=== PATIENT | female | born 1935 | race Caucasian/White ===

== ENCOUNTER → 2016-10-28 | Outpatient (CLI) | payer OTHER, BC ==
[~2016-10-28] MED LIST: AMLO2.5T PO; ASCA500 PO; ASCO500T16 PO; ASPEC325 PO; ASPI81TA28 PO; BIOT1TAB5 PO; CALC-459 PO; CALC500C3 PO; CARB1DRO22 OPB; CRAN500C2 PO; CYAN500T13 PO; DTRSR/2 PO; FRRG PO; GLCSC750600 PO; GLUC500C67 PO; MAGN250T22 PO; METO25TA56 PO; MULT-1092 PO; MULT-506 PO; OMEG12006 PO; VITA1TAB4 PO
--- NOTE | 2016-10-31 15:51 | MAMMOGRAPHY REPORT ---
BILATERAL DIGITAL SCREENING MAMMOGRAM WITH CAD: 10/28/2016 CLINICAL HISTORY: Routine screening. TECHNIQUE: Current study was also evaluated with a Computer Aided Detection (CAD) system. Bilateral CC and MLO views were obtained. COMPARISON: Comparison is made to exams dated: 06/12/2015 mammogram, 06/03/2013 mammogram, 05/21/2012 ma mmogram, 04/15/2011 mammogram, 04/13/2010 mammogram - [facility], and 06/12/2008. BREAST COMPOSITION: There are scattered areas of fibroglandular density in both breasts. FINDINGS: No suspicious masses, calcifications, or areas of architectural distortion are noted in ei ther breast. There has been no significant interval change compared to prior exams. IMPRESSION: ACR BI-RADS CATEGORY 1: NEGATIVE There is no mammographic evidence of malignancy. A 1 year screening mammogram is recommended. The pa tient will receive written notification of the results. Approximately 10% of breast cancers are not detected with mammography. A negative mammographic report should not delay biopsy if a clinically suggestive mass is present. Radha Thompson M.D. ah/:10/28/2016 16:14:59 Treatment Plant Operator: Jim SEVILLA(R)(M), [facility] letter sent: Normal 1/2 BI-RADS Code: ACR BI-RADS Category 1: Negative
== END | disposition home or self-care (01) ==
LOC: C.MAMM 14:43
PROVIDERS: ATTEND Family Medicine
DX: Z12.31 Encounter for screening mammogram for malignant neoplasm of breast (principal)

== ENCOUNTER 2016-11-26 19:56 | Observation (INO) | payer OTHER, BC ==
[~2016-11-26] VITALS: Ht 154.9 cm; Wt 79.9 kg
[~2016-11-26 19:56] MED LIST changes: -AMLO2.5T PO; -ASCO500T16 PO; -ASPI81TA28 PO; -CALC-459 PO; -DTRSR/2 PO; -GLUC500C67 PO; -METO25TA56 PO; -MULT-1092 PO
[2016-11-26 20:43] LABS: HEMATOCRIT 43.4 % (37-47); MEAN CELL VOLUME 91.8 fL (80-100); MEAN CORPUSCULAR HGB CONC 32.7 g/dl (32-36); MEAN PLATELET VOLUME 11.2 fL (7.4-10.4); PLATELET COUNT 208 K/uL (130-400); RED BLOOD COUNT 4.73 M/uL (4.2-5.4); WHITE BLOOD COUNT 9.25 K/uL (4.8-10.8)
[2016-11-26 20:50] LABS: PARTIAL THROMBOPLASTIN RATIO 0.9; PROTHROMBIN TIME (PATIENT) 10.2 SECONDS (9.0-12.0)
--- NOTE | 2016-11-26 21:06 | DIAGNOSTIC IMAGING REPORT ---
CHEST ONE VIEW PORTABLE HISTORY: 81 years-old Female syncope acute syncope COMPARISON: Chest radiograph 04/28/2014 TECHNIQUE: Portable upright AP view of the chest FINDINGS: Patient is rotated to the left. Cardiac silhouette is mildly enlarged. There is atherosclerosis of the aorta. Mild pulmonary vascular congestion without overt pulmonary edema. No pneumothorax, pleural effusion or focal airspace consolidation. Mild nodularity of the left midlung is seen suggesting pulmonary vasculature artifact. Convex right curvature of the thoracic spine is noted. IMPRESSION: No acute cardiopulmonary process. The above report was generated using voice recognition software. It may contain grammatical, syntax or spelling errors. Electronically signed by: Vini Adair M.D. 11/26/2016 9:04 PM Dictated Date/Time: 11/26/2016 9:01 PM
[2016-11-26 21:10] LABS: CALCIUM 9.5 mg/dl (8.5-10.1); CREATININE 1.2 mg/dl (0.60-1.20); THYROID STIMULATING HORMONE 7.62 uIu/ml (0.300-4.500)
[2016-11-26 21:11] LABS: BUN/CREATININE RATIO 22.3 (10-20); MAGNESIUM 2.2 mg/dl (1.8-2.4); POTASSIUM 4.4 mmol/L (3.5-5.1)
[2016-11-26] MEDS ORDERED: ASCO500T16 PO (21:30)
[2016-11-26] MEDS ORDERED: ASPI81TA28 PO (21:30)
[2016-11-26] MEDS ORDERED: CALC-459 PO (21:30)
[2016-11-26] MEDS ORDERED: AMLO2.5T PO (21:30)
[2016-11-26] MEDS ORDERED: MULT-1092 PO (21:30)
[2016-11-26] MEDS ORDERED: GLUC500C67 PO (21:30)
[2016-11-26] MEDS ORDERED: DTRSR/2 PO (21:30)
[2016-11-26] MEDS ORDERED: NSS + 20MEQ KCL 1000ML 1,000 ML IV SCH (21:46)
[2016-11-26 21:50] LABS: BASO % 0.2 %; BASO ABS # 0.02 K/uL (0-0.2); COMPLETE YES; EOS % 2.1 %; IG% 0.1 %; LYMPH % 55.2 %; LYMPH ABS # 5.11 K/uL (1.2-3.4); MONO % 9.5 %; NEUT % 32.9 %
[2016-11-26] MEDS ORDERED: ONDANSETRON INJ 2 MG/ML 2 ML VIAL IV PRN (22:00)
[2016-11-26] MEDS ORDERED: ACETAMINOPHEN 325 MG TAB PO PRN (22:00)
[2016-11-26 22:18] LABS: ALKALINE PHOSPHATASE 48 U/L (45-117); ALT/SGPT 29 U/L (12-78); AST/SGOT 24 U/L (15-37)
[2016-11-26] MEDS ORDERED: IV FLUIDS COMPLETED PRN (22:30)
[2016-11-26] MEDS ORDERED: GADAVIST IV PRN (22:45)
--- NOTE | 2016-11-26 23:28 | EMERGENCY ROOM VISIT NOTE ---
History Report prepared by Gauri: Sheyla Mercado Under the Supervision of: Dr. Paul Ni M.D. First contact with patient: 20:01 Stated Complaint: SYNCOPE, VOMITING History of Present Illness The patient is an 81 year old female who presents to the Emergency Room with complaints of an episode of syncope occurring just prior to arrival. Per EMS, the patient was eating dinner when she passed out and fell into her food. They state that she was mid-sentence when it happened. They report that when she came to she stated she vomited. They state she was only out momentarily. They state when they got there she had a blood pressure that was 200/100 something. They states that when she was on the way here she vomited again and her heart rate dropped to the 20s when she did so. The patient states that she felt fine all day. She denies trying new foods or traveling. She notes that she was not nauseous before passing out, but currently is. The patient currently feels lightheaded, but denies having this feeling before passing out. She denies feeling heart palpitations before it happened. She notes that she intermittently gets this back pain between her scapula, but has had it for years. She notes she took two Aleve for it. She denies fever, hematochezia, chest pain, and shortness of breath. The patient states that she felt clammy and diaphoretic when she first came to. She denies abdominal pain, numbness or weakness on one side of the body, and any incontinence. Her family denies seeing any seizure like activity. The patient denies leg pain and leg swelling. Per the son that was there, she was talking and started leaning forward. He reports she put her hands on the table and then slumped forward. He states that he walked around the table to help stabilize her. He reports that she said she was dizzy to him at this time. The son states all of sudden her legs went out from under her and she fell. He states that he was holding her the whole time and did not hit her head. He states that he then picked her up and sat her back in the chair with her son. He notes that she did not come to until she was in the chair and that right away she knew who he was and where she was. He denies noticing any seizure activity or mumbling. He notes she just seemed limp and then vomited a few minutes later. Source of History: patient, family, EMS Onset: prior to arrival Position: other (global) Quality: other (global) Timing: other (episode) Associated Symptoms: + diaphoresis, + nausea, + vomiting, No fevers, No chest pain, No SOB, No abdominal pain, No hematochezia, No weakness, No numbness Note: The patient complains of feeling lightheaded and clammy. The patient denies feeling any heart palpitations, incontinence, leg pain, and leg swelling. The son denies seeing seizure activity and the patient mumbling. Review of Systems See HPI for pertinent positives & negatives. A total of 10 systems reviewed and were otherwise negative. Past Medical & Surgical Medical Problems: (1) HTN (hypertension) (2) Syncope and collapse Family History Patient reports no known family medical history. Social History Smoking Status: Never Smoker Drug Use: cocaine Marital Status: Housing Status: lives alone Occupation Status: retired Current/Historical Medications Scheduled Amlodipine Besylate (Norvasc), 2.5 MG PO DAILY Ascorbic Acid (Ascorbic Acid), 500 MG PO DAILY Aspirin (Aspirin Ec), 81 MG PO DAILY Biotin (Biotin), 1,000 MCG PO DAILY Calcium Carbonate-Cholecalcife (Calcium 600+D 600-800 mg-Unit), 1 TAB PO BID Cranberry (Vaccinium Macrocarp (Cranberry), 500 MG PO DAILY Glucosamine-Chondroitin (Cosamin Ds), 2 CAP PO DAILY Multiple Vitamins W/ Minerals (Centrum Silver 50+Women), 1 TAB PO DAILY [place]-3 Fatty Acids ([place] 3), 125 MG PO DAILY Tolterodine Tartrate (Detrol LA), 2 MG PO HS Vitamin E (Vitamin E), 400 INTER.UNIT PO DAILY Allergies Coded Allergies: Sulfa Drugs (Verified Allergy, Mild, confusion, 05/27/14) per pt, 'sulfa drugs caused a coma, but i was never taken to the hospital' Penicillins (Verified Allergy, Unknown, RASH/NAUSEA, 05/27/14) Physical Exam Vital Signs Date Time Temp Pulse Resp B/P (MAP) Pulse Ox O2 Delivery O2 Flow Rate FiO2 11/26/16 22:59 77 18 148/80 95 Room Air 11/26/16 21:19 70 18 145/87 98 Room Air 11/26/16 21:04 74 11/26/16 20:31 93 Room Air 11/26/16 20:06 36.5 81 18 154/92 94 Room Air Physical Exam Constitutional: Vital signs reviewed. Eyes: Pupils are equal round reactive to light. Conjunctiva are noninjected. ENT: Pharynx is clear without erythema or exudate. Mucous membranes are moist. Neck supple without meningeal signs. Respiratory: Clear to auscultation bilaterally. Breath sounds are equal bilaterally. Cardiovascular: Regular rate and rhythm. No rubs or gallops. No carotid bruits. GI: Soft, nondistended and nontender. Bowel sounds are present. Musculoskeletal: No peripheral edema. No lower extremity tenderness. Integumentary: No cyanosis. Neurological: The patient is awake and alert. Cranial nerves II-XII are intact. Motor is 5 out of 5 all extremities. Sensation is intact to light touch all extremities. Normal speech. No pronator drift. Psychiatric: Normal affect. Medical Decision & Procedures ER Provider Diagnostic Interpretation: Radiology results as stated below per my review and the radiologist's interpretation: CHEST ONE VIEW PORTABLE HISTORY: 81 years-old Female syncope acute syncope COMPARISON: Chest radiograph 04/28/2014 TECHNIQUE: Portable upright AP view of the chest FINDINGS: Patient is rotated to the left. Cardiac silhouette is mildly enlarged. There is atherosclerosis of the aorta. Mild pulmonary vascular congestion without overt pulmonary edema. No pneumothorax, pleural effusion or focal airspace consolidation. Mild nodularity of the left midlung is seen suggesting pulmonary vasculature artifact. Convex right curvature of the thoracic spine is noted. IMPRESSION: No acute cardiopulmonary process. The above report was generated using voice recognition software. It may contain grammatical, syntax or spelling errors. Electronically signed by: Vini Adair M.D. 11/26/2016 9:04 PM Dictated Date/Time: 11/26/2016 9:01 PM Laboratory Results 11/26/16 19:43 Red Blood Count 4.73, Mean Corpuscular Volume 91.8, Mean Corpuscular Hemoglobin 30.0, Mean Corpuscular Hemoglobin Concent 32.7, Mean Platelet Volume 11.2, Neutrophils (%) (Auto) 32.9, Lymphocytes (%) (Auto) 55.2, Monocytes (%) (Auto) 9.5, Eosinophils (%) (Auto) 2.1, Basophils (%) (Auto) 0.2, Neutrophils # (Auto) 3.04, Lymphocytes # (Auto) 5.11, Monocytes # (Auto) 0.88, Eosinophils # (Auto) 0.19, Basophils # (Auto) 0.02 11/26/16 19:43 Test 11/26/16 19:43 11/26/16 20:35 White Blood Count 9.25 K/uL (4.8-10.8) Red Blood Count 4.73 M/uL (4.2-5.4) Hemoglobin 14.2 g/dL (12.0-16.0) Hematocrit 43.4 % (37-47) Mean Corpuscular Volume 91.8 fL (80-100) Mean Corpuscular Hemoglobin 30.0 pg (25-34) Mean Corpuscular Hemoglobin Concent 32.7 g/dl (32-36) Platelet Count 208 K/uL (130-400) Mean Platelet Volume 11.2 fL (7.4-10.4) Neutrophils (%) (Auto) 32.9 % Lymphocytes (%) (Auto) 55.2 % Monocytes (%) (Auto) 9.5 % Eosinophils (%) (Auto) 2.1 % Basophils (%) (Auto) 0.2 % Neutrophils # (Auto) 3.04 K/uL (1.4-6.5) Lymphocytes # (Auto) 5.11 K/uL (1.2-3.4) Monocytes # (Auto) 0.88 K/uL (0.11-0.59) Eosinophils # (Auto) 0.19 K/uL (0-0.5) Basophils # (Auto) 0.02 K/uL (0-0.2) RDW Standard Deviation 44.5 fL (36.4-46.3) RDW Coefficient of Variation 13.3 % (11.5-14.5) Immature Granulocyte % (Auto) 0.1 % Immature Granulocyte # (Auto) 0.01 K/uL (0.00-0.02) Prothrombin Time 10.2 SECONDS (9.0-12.0) Prothromb Time International Ratio 1.0 (0.9-1.1) Activated Partial Thromboplast Time 23.0 SECONDS (21.0-31.0) Partial Thromboplastin Ratio 0.9 Anion Gap 8.0 mmol/L (3-11) Est Creatinine Clear Calc Drug Dose 34.5 ml/min Estimated GFR () 48.4 Estimated GFR (Non- 41.8 BUN/Creatinine Ratio 22.3 (10-20) Calcium Level 9.5 mg/dl (8.5-10.1) Magnesium Level 2.2 mg/dl (1.8-2.4) Total Bilirubin 0.3 mg/dl (0.2-1) Direct Bilirubin < 0.1 mg/dl (0-0.2) Aspartate Amino Transf (AST/SGOT) 24 U/L (15-37) Alanine Aminotransferase (ALT/SGPT) 29 U/L (12-78) Alkaline Phosphatase 48 U/L (45-117) Total Protein 7.7 gm/dl (6.4-8.2) Albumin 4.2 gm/dl (3.4-5.0) Thyroid Stimulating Hormone (TSH) 7.620 uIu/ml (0.300-4.500) Free Thyroxine 1.00 ng/dl (0.80-1.60) Bedside Troponin I < 0.030 ng/ml (0-0.045) Laboratory results as reviewed by me. ECG Indication: syncope Rate (beats per minute): 75 Rhythm: sinus rhythm Findings: PAC, PVC, no acute ischemic change, other (no heart block) ED Course 2020: The patient was evaluated in room A10. A complete history and physical exam was performed. 2100: I spoke with Dr. Rodríguez. We discussed the patient and him results. The patient will be further evaluated by him. Medical Decision This is an 81-year-old female who presents with a single episode. Differential diagnosis includes dysrhythmia, bradycardia, seizure, metabolic derangement, vasovagal syncope, stomach hypertension, anemia. I did perform a limited focused review of portions of the patient's old chart on the electronic medical record. The patient had a carotid ultrasound in that showed minimal plaque formation. I did evaluate the patient as noted above. IV access was established. The patient was placed on a continuous telemetry monitor. I did order and personally review the patient's 12-lead EKG and chest x-ray as described above. The patient has PVCs and PACs on her twelve-lead EKG. No acute ischemia is noted. Her chest x-ray does not show evidence of widened mediastinum. I did order and review the patient's blood work as noted in the electronic medical record. Blood work is unremarkable other than an elevated TSH. Her free T3 is normal. I did recommend hospitalization for further evaluation of her symptoms. I did discuss case with the hospitalist and renal case manager. Medication Reconcilliation Current Medication List: was personally reviewed by me Blood Pressure Screening Patient's blood pressure: Elevated blood pressure Will be further monitored by the hospitalist. Consults Time Called: 2047 Consulting Physician: Dr. Rodríguez Returned Call: [address] Rodríguez. We discussed the patient and him results. The patient will be further evaluated by him. Impression Primary Impression: Syncope Additional Impression: Bradycardia Scribe Attestation The scribe's documentation has been prepared under my direct and personally reviewed by me in its entirety. I confirm that the note above accurately reflects all work, treatment, procedures, and medical decision making performed by me. Departure Information Dispostion Being Evaluated By Hospitalist Referrals Myla Schulz M.D. (PCP) Problem Qualifiers Primary Impression: Syncope Syncope type: unspecified Qualified Codes: R55 - Syncope and collapse
[2016-11-27] VITALS (7 sets, daily range): BP systolic 152–179; BP diastolic 52–92; PULSE 62–78; TEMP 36.3–36.9; O2SAT 93–98; Ht 154.9 cm; Wt 79.9 kg
[2016-11-27] MEDS: NSS + 20MEQ KCL 1000ML 1,000 ML IV SCH ×2 (01:07→14:04)
--- NOTE | 2016-11-27 02:18 | History and Physical ---
History & Physical Date & Time of Service: Nov 27, 2016 at 01:58 Chief Complaint: Syncope And Collapse Primary Care Physician: Myla Schulz M.D. History of Present Illness Source: patient, family The patient is an 81-year-old female presents emergency department with a syncopal episode that occurred while at dinner tonight, just prior to arrival. Family reports that she was in mid sentence when it happened, and when she came to she vomited. EMS reports that her blood pressure was 200/100 upon their arrival and that while she was on her way to the hospital she vomited again and her heart rate dropped to 27 that time. The patient reports that she had felt her usual self prior to this event. Her main symptom at this time is primarily feeling woozy. She has chronic interscapular pain which is unchanged. She did not have any loss of bowel or bladder function during this event. Family reports no seizure-like activity, did not have loss of bowel or bladder control , and did not have any characteristic symptoms of a post ictal state. Family History Patient reports no known family medical history. Social History Smoking Status: Never Smoker Smokeless Tobacco Use: No Alcohol Use: none Drug Use: cocaine Marital Status: Occupational Status: retired Immunizations History of Influenza Vaccine: Unknown History of Tetanus Vaccine?: Unknown History of Pneumococcal: Unknown History of Hepatitis B Vaccine: Unknown Multi-Drug Resistant Organisms History of MDRO: No Allergies Coded Allergies: Sulfa Drugs (Verified Allergy, Mild, confusion, 05/27/14) per pt, 'sulfa drugs caused a coma, but i was never taken to the hospital' Penicillins (Verified Allergy, Unknown, RASH/NAUSEA, 05/27/14) Home Medications Scheduled Amlodipine Besylate (Norvasc), 2.5 MG PO DAILY Ascorbic Acid (Ascorbic Acid), 500 MG PO DAILY Aspirin (Aspirin Ec), 81 MG PO DAILY Biotin (Biotin), 1,000 MCG PO DAILY Calcium Carbonate-Cholecalcife (Calcium 600+D 600-800 mg-Unit), 1 TAB PO BID Cranberry (Vaccinium Macrocarp (Cranberry), 500 MG PO DAILY Glucosamine-Chondroitin (Cosamin Ds), 2 CAP PO DAILY Multiple Vitamins W/ Minerals (Centrum Silver 50+Women), 1 TAB PO DAILY [place]-3 Fatty Acids ([place] 3), 125 MG PO DAILY Tolterodine Tartrate (Detrol LA), 2 MG PO HS Vitamin E (Vitamin E), 400 INTER.UNIT PO DAILY Review of Systems The patient denies chest pain, palpitations, shortness of breath, cough, lower extremity swelling, vision change, hearing change, sore throat, fevers, chills, sweats, weight change, diarrhea or constipation, abdominal pain, pelvic pain, blood in urine or stool, dysuria, urinary frequency or urgency, headache, rash , abnormal bruising or bleeding, imbalance, focal weakness, numbness or tingling in arms or legs, generalized arthralgias or myalgias, or night sweats. The review of systems is otherwise negative other than for that already noted above, and at least 10 systems have been reviewed. Physical Exam Vital Signs Date Time Temp Pulse Resp B/P (MAP) Pulse Ox O2 Delivery O2 Flow Rate FiO2 11/27/16 01:23 Room Air 11/27/16 00:30 36.3 78 18 152/83 95 Room Air 11/26/16 22:59 77 18 148/80 95 Room Air 11/26/16 21:19 70 18 145/87 98 Room Air 11/26/16 21:04 74 11/26/16 20:31 93 Room Air 11/26/16 20:06 36.5 81 18 154/92 94 Room Air The patient is awake, well-developed and adequately nourished, alert and oriented 3, normocephalic and atraumatic, lying in bed and in no acute distress. HEENT--PERRL, EOMI, mucous membranes and oropharynx dry. Neck--supple, no JVD or bruits, thyroid normal, trachea midline, no adenopathy. Heart--normal S1 and S2, no extra beats, no murmurs, rubs or gallops. Lungs--clear bilaterally with good air movement, no respiratory distress, no accessory muscle use. Abdomen--normal bowel sounds and soft, nontender and nondistended, no hernias or masses, no organomegaly. Extremities--no cyanosis, clubbing or edema. There are good distal pulses b/l. Dermatologic--normal skin turgor, normal color, warm and dry, no abnormal lymph nodes, no rash. Neurologic--cranial nerves II through XII grossly intact, motor and sensory examination normal. Rheumatologic--normal range of motion, nontender, muscles and joints. Psychiatric--normal affect. Diagnostics Laboratory Results Results Past 24 Hours Test 11/26/16 19:43 11/26/16 20:35 Range/Units White Blood Count 9.25 4.8-10.8 K/uL Red Blood Count 4.73 4.2-5.4 M/uL Hemoglobin 14.2 12.0-16.0 g/dL Hematocrit 43.4 37-47 % Mean Corpuscular Volume 91.8 80-100 fL Mean Corpuscular Hemoglobin 30.0 25-34 pg Mean Corpuscular Hemoglobin Concent 32.7 32-36 g/dl Platelet Count 208 130-400 K/uL Mean Platelet Volume 11.2 7.4-10.4 fL Neutrophils (%) (Auto) 32.9 % Lymphocytes (%) (Auto) 55.2 % Monocytes (%) (Auto) 9.5 % Eosinophils (%) (Auto) 2.1 % Basophils (%) (Auto) 0.2 % Neutrophils # (Auto) 3.04 1.4-6.5 K/uL Lymphocytes # (Auto) 5.11 1.2-3.4 K/uL Monocytes # (Auto) 0.88 0.11-0.59 K/uL Eosinophils # (Auto) 0.19 0-0.5 K/uL Basophils # (Auto) 0.02 0-0.2 K/uL RDW Standard Deviation 44.5 36.4-46.3 fL RDW Coefficient of Variation 13.3 11.5-14.5 % Immature Granulocyte % (Auto) 0.1 % Immature Granulocyte # (Auto) 0.01 0.00-0.02 K/uL Prothrombin Time 10.2 9.0-12.0 SECONDS Prothromb Time International Ratio 1.0 0.9-1.1 Activated Partial Thromboplast Time 23.0 21.0-31.0 SECONDS Partial Thromboplastin Ratio 0.9 Sodium Level 141 136-145 mmol/L Potassium Level 4.4 3.5-5.1 mmol/L Chloride Level 107 98-107 mmol/L Carbon Dioxide Level 26 21-32 mmol/L Anion Gap 8.0 3-11 mmol/L Blood Urea Nitrogen 27 7-18 mg/dl Creatinine 1.20 0.60-1.20 mg/dl Est Creatinine Clear Calc Drug Dose 34.5 ml/min Estimated GFR () 48.4 Estimated GFR (Non- 41.8 BUN/Creatinine Ratio 22.3 10-20 Random Glucose 121 70-99 mg/dl Calcium Level 9.5 8.5-10.1 mg/dl Magnesium Level 2.2 1.8-2.4 mg/dl Total Bilirubin 0.3 0.2-1 mg/dl Direct Bilirubin < 0.1 0-0.2 mg/dl Aspartate Amino Transf (AST/SGOT) 24 15-37 U/L Alanine Aminotransferase (ALT/SGPT) 29 12-78 U/L Alkaline Phosphatase 48 45-117 U/L Total Protein 7.7 6.4-8.2 gm/dl Albumin 4.2 3.4-5.0 gm/dl Thyroid Stimulating Hormone (TSH) 7.620 0.300-4.500 uIu/ml Free Thyroxine 1.00 0.80-1.60 ng/dl Bedside Troponin I < 0.030 0-0.045 ng/ml Diagnostic Radiology Patient Name: VIKTOR LYLE Unit Number: [id number] Dictated: 11/26/162100 Transcribed: 11/26/162100 [facility] Printed Date/Time: [~ rep prt dt]/[~ rep prt tm] [~ rep ct labl] - [~ rep ct ivnm] [facility] [place] [address] Dictated: 11/26/162100 Transcribed: 11/26/162100 [facility] Printed Date/Time: [~ rep prt dt]/[~ rep prt tm] [~ rep ct labl] - [~ rep ct ivnm] CHEST ONE VIEW PORTABLE HISTORY: 81 years-old Female syncope acute syncope COMPARISON: Chest radiograph 04/28/2014 TECHNIQUE: Portable upright AP view of the chest FINDINGS: Patient is rotated to the left. Cardiac silhouette is mildly enlarged. There is atherosclerosis of the aorta. Mild pulmonary vascular congestion without overt pulmonary edema. No pneumothorax, pleural effusion or focal airspace consolidation. Mild nodularity of the left midlung is seen suggesting pulmonary vasculature artifact. Convex right curvature of the thoracic spine is noted. IMPRESSION: No acute cardiopulmonary process. The above report was generated using voice recognition software. It may contain grammatical, syntax or spelling errors. Electronically signed by: Vini Adair M.D. 11/26/2016 9:04 PM Dictated Date/Time: 11/26/2016 9:01 PM The status of this report is Signed. Draft = Not yet reviewed or approved by Radiologist. Signed = Reviewed and approved by Radiologist. <AttendingPhy></AttendingPhy> <FamilyPhy>Myla Schulz M.D.</FamilyPhy> < PrimaryPhy>Myla Schulz M.D.</PrimaryPhy> <UnitNumber>[id number]</UnitNumber > <VisitNumber>[id number]</VisitNumber> <PatientName>VALDOVIKTOR Ray</ PatientName> <DateOfBirth>1935</DateOfBirth> <Location>[facility]</Location> < ServiceDate>11/26/16</ServiceDate> <MNE>ESINDI</MNE> <OrderingPhy>Paul Ni MD</OrderingPhy> <OrderingPhyMNE>f rep ord dr de guzman</OrderingPhyMNE> < DictatingPhyMNE>f rep dict dr de guzman</DictatingPhyMNE> <CCListMNE>f rep ct gege</ CCListMNE> <AdmittingPhyMNE>f pt admit dr de guzman</AdmittingPhyMNE> <AttendingPhyMNE >f pt attend dr de guzman</AttendingPhyMNE> <ConsultingPhyMNE>f pt consult dr de guzman</ConsultingPhyMNE> <FamilyPhyMNE>f pt fam dr de guzman</FamilyPhyMNE> <OtherPhyMNE>f pt other dr de guzman</OtherPhyMNE> < PrimaryPhyMNE>f pt prim care dr de guzman</PrimaryPhyMNE> <ReferringPhyMNE>f pt referring dr de guzman</ReferringPhyMNE> EKG EKG shows normal sinus rhythm at 75 bpm, marked sinus arrhythmia, PVCs, no acute ST-T changes. Impression Assessment and Plan Syncope and collapse-- The patient will be admitted to telemetry for serial cardiac enzymes, cardiac rhythm monitoring and a 2-D echocardiogram with Dopplers. No CT of head performed in the ED. Order MRI brain combo, MRA of neck combo, and an MRA of head without contrast. Continue amlodipine 2.5 mg by mouth daily, and enteric-coated aspirin 81 mg by mouth daily. Urinary Bladder spasm-- Continue Detrol LA 2 mg by mouth at bedtime. Nutraceuticals-- Continue ascorbic acid, biotin, calcium, cranberry, glucosamine/chondroitin, multivitamin with minerals, omega-3 fatty acids and vitamin E. Level of Care Telemetry Advanced Directives Existing Advance Directive: Yes Existing Living Will: Yes Existing Power of Director Funds Development: Yes Resuscitation Status FULL RESUSCITATION VTE Prophylaxis VTE Risk Assessment Done? Y/N: Yes Risk Level: Moderate Given or contraindicated: SCD's Social Service Consult None Apply
--- NOTE | 2016-11-27 05:51 | DIAGNOSTIC IMAGING REPORT ---
MRA HEAD WITHOUT CONTRAST CLINICAL HISTORY: 81 years-old Female presenting with decreased consciousness with fall to the floor, and needs to upper and, slightly nauseated. TECHNIQUE: MR angiography of the head was performed without the use of intravenous contrast using 3-D [id number]-[id number] technique. 3-D volumetric and/or maximum intensity projection (MIP) images were subsequently reconstructed for review. IV contrast: None.. COMPARISON: None. FINDINGS: Anterior circulation demonstrates mild focal narrowing of the left supraclinoid internal carotid artery (less than 50% narrowing) with a patent left carotid artery terminus. The intracranial portion of the right internal carotid artery is patent. Relative hypoplasia of the A1 segment of the left anterior cerebral artery. Bilateral middle and anterior cerebral arteries patent. Anterior communicating artery patent. Posterior circulation demonstrates codominant vertebral arteries. Basilar, superior cerebellar, and posterior cerebral arteries patent. Poor visualization or hypoplasia/aplasia of the bilateral posterior communicating arteries. IMPRESSION: 1. Mild narrowing of the left supraclinoid ICA. No other significant stenosis. No significant aneurysm or focal vessel occlusion. Electronically signed by: Griffin Rutherford M.D. 11/27/2016 5:50 AM Dictated Date/Time: 11/27/2016 5:44 AM
--- NOTE | 2016-11-27 05:57 | DIAGNOSTIC IMAGING REPORT ---
BRAIN COMBO CLINICAL HISTORY: 81 years-old Female presenting with decreased consciousness with fall to floor, amnesia of event, slightly nauseated. TECHNIQUE: Multisequence, multiplanar MR imaging of the brain was performed before and after the administration of intravenous contrast. IV contrast: 8 mL of Gadavist. COMPARISON: 04/24/2013. FINDINGS: Proportional ventricular and sulcal prominence, likely age-related parenchymal volume loss. Periventricular and subcortical white matter T2/FLAIR hyperintensity, nonspecific but likely indicative of chronic small vessel ischemic change. No mass effect or midline shift. No restricted diffusion to suggest acute ischemia. No hemorrhage. No extra-axial fluid collection. T2 skull base flow voids preserved. Bone marrow signal intensity within the calvarium within normal limits. Mild mucosal thickening in the maxillary sinuses. Bilateral galena lenses of the globes are absent. IMPRESSION: 1. Chronic small vessel ischemic change. No acute intracranial abnormality. No abnormal enhancement. Electronically signed by: Griffin Rutherford M.D. 11/27/2016 5:55 AM Dictated Date/Time: 11/27/2016 5:50 AM
--- NOTE | 2016-11-27 06:04 | DIAGNOSTIC IMAGING REPORT ---
MRA NECK COMBO CLINICAL HISTORY: 81 years-old Female presenting with decreased consciousness with fall to the floor, amnesia of event, slightly nauseated. TECHNIQUE: MR angiography of the neck was performed before and after the administration of intravenous contrast. 3-D volumetric and/or maximum intensity projection (MIP) images were subsequently reconstructed for review. IV contrast: 8 mL of Gadavist. Stenosis measurements were based on NASCET-like criteria. COMPARISON: Ultrasound from 03/22/2013. FINDINGS: Three-vessel aortic arch with patent origins of the major branch vessels. Right common carotid artery patent. Right internal carotid artery patent. Left common carotid artery with atherosclerosis of the carotid bulb with resultant mild narrowing (less than 50%). Left internal carotid artery slightly tortuous but patent. Limited intracranial evaluation of the anterior circulation demonstrates mild stenosis of the supraclinoid left ICA and otherwise patent arteries. Right vertebral artery patent at its origin and along its course. Left vertebral artery also patent at its origin and throughout its course though demonstrating atherosclerotic luminal irregularity in the intracranial portion. Codominant vertebral arteries. Limited intracranial evaluation of the posterior circulation demonstrates mild atherosclerosis of the basilar artery. IMPRESSION: 1. 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 Mild atherosclerotic irregularity of the intracranial portion of the left vertebral artery. No significant stenosis of the cervical vessels. Electronically signed by: Griffin Rutherford M.D. 11/27/2016 6:03 AM Dictated Date/Time: 11/27/2016 5:56 AM
[2016-11-27 06:56] LABS: PROTHROMBIN TIME (PATIENT) 10.6 SECONDS (9.0-12.0)
[2016-11-27 07:04] LABS: BASO % 0.2 %; BASO ABS # 0.01 K/uL (0-0.2); COMPLETE YES; EOS % 1.4 %; HEMATOCRIT 38.4 % (37-47); IG% 0.2 %; LYMPH % 30.4 %; LYMPH ABS # 1.68 K/uL (1.2-3.4); MEAN CELL VOLUME 92.8 fL (80-100); MEAN CORPUSCULAR HGB CONC 32.3 g/dl (32-36); MEAN PLATELET VOLUME 9.6 fL (7.4-10.4); MONO % 9.8 %; PLATELET COUNT 210 K/uL (130-400); RED BLOOD COUNT 4.14 M/uL (4.2-5.4); WHITE BLOOD COUNT 5.52 K/uL (4.8-10.8)
[2016-11-27] MEDS ORDERED: PERFLUTREN LIPID MICROSPHERE (DEFINITY) IV ONE (07:09)
[2016-11-27 07:23] LABS: CKMB/CK RATIO 1.7 (0-3.0)
[2016-11-27 07:25] LABS: BUN/CREATININE RATIO 24.8 (10-20); CALCIUM 8.3 mg/dl (8.5-10.1); CREATININE 0.86 mg/dl (0.60-1.20); MAGNESIUM 2.2 mg/dl (1.8-2.4)
--- NOTE | 2016-11-27 08:10 | Family Medicine Progress Note ---
Progress Note Date of Service Nov 27, 2016. Objective Vital Signs Date Time Temp Pulse Resp B/P (MAP) Pulse Ox O2 Delivery O2 Flow Rate FiO2 11/27/16 07:57 36.7 74 16 161/92 (115) 93 Room Air 11/27/16 04:45 36.4 69 20 156/81 (106) 94 Room Air 11/27/16 04:00 Room Air 11/27/16 01:23 Room Air 11/27/16 00:30 36.3 78 18 152/83 95 Room Air 11/26/16 22:59 77 18 148/80 95 Room Air 11/26/16 21:19 70 18 145/87 98 Room Air 11/26/16 21:04 74 11/26/16 20:31 93 Room Air 11/26/16 20:06 36.5 81 18 154/92 94 Room Air Resident Tracking Resident Involvement: Resident Care Provided Care Provided: Adult Hospital Medicine
[2016-11-27 08:57] LABS: MANUAL MICROSCOPIC REQUIRED? NO; REVIEW REQ? NO; URINE APPEARANCE CLOUDY (CLEAR); URINE BILIRUBIN NEG (NEG); URINE COLOR YELLOW; URINE EPITHELIAL CELL AUTO >30 /lpf (0-5); URINE NITRITE POS (NEG); URINE PH 7.5 (4.5-7.5); URINE SPECIFIC GRAVITY 1.021 (1.000-1.030); UROBILINOGEN NEG (NEG); ZZUR CULT IF INDIC CLEAN CATCH YES
[2016-11-27] MEDS ORDERED: GLUCOSAMINE CHONDROITIN PO SCH (09:00)
[2016-11-27] MEDS ORDERED: ASCORBIC ACID 500 MG TAB PO SCH (09:00)
[2016-11-27] MEDS ORDERED: ENOXAPARIN 40 MG/0.4 ML SYR SC SCH (09:00)
[2016-11-27] MEDS ORDERED: ASPIRIN 81 MG ECTAB PO SCH (09:00)
[2016-11-27] MEDS ORDERED: AMLODIPINE BESYLATE 5 MG TAB PO SCH (09:00)
[2016-11-27] MEDS ORDERED: CALCIUM 600MG + VIT D 400 IU TAB PO SCH (09:00)
[2016-11-27] MEDS ORDERED: CEROVITE ADV FORMULA TAB PO SCH (09:00)
[2016-11-27] MEDS ORDERED: TOCOPHERYL, DL-ALPHA 400 INTER.UNIT CAP PO SCH (09:00)
[2016-11-27] MEDS ORDERED: OMEGA-3 (PURIFIED FISH OIL) 1 GM CAP PO SCH (09:00)
[2016-11-27] MEDS ORDERED: NON-FORMULARY MEDICATION (Cranberry (Vaccinium Macrocarp (Cranberry) 500 MG) PO SCH (09:00)
[2016-11-27] MEDS ORDERED: NON-FORMULARY MEDICATION (Biotin 1,000 MCG) PO SCH (09:00)
--- NOTE | 2016-11-27 09:46 | ECHOCARDIOGRAM REPORT ---
*NOTICE TO RECEIVING LIBERTARIAN AGENCY This information is strictly Confidential and protected under [place] law. [place] law prohibits you from making any further disclosure of this information unless further disclosure is expressly permitted by the written consent of the person to whom it pertains or is authorized by law. A general authorization for the release of medical or other information is not sufficient for this purpose. Hospital accepts no responsibility if the information is made available to any other person, INCLUDING THE PATIENT. Interpretation Summary * Name: VIKTOR LYLE Study Date: 11/27/2016 06:27 AM BP: 156/81 mmHg * Patient Location: C.2T\S\S241\S\2 HR: 68 * : 1935 (M/d/yy) Gender: Female Height: 61 in * Age: 81 yrs Ethnicity: CA Weight: 180 lb * Ordering Physician: Bhavin Rodríguez * Referring Physician: Self, Referred * Performed By: Doni Benedict RDCS * * Reason For Study: Hypertension, syncope * BSA: 1.8 m2 * -- Conclusions -- * The left ventricle is mildly dilated. * There is borderline concentric left ventricular hypertrophy. * Left ventricular systolic function is normal. * Grade I diastolic dysfunction, (abnormal relaxation pattern). * There are regional wall motion abnormalities as specified. * The left atrium is borderline dilated. Procedure Details * A complete two-dimensional transthoracic echocardiogram was performed (2D, M-mode, Doppler and color flow Doppler). * The study was technically difficult. * The study was technically difficult, but visualization was adequate with the administration of Definity ultrasound contrast. * A contrast injection of Definity was performed to improve assessment of LV function. * Contrast was injected into an intravenous site in the left arm. * One vial of Definity ultrasound contrast was diluted in normal saline to a total volume of 10 ml. A total of '4' ml of solution was administered during imaging. * Lot # [id number] of Definity utilized for procedure. * Expiration date . * The attending nurse who injected the contrast agent was KATY Arboleda. Left Ventricle * The left ventricle is mildly dilated. * There is borderline concentric left ventricular hypertrophy. * Left ventricular systolic function is normal. * Ejection Fraction = 55-60%. * Grade I diastolic dysfunction, (abnormal relaxation pattern). * There are regional wall motion abnormalities as specified. * There is basal inferior hypokinesis and mild hypokinesis of the very distal anterolateral left ventricle. Right Ventricle * The right ventricle is normal in size and function. * The right ventricular systolic function is normal as assessed by tricuspid annular plane systolic excursion (TAPSE) (normal >1.5 cm). Atria * The left atrium is borderline dilated. * Right atrial size is normal. Mitral Valve * The mitral valve is grossly normal. * Significant mitral regurgitation is absent. Tricuspid Valve * The tricuspid valve is not well visualized, but is grossly normal. * Significant tricuspid regurgitation is absent. Aortic Valve * Aortic valve structure appears normal and is likely trileaflet * No hemodynamically significant valvular aortic stenosis. * No aortic regurgitation is present. Great Vessels * The aortic root is normal size. Pericardium/Pleural * There is no pericardial effusion. Great Vessels * Normal inferior vena cava diameter and respiratory variation suggests normal central venous pressure. MMode 2D Measurements and Calculations IVSd 1.2 cm IVSs 1.4 cm LVIDd 5.5 cm LVIDs 4.0 cm LVPWd 1.2 cm LVPWs 1.4 cm IVS/LVPW 1.0 FS 26.2 % EDV(Teich) 145.8 ml ESV(Teich) 71.6 ml EF(Teich) 50.9 % EDV(cubed) 164.0 ml ESV(cubed) 65.8 ml EF(cubed) 59.9 % % IVS thick 18.5 % % LVPW thick 20.2 % LV mass(C)d 261.4 grams LV mass(C)dI 144.7 grams/m\S\2 LV mass(C)s 211.2 grams LV mass(C)sI 116.9 grams/m\S\2 SV(Teich) 74.2 ml SI(Teich) 41.1 ml/m\S\2 SV(cubed) 98.2 ml SI(cubed) 54.4 ml/m\S\2 Ao root diam 2.8 cm Ao root area 6.1 cm\S\2 ACS 1.8 cm LA dimension 4.0 cm asc Aorta Diam 3.2 cm LA/Ao 1.4 LVOT diam 2.0 cm LVOT area 3.1 cm\S\2 LVAd ap4 27.5 cm\S\2 LVLd ap4 7.5 cm EDV(MOD-sp4) 82.5 ml LVAs ap4 16.3 cm\S\2 LVLs ap4 6.1 cm ESV(MOD-sp4) 36.1 ml EF(MOD-sp4) 56.2 % LVAd ap2 23.5 cm\S\2 LVLd ap2 7.4 cm EDV(MOD-sp2) 61.8 ml LVAs ap2 14.2 cm\S\2 LVLs ap2 6.0 cm ESV(MOD-sp2) 27.4 ml EF(MOD-sp2) 55.7 % SV(MOD-sp4) 46.4 ml SI(MOD-sp4) 25.7 ml/m\S\2 SV(MOD-sp2) 34.4 ml SI(MOD-sp2) 19.0 ml/m\S\2 Doppler Measurements and Calculations MV E max zoe 74.7 cm/sec MV A max zoe 89.7 cm/sec MV E/A 0.83 MV dec time 0.18 sec Ao V2 max 119.3 cm/sec Ao max PG 5.7 mmHg Ao max PG (full) 3.8 mmHg MELVI(V,A) 1.8 cm\S\2 MELVI(V,D) 1.8 cm\S\2 LV V1 max PG 1.9 mmHg LV V1 max 68.4 cm/sec PA V2 max 112.9 cm/sec PA max PG 5.1 mmHg
[2016-11-27 14:54] LABS: CKMB/CK RATIO 2.1 (0-3.0)
[2016-11-27] MEDS ORDERED: METO25TA56 PO (16:27)
--- NOTE | 2016-11-27 16:40 | Discharge Instructions ---
Discharge Instructions Date of Service Nov 27, 2016. Admission Reason for Admission: Syncope And Collapse Discharge Discharge Diagnosis / Problem: Syncopal event Discharge Goals Goal(s): Decrease discomfort, Learn about illness, Diagnostic testing Activity Recommendations Activity Limitations: resume your previous activity . Instructions / Follow-Up Instructions / Follow-Up You were admitted to hospital with a syncopal (fainting) event. EKG showed a grossly normal rhythm. MRI imaging was done of the brain was negative for any acute disease. MRI imaging of the head and neck showed mild plaque disease, which again would not account for the fainting. Echo of the heart did show a small portion at the bottom of the heart, which was not moving as well as it should have. As you remained asymptomatic through out your admission, and as your cardiac enzymes did not show us there was any recent damage to your heart, it is deemed that it is adequately safe to proceed with your work up on an out patient basis. We recommend follow up with your PCP, Dr. Schulz some time this week. A consult has been put in for the pipe blanks cut off saw operator, Dr. Spence to also see you this week. At the same time, a request for a event monitor has also been placed. If you do not hear with regards to appointments for these three things by tomorrow afternoon, please call the hospital back to follow up. At time of discharge, Metoprolol 12.5mg has been added to your medication for cardioprotective reasons. If you experience any side effects of the medication ( dizziness/lightheadedness), please stop the medication immediately. If you are tolerating it well, you may discuss switching to twice daily with either Dr. Schulz or Dr. Spence. You may resume all your regular home medications. Thank you for allowing us to participate in your care. Current Hospital Diet Patient's current hospital diet: AHA Diet (Heart Healthy) Discharge Diet Recommended Diet: AHA Diet (Heart Healthy) Pending Studies Studies pending at discharge: no Medical Emergencies . Who to Call and When: Medical Emergencies: If at any time you feel your situation is an emergency, please call 911 immediately. . Non-Emergent Contact Non-Emergency issues call your: Primary Care Provider, Screen Printer . . "Provider Documentation" section prepared by Asuncion Abreu. . VTE Core Measure Inpt VTE Proph given/why not?: SCD's
--- NOTE | 2016-11-27 16:41 | Discharge Instructions ---
Discharge Instructions Date of Service Nov 27, 2016. Admission Reason for Admission: Syncope And Collapse Activity Recommendations . Current Hospital Diet Patient's current hospital diet: AHA Diet (Heart Healthy) Medical Emergencies . Who to Call and When: Medical Emergencies: If at any time you feel your situation is an emergency, please call 911 immediately. . Non-Emergent Contact . . "Provider Documentation" section prepared by Asuncion Abreu. . VTE Core Measure Inpt VTE Proph given/why not?: SCD's
--- NOTE | 2016-11-27 18:29 | Discharge Summary ---
Discharge Summary Date of Service Nov 27, 2016. (Alka. Abreu MD) Discharge Summary Admission Date: Nov 26, 2016 at 21:54 Discharge Date: Nov 27, 2016 Discharge Disposition: Home Principal Diagnosis: Syncope Immunizations: Have You Had Influenza Vaccine: Unknown History of Tetanus Vaccine?: Unknown History of Pneumococcal: Unknown History of Hepatitis B Vaccine: Unknown (Alka. Abreu MD) Medication Reconciliation New Medications: Metoprolol Tartrate (Lopressor) (Lopressor) 25 Mg Tab 0.5 TAB PO DAILY for 30 Days, #15 TAB 2 Refills Start with half tablet daily. If tolerating well (no lightheaded/dizzy), discuss switch to twice daily with physician. Continued Medications: Amlodipine Besylate (Norvasc) 2.5 Mg Tab 2.5 MG PO DAILY, TAB Ascorbic Acid (Ascorbic Acid) 500 Mg Tab 500 MG PO DAILY, TAB TAKE THIS MEDICATION AFTER LUNCH Aspirin (Aspirin Ec) 81 Mg Tab 81 MG PO DAILY TAKE THIS MEDICATION AFTER LUNCH Biotin (Biotin) 1,000 Mcg Tab 1000 MCG PO DAILY TAKE THIS MEDICATION AFTER LUNCH Calcium Carbonate-Cholecalcife (Calcium 600+D 600-800 mg-Unit) 1 Tab Tab 1 TAB PO BID Cranberry (Vaccinium Macrocarp (Cranberry) 500 Mg Cap 500 MG PO DAILY TAKE THIS MEDICATION AFTER LUNCH Glucosamine-Chondroitin (Cosamin Ds) 1 Cap Cap 2 CAP PO DAILY TAKE THIS MEDICATION AFTER LUNCH Multiple Vitamins W/ Minerals (Centrum Silver 50+Women) 1 Tab Tab 1 TAB PO DAILY TAKE THIS MEDICATION AFTER LUNCH [place]-3 Fatty Acids ([place] 3) 1 Cap Cap 125 MG PO DAILY TAKE THIS MEDICATION AFTER LUNCH Tolterodine Tartrate (Detrol LA) 2 Mg Capcr 2 MG PO HS, CAP Vitamin E (Vitamin E) 400 Unit Tab 400 INTER.UNIT PO DAILY TAKE THIS MEDICATION AFTER LUNCH Discharge Exam Patient well since admission, no recurrence of syncope or nausea or vomiting. She continues to deny chest pain, dyspnea, palpitations, heart racing, lightheadedness, or headaches. at this point she is offered both further inpatient workup or outpatient workup , she is most inclined to proceed with follow-up on an outpatient basis. Review of systems is unremarkable except as stated above. Patient is keen for home. Physical Exam: General Appearance: WD/WN, no apparent distress Eyes: normal inspection ENT: hearing grossly normal Neck: supple, no adenopathy Respiratory/Chest: chest non-tender, lungs clear, normal breath sounds, no respiratory distress, no accessory muscle use Cardiovascular: regular rate, rhythm, no edema, no murmur, normal peripheral pulses Abdomen / GI: normal bowel sounds, non tender, soft Extremities: no calf tenderness, normal capillary refill, no pedal edema Neurologic/Psychiatric: alert, normal mood/affect, oriented x 3 Skin: normal color, warm/dry, no rash (Alka. Abreu MD) Hospital Course Admitted to hospital with a syncopal event without any vasovagal symptoms. EKG showed a normal sinus rhythm, with evidence of a first-degree block, but no other arrhythmias. MRI imaging was done of the brain was negative for any acute disease. MRI imaging of the head and neck showed mild atherosclerotic disease, and minimal narrowing of the left internal carotid bulb, which again would not account for the fainting. Echo of the heart did show basal inferior hypokinesis and mild hypokinesis of the very distal anterolateral left ventricle. However as troponin levels x 3 sets remained negative, this was reassuring for not being an acute change. As patient remained asymptomatic through out admission, it was deemed that it is adequately safe to proceed with further work up on an out patient basis. Etiology of syncope unknown at this time, but it was explained to patient that it could be either related to something as benign his dehydration or something more worrisome that may lead to eventual defibrillator placement. Patient and family understand and their questions were answered to their satisfaction. Recommend follow up with PCP, Dr. Schulz some time this week. A consult has been put in for the compounding assistant, Dr. Spence for this week also. Additionally, a request for a event monitor has also been placed. At time of discharge, Metoprolol 12.5mg was added to medication regimen for cardioprotective reasons including suppressing any irregular rhythms. However, patient advised to stop the medication immediately if she experiences any side effects, namely dizziness/lightheadedness. If she is tolerating it well, discussion Re: switching to twice daily is warranted with either Dr. Schulz or Dr. Spence. All other regular home medications may be resumed. Total Time Spent: Less than 30 minutes This includes examination of the patient, discharge planning, medication reconciliation, and communication with other providers. (Alka. Abreu MD) Resident Physician Supervision Note: I interviewed and examined the patient. Discussed with Dr. Abreu and agree with findings and plan as documented in the note. Any exceptions or clarifications are listed here: None Documented By: Maurice Madera feeling fine now. feels safe to go home. no new complaints. does reiterate no prodrome for syncope discussed w pt and family extensively - see below vitals noted nad breathing unlabored no pallor or icterus EKGs (borderline first degree AV block, PVC) noted, echo noted normal troponins noted syncope -no prodrome and echo w some RWMA begs question of arrhythmia but EKG and troponin normal + dehydration as plausible alternate dx cast doubt -d/w pt and family extensively - next steps are further rhythm monitoring and ongoing medical evaluation (PCP and cardiology) in regards to if there is enough plausibility to consider ICD. discussed risks/benefits of inpatient vs outpt approach. pt and family extremely aware of situation and feel safe w outpt w/u further. start beta adelina for now to act to suppress if rhythms were aberrant. PCP, cardiology, event monitor all to be this week echo w RWMA -manage as CAD until proven otherwise (asa, beta adelina) - d/w pt and family LHC likely to be considered if she's willing. discussed that with troponins being negative if RWMA indicative of AK, it would be no time in recent past. as above discussions - outpt f/u w cardiology and PCP with above, pt stable for home pt and family appreciative of time/conversation/perspectives (Maurice Madera, D.Bethanie.) Discharge Instructions Please refer to the electronic Patient Visit Report (Discharge Instructions) for additional information. (Alka. Abreu MD) Additional Copies To Wilver Spence, ; Myla Schulz M.D.
[2016-11-27] MEDS ORDERED: TOLTERODINE TARTRATE LA 2 MG CAPCR PO SCH (21:00)
== END 2016-11-27 19:09 | disposition home or self-care (01) ==
LOC: EDBD 19:56 → C.EDA 19:57 → C.2T 21:54 → ENRESERV 22:22
PROVIDERS: ADMIT Hospitalist; ATTEND Family Medicine
DX: R55 Syncope and collapse (principal); I10 Essential (primary) hypertension; Z79.82 Long term (current) use of aspirin; Z88.2 Allergy status to sulfonamides; Z88.0 Allergy status to penicillin

== ENCOUNTER → 2017-03-27 | Outpatient (CLI) | payer OTHER, BC ==
[~2017-03-27] MED LIST changes: +AMLO2.5T PO; -ASCA500 PO; +ASCO500T16 PO; -ASPEC325 PO; +ASPI81TA28 PO; +CALC-459 PO; -CALC500C3 PO; -CARB1DRO22 OPB; -CYAN500T13 PO; +DTRSR/2 PO; -FRRG PO; -GLCSC750600 PO; +GLUC500C67 PO; -MAGN250T22 PO; +METO25TA56 PO; +MULT-1092 PO; -MULT-506 PO
== END | disposition home or self-care (01) ==
LOC: C.MAMM 10:52
PROVIDERS: ATTEND Family Medicine
DX: M85.88 Other specified disorders of bone density and structure, other site (principal); M85.852 Other specified disorders of bone density and structure, left thigh; M85.851 Other specified disorders of bone density and structure, right thigh; Z78.0 Asymptomatic menopausal state

== ENCOUNTER 2017-05-11 14:03 | Emergency (ER) | payer OTHER, BC ==
[~2017-05-11] VITALS: Ht 154.9 cm; Wt 80.6 kg
[2017-05-11 14:11] VITALS: TEMP 37.2; Ht 154.9 cm; Wt 80.6 kg
[2017-05-11] MEDS ORDERED: ACETAMINOPHEN 500 MG TAB PO STA (14:35)
--- NOTE | 2017-05-11 14:37 | EMERGENCY ROOM VISIT NOTE ---
History Report prepared by Gauri: Jacob Talbert Under the Supervision of: Dr. Carlos Ocasio D.O. First contact with patient: 14:26 Chief Complaint: FALL Stated Complaint: FALLEN 2X IN 24 HRS - UNSTEADY History of Present Illness The patient is an 81 year old female who presents to the Emergency Room with concerns over two recent falling episodes that have occurred in the past 24 hours. The patient experienced her first fall last night as she was walking down the sidewalk. She notes that she has been noticing her "gait going faster" while walking, and she needs to try to slow herself down. The patient states that his happened last night and she could feel herself walking faster. She was trying to slow down but tripped mechanically and fell directly forward. She hit her nose on the ground and hurt her lower left ribs. Her daughter at bedside notes that she fell today as well. She was staying at the daughter's house, and the daughter left to run to the store for a short time. When she returned the patient was laying down on the ground. During this episode she was trying to turn around from standing at the sink and had another mechanical trip. She does not believe that either of the falls were secondary to losing consciousness. The patient denies any other injuries from these falls. She denies any headaches , chest pain, nausea, or vomiting. She is not on any blood thinners. Source of History: patient, family Onset: 24 hours Position: other (Left lower ribs) Quality: other (Mechanical falls) Timing: other (2 falling episodes in past 24 hours) Associated Symptoms: No LOC, No chest pain, No nausea, No vomiting Review of Systems See HPI for pertinent positives & negatives. A total of 10 systems reviewed and were otherwise negative. Past Medical & Surgical Medical Problems: (1) HTN (hypertension) (2) Syncope and collapse Family History Patient reports no known family medical history. Social History Smoking Status: Never Smoker Drug Use: none Marital Status: Housing Status: lives alone Occupation Status: retired Current/Historical Medications Scheduled Ascorbic Acid (Ascorbic Acid), 500 MG PO DAILY Aspirin (Aspirin Ec), 81 MG PO DAILY Biotin (Biotin), 1,000 MCG PO DAILY Calcium Carbonate-Cholecalcife (Calcium 600+D 600-800 mg-Unit), 1 TAB PO BID Cranberry (Vaccinium Macrocarp (Cranberry), 500 MG PO DAILY Glucosamine-Chondroitin (Cosamin Ds), 2 CAP PO DAILY Metoprolol Tartrate (Lopressor) (Lopressor), 12.5 MG PO DAILY Multiple Vitamins W/ Minerals (Centrum Silver 50+Women), 1 TAB PO DAILY [place]-3 Fatty Acids ([place] 3), 125 MG PO DAILY Vitamin E (Vitamin E), 400 INTER.UNIT PO DAILY Allergies Coded Allergies: Sulfa Drugs (Verified Allergy, Mild, confusion, 05/11/17) per pt, 'sulfa drugs caused a coma, but i was never taken to the hospital' Penicillins (Verified Allergy, Unknown, RASH/NAUSEA, 05/11/17) Physical Exam Vital Signs Date Time Temp Pulse Resp B/P (MAP) Pulse Ox O2 Delivery O2 Flow Rate FiO2 05/11/17 18:27 78 20 161/97 96 Room Air 05/11/17 17:33 79 20 151/87 93 Room Air 05/11/17 16:32 83 22 147/90 95 Room Air 05/11/17 15:43 85 05/11/17 15:35 96 Room Air 05/11/17 15:35 96 Room Air 05/11/17 15:29 87 156/83 96 Room Air 90 150/88 98 168/92 05/11/17 14:11 37.2 78 78 176/89 94 Room Air Physical Exam GENERAL: Patient is awake, alert, and in no acute distress. Patient mildly anxious, but comfortable appearing. EYES: The conjunctivae are clear. The pupils are round and reactive. EARS, NOSE, MOUTH AND THROAT: The nose is without any evidence of any deformity. Mucous membranes are moist tongue is midline NECK: The neck is nontender and supple. RESPIRATORY: Normal respiratory effort is noted there is no evidence of wheezing rhonchi or rales CARDIOVASCULAR: Regular rate and rhythm noted there no murmurs rubs or gallops normal S1 normal S2 GASTROINTESTINAL: The abdomen is soft. Bowel sounds are present in all quadrants. Abdomen is nontender. BACK: No midline tenderness or or step-off noted range of motion in flexion extension as well as rotation no signs of muscle spasm noted MUSCULOSKELETAL/EXTREMITIES: There is no evidence of gross deformity or decreased range of motion of the upper/lower extremities. There is tenderness over the left lateral lower rib cage. SKIN: There is trace pedal edema bilaterally. There is ecchymosis over the bridge of the nose. There is no obvious evidence of any rash. There are no petechiae, pallor or cyanosis noted. NEUROLOGIC: Patient is awake alert and oriented x3 strength is symmetric patellar reflexes are 1+ bilaterally Medical Decision & Procedures ER Provider Diagnostic Interpretation: Radiology results as stated below per my review and radiologist interpretation: CERVICAL SPINE CT CT DOSE: 1071.81 mGy.cm HISTORY: Neck pain. fall TECHNIQUE: Multiaxial CT images of the cervical spine were performed and reformatted in the sagittal and coronal plane without the use of contrast. A dose lowering technique was utilized adhering to the principles of ALARA. COMPARISON: None. FINDINGS: No fractures. No subluxation. Prevertebral soft tissues and the C1-C2 interval are intact. No pneumothorax. Moderate disc space narrowing at C4-C5 and C5-C6. IMPRESSION: No fractures within the cervical spine. Electronically signed by: Eduin Suazo M.D. 05/11/2017 3:13 PM Dictated Date/Time: 05/11/2017 3:08 PM HEAD WITHOUT CONTRAST (CT) CLINICAL HISTORY: 81 years-old Female with EVALUATE ALTERED MENTAL STATUS/WEAKNESS. Acutely altered mental status TECHNIQUE: Multiple axial CT images of the head were obtained without contrast. A dose lowering technique was utilized adhering to the principles of ALARA. COMPARISON: CT head 02/05/2008. FINDINGS: No acute intracranial hemorrhage, midline shift, intracranial mass, hydrocephalus, territorial ischemia or abnormal extra-axial collection. Moderate atrophy with ex vacuo ventriculomegaly, slightly progressed from comparison. Ill-defined areas of low attenuation within the white matter of the cerebral hemispheres bilaterally has also progressed suggesting chronic microvascular ischemic changes. 4 mm focal area of low-attenuation within the left lentiform nucleus is also new from prior study however suggests chronic lacunar infarction. Cerebral vascular calcifications are seen at the level of the skull base. The calvarium is intact. Mastoid air cells and middle ear cavities are clear. Mild mucosal thickening of the ethmoid air cells and maxillary sinuses. Bilateral jose bullosa. Note is made of a metopic suture. Soft tissues and orbits are unremarkable. IMPRESSION: 1. No acute intracranial abnormality identified. 2. Atrophy with ex vacuo ventriculomegaly and chronic microvascular ischemic changes have progressed from comparison study 02/05/2008. 3. 4 mm focal area of low-attenuation within the left lentiform nucleus is also new from prior study, however suggests remote lacunar infarction. The above report was generated using voice recognition software. It may contain grammatical, syntax or spelling errors. Electronically signed by: Vini Adair M.D. 05/11/2017 3:10 PM Dictated Date/Time: 05/11/2017 3:06 PM L RIBS UNILATERAL WITH PA CHEST HISTORY: 81 years-old Female fall acute left-sided rib pain status post fall. Acute atypical chest pain. COMPARISON: Chest radiograph 11/26/2016 TECHNIQUE: PA view of the chest with 4 views of the left ribs FINDINGS: Cardiac silhouette is mildly enlarged, unchanged. Atherosclerosis of the aorta. No pneumothorax or large pleural effusion. Mild left hemidiaphragmatic elevation redemonstrated with subsegmental left basilar opacities suggesting atelectasis or scarring. The patient is slightly rotated to the left. There is an acute minimally displaced fracture involving the anterolateral aspect of the left seventh rib. No additional acute displaced rib fracture identified. IMPRESSION: 1. No acute process of the chest. 2. Acute minimally displaced fracture of the anterolateral left seventh rib. The above report was generated using voice recognition software. It may contain grammatical, syntax or spelling errors. Electronically signed by: Vini Adair M.D. 05/11/2017 5:18 PM Dictated Date/Time: 05/11/2017 5:15 PM Laboratory Results 05/11/17 15:20 Red Blood Count 4.55, Mean Corpuscular Volume 91.9, Mean Corpuscular Hemoglobin 31.0, Mean Corpuscular Hemoglobin Concent 33.7, Mean Platelet Volume 9.9, Neutrophils (%) (Auto) 57.7, Lymphocytes (%) (Auto) 27.9, Monocytes (%) (Auto) 13.8, Eosinophils (%) (Auto) 0.0, Basophils (%) (Auto) 0.3, Neutrophils # (Auto ) 1.88, Lymphocytes # (Auto) 0.91, Monocytes # (Auto) 0.45, Eosinophils # (Auto ) 0.00, Basophils # (Auto) 0.01 05/11/17 15:20 Test 05/11/17 15:20 05/11/17 15:40 White Blood Count 3.26 K/uL (4.8-10.8) Red Blood Count 4.55 M/uL (4.2-5.4) Hemoglobin 14.1 g/dL (12.0-16.0) Hematocrit 41.8 % (37-47) Mean Corpuscular Volume 91.9 fL (80-100) Mean Corpuscular Hemoglobin 31.0 pg (25-34) Mean Corpuscular Hemoglobin Concent 33.7 g/dl (32-36) Platelet Count 143 K/uL (130-400) Mean Platelet Volume 9.9 fL (7.4-10.4) Neutrophils (%) (Auto) 57.7 % Lymphocytes (%) (Auto) 27.9 % Monocytes (%) (Auto) 13.8 % Eosinophils (%) (Auto) 0.0 % Basophils (%) (Auto) 0.3 % Neutrophils # (Auto) 1.88 K/uL (1.4-6.5) Lymphocytes # (Auto) 0.91 K/uL (1.2-3.4) Monocytes # (Auto) 0.45 K/uL (0.11-0.59) Eosinophils # (Auto) 0.00 K/uL (0-0.5) Basophils # (Auto) 0.01 K/uL (0-0.2) RDW Standard Deviation 45.7 fL (36.4-46.3) RDW Coefficient of Variation 13.6 % (11.5-14.5) Immature Granulocyte % (Auto) 0.3 % Immature Granulocyte # (Auto) 0.01 K/uL (0.00-0.02) Nucleated RBC Absolute Count (auto) 0.03 K/uL (0-0) Nucleated Red Blood Cells % 1.1 % Prothrombin Time 10.2 SECONDS (9.0-12.0) Prothromb Time International Ratio 1.0 (0.9-1.1) Activated Partial Thromboplast Time 26.8 SECONDS (21.0-31.0) Partial Thromboplastin Ratio 1.0 Anion Gap 8.0 mmol/L (3-11) Est Creatinine Clear Calc Drug Dose 37.9 ml/min Estimated GFR () 55.0 Estimated GFR (Non- 47.4 BUN/Creatinine Ratio 17.3 (10-20) Calcium Level 8.4 mg/dl (8.5-10.1) Magnesium Level 2.0 mg/dl (1.8-2.4) Total Bilirubin 0.3 mg/dl (0.2-1) Direct Bilirubin 0.1 mg/dl (0-0.2) Aspartate Amino Transf (AST/SGOT) 40 U/L (15-37) Alanine Aminotransferase (ALT/SGPT) 35 U/L (12-78) Alkaline Phosphatase 43 U/L (45-117) Total Creatine Kinase 257 U/L (26-192) Creatine Kinase MB 3.4 ng/ml (0.5-3.6) Creatine Kinase MB Ratio 1.3 (0-3.0) Troponin I 0.026 ng/ml (0-0.045) Total Protein 7.2 gm/dl (6.4-8.2) Albumin 3.3 gm/dl (3.4-5.0) Thyroid Stimulating Hormone (TSH) 2.010 uIu/ml (0.300-4.500) Chemistry Specimen Hemolysis Urine Color YELLOW Urine Appearance CLOUDY (CLEAR) Urine pH 6.0 (4.5-7.5) Urine Specific [place] 1.019 (1.000-1.030) Urine Protein TRACE (NEG) Urine Glucose (UA) NEG (NEG) Urine Ketones NEG (NEG) Urine Occult Blood NEG (NEG) Urine Nitrite POS (NEG) Urine Bilirubin NEG (NEG) Urine Urobilinogen NEG (NEG) Urine Leukocyte Esterase SMALL (NEG) Urine WBC (Auto) 10-30 /hpf (0-5) Urine RBC (Auto) 0-4 /hpf (0-4) Urine Hyaline Casts (Auto) 1-5 /lpf (0-5) Urine Epithelial Cells (Auto) >30 /lpf (0-5) Urine Bacteria (Auto) 4+ (NEG) Laboratory results per my review. Medications Administered Medications (Trade) Dose Ordered Sig/Noel Route Start Time Stop Time Status Last Admin Dose Admin Acetaminophen (Tylenol Tab) 1,000 mg NOW STAT PO 05/11/17 14:35 05/11/17 14:37 DC 05/11/17 15:39 1,000 MG Ceftriaxone Sodium (Rocephin Inj) 1 gm NOW STAT IV 05/11/17 17:27 05/11/17 17:28 DC 05/11/17 17:39 1 GM Sodium Chloride 500 ml @ 999 mls/hr Q31M STAT IV 05/11/17 17:27 05/11/17 17:57 DC 05/11/17 17:36 999 MLS/HR ECG Per My Interpretation Indication: other (Falls) Rate (beats per minute): 89 Rhythm: normal sinus Findings: PVC, other (No ST-segment abnormalities. ) Comparison ECG Date: 11/27/2016 Change: Increased rate ED Course 1429: The patient was evaluated in room C7. A complete history and physical examination were performed. 1435: Ordered Tylenol 1000 mg PO. 1727: Ordered Sodium Chloride 500 mL @ 999 mL/hr IV, Rocephin 1 gm IV. 1735: I updated the patient on the findings of the case until this point. She verbalizes understanding. 1801: I checked on the patient at this time. She is stable. The patient will have an ambulatory trial. 1823: The patient was very unsteady on her feet during the ambulatory trial. The patient will be placed in a physical rehabilitation facility. 1856: I discussed the case with The Case Manger at this time. She is trying to place the patient at [facility]. Medical Decision Differential diagnosis: Etiologies such as fracture, dislocation, intra-abdominal, pneumothorax, intrathoracic , intracranial, neurologic, as well as other traumatic pathologies were entertained. Nursing notes reviewed. Additional history is obtained from the patient's family member. The patient is an 81-year-old female who presented to the emergency department for an evaluation of falling. The patient's had multiple falls over the last 24 hours. Her family members very concerned because her gait appears to be unsteady. The patient was found to have a stroke on her CAT scan which was new compared to previous neuroimaging. The patient does not appear to have any acute findings on the CAT scan. The patient was found to have signs of urinary tract infection. She was treated with IV fluids and IV antibiotics. I discussed patient's laboratory and radiographic studies with her and her family member. We attempted to have the patient ambulate and she does appear to be very unsteady on her feet. For this reason I discussed her case with the emergency department case resolution specialist. A referral was made for inpatient rehab although at this time I would recommend a neurology follow-up for possible consultation as well as further neuro imaging as deemed necessary. At this time the patient is a fall risk and I do not feel that any further antiplatelet treatment would be appropriate. This may need to be the case in the future. Medication Reconcilliation Current Medication List: was personally reviewed by me Blood Pressure Screening Patient's blood pressure: Elevated blood pressure Blood pressure disposition: Elevated BP felt to be situational Impression Primary Impression: UTI (urinary tract infection) Additional Impressions: Fall Facial contusion Left rib fracture Scribe Attestation The scribe's documentation has been prepared under my direction and personally reviewed by me in its entirety. I confirm that the note above accurately reflects all work, treatment, procedures, and medical decision making performed by me. Departure Information Referrals Myla Schulz M.D. (PCP) Patient Instructions My [facility] Problem Qualifiers Primary Impression: UTI (urinary tract infection) Urinary tract infection type: acute cystitis Hematuria presence: without hematuria Qualified Codes: N30.00 - Acute cystitis without hematuria Additional Impressions: Fall Encounter type: initial encounter Qualified Codes: W19.XXXA - Unspecified fall, initial encounter Facial contusion Encounter type: initial encounter Qualified Codes: S00.83XA - Contusion of other part of head, initial encounter Left rib fracture Encounter type: initial encounter Rib fracture type: single rib Fracture type: closed Qualified Codes: S22.32XA - Fracture of one rib, left side, initial encounter for closed fracture
[2017-05-11] MEDS ORDERED: METO25TA56 PO (14:54)
--- NOTE | 2017-05-11 15:11 | DIAGNOSTIC IMAGING REPORT ---
HEAD WITHOUT CONTRAST (CT) CLINICAL HISTORY: 81 years-old Female with EVALUATE ALTERED MENTAL STATUS/WEAKNESS. Acutely altered mental status TECHNIQUE: Multiple axial CT images of the head were obtained without contrast. A dose lowering technique was utilized adhering to the principles of ALARA. COMPARISON: CT head 02/05/2008. FINDINGS: No acute intracranial hemorrhage, midline shift, intracranial mass, hydrocephalus, territorial ischemia or abnormal extra-axial collection. Moderate atrophy with ex vacuo ventriculomegaly, slightly progressed from comparison. Ill-defined areas of low attenuation within the white matter of the cerebral hemispheres bilaterally has also progressed suggesting chronic microvascular ischemic changes. 4 mm focal area of low-attenuation within the left lentiform nucleus is also new from prior study however suggests chronic lacunar infarction. Cerebral vascular calcifications are seen at the level of the skull base. The calvarium is intact. Mastoid air cells and middle ear cavities are clear. Mild mucosal thickening of the ethmoid air cells and maxillary sinuses. Bilateral jose bullosa. Note is made of a metopic suture. Soft tissues and orbits are unremarkable. IMPRESSION: 1. No acute intracranial abnormality identified. 2. Atrophy with ex vacuo ventriculomegaly and chronic microvascular ischemic changes have progressed from comparison study 02/05/2008. 3. 4 mm focal area of low-attenuation within the left lentiform nucleus is also new from prior study, however suggests remote lacunar infarction. The above report was generated using voice recognition software. It may contain grammatical, syntax or spelling errors. Electronically signed by: Vini Adair M.D. 05/11/2017 3:10 PM Dictated Date/Time: 05/11/2017 3:06 PM
--- NOTE | 2017-05-11 15:15 | DIAGNOSTIC IMAGING REPORT ---
CERVICAL SPINE CT CT DOSE: 1071.81 mGy.cm HISTORY: Neck pain. fall TECHNIQUE: Multiaxial CT images of the cervical spine were performed and reformatted in the sagittal and coronal plane without the use of contrast. A dose lowering technique was utilized adhering to the principles of ALARA. COMPARISON: None. FINDINGS: No fractures. No subluxation. Prevertebral soft tissues and the C1-C2 interval are intact. No pneumothorax. Moderate disc space narrowing at C4-C5 and C5-C6. IMPRESSION: No fractures within the cervical spine. Electronically signed by: Eduin Suazo M.D. 05/11/2017 3:13 PM Dictated Date/Time: 05/11/2017 3:08 PM
[2017-05-11 15:30] LABS: BASO % 0.3 %; BASO ABS # 0.01 K/uL (0-0.2); HEMATOCRIT 41.8 % (37-47); HEMOGLOBIN 14.1 g/dL (12.0-16.0); IG# 0.01 K/uL (0.00-0.02); LYMPH % 27.9 %; LYMPH ABS # 0.91 K/uL (1.2-3.4); MEAN CELL VOLUME 91.9 fL (80-100); MEAN CORPUSCULAR HGB CONC 33.7 g/dl (32-36); MEAN PLATELET VOLUME 9.9 fL (7.4-10.4); MONO % 13.8 %; MONO ABS # 0.45 K/uL (0.11-0.59); NEUT % 57.7 %; NEUT ABS # 1.88 K/uL (1.4-6.5); NUCLEATED RED BLOOD CELL ABS 0.03 K/uL (0-0); PLATELET COUNT 143 K/uL (130-400); RED CELL DISTRIBUTION WIDTH CV 13.6 % (11.5-14.5); RED CELL DISTRIBUTION WIDTH SD 45.7 fL (36.4-46.3); WHITE BLOOD COUNT 3.26 K/uL (4.8-10.8)
[2017-05-11 15:35] VITALS: O2SAT 96
[2017-05-11 15:46] LABS: PTT PATIENT 26.8 SECONDS (21.0-31.0)
[2017-05-11 16:04] LABS: ALBUMIN 3.3 gm/dl (3.4-5.0); CALCIUM 8.4 mg/dl (8.5-10.1); CKMB 3.4 ng/ml (0.5-3.6); CREATININE 1.08 mg/dl (0.60-1.20); POTASSIUM 3.8 mmol/L (3.5-5.1); TOTAL PROTEIN 7.2 gm/dl (6.4-8.2)
--- NOTE | 2017-05-11 17:20 | DIAGNOSTIC IMAGING REPORT ---
L RIBS UNILATERAL WITH PA CHEST HISTORY: 81 years-old Female fall acute left-sided rib pain status post fall. Acute atypical chest pain. COMPARISON: Chest radiograph 11/26/2016 TECHNIQUE: PA view of the chest with 4 views of the left ribs FINDINGS: Cardiac silhouette is mildly enlarged, unchanged. Atherosclerosis of the aorta. No pneumothorax or large pleural effusion. Mild left hemidiaphragmatic elevation redemonstrated with subsegmental left basilar opacities suggesting atelectasis or scarring. The patient is slightly rotated to the left. There is an acute minimally displaced fracture involving the anterolateral aspect of the left seventh rib. No additional acute displaced rib fracture identified. IMPRESSION: 1. No acute process of the chest. 2. Acute minimally displaced fracture of the anterolateral left seventh rib. The above report was generated using voice recognition software. It may contain grammatical, syntax or spelling errors. Electronically signed by: Vini Adair M.D. 05/11/2017 5:18 PM Dictated Date/Time: 05/11/2017 5:15 PM
[2017-05-11] MEDS ORDERED: SODIUM CHLORIDE 0.9% 500ML 500 ML IV STA (17:27)
[2017-05-11] MEDS ORDERED: CEFTRIAXONE SOD INJ 1 GM ADDVIAL IV STA (17:27)
--- NOTE | 2017-05-11 21:09 | EMERGENCY ROOM VISIT NOTE ---
ED Visit Note Pt signed out to me at change of SHift. Pt accepted to [facility]. Current/Historical Medications Scheduled Ascorbic Acid (Ascorbic Acid), 500 MG PO DAILY Aspirin (Aspirin Ec), 81 MG PO DAILY Biotin (Biotin), 1,000 MCG PO DAILY Calcium Carbonate-Cholecalcife (Calcium 600+D 600-800 mg-Unit), 1 TAB PO BID Cranberry (Vaccinium Macrocarp (Cranberry), 500 MG PO DAILY Glucosamine-Chondroitin (Cosamin Ds), 2 CAP PO DAILY Metoprolol Tartrate (Lopressor) (Lopressor), 12.5 MG PO DAILY Multiple Vitamins W/ Minerals (Centrum Silver 50+Women), 1 TAB PO DAILY [place]-3 Fatty Acids ([place] 3), 125 MG PO DAILY Vitamin E (Vitamin E), 400 INTER.UNIT PO DAILY Allergies Coded Allergies: Sulfa Drugs (Verified Allergy, Mild, confusion, 05/11/17) per pt, 'sulfa drugs caused a coma, but i was never taken to the hospital' Penicillins (Verified Allergy, Unknown, RASH/NAUSEA, 05/11/17) Vital Signs Date Time Temp Pulse Resp B/P (MAP) Pulse Ox O2 Delivery O2 Flow Rate FiO2 05/11/17 21:25 81 18 140/87 98 05/11/17 20:27 85 18 145/92 95 Room Air 05/11/17 18:27 78 20 161/97 96 Room Air 05/11/17 17:33 79 20 151/87 93 Room Air 05/11/17 16:32 83 22 147/90 95 Room Air 05/11/17 15:43 85 05/11/17 15:35 96 Room Air 05/11/17 15:35 96 Room Air 05/11/17 15:29 87 156/83 96 Room Air 90 150/88 98 168/92 05/11/17 14:11 37.2 78 78 176/89 94 Room Air Laboratory Results 05/11/17 15:20 Red Blood Count 4.55, Mean Corpuscular Volume 91.9, Mean Corpuscular Hemoglobin 31.0, Mean Corpuscular Hemoglobin Concent 33.7, Mean Platelet Volume 9.9, Neutrophils (%) (Auto) 57.7, Lymphocytes (%) (Auto) 27.9, Monocytes (%) (Auto) 13.8, Eosinophils (%) (Auto) 0.0, Basophils (%) (Auto) 0.3, Neutrophils # (Auto ) 1.88, Lymphocytes # (Auto) 0.91, Monocytes # (Auto) 0.45, Eosinophils # (Auto ) 0.00, Basophils # (Auto) 0.01 05/11/17 15:20 Test 05/11/17 15:20 05/11/17 15:40 White Blood Count 3.26 K/uL (4.8-10.8) Red Blood Count 4.55 M/uL (4.2-5.4) Hemoglobin 14.1 g/dL (12.0-16.0) Hematocrit 41.8 % (37-47) Mean Corpuscular Volume 91.9 fL (80-100) Mean Corpuscular Hemoglobin 31.0 pg (25-34) Mean Corpuscular Hemoglobin Concent 33.7 g/dl (32-36) Platelet Count 143 K/uL (130-400) Mean Platelet Volume 9.9 fL (7.4-10.4) Neutrophils (%) (Auto) 57.7 % Lymphocytes (%) (Auto) 27.9 % Monocytes (%) (Auto) 13.8 % Eosinophils (%) (Auto) 0.0 % Basophils (%) (Auto) 0.3 % Neutrophils # (Auto) 1.88 K/uL (1.4-6.5) Lymphocytes # (Auto) 0.91 K/uL (1.2-3.4) Monocytes # (Auto) 0.45 K/uL (0.11-0.59) Eosinophils # (Auto) 0.00 K/uL (0-0.5) Basophils # (Auto) 0.01 K/uL (0-0.2) RDW Standard Deviation 45.7 fL (36.4-46.3) RDW Coefficient of Variation 13.6 % (11.5-14.5) Immature Granulocyte % (Auto) 0.3 % Immature Granulocyte # (Auto) 0.01 K/uL (0.00-0.02) Nucleated RBC Absolute Count (auto) 0.03 K/uL (0-0) Nucleated Red Blood Cells % 1.1 % Prothrombin Time 10.2 SECONDS (9.0-12.0) Prothromb Time International Ratio 1.0 (0.9-1.1) Activated Partial Thromboplast Time 26.8 SECONDS (21.0-31.0) Partial Thromboplastin Ratio 1.0 Anion Gap 8.0 mmol/L (3-11) Est Creatinine Clear Calc Drug Dose 37.9 ml/min Estimated GFR () 55.0 Estimated GFR (Non- 47.4 BUN/Creatinine Ratio 17.3 (10-20) Calcium Level 8.4 mg/dl (8.5-10.1) Magnesium Level 2.0 mg/dl (1.8-2.4) Total Bilirubin 0.3 mg/dl (0.2-1) Direct Bilirubin 0.1 mg/dl (0-0.2) Aspartate Amino Transf (AST/SGOT) 40 U/L (15-37) Alanine Aminotransferase (ALT/SGPT) 35 U/L (12-78) Alkaline Phosphatase 43 U/L (45-117) Total Creatine Kinase 257 U/L (26-192) Creatine Kinase MB 3.4 ng/ml (0.5-3.6) Creatine Kinase MB Ratio 1.3 (0-3.0) Troponin I 0.026 ng/ml (0-0.045) Total Protein 7.2 gm/dl (6.4-8.2) Albumin 3.3 gm/dl (3.4-5.0) Thyroid Stimulating Hormone (TSH) 2.010 uIu/ml (0.300-4.500) Chemistry Specimen Hemolysis Urine Color YELLOW Urine Appearance CLOUDY (CLEAR) Urine pH 6.0 (4.5-7.5) Urine Specific [place] 1.019 (1.000-1.030) Urine Protein TRACE (NEG) Urine Glucose (UA) NEG (NEG) Urine Ketones NEG (NEG) Urine Occult Blood NEG (NEG) Urine Nitrite POS (NEG) Urine Bilirubin NEG (NEG) Urine Urobilinogen NEG (NEG) Urine Leukocyte Esterase SMALL (NEG) Urine WBC (Auto) 10-30 /hpf (0-5) Urine RBC (Auto) 0-4 /hpf (0-4) Urine Hyaline Casts (Auto) 1-5 /lpf (0-5) Urine Epithelial Cells (Auto) >30 /lpf (0-5) Urine Bacteria (Auto) 4+ (NEG) Date/Time Source Procedure Growth Status 05/11/17 15:40 Urine , Clean Catch Urine Culture - Final Enterobacter Cloacae Complete Medications Administered Medications (Trade) Dose Ordered Sig/Noel Route Start Time Stop Time Status Last Admin Dose Admin Acetaminophen (Tylenol Tab) 1,000 mg NOW STAT PO 05/11/17 14:35 05/11/17 14:37 DC 05/11/17 15:39 1,000 MG Ceftriaxone Sodium (Rocephin Inj) 1 gm NOW STAT IV 05/11/17 17:27 05/11/17 17:28 DC 05/11/17 17:39 1 GM Sodium Chloride 500 ml @ 999 mls/hr Q31M STAT IV 05/11/17 17:27 05/11/17 17:57 DC 05/11/17 17:36 999 MLS/HR Departure Information Impression Primary Impression: UTI (urinary tract infection) Additional Impressions: Left rib fracture Facial contusion Fall Dispostion Home / Self-Care Condition GOOD Referrals Myla Schulz M.D. (PCP) Forms HOME CARE DOCUMENTATION FORM, IMPORTANT VISIT INFORMATION Patient Instructions Urinary Tract Infecs Women, Falls Prevent Home, My [facility] [address], ED Fx Rib Additional Instructions Go directly to [facility] for possible inpatient rehabilitation. I would recommend a continued antibiotic regimen for the urinary tract infection. I would also recommend a formal evaluation by a neurologist for further workup and possible further neuro imaging. Continue all other medications as prescribed. Return to the emergency department immediately if symptoms change worsen or the need arises. Problem Qualifiers
[2017-05-11 21:25] VITALS: BP 140/87; PULSE 81; O2SAT 98
== END 2017-05-11 21:31 ==
LOC: C.EDB 14:05 → C.EDC 21:31
DX: S22.32XA Fracture of one rib, left side, initial encounter for closed fracture (principal); S00.83XA Contusion of other part of head, initial encounter; W01.0XXA Fall on same level from slipping, tripping and stumbling without subsequent striking against object, initial encounter; Y92.89 Other specified places as the place of occurrence of the external cause; N30.00 Acute cystitis without hematuria; I10 Essential (primary) hypertension; Z79.82 Long term (current) use of aspirin; Z79.899 Other long term (current) drug therapy; Z88.2 Allergy status to sulfonamides; Z88.0 Allergy status to penicillin

== ENCOUNTER → 2017-05-18 | Outpatient (CLI) | payer OTHER, BC ==
[~2017-05-18] MED LIST changes: -AMLO2.5T PO; -DTRSR/2 PO
== END | disposition home or self-care (01) ==
LOC: C.PATHSPEC 10:32
PROVIDERS: ATTEND Urology
DX: R30.0 Dysuria (principal); R31.0 Gross hematuria; R32 Unspecified urinary incontinence

== ENCOUNTER → 2017-05-25 | Outpatient (CLI) | payer OTHER, BC ==
[~2017-05-25] MED LIST changes: +GADAVIST IV PRN
--- NOTE | 2017-05-25 08:38 | DIAGNOSTIC IMAGING REPORT ---
MRI OF THE BRAIN WITHOUT AND WITH IV CONTRAST CLINICAL HISTORY: CONFUSION COMPARISON STUDY: 11/26/2016, head CT dated 05/11/2017 TECHNIQUE: MRI of the brain was performed from the vertex to the skull base utilizing various T1 and T2 weighted sequences. Following the IV administration of 7.5 mL of Gadavist contrast, additional enhanced images were obtained. FINDINGS: Sagittal T1, axial diffusion, proton density and T2 weighted axial, coronal FLAIR, and pre and post axial T1-weighted images were acquired. These were supplemented with post gadolinium coronal T1 weighted images. No intra or extra-axial mass lesions are visualized. Axial diffusion-weighted images reveal no evidence of acute or subacute infarction. There is ventricular dilatation which is felt to be secondary to volume loss. Proton density T2-weighted and FLAIR images reveal moderate foci of increased T2 signal within the white matter, likely on a small vessel basis. The findings remain similar to the prior November 2016 study There are no abnormal flow voids. There is no evidence of pathologic enhancement. IMPRESSION: 1. No acute intracranial findings 2. No evidence of intracranial mass. No evidence of acute or subacute infarction 3. Atrophy. Stable foci of increased T2 and FLAIR signal within the white matter, consistent with small vessel disease. Electronically signed by: Samy Sauceda M.D. 05/25/2017 7:27 AM Dictated Date/Time: 05/25/2017 7:24 AM
== END | disposition home or self-care (01) ==
LOC: C.MRI 06:13
PROVIDERS: ATTEND Internal Medicine Critical Care Medicine
DX: R41.0 Disorientation, unspecified (principal); G31.9 Degenerative disease of nervous system, unspecified

== ENCOUNTER → 2017-06-14 | Outpatient (CLI) | payer OTHER, BC ==
[~2017-06-14] MED LIST changes: -GADAVIST IV PRN; +OPTIRAY 320 IV PRN
--- NOTE | 2017-06-14 10:22 | DIAGNOSTIC IMAGING REPORT ---
ABD/PELVIS COMBO CT DOSE: 2061.84 mGycm HISTORY: Hematuria R30.0 [id number] Gross [id number] TECHNIQUE: Multiaxial CT images of the abdomen and pelvis were performed pre and post intravenous contrast enhancement. A dose lowering technique was utilized adhering to the principles of ALARA. COMPARISON STUDY: None. FINDINGS: Lung bases are clear. No evidence for significant nephrocalcinosis. Liver is uniform. There is a small 1 cm meningioma posterior aspect right hepatic lobe transaxial image 27. The kidneys enhance uniformly. Three-dimensional evaluation of the urinary tracts shows no significant filling defect. Several compound calyces are identified bilaterally. This is an anatomic variation. Ureters normal in course and caliber. There is a small hiatal hernia. Moderate atherosclerotic change of the abdominal aorta as well as iliac vasculature is present. The bowel pattern is nonobstructive throughout. Bladder is unremarkable. Uterus is atrophic and age-related basis. There is no free fluid within the pelvic cul-de-sac. Inguinal regions are unremarkable. IMPRESSION: 1. No acute process of the urinary tracts. 2. Abdomen and pelvis is otherwise unremarkable. The above report was generated using voice recognition software. It may contain grammatical, syntax or spelling errors. Electronically signed by: Kb Vazquez M.D. 06/14/2017 10:21 AM Dictated Date/Time: 06/14/2017 10:14 AM
== END | disposition home or self-care (01) ==
LOC: C.CTS 09:06
PROVIDERS: ATTEND Urology
DX: R31.0 Gross hematuria (principal); R30.0 Dysuria; R32 Unspecified urinary incontinence

== ENCOUNTER → 2017-09-22 | Outpatient (CLI) | payer OTHER, BC ==
[~2017-09-22] MED LIST changes: -GLUC500C67 PO; +METO25TA3 PO; -METO25TA56 PO; -OMEG12006 PO; -OPTIRAY 320 IV PRN; +OXYC-57 PO
== END | disposition home or self-care (01) ==
LOC: C.LABSPEC 15:10
PROVIDERS: ATTEND Urology
DX: N39.0 Urinary tract infection, site not specified (principal)

== ENCOUNTER 2018-03-16 09:06 | Inpatient (IN) ==
[2018-03-16] MEDS ORDERED: diazePAM INJ 5 MG/ML 2 ML CARP IV STA (11:09)
[2018-03-16] MEDS ORDERED: DIAZEPAM 5 MG/ML INJ 10ML VIAL ONE (11:47)
[2018-03-16] MEDS: SODIUM CHLORIDE 0.9% 500 ML IV SCH ×2 (12:02→22:31)
[2018-03-16 12:03] LABS: Basophils # (auto) 0.01 K/uL (0-0.2); Basophils % (auto) 0.1 %; Eosinophils # (auto) 0.07 K/uL (0-0.5); Eosinophils % (auto) 0.6 %; Hematocrit (blood only) 42.2 % (37-47); Hemoglobin 13.9 g/dL (12.0-16.0); Immature Granulocytes # (auto) 0.05 K/uL (0.00-0.02); Immature Granulocytes % (auto) 0.4 %; Lymphocytes # (auto) 1.36 K/uL (1.2-3.4); Lymphocytes % (auto) 11.7 %; Mean Corpuscular Hgb Conc 32.9 g/dL (32-36); Mean Platelet Volume 9.5 fL (7.4-10.4); Monocytes # (auto) 1.02 K/uL (0.11-0.59); Monocytes % (auto) 8.8 %; Neutrophils # (auto) 9.12 K/uL (1.4-6.5); Neutrophils % (auto) 78.4 %; Platelet Count 266 K/uL (130-400); RDW Coefficient of Variation 13.4 % (11.5-14.5); RDW Standard Deviation 46.7 fL (36.4-46.3); Red Blood Count 4.44 M/uL (4.2-5.4); White Blood Count 11.63 K/uL (4.8-10.8)
[2018-03-16 12:20] LABS: Alanine Aminotransferase 31 U/L (12-78); Albumin Level 2.9 gm/dl (3.4-5.0); Aspartate Aminotransferase 26 U/L (15-37); BUN Creatinine Ratio 22.4 (10-20); Blood Urea Nitrogen 23 mg/dl (7-18); Carbon Dioxide 25 mmol/L (21-32); Chloride 99 mmol/L (98-107); Est GFR (African American) 57.1; Est GFR (Non-African American) 49.3; Glucose 133 mg/dl (70-99); Magnesium 2.3 mg/dl (1.8-2.4); Sodium 134 mmol/L (136-145)
[2018-03-16 12:25] LABS: Albumin Globulin Ratio 0.7 (0.9-2); Alkaline Phosphatase 38 U/L (45-117); Bilirubin,Total 0.5 mg/dl (0.2-1); Globulin 4.2 gm/dl (2.5-4.0); Total Protein 7.1 gm/dl (6.4-8.2); Troponin I < 0.015 ng/ml (0-0.045)
--- NOTE | 2018-03-16 13:26 | XRay Report ---
XR ribs RT min 3V w CXR1V CLINICAL HISTORY: Right-sided chest pain status post trauma increasing shortness of breath COMPARISON STUDY: 03/13/2018 FINDINGS: Multiple right-sided rib fractures are again visualized. There is a 16 mm right apical pneu mothorax. The basilar component measures 24 mm. The heart remains enlarged. There are progressive air space opacities within the right lower lobe. Dedicated views of the ribs reveal fractures of the righ t fourth through eighth ribs. There is a small amount subcutaneous emphysema present. IMPRESSION: 1. Fractures of the right fourth through eighth ribs 2. Interval development of a small to moderate right-sided pneumothorax with a basilar pleural separa tion of approximately 24 mm 3. Cardiomegaly and developing right basilar airspace opacities 4. Right-sided subcutaneous emphysema Electronically signed by: Samy Sauceda M.D. 03/16/2018 1:25 PM
[2018-03-16] MEDS ORDERED: PIPERACILLIN/TAZOBACTAM 4.5 GM/120 ML BAG IV ONE (14:31)
[2018-03-16] MEDS ORDERED: PIPERACILL/TAZOBAC CONSULT ACTIVE PRN (14:31)
[2018-03-16] MEDS ORDERED: VANCOMYCIN CONSULT ACTIVE ONE (14:31)
[2018-03-16] MEDS ORDERED: VANCOMYCIN CONSULT ACTIVE PRN ×2 (14:31→17:38)
[2018-03-16] MEDS ORDERED: VANCOMYCIN HCL 1,500 MG in SODIUM CHLORIDE 0.9% 500 ML IV ONE (14:31)
[2018-03-16] MEDS ORDERED: CEFEPIME 2,000 MG in SYRINGE 0 ML IV STA (15:17)
--- NOTE | 2018-03-16 15:20 | History & Physical Report ---
Date of Service March 16, 2018 Assessment & Plan (1) Pneumonia: This patient is an 82-year-old female with a history of HTN, falls, with a recent hospitalization and discharged 2 days prior for a fall resulting in multiple right-sided rib fractures. She was also treated for UTI at that time. She presents to the ER with worsening shortness of breath and cough productive of yellow thick sputum with worsening pain on the right side over the previous 1-2 days. She denies fevers, sweats, chills at home, has had 6 days without a bowel movement since being on oxycodone for the pain. She denies abdominal pain or dysuria or urinary frequency or urgency. She has been feeling a little bit lightheaded possibly due to taking oxycodone. She was taking her cefdinir for the UTI since discharge as prescribed. In the ER, she was found to have a new pneumothorax and persistent right sided rib fractures-the pneumothorax was 2.4 cm in size. She also had a developing right lower lobe infiltrate and a mild leukocytosis but was afebrile. Thoracic surgery was consulted by the ER physician who recommended no chest tube at this time, did not think a CT scan of the chest was necessary, and to admit for observation and treatment for the developing pneumonia. -Secondary to atelectasis from rib fractures. With leukocytosis but no fever so far -Admit to medical floor -Treat for gram-negative pneumonia and MRSA pneumonia with cefepime (penicillin allergy) and vancomycin -MRSA nasal swab and discontinue vancomycin if negative -Pain control and encourage incentive spirometry -Follow blood cultures -Sputum culture ordered (2) Pneumothorax on right: Secondary to multiple right-sided rib fractures. 24 mm of separation at the base. -Thoracic surgery consulted-for now, no indication for chest tube given small size -Follow with chest x-ray in the morning -Pain control with p.o. oxycodone and IV morphine as needed as well as lidocaine patch for rib fractures -Incentive spirometry and ambulation with assistance encouraged (3) Rib fractures: Age-related osteoporosis with current pathological rib fractures of the right second through ninth ribs from fall 1 week ago -Continue pain control with oxycodone, morphine as above -Incentive spirometry and ambulation encouraged as above (4) HTN (hypertension): Fairly well controlled at this time with some mild elevation secondary to pain -Continue home lisinopril and Toprol-XL (5) UTI (urinary tract infection): With previous E. coli UTI, was on cefdinir at home -Hold home antibiotics while giving cefepime and vancomycin for pneumonia- should not require any more antibiotics for UTI after 1 more day (6) Fall: From previous admission resulting in rib fractures -PT/OT consults will be needed (7) Constipation due to opioid therapy: No bowel movement in 6 days-secondary to opioids given for rib fractures -MiraLAX 17 g p.o. 3 times daily -Start bisacodyl 10 mg rectal suppository x1 now -Start senna/docusate 1 tab in the morning (8) DVT prophylaxis: SQ heparin 5000 units every 8 hours Disposition-admit to medical/surgical floor History of Present Illness Chief Complaint: This patient is an 82-year-old female with a history of HTN, falls, with a recent hospitalization and discharged 2 days ago for a fall resulting in multiple right-sided rib fractures. She was also treated for UTI at that time. She presents to the ER today with worsening shortness of breath and cough productive of yellow thick sputum with worsening pain on the right side over the last 1-2 days. She denies fevers, sweats, chills at home, has had 6 days without a bowel movement since being on oxycodone for the pain. She denies abdominal pain or dysuria or urinary frequency or urgency. She has been feeling a little bit lightheaded possibly due to taking oxycodone. She was taking her cefdinir for the UTI since discharge as prescribed. In the ER, she was found to have a new pneumothorax and persistent right sided rib fractures-the pneumothorax was 2.4 cm in size. She also had a developing right lower lobe infiltrate and a mild leukocytosis but was afebrile. Thoracic surgery was consulted by the ER physician who recommended no chest tube at this time, did not think a CT scan of the chest was necessary, and to admit for observation and treatment for the developing pneumonia. Primary Care Provider: Myla Schulz Allergies Allergy/AdvReac Type Severity Reaction Status Date / Time Penicillins Allergy Unknown RASH/NAUSEA Verified 03/16/18 11:58 Sulfa (Sulfonamide Allergy Unknown COMA , Verified 03/16/18 11:58 Antibiotics) REACTION WHEN A CHILD Home Medications Home Medications Medication Instructions Recorded Confirmed Type ascorbic acid (vitamin C) 500 mg PO DAILY 01/23/18 03/16/18 History aspirin 81 mg PO DAILY 01/23/18 03/16/18 History biotin 1,000 mcg PO DAILY 01/23/18 03/16/18 History calcium carbonate-vitamin D3 1 tab PO BID 01/23/18 03/16/18 History [Calcium 500 + D (D3)] cranberry 500 mg PO DAILY 01/23/18 03/16/18 History lisinopril 10 mg PO DAILY 01/23/18 03/16/18 History metoprolol succinate 25 mg PO DAILY 01/23/18 03/16/18 History vitamin E 400 unit PO DAILY 01/23/18 03/16/18 History acetaminophen [Mapap 650 mg PO Q6H 7 Days #56 tab 03/14/18 03/16/18 Rx (acetaminophen)] cefdinir 300 mg PO BID #7 cap 03/14/18 03/16/18 Rx lidocaine 1 patch TRANSDERMAL HS 14 Days #14 03/14/18 03/16/18 Rx ea oxycodone 5 mg PO Q4H PRN 10 Days #40 tab 03/14/18 03/16/18 Rx Past Med/Surg History Medical History Pneumonia Pneumothorax on right Fall UTI (urinary tract infection) Rib fractures Left knee DJD (Acute) HTN (hypertension) (Chronic) Surgical History History of total bilateral knee replacement (TKR) Family History Other Family history non-contributory Social History marital status: / Current Living Situation: Alone Feels Safe at Home: Yes Smoking Status: Never smoker Second Hand Exposure: No Hx Alcohol Use: No Hx Substance Use: No Beliefs That Will Affect Care: None Preferred Language: Maori Review of Systems All systems reviewed & are unremarkable except as noted in HPI & below Physical Exam 2 Vital Signs (Past 24 Hours): Last Vital Signs Temp 36.6 C 03/16/18 09:43 Pulse 86 03/16/18 14:01 Resp 22 03/16/18 14:01 BP 143/79 H 03/16/18 14:01 Pulse Ox 94 03/16/18 14:01 Constitutional: WD/WN, vitals as above Eyes: PERRL, conjunctivae normal, anicteric sclerae ENMT: external ear and nose normal, oropharynx normal Neck: trachea midline, no thyromegaly Respiratory: normal respiratory effort Auscultation: + crackles (at right lower and middle lung tinajero; +crepitus noted subcutaneously right hemithorax) Cardiovascular: Rate/Rhythm: regular rate and regular rhythm Heart Sounds: no murmur Extremities: + edema (Trace edema of the distal lower extremities and ankles-chronic as per daughter) Chest (Breasts): Chest: normal inspection of chest (Positive tenderness palpation over right lateral rib cage) Gastrointestinal (Abdomen): normal bowel sounds, soft, nontender, no hepatosplenomegaly Musculoskeletal: Extremities: extremities normal to inspection; no cyanosis and no clubbing Skin: no rashes, warm and dry Neurologic: moves all extremities and awake; no focal motor deficits Psychiatric: A+Ox3, euthymic affect Results & Data Laboratory Results 03/16/18 03/16/18 03/16/18 Range/Units 15:50 11:53 11:53 WBC 11.63 H (4.8-10.8) K/uL RBC 4.44 (4.2-5.4) M/uL Hgb 13.9 (12.0-16.0) g/dL Hct 42.2 (37-47) % MCV 95.0 (80-100) fL MCH 31.3 (25-34) pg MCHC 32.9 (32-36) g/dL RDW Std Deviation 46.7 H (36.4-46.3) fL RDW Coeff of Kemi 13.4 (11.5-14.5) % Plt Count 266 (130-400) K/uL MPV 9.5 (7.4-10.4) fL Immature Gran % (Auto) 0.4 % Neut % (Auto) 78.4 % Lymph % (Auto) 11.7 % Delta % (Auto) 8.8 % Eos % (Auto) 0.6 % Baso % (Auto) 0.1 % Immature Gran # (Auto) 0.05 H (0.00-0.02) K/uL Neut # (Auto) 9.12 H (1.4-6.5) K/uL Lymph # (Auto) 1.36 (1.2-3.4) K/uL Delta # (Auto) 1.02 H (0.11-0.59) K/uL Eos # (Auto) 0.07 (0-0.5) K/uL Baso # (Auto) 0.01 (0-0.2) K/uL Sodium 134 L (136-145) mmol/L Potassium 4.0 (3.5-5.1) mmol/L Chloride 99 (98-107) mmol/L Carbon Dioxide 25 (21-32) mmol/L Anion Gap 10.0 (3-11) BUN 23 H (7-18) mg/dl Creatinine 1.04 (0.6-1.2) mg/dl Est Cr Clr Drug Dosing Not Reportable Est GFR ( Amer) 57.1 Est GFR (Non-Af Amer) 49.3 BUN/Creatinine Ratio 22.4 H (10-20) Glucose 133 H (70-99) mg/dl Calcium 9.0 (8.5-10.1) mg/dl Magnesium 2.3 (1.8-2.4) mg/dl Total Bilirubin 0.5 (0.2-1) mg/dl AST 26 (15-37) U/L ALT 31 (12-78) U/L Alkaline Phosphatase 38 L (45-117) U/L Troponin I < 0.015 (0-0.045) ng/ml Total Protein 7.1 (6.4-8.2) gm/dl Albumin 2.9 L (3.4-5.0) gm/dl Globulin 4.2 H (2.5-4.0) gm/dl Albumin/Globulin Ratio 0.7 L (0.9-2) Urine Color Yellow Urine Appearance Clear (Clear) Urine pH 7.0 (4.5-7.5) Ur Specific [place] 1.019 (1.000-1.030) Urine Protein Negative (Negative) Urine Glucose (UA) Negative (Negative) Urine Ketones Negative (Negative) Urine Blood Negative (Negative) Urine Nitrite Negative (Negative) Urine Bilirubin Negative (Negative) Urine Urobilinogen Negative (Negative) Ur Leukocyte Esterase Negative (Negative) Diagnostic Findings Chest/rib series x-ray image personally reviewed by me and agree with the following report: XR ribs RT min 3V w CXR1V CLINICAL HISTORY: Right-sided chest pain status post trauma increasing shortness of breath COMPARISON STUDY: 03/13/2018 FINDINGS: Multiple right-sided rib fractures are again visualized. There is a 16 mm right apical pneumothorax. The basilar component measures 24 mm. The heart remains enlarged. There are progressive airspace opacities within the right lower lobe. Dedicated views of the ribs reveal fractures of the right fourth through eighth ribs. There is a small amount subcutaneous emphysema present. IMPRESSION: 1. Fractures of the right fourth through eighth ribs 2. Interval development of a small to moderate right-sided pneumothorax with a basilar pleural separation of approximately 24 mm 3. Cardiomegaly and developing right basilar airspace opacities 4. Right-sided subcutaneous emphysema ECG Additional Comments: Normal sinus rhythm, nonspecific T wave abnormality inferior leads Code Status & VTE Plan Code Status DNR/DNI VTE Prophylaxis Plan VTE Prophylaxis will be ordered: Yes _ (1) HTN (hypertension) Hypertension type: essential hypertension Qualified Code(s): I10 - Essential (primary) hypertension (2) Rib fractures Encounter type: subsequent encounter Rib fracture type: multiple ribs Fracture type: closed Laterality: right Fracture healing: with routine healing Qualified Code(s): S22.41XD - Multiple fractures of ribs, right side, subsequent encounter for fracture with routine healing (3) UTI (urinary tract infection) Urinary tract infection type: acute cystitis Hematuria presence: without hematuria Qualified Code(s): N30.00 - Acute cystitis without hematuria (4) Fall Encounter type: subsequent encounter Qualified Code(s): W19.XXXD - Unspecified fall, subsequent encounter (5) Pneumonia Pneumonia type: due to unspecified organism Laterality: right Lung location : lower lobe of lung Qualified Code(s): J18.1 - Lobar pneumonia, unspecified organism
[2018-03-16 16:05] LABS: Appearance Urine Clear (Clear); Bilirubin Urine Negative (Negative); Color Urine Yellow; Glucose Urine UA Negative (Negative); Ketones Urine Negative (Negative); Leukocyte Esterase Urine Negative (Negative); Nitrite Urine Negative (Negative); Protein Urine Negative (Negative); Specific Gravity Urine 1.019 (1.000-1.030); Urobilinogen Urine Negative (Negative)
[2018-03-16] MEDS ORDERED: BISACODYL 10 MG SUPP PR STA (17:38)
[2018-03-16] MEDS ORDERED: VANCOMYCIN HCL 1,000 MG in SODIUM CHLORIDE 0.9% 250 ML IV SCH (17:38)
[2018-03-16] MEDS: KETOROLAC TROMETHAMINE 15 MG/ML VIAL IV PRN (18:35)
[2018-03-16] MEDS: LIDOCAINE 5% 1 PATCH TD SCH (19:54)
[2018-03-16] MEDS: ACETAMINOPHEN 325 MG TAB PO SCH (19:54)
[2018-03-16] MEDS: POLYETHYLENE (MIRALAX) 17 GM PACK PO SCH (20:48)
[2018-03-16] MEDS: HEPARIN SOD 5,000 UNIT/0.5 ML VIAL SQ SCH (21:57)
[2018-03-17] MEDS: ACETAMINOPHEN 325 MG TAB PO SCH ×5 (00:10→23:03)
[2018-03-17] MEDS: KETOROLAC TROMETHAMINE 15 MG/ML VIAL IV PRN ×3 (04:12→18:29)
[2018-03-17] MEDS: CEFEPIME 2,000 MG in SYRINGE 0 ML IV SCH ×2 (04:12→17:00)
[2018-03-17] MEDS: HEPARIN SOD 5,000 UNIT/0.5 ML VIAL SQ SCH ×3 (05:29→21:13)
[2018-03-17 07:43] LABS: Basophils # (auto) 0.02 K/uL (0-0.2); Basophils % (auto) 0.2 %; Eosinophils # (auto) 0.38 K/uL (0-0.5); Eosinophils % (auto) 3.7 %; Hematocrit (blood only) 38.1 % (37-47); Hemoglobin 12.5 g/dL (12.0-16.0); Immature Granulocytes # (auto) 0.05 K/uL (0.00-0.02); Immature Granulocytes % (auto) 0.5 %; Lymphocytes # (auto) 1.88 K/uL (1.2-3.4); Lymphocytes % (auto) 18.5 %; Mean Corpuscular Hgb Conc 32.8 g/dL (32-36); Mean Platelet Volume 9.5 fL (7.4-10.4); Monocytes # (auto) 1.09 K/uL (0.11-0.59); Monocytes % (auto) 10.7 %; Neutrophils # (auto) 6.76 K/uL (1.4-6.5); Neutrophils % (auto) 66.4 %; Platelet Count 253 K/uL (130-400); RDW Coefficient of Variation 13.5 % (11.5-14.5); RDW Standard Deviation 46.9 fL (36.4-46.3); Red Blood Count 4.01 M/uL (4.2-5.4); White Blood Count 10.18 K/uL (4.8-10.8)
[2018-03-17] MEDS: OXYCODONE HCL IR 5 MG TAB (IMMEDIATE RELEASE) PO PRN ×3 (07:47→21:11)
[2018-03-17] MEDS: POLYETHYLENE (MIRALAX) 17 GM PACK PO SCH ×3 (07:48→21:12)
[2018-03-17] MEDS: LISINOPRIL 10 MG TAB PO SCH (07:51)
[2018-03-17] MEDS: METOPROLOL SUCC 25MG EXT REL TAB PO SCH (07:51)
[2018-03-17] MEDS: ASPIRIN 81 MG ECTAB PO SCH (07:52)
[2018-03-17] MEDS: DOCUSATE SODIUM/SENNA 50/8.6MG TAB PO SCH (07:52)
[2018-03-17 08:16] LABS: BUN Creatinine Ratio 20.8 (10-20); Calcium 8.5 mg/dl (8.5-10.1); Creatinine Clr Calc Pharmacy 38.3 ml/min; Est GFR (African American) 54.6; Est GFR (Non-African American) 47.1
--- NOTE | 2018-03-17 08:37 | XRay Report ---
XR chest 1V portable HISTORY: 82 years-old Female Follow-up pneumothorax follow-up study in a patient with right-sided pn eumothorax and multiple right-sided rib fractures COMPARISON: Rib and chest radiographs 03/16/2017 TECHNIQUE: Portable AP view of the chest FINDINGS: Cardiomegaly. Mixed interstitial and alveolar opacities, right greater than left redemonstrated with alveolar opacities most pronounced about the right lung base. Blunting of the cost phrenic angles sug gests trace effusions. Mild subcutaneous emphysema about the inferolateral right chest wall. Multiple acute displaced right-sided rib fractures redemonstrated. Decreased size of the right sided pneumoth orax, now with pleural separation measuring up to approximately 1.0 cm at the lateral right lung apex , previously measuring up to 1.6 cm. IMPRESSION: 1. Decreased size of the small right apical pneumothorax. Mild subcutaneous emphysema about the right chest wall redemonstrated. 2. Multiple acute displaced right-sided rib fractures redemonstrated. 3. Cardiomegaly. 4. Persistent right greater than left bibasilar opacities with trace bilateral pleural effusions. The above report was generated using voice recognition software. It may contain grammatical, syntax o r spelling errors. Electronically signed by: Vini Adair M.D. 03/17/2018 8:36 AM
[2018-03-17] MEDS ORDERED: VANCOMYCIN HCL 1,250 MG in SODIUM CHLORIDE 0.9% 250 ML IV SCH (09:00)
--- NOTE | 2018-03-17 14:52 | Hospitalist Progress Note ---
Date of Service March 17, 2018 Assessment & Plan (1) Pneumonia: Secondary to atelectasis from rib fractures. With leukocytosis but no fever. - Initially on vanc/cefepime. - Vanc stopped on 03/17 for negative MRSA swab - Pain control and encourage incentive spirometry - Blood cultures from 03/16 with no growth to date on 03/17 - Sputum culture ordered, but no collected yet (2) Pneumothorax on right: Secondary to multiple right-sided rib fractures. CXR on 03/16 showed pneumothorax with 24 mm of separation at the right lung apex. - Thoracic surgery consulted-for now, no indication for chest tube given small size - Follow with daily CXR - Pain control - Incentive spirometry and ambulation with assistance encouraged (3) Rib fractures: Age-related osteoporosis with current pathological rib fractures of the right second through ninth ribs from fall 1 week ago. - Continue pain control with oxycodone, morphine as above - Incentive spirometry and ambulation encouraged as above (4) HTN (hypertension): Fairly well controlled at this time with some mild elevation secondary to pain. - Continue home lisinopril and Toprol-XL (5) UTI (urinary tract infection): With previous E. coli UTI, was on cefdinir at home. - Hold home antibiotics while giving cefepime - No further need on discharge (6) Fall: From previous admission resulting in rib fractures - PT/OT consults will be needed (7) Constipation due to opioid therapy: No bowel movement in 6 days-secondary to opioids given for rib fractures. - MiraLAX 17 g p.o. 3 times daily - Start bisacodyl 10 mg rectal suppository x1 now - Start senna/docusate 1 tab in the morning (8) DVT prophylaxis: SQ heparin 5000 units every 8 hours Subjective 82yo F w/ hx of HTN who presented with pneumonia and broken ribs. Doing well this morning. Pain under control and breathing more comfortably. Reports no fevers/chills, chest pain, shortness of breath, abdominal pain, nausea, or vomiting. Physical Exam 2 Vital Signs (Past 24 Hours): Last Vital Signs Temp 36.4 C L 03/17/18 07:28 Pulse 75 03/17/18 07:28 Resp 17 03/17/18 07:28 BP 143/88 H 03/17/18 07:28 Pulse Ox 91 03/17/18 07:28 Constitutional: WD/WN, vitals as above Eyes: PERRL, conjunctivae normal, anicteric sclerae ENMT: external ear and nose normal, oropharynx normal Neck: trachea midline, no thyromegaly Respiratory: normal respiratory effort Auscultation: + crackles (at right lower and middle lung tinajero; +crepitus noted subcutaneously right hemithorax) Cardiovascular: Rate/Rhythm: regular rate and regular rhythm Heart Sounds: no murmur Extremities: + edema (Trace edema of the distal lower extremities and ankles-chronic as per daughter) Chest (Breasts): Chest: normal inspection of chest (Positive tenderness palpation over right lateral rib cage) Gastrointestinal (Abdomen): normal bowel sounds, soft, nontender, no hepatosplenomegaly Musculoskeletal: Extremities: extremities normal to inspection; no cyanosis and no clubbing Skin: no rashes, warm and dry Neurologic: moves all extremities and awake; no focal motor deficits Psychiatric: A+Ox3, euthymic affect _ (1) Pneumonia Pneumonia type: due to unspecified organism Aspiration pneumonia type: Laterality: right Lung location: lower lobe of lung Qualified Code(s): J18.1 - Lobar pneumonia, unspecified organism (2) Rib fractures Encounter type: subsequent encounter Rib fracture type: multiple ribs Fracture type: closed Laterality: right Fracture healing: with routine healing Qualified Code(s): S22.41XD - Multiple fractures of ribs, right side, subsequent encounter for fracture with routine healing (3) HTN (hypertension) Hypertension type: essential hypertension Qualified Code(s): I10 - Essential (primary) hypertension (4) UTI (urinary tract infection) Urinary tract infection type: acute cystitis Hematuria presence: without hematuria Indwelling urinary catheter type: Encounter type: Qualified Code( s): N30.00 - Acute cystitis without hematuria (5) Fall Encounter type: subsequent encounter Qualified Code(s): W19.XXXD - Unspecified fall, subsequent encounter
--- NOTE | 2018-03-17 15:50 | Consultation Report ---
DATE OF CONSULTATION: 03/17/2018 Natalia Jc is a very nice 82-year-old who fell on 03/09/2018. She suffered several right-sided rib fractures. She came in, we evaluated her, and she was watched at [facility] for a couple of days and then discharged just 3 days ago. At home, her pain was such though she had to come back. I was asked to evaluate her from a thoracic surgery standpoint again. I reviewed her x-ray, and while she has a bit more consolidation in the right base, she is moving air well. She is not on any anticoagulation chronically. It does not appear to me that she has an effusion. She also is not requiring oxygen. I think this is mostly a pain issue. All in all, I feel confident that Mrs. Jc will improve without any intervention. Interventions in rib fractures include chest tubes for pneumothoraces. Her pneumothorax is tiny, and we would not consider a chest tube in this case. We would also drain her if she had evidence of hemothorax or pleural effusion, which she really does not. The big problem in her multiple rib fractures is the fact that she has pain. She does not have a flail chest. I think she just needs time, and she will get over this. It is also important to note that in some cases, fixation of the ribs with the plates is advisable; however, I do not think that is going to be necessary in this case. For specifics of this patient's consultations, please refer to the consultation from 03/12/2018.
[2018-03-17] MEDS: LIDOCAINE 5% 1 PATCH TD SCH (21:12)
--- NOTE | 2018-03-17 21:59 | Emergency Department Note ---
Entered by Sheyla Mercado acting as a scribe for Valarie Cervantes DO History of Present Illness General Chief complaint: Rib Injury/Pain Time Seen by Provider: 03/16/18 10:49 Source: patient and family History of Present Illness Onset (ago): day(s) 5 Location: right (rib pain) Pain Consistency: + other (worsening) Maximum Pain Intensity: 8 Quality: + sharp and + other (spasms) Relieved By: not by cold therapy (ice), not by medication (Oxycontin, Tylenol) and not by other (heat) Associated symptoms: + cough, + loss of appetite and + other (shallow breathing , dizziness, right shoulder pain, constipation); no nausea/vomiting (nausea) The patient is an 82 year old female who presents to the Emergency Room with complaints of worsening right sided rib pain starting 5 days ago. The patients [id number] states that last week the patient fell at home. She states that she lives at home alone. She states that she finally came in 5 days ago and was found to have 6 broken ribs on the right. She states that she was admitted for 2 days and discharged on the third for pain control and a UTI. She states that since being home she has seemed to worsen. The patients [id number] states that she has been giving OxyContin and Extra Strength Tylenol at the exact times , but it is offering no relief. She notes that she is also been using a heating pad and ice with no relief. The patient states that intermittently she has a spasm that seems to make the pain worse. She states that it makes it sharp. The patients [id number] is complaining of the patients breathing being more shallow and developing a cough. She notes that they have been using the incentive spirometer. The patient complains of dizziness, right shoulder pain, loss of appetite, and constipation. She notes that she has been taking Miralax. The patient denies normally wearing O2, a history of lung problems, and nausea. Home Medications Home Medications Medication Instructions Recorded Confirmed Type ascorbic acid (vitamin C) 500 mg PO DAILY 01/23/18 03/16/18 History aspirin 81 mg PO DAILY 01/23/18 03/16/18 History biotin 1,000 mcg PO DAILY 01/23/18 03/16/18 History calcium carbonate-vitamin D3 1 tab PO BID 01/23/18 03/16/18 History [Calcium 500 + D (D3)] cranberry 500 mg PO DAILY 01/23/18 03/16/18 History lisinopril 10 mg PO DAILY 01/23/18 03/16/18 History metoprolol succinate 25 mg PO DAILY 01/23/18 03/16/18 History vitamin E 400 unit PO DAILY 01/23/18 03/16/18 History acetaminophen [Mapap 650 mg PO Q6H 7 Days #56 tab 03/14/18 03/16/18 Rx (acetaminophen)] cefdinir 300 mg PO BID #7 cap 03/14/18 03/16/18 Rx lidocaine 1 patch TRANSDERMAL HS 14 Days #14 03/14/18 03/16/18 Rx ea oxycodone 5 mg PO Q4H PRN 10 Days #40 tab 03/14/18 03/16/18 Rx Allergies Allergy/AdvReac Type Severity Reaction Status Date / Time Penicillins Allergy Unknown RASH/NAUSEA Verified 03/16/18 11:58 Sulfa (Sulfonamide Allergy Unknown COMA , Verified 03/16/18 11:58 Antibiotics) REACTION WHEN A CHILD Past Med/Surg History Medical History Pneumonia Pneumothorax on right Fall UTI (urinary tract infection) Rib fractures Left knee DJD (Acute) HTN (hypertension) (Chronic) Surgical History History of total bilateral knee replacement (TKR) Family History Other Family history non-contributory Social History marital status: / Current Living Situation: Family Other Information That Helps Us Care for You: No Feels Safe at Home: Yes Safety Concerns: Feels Safe At This Time Smoking Status: Never smoker Do You Dip or Chew Tobacco: No Second Hand Exposure: No Tobacco Cessation Education Requested by Patient: No Hx Alcohol Use: No Hx Substance Use: No Beliefs That Will Affect Care: None Communication Ability: Effective Review of Systems See HPI for pertinent positives & negatives. and A total of 10 systems reviewed and were otherwise negative Physical Exam Vital Signs Vital Signs - 24 hr 03/16/18 23:44 03/17/18 01:34 03/17/18 07:28 Temperature 36.8 C 36.4 C L Temperature Source Oral Oral Pulse Rate [Finger] 82 75 Pulse Rhythm [Finger] Regular Pulse Strength [Finger] Normal Respiratory Rate 23 17 Respiratory Effort / Characteristics Non-Labored Non-Labored Respiratory Depth Normal Normal Respiratory Pattern Regular Blood Pressure [Left Arm] 143/88 H Blood Pressure [Right Arm] 145/76 H Blood Pressure Mean [Left Arm] 106 Blood Pressure Mean [Right Arm] 99 Blood Pressure Position [Left Arm] Lying Blood Pressure Position [Right Arm] Lying Pulse Oximetry 94 91 Oxygen Delivery Method Nasal Cannula Nasal Cannula Room Air Oxygen Flow Rate 2 2 03/17/18 08:00 03/17/18 16:02 Temperature 36.4 C L Temperature Source Oral Pulse Rate [Finger] 75 Pulse Rhythm [Finger] Pulse Strength [Finger] Respiratory Rate 18 Respiratory Effort / Characteristics Non-Labored Spontaneous SOB on Exertion Respiratory Depth Normal Respiratory Pattern Blood Pressure [Left Arm] Blood Pressure [Right Arm] 114/74 Blood Pressure Mean [Left Arm] Blood Pressure Mean [Right Arm] 87 Blood Pressure Position [Left Arm] Blood Pressure Position [Right Arm] Lying Pulse Oximetry 92 Oxygen Delivery Method Room Air Room Air Oxygen Flow Rate GENERAL: alert, well appearing, well nourished, no distress, non-toxic EYE EXAM: normal conjunctiva, PERRL and EOM's grossly intact OROPHARYNX: no exudate, no erythema, lips, buccal mucosa, and tongue normal and mucous membranes are moist NECK: supple, no nuchal rigidity, no adenopathy, non-tender LUNGS: Decreased breath sounds at bilateral bases, right greater than left. Normal chest wall mechanics HEART: no murmurs, S1 normal and S2 normal ABDOMEN: abdomen soft, non-tender, normo-active bowel sounds, no masses, no rebound or guarding. BACK: Back is symmetrical on inspection and there is no deformity, no midline tenderness. Pain along the right lateral and posterior ribs. SKIN: no rashes and no bruising UPPER EXTREMITIES: upper extremities are grossly normal. FROM, nml pulses b/l. LOWER EXTREMITIES: No pitting edema. FROM, Nml pulses b/l. NEURO EXAM: Normal sensorium, cranial nerves II-XII grossly intact, normal speech, no gross weakness of arms, no gross weakness of legs. Course 1050: Past medical records reviewed. The patient was evaluated in room C11B, and a complete history and physical examination were performed. 1350: I discussed the patient's case with Dr. Coyne- Thoracic Surgeon. He states that there is no need for a chest tube right now and to admit for pain control and observation. He thinks that the patient has a developing infiltrate vs atelectasis on that side as well. 1403: I reevaluated the patient and updated her and her family on her test results. I discussed the treatment plan with them. They verbally agree and understand. 1430: I reviewed the patient's case with Dr. Rosalio MICHELLE Hospitalist. She will evaluate the patient for further management. Consultations Consultation #1: I discussed the patient's case with Dr. Coyne- Thoracic Surgeon. He states that there is no need for a chest tube right now and to admit for pain control and observation. He thinks that the patient has a developing infiltrate and atelectasis on that side as well. Time: 13:50 Consultation #2: I reviewed the patient's case with Dr. Rosalio MICHELLE Hospitalist. She will evaluate the patient for further management. Time: 14:30 Administered Medications Acetaminophen (Tylenol) 650 mg PO Q6H [facility] Stop: 04/15/18 17:59 Last Admin: 03/17/18 16:59 Dose: 650 mg Admin: 03/17/18 11:17 Dose: 650 mg Admin: 03/17/18 05:29 Dose: 650 mg Admin: 03/17/18 00:10 Dose: 650 mg Admin: 03/16/18 19:54 Dose: 650 mg Aspirin (Ecotrin Ectab) 81 mg PO DAILY ANA Stop: 04/16/18 08:59 Last Admin: 03/17/18 07:52 Dose: 81 mg Heparin Sodium (Porcine) (Heparin Sodium (Porcine)) 5,000 units SQ Q8 ANA Stop: 04/15/18 21:59 Last Admin: 03/17/18 21:13 Dose: 5,000 units Admin: 03/17/18 14:08 Dose: 5,000 units Admin: 03/17/18 05:29 Dose: 5,000 units Admin: 03/16/18 21:57 Dose: 5,000 units Cefepime HCl 2,000 mg/ Syringe 22.6 mls @ 5.5 mls/min IV Q12H ANA; Protocol Stop: 03/24/18 03:59 Last Admin: 03/17/18 17:00 Dose: 5.5 mls/min Admin: 03/17/18 04:12 Dose: 5.5 mls/min Ketorolac Tromethamine (Toradol) 15 mg IV Q6H PRN PRN Reason: Pain Stop: 03/21/18 17:37 Last Admin: 03/17/18 18:29 Dose: 15 mg Admin: 03/17/18 11:16 Dose: 15 mg Admin: 03/17/18 04:12 Dose: 15 mg Admin: 03/16/18 18:35 Dose: 15 mg Lidocaine (Lidoderm 5%) 1 patch TD HS [facility] Stop: 04/15/18 20:59 Last Admin: 03/17/18 21:12 Dose: 1 patch Admin: 03/16/18 19:54 Dose: 1 patch Lisinopril (Zestril) 10 mg PO DAILY [facility] Stop: 04/16/18 08:59 Last Admin: 03/17/18 07:51 Dose: 10 mg Metoprolol Succinate (Toprol Xl) 25 mg PO DAILY [facility] Stop: 04/16/18 08:59 Last Admin: 03/17/18 07:51 Dose: 25 mg Miscellaneous (Remove Lidoderm Patch) 1 ea N/A DAILY@0900 [facility] Stop: 04/16/18 08:59 Last Admin: 03/17/18 07:53 Dose: 1 ea Oxycodone HCl (Roxicodone Immediate Rel) 5 mg PO Q4H PRN PRN Reason: pain Stop: 03/30/18 17:37 Last Admin: 03/17/18 21:11 Dose: 5 mg Admin: 03/17/18 16:59 Dose: 5 mg Admin: 03/17/18 07:47 Dose: 5 mg Polyethylene Glycol (Miralax Powder Packet) 17 gm PO TID [facility] Stop: 04/15/18 20:59 Last Admin: 03/17/18 21:12 Dose: Not Given Admin: 03/17/18 14:08 Dose: 17 gm Admin: 03/17/18 07:48 Dose: 17 gm Admin: 03/16/18 20:48 Dose: 17 gm Senna/Docusate Sodium (Senokot S) 1 tab PO QAM ANA Stop: 04/16/18 08:59 Last Admin: 03/17/18 07:52 Dose: 1 tab Discontinued Medications Bisacodyl (Dulcolax) 10 mg NE NOW STA Stop: 03/16/18 17:39 Last Admin: 03/16/18 18:43 Dose: Not Given Diazepam (Valium) 2 mg IV NOW STA Stop: 03/16/18 11:10 Last Admin: 03/16/18 12:04 Dose: Not Given Diazepam (Valium) Confirm Administered Dose 5 mg .ROUTE .STK-MED ONE Stop: 03/16/18 11:48 Last Admin: 03/16/18 12:03 Dose: 2 mg Sodium Chloride (Nss) 500 mls @ 125 mls/hr IV .Q4H ANA Stop: 04/15/18 11:14 Last Admin: 03/16/18 22:31 Dose: Not Given Infusion: 03/16/18 16:02 Dose: 0 mls/hr Admin: 03/16/18 12:02 Dose: 125 mls/hr Vancomycin HCl 1,500 mg/ (Sodium Chloride) 530 mls @ 200 mls/hr IV NOW ONE Stop: 03/16/18 17:00 Last Infusion: 03/16/18 18:32 Dose: 0 mls/hr Admin: 03/16/18 15:17 Dose: 200 mls/hr Piperacillin Sod/Tazobactam Sod (Zosyn) 4.5 gm in 120 mls @ 240 mls/hr IV NOW ONE Stop: 03/16/18 15:00 Last Infusion: 03/16/18 15:47 Dose: 0 mls/hr Admin: 03/16/18 15:17 Dose: 240 mls/hr Cefepime HCl 2,000 mg/ Syringe 22.6 mls @ 5.5 mls/min IV NOW STA Stop: 03/16/18 15:21 Last Admin: 03/16/18 15:41 Dose: 5.5 mls/min Medical Decision Making Differential Diagnosis Differential diagnosis: Etiologies such as shingles, musculoskeletal pain, pericarditis, myocarditis, cardiac ischemia, pericardial tamponade, pneumonia, pneumothorax, pleural effusion, hemothorax, pleurisy, aortic pathology, pulmonary embolism, intra- abdominal process, as well as others were considered. Medical Records Attestation: I reviewed the patient's medical records. Home Medications Current Medication List: was personally reviewed by me Laboratory Data Attestation: I reviewed the patient's lab results. Result diagrams: 03/17/18 07:27 03/17/18 07:27 Lab Results 03/16/18 03/16/18 03/16/18 Range/Units 11:40 11:53 11:53 WBC 11.63 H (4.8-10.8) K/uL RBC 4.44 (4.2-5.4) M/uL Hgb 13.9 (12.0-16.0) g/dL Hct 42.2 (37-47) % MCV 95.0 (80-100) fL MCH 31.3 (25-34) pg MCHC 32.9 (32-36) g/dL RDW Std Deviation 46.7 H (36.4-46.3) fL RDW Coeff of Kemi 13.4 (11.5-14.5) % Plt Count 266 (130-400) K/uL MPV 9.5 (7.4-10.4) fL Immature Gran % (Auto) 0.4 % Neut % (Auto) 78.4 % Lymph % (Auto) 11.7 % [place] % (Auto) 8.8 % Eos % (Auto) 0.6 % Baso % (Auto) 0.1 % Immature Gran # (Auto) 0.05 H (0.00-0.02) K/uL Neut # (Auto) 9.12 H (1.4-6.5) K/uL Lymph # (Auto) 1.36 (1.2-3.4) K/uL [place] # (Auto) 1.02 H (0.11-0.59) K/uL Eos # (Auto) 0.07 (0-0.5) K/uL Baso # (Auto) 0.01 (0-0.2) K/uL PT 10.0 (9.0-12.0) Seconds INR 1.0 (0.9-1.1) Sodium 134 L (136-145) mmol/L Potassium 4.0 (3.5-5.1) mmol/L Chloride 99 (98-107) mmol/L Carbon Dioxide 25 (21-32) mmol/L Anion Gap 10.0 (3-11) BUN 23 H (7-18) mg/dl Creatinine 1.04 (0.6-1.2) mg/dl Est Cr Clr Drug Dosing Not Reportable Est GFR ( Amer) 57.1 Est GFR (Non-Af Amer) 49.3 BUN/Creatinine Ratio 22.4 H (10-20) Glucose 133 H (70-99) mg/dl Calcium 9.0 (8.5-10.1) mg/dl Magnesium 2.3 (1.8-2.4) mg/dl Total Bilirubin 0.5 (0.2-1) mg/dl AST 26 (15-37) U/L ALT 31 (12-78) U/L Alkaline Phosphatase 38 L (45-117) U/L Troponin I < 0.015 (0-0.045) ng/ml Total Protein 7.1 (6.4-8.2) gm/dl Albumin 2.9 L (3.4-5.0) gm/dl Globulin 4.2 H (2.5-4.0) gm/dl Albumin/Globulin Ratio 0.7 L (0.9-2) Urine Color Urine Appearance (Clear) Urine pH (4.5-7.5) Ur Specific [place] (1.000-1.030) Urine Protein (Negative) Urine Glucose (UA) (Negative) Urine Ketones (Negative) Urine Blood (Negative) Urine Nitrite (Negative) Urine Bilirubin (Negative) Urine Urobilinogen (Negative) Ur Leukocyte Esterase (Negative) Nasal Screen MRSA (PCR) (Negative) 03/16/18 03/16/18 03/17/18 Range/Units 15:50 Unknown 07:27 WBC 10.18 (4.8-10.8) K/uL RBC 4.01 L (4.2-5.4) M/uL Hgb 12.5 (12.0-16.0) g/dL Hct 38.1 (37-47) % MCV 95.0 (80-100) fL MCH 31.2 (25-34) pg MCHC 32.8 (32-36) g/dL RDW Std Deviation 46.9 H (36.4-46.3) fL RDW Coeff of Kemi 13.5 (11.5-14.5) % Plt Count 253 (130-400) K/uL MPV 9.5 (7.4-10.4) fL Immature Gran % (Auto) 0.5 % Neut % (Auto) 66.4 % Lymph % (Auto) 18.5 % [place] % (Auto) 10.7 % Eos % (Auto) 3.7 % Baso % (Auto) 0.2 % Immature Gran # (Auto) 0.05 H (0.00-0.02) K/uL Neut # (Auto) 6.76 H (1.4-6.5) K/uL Lymph # (Auto) 1.88 (1.2-3.4) K/uL [place] # (Auto) 1.09 H (0.11-0.59) K/uL Eos # (Auto) 0.38 (0-0.5) K/uL Baso # (Auto) 0.02 (0-0.2) K/uL PT (9.0-12.0) Seconds INR (0.9-1.1) Sodium (136-145) mmol/L Potassium (3.5-5.1) mmol/L Chloride (98-107) mmol/L Carbon Dioxide (21-32) mmol/L Anion Gap (3-11) BUN (7-18) mg/dl Creatinine (0.6-1.2) mg/dl Est Cr Clr Drug Dosing Est GFR ( Amer) Est GFR (Non-Af Amer) BUN/Creatinine Ratio (10-20) Glucose (70-99) mg/dl Calcium (8.5-10.1) mg/dl Magnesium (1.8-2.4) mg/dl Total Bilirubin (0.2-1) mg/dl AST (15-37) U/L ALT (12-78) U/L Alkaline Phosphatase (45-117) U/L Troponin I (0-0.045) ng/ml Total Protein (6.4-8.2) gm/dl Albumin (3.4-5.0) gm/dl Globulin (2.5-4.0) gm/dl Albumin/Globulin Ratio (0.9-2) Urine Color Yellow Urine Appearance Clear (Clear) Urine pH 7.0 (4.5-7.5) Ur Specific [place] 1.019 (1.000-1.030) Urine Protein Negative (Negative) Urine Glucose (UA) Negative (Negative) Urine Ketones Negative (Negative) Urine Blood Negative (Negative) Urine Nitrite Negative (Negative) Urine Bilirubin Negative (Negative) Urine Urobilinogen Negative (Negative) Ur Leukocyte Esterase Negative (Negative) Nasal Screen MRSA (PCR) Negative (Negative) 03/17/18 Range/Units 07:27 WBC (4.8-10.8) K/uL RBC (4.2-5.4) M/uL Hgb (12.0-16.0) g/dL Hct (37-47) % MCV (80-100) fL MCH (25-34) pg MCHC (32-36) g/dL RDW Std Deviation (36.4-46.3) fL RDW Coeff of Kemi (11.5-14.5) % Plt Count (130-400) K/uL MPV (7.4-10.4) fL Immature Gran % (Auto) % Neut % (Auto) % Lymph % (Auto) % [place] % (Auto) % Eos % (Auto) % Baso % (Auto) % Immature Gran # (Auto) (0.00-0.02) K/uL Neut # (Auto) (1.4-6.5) K/uL Lymph # (Auto) (1.2-3.4) K/uL [place] # (Auto) (0.11-0.59) K/uL Eos # (Auto) (0-0.5) K/uL Baso # (Auto) (0-0.2) K/uL PT (9.0-12.0) Seconds INR (0.9-1.1) Sodium 138 (136-145) mmol/L Potassium 4.0 (3.5-5.1) mmol/L Chloride 105 (98-107) mmol/L Carbon Dioxide 26 (21-32) mmol/L Anion Gap 7.0 (3-11) BUN 23 H (7-18) mg/dl Creatinine 1.08 (0.6-1.2) mg/dl Est Cr Clr Drug Dosing 38.3 Est GFR ( Amer) 54.6 Est GFR (Non-Af Amer) 47.1 BUN/Creatinine Ratio 20.8 H (10-20) Glucose 97 (70-99) mg/dl Calcium 8.5 (8.5-10.1) mg/dl Magnesium (1.8-2.4) mg/dl Total Bilirubin (0.2-1) mg/dl AST (15-37) U/L ALT (12-78) U/L Alkaline Phosphatase (45-117) U/L Troponin I (0-0.045) ng/ml Total Protein (6.4-8.2) gm/dl Albumin (3.4-5.0) gm/dl Globulin (2.5-4.0) gm/dl Albumin/Globulin Ratio (0.9-2) Urine Color Urine Appearance (Clear) Urine pH (4.5-7.5) Ur Specific [place] (1.000-1.030) Urine Protein (Negative) Urine Glucose (UA) (Negative) Urine Ketones (Negative) Urine Blood (Negative) Urine Nitrite (Negative) Urine Bilirubin (Negative) Urine Urobilinogen (Negative) Ur Leukocyte Esterase (Negative) Nasal Screen MRSA (PCR) (Negative) Imaging Data Radiologist's Impression: Radiology results as stated below per my review and the radiologist's interpretation: XR ribs RT min 3V w [id number] CLINICAL HISTORY: Right-sided chest pain status post trauma increasing shortness of breath COMPARISON STUDY: 03/13/2018 FINDINGS: Multiple right-sided rib fractures are again visualized. There is a 16 mm right apical pneumothorax. The basilar component measures 24 mm. The heart remains enlarged. There are progressive airspace opacities within the right lower lobe. Dedicated views of the ribs reveal fractures of the right fourth through eighth ribs. There is a small amount subcutaneous emphysema present. IMPRESSION: 1. Fractures of the right fourth through eighth ribs 2. Interval development of a small to moderate right-sided pneumothorax with a basilar pleural separation of approximately 24 mm 3. Cardiomegaly and developing right basilar airspace opacities 4. Right-sided subcutaneous emphysema Electronically signed by: Samy Sauceda M.D. 03/16/2018 1:25 PM ECG Data Attestation: I personally reviewed and interpreted this ECG as follows: Indication: back/shoulder pain Rate (beats per minute): 83 Rhythm: sinus rhythm Findings: + other (normal axis, normal intervals); no PAC, no PVC, no ST depression, no ST elevation, no acute ischemic change and no ectopy Blood Pressure Blood Pressure Findings: Elevated blood pressure Blood Pressure Disposition: further management by hospitalist [facility] Narrative Pt well appearing here without significant hypoxia. Pt with known rib fx from prior fall and worsening pain at home despite meds. CXR today suggests new pneumothorax and possible worsening infiltrate vs atelectasis. Pt on cefdinir at home for UTI which should given some coverage for possible pulmonary pathology also. However pt at risk for HCAP given recent hospitalization. Given worsening symptoms, discussed with hospitalist for additional evaluation and mgmt. Discussed with Dr. Coyne, no intervention for pneumothorax at this time. Pt covered with additional IV antibiotics after discussion with hospitalist. Pt hemodynamically stable while in the ER. Pt and family aware of all results and in agreement with plan. Impression & Plan Pneumothorax, Rib pain, Atelectasis, Closed rib fracture Discharge Plan Visit Data *Final* Discharge Date/Time: 03/16/18 17:17 Chief Complaint: Rib Injury/Pain ED Provider: Valarie Cervantes Discharge Problem: Pneumothorax, Rib pain, Atelectasis, Closed rib fracture Patient Disposition: Admitted As Inpatient Condition: Fair Discharge Instructions Interventions: ED Discharge Assessment Last Done: 03/16/18 17:17 The scribe's documentation has been prepared under my direction and personally reviewed by me in its entirety. I confirm that the note above accurately reflects all work, treatment, procedures, and medical decision making performed by me.
[2018-03-18] MEDS: KETOROLAC TROMETHAMINE 15 MG/ML VIAL IV PRN ×3 (03:10→17:21)
[2018-03-18] MEDS: CEFEPIME 2,000 MG in SYRINGE 0 ML IV SCH ×2 (03:10→15:30)
[2018-03-18] MEDS: HEPARIN SOD 5,000 UNIT/0.5 ML VIAL SQ SCH ×3 (06:24→22:45)
[2018-03-18] MEDS: ACETAMINOPHEN 325 MG TAB PO SCH ×3 (06:30→17:22)
[2018-03-18] MEDS ORDERED: ONDANSETRON 4 MG TAB PO PRN (07:18)
[2018-03-18] MEDS: ASPIRIN 81 MG ECTAB PO SCH (08:18)
[2018-03-18] MEDS: POLYETHYLENE (MIRALAX) 17 GM PACK PO SCH ×3 (08:18→22:45)
[2018-03-18] MEDS: LISINOPRIL 10 MG TAB PO SCH (08:18)
[2018-03-18] MEDS: METOPROLOL SUCC 25MG EXT REL TAB PO SCH (08:19)
[2018-03-18] MEDS: DOCUSATE SODIUM/SENNA 50/8.6MG TAB PO SCH (08:19)
--- NOTE | 2018-03-18 10:28 | XRay Report ---
XR chest 2V routine CLINICAL HISTORY: 82 years-old Female presenting with Pneumothorax. TECHNIQUE: Portable upright AP view of the chest was obtained. COMPARISON: 03/17/2018. FINDINGS: Atherosclerosis of the aortic arch. Cardiac silhouette enlarged. Right basilar opacity with small rig ht pleural effusion similar to prior. Overall coarsened lung markings. Trace right pneumothorax with a pleural separation of 9 mm. This is slightly increased from prior exam. Redemonstration of multiple acute mildly displaced right posterior rib fractures. Upper abdomen normal. IMPRESSION: 1. Slight interval increase in the trace right apical pneumothorax. 2. Redemonstration of right basilar atelectasis and small right pleural effusion. 3. Redemonstration of mildly displaced acute right rib fractures. Electronically signed by: Griffin Rutherford M.D. 03/18/2018 10:26 AM
[2018-03-18] MEDS: MoRPHine SULFATE 4 MG/ML 1 ML CARP\\VIAL IV PRN ×2 (10:51→15:19)
[2018-03-18] MEDS: OXYCODONE HCL IR 5 MG TAB (IMMEDIATE RELEASE) PO PRN ×2 (12:38→22:52)
[2018-03-18] MEDS ORDERED: fentaNYL 12 MCG/HR TDSY TD SCH (14:00)
[2018-03-18] MEDS: CHECK FENTANYL PATCH PLACEMENT SCH (15:20)
--- NOTE | 2018-03-18 16:37 | Hospitalist Progress Note ---
Date of Service March 18, 2018 Assessment & Plan (1) Pneumonia: Secondary to atelectasis from rib fractures. With leukocytosis but no fever. - Initially on vanc/cefepime. - Vanc stopped on 03/17 for negative MRSA swab - Could probably switch to Augmentin for discharge - Pain control and encourage incentive spirometry - Blood cultures from 03/16 with no growth to date on 03/18 - Sputum culture ordered, but not collected yet (2) Pneumothorax on right: Secondary to multiple right-sided rib fractures. CXR on 03/16 showed pneumothorax with 24 mm of separation at the right lung apex. 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 - Continue pain control with oxycodone, morphine as above - Added fentynl patch 12mcg on 03/18 for baseline pain control (4) HTN (hypertension): Well controlled at this time with some mild elevation secondary to pain. - Continue home lisinopril and Toprol-XL (5) UTI (urinary tract infection): With previous E. coli UTI, was on cefdinir at home. - Hold home antibiotics while giving cefepime - No further need on discharge (6) Fall: From previous admission resulting in rib fractures - PT/OT recommend rehab (7) DVT prophylaxis: SQ heparin 5000 units every 8 hours Dispo: PT/OT recommend rehab. Working on [facility] discharge -> Possibly Monday vs. Monday with pain controlled. Subjective 82yo F w/ hx of HTN who presented with pneumonia and broken ribs. Doing worse this morning. Pain somewhat worse, but no additional shortness of breath. Reports no fevers/chills, chest pain, abdominal pain, nausea, or vomiting. Physical Exam 2 Vital Signs (Past 24 Hours): Last Vital Signs Temp 36.4 C L 03/18/18 16:18 Pulse 83 03/18/18 16:18 Resp 17 03/18/18 16:18 BP 114/66 03/18/18 16:18 Pulse Ox 90 03/18/18 16:18 Constitutional: WD/WN, vitals as above Eyes: PERRL, conjunctivae normal, anicteric sclerae ENMT: external ear and nose normal, oropharynx normal Neck: trachea midline, no thyromegaly Respiratory: normal respiratory effort Cardiovascular: Rate/Rhythm: regular rate and regular rhythm Heart Sounds: no murmur Chest (Breasts): Chest: normal inspection of chest (Positive tenderness palpation over right lateral rib cage) Gastrointestinal (Abdomen): normal bowel sounds, soft, nontender, no hepatosplenomegaly Musculoskeletal: Extremities: extremities normal to inspection; no cyanosis and no clubbing Skin: no rashes, warm and dry Neurologic: moves all extremities and awake; no focal motor deficits Psychiatric: A+Ox3, euthymic affect _ (1) Pneumonia Pneumonia type: due to unspecified organism Aspiration pneumonia type: Laterality: right Lung location: lower lobe of lung Qualified Code(s): J18.1 - Lobar pneumonia, unspecified organism (2) Rib fractures Encounter type: subsequent encounter Rib fracture type: multiple ribs Fracture type: closed Laterality: right Fracture healing: with routine healing Qualified Code(s): S22.41XD - Multiple fractures of ribs, right side, subsequent encounter for fracture with routine healing (3) HTN (hypertension) Hypertension type: essential hypertension Qualified Code(s): I10 - Essential (primary) hypertension (4) UTI (urinary tract infection) Urinary tract infection type: acute cystitis Hematuria presence: without hematuria Indwelling urinary catheter type: Encounter type: Qualified Code( s): N30.00 - Acute cystitis without hematuria (5) Fall Encounter type: subsequent encounter Qualified Code(s): W19.XXXD - Unspecified fall, subsequent encounter
[2018-03-18] MEDS: LIDOCAINE 5% 1 PATCH TD SCH (22:44)
[2018-03-19] MEDS: CHECK FENTANYL PATCH PLACEMENT SCH ×4 (00:43→23:51)
[2018-03-19] MEDS: ACETAMINOPHEN 325 MG TAB PO SCH ×5 (00:44→23:51)
[2018-03-19] MEDS: MoRPHine SULFATE 4 MG/ML 1 ML CARP\\VIAL IV PRN ×3 (03:04→15:44)
[2018-03-19] MEDS: CEFEPIME 2,000 MG in SYRINGE 0 ML IV SCH ×2 (04:06→16:09)
[2018-03-19] MEDS: HEPARIN SOD 5,000 UNIT/0.5 ML VIAL SQ SCH ×3 (06:19→20:49)
[2018-03-19] MEDS: OXYCODONE HCL IR 5 MG TAB (IMMEDIATE RELEASE) PO PRN (07:44)
--- NOTE | 2018-03-19 08:04 | XRay Report ---
XR chest 2V routine CLINICAL HISTORY: Pneumothorax COMPARISON STUDY: 03/18/2018 FINDINGS: Unchanged multiple right rib fractures. Increased density right base and right mid hemithor ax possibly on the basis of posttraumatic contusion. Small right apical pneumothorax unchanged. Left lung remains clear. IMPRESSION: 1. Multiple right rib fractures similar. 2. Slight increase in prominence of parenchymal contusions of the right hemithorax. 3. Unchanging right apical pneumothorax. The above report was generated using voice recognition software. It may contain grammatical, syntax or spelling errors. Electronically signed by: Kb Vazquez M.D. 03/19/2018 8:03 AM
[2018-03-19] MEDS: POLYETHYLENE (MIRALAX) 17 GM PACK PO SCH ×4 (08:26→20:55)
[2018-03-19] MEDS: METOPROLOL SUCC 25MG EXT REL TAB PO SCH (08:27)
[2018-03-19] MEDS: LISINOPRIL 10 MG TAB PO SCH (08:27)
[2018-03-19] MEDS: DOCUSATE SODIUM/SENNA 50/8.6MG TAB PO SCH (08:27)
[2018-03-19] MEDS: ASPIRIN 81 MG ECTAB PO SCH (08:27)
--- NOTE | 2018-03-19 13:18 | Hospitalist Progress Note ---
Date of Service March 19, 2018 Assessment & Plan (1) Pneumonia: Secondary to atelectasis from rib fractures. With leukocytosis on admission but no fever. WBC count then normalized - Initially on vanc/cefepime. - Vanc stopped on 03/17 for negative MRSA swab -continue Cefepime for now and can transition back to Omnicef on discharge as has PCN allergy - Pain control now with Fentanyl patch 12mcg-helping somewhat -oxycodone prn pain - continue to encourage incentive spirometry - Blood cultures from 03/16 with no growth to date - Sputum culture ordered, but not collected yet -discussed with Thoracic Surgery--> plan for CT chest noncon in the AM to assess for pleural effusion to see if surgical intervention or bronch is warranted (2) Pneumothorax on right: Secondary to multiple right-sided rib fractures. CXR on 03/16 showed pneumothorax with 24 mm of separation at the right lung apex. - Thoracic surgery consulted-for now, no indication for chest tube given small size - Pain control as above, consider increasing Fentanyl patch tomorrow to 25 if still having a lot of pain - Incentive spirometry and ambulation with assistance encouraged - Follow with daily CXR -today with increasing infiltrate--> CT chest tomorrow as above (3) Rib fractures: Age-related osteoporosis with current pathological rib fractures of the right second through ninth ribs from fall 1 week ago. - Continue pain control with oxycodone, Fentanyl as above - Added fentanyl patch 12mcg on 03/18 for baseline pain control (4) HTN (hypertension): Well controlled at this time with some mild elevation secondary to pain. - Continue home lisinopril and Toprol-XL (5) UTI (urinary tract infection): With previous E. coli UTI, was on cefdinir at home. - Hold home antibiotics while giving cefepime - No further need on discharge (6) Fall: From previous admission resulting in rib fractures - PT/OT recommend rehab (7) DVT prophylaxis: SQ heparin 5000 units every 8 hours Dispo: PT/OT recommend rehab. Working on [facility] discharge -> in 1-2 days if pain improved and no need for surgical intervention Subjective Pt still having a lot of pain. aid it was better earlier today and now coming back again. SHe has been working on her IS. Denies much cough. No fevers. No abd pain and is moving her bowels. Feels very tired. Discussed her case with Dr. Coyne. Review of Systems All systems reviewed & are unremarkable except as noted in HPI & below Physical Exam 2 Vital Signs (Past 24 Hours): Last Vital Signs Temp 36.4 C L 03/19/18 07:39 Pulse 72 03/19/18 07:39 Resp 20 03/19/18 07:39 BP 145/89 H 03/19/18 07:39 Pulse Ox 93 03/19/18 07:39 Constitutional: WD/WN, vitals as above Eyes: PERRL, conjunctivae normal, anicteric sclerae ENMT: external ear and nose normal, oropharynx normal Neck: trachea midline, no thyromegaly Respiratory: normal respiratory effort (shows me on her IS it gets to 1500 mL ) Auscultation: + crackles (at right lower and middle lung tinajero; decreased BS at right base) Cardiovascular: Rate/Rhythm: regular rate and regular rhythm Heart Sounds: no murmur Extremities: + edema (Trace edema of the distal lower extremities and ankles-chronic as per daughter) Chest (Breasts): Chest: normal inspection of chest (Positive tenderness palpation over right lateral rib cage) Gastrointestinal (Abdomen): normal bowel sounds, soft, nontender, no hepatosplenomegaly Musculoskeletal: Extremities: extremities normal to inspection; no cyanosis and no clubbing Skin: no rashes, warm and dry Neurologic: moves all extremities and awake; no focal motor deficits Psychiatric: A+Ox3, euthymic affect Results & Data Diagnostic Findings Reviewed CXR image this AM: increasing right lower lobe infiltrate vs atelectasis, +1.1 cm PTX apical _ (1) Pneumonia Pneumonia type: due to unspecified organism Aspiration pneumonia type: Laterality: right Lung location: lower lobe of lung Qualified Code(s): J18.1 - Lobar pneumonia, unspecified organism (2) Rib fractures Encounter type: subsequent encounter Rib fracture type: multiple ribs Fracture type: closed Laterality: right Fracture healing: with routine healing Qualified Code(s): S22.41XD - Multiple fractures of ribs, right side, subsequent encounter for fracture with routine healing (3) HTN (hypertension) Hypertension type: essential hypertension Qualified Code(s): I10 - Essential (primary) hypertension (4) UTI (urinary tract infection) Urinary tract infection type: acute cystitis Hematuria presence: without hematuria Indwelling urinary catheter type: Encounter type: Qualified Code( s): N30.00 - Acute cystitis without hematuria (5) Fall Encounter type: subsequent encounter Qualified Code(s): W19.XXXD - Unspecified fall, subsequent encounter
--- NOTE | 2018-03-19 16:06 | Progress Note ---
DATE: 03/18/2018 Ms. Jc was seen today. She is still having quite a bit of pain, but is sitting up reading the paper and appears more comfortable. She has been mostly on p.o. narcotics. One of the problems that Mrs. Jc has is she lives by herself. She can walk without difficulty, I have encouraged her to do this. Her x-ray looks about the same. She has some mild consolidation in the right base. We will see how her film looks in the morning.
--- NOTE | 2018-03-19 16:09 | Progress Note ---
DATE: 03/19/2018 Ms. Jc was seen today. I think she looks better, but her breath sounds are a bit more decreased in the right base. In addition, I think her x-ray shows a bit more consolidation and she may even have some fluid in her right base. She looks good overall, but I am concerned about this finding. I discussed this with Dr. Christiansen. We are going to proceed with a CT scan without contrast in the morning. I doubt there is anything we would do, however, but appears she has a loculated hemothorax or effusion, we may consider trying to drain this.
[2018-03-19] MEDS: KETOROLAC TROMETHAMINE 15 MG/ML VIAL IV PRN (18:00)
[2018-03-19] MEDS: LIDOCAINE 5% 1 PATCH TD SCH (20:48)
[2018-03-20] MEDS: HEPARIN SOD 5,000 UNIT/0.5 ML VIAL SQ SCH ×3 (05:05→20:45)
[2018-03-20] MEDS: CEFEPIME 2,000 MG in SYRINGE 0 ML IV SCH ×2 (05:05→15:48)
[2018-03-20] MEDS: ACETAMINOPHEN 325 MG TAB PO SCH ×4 (06:16→23:40)
--- NOTE | 2018-03-20 07:47 | XRay Report ---
XR chest 1V portable CLINICAL HISTORY: pneumorthorax dyspnea COMPARISON STUDY: 03/19/2018 FINDINGS: No significant residual pneumothorax. Minimal residual subcutaneous emphysematous change. M ild cardiomegaly. Increased bronchovascular prominence suggests a component of mild congestive failur e. Right pleural effusion slightly increased in volume from the prior study. IMPRESSION: 1. No evidence pneumothorax. 2. Probable developing components of congestive failure. 3. Slight increase in volume of a right pleural effusion. The above report was generated using voice recognition software. It may contain grammatical, syntax or spelling errors. Electronically signed by: Kb Vazquez M.D. 03/20/2018 7:45 AM
--- NOTE | 2018-03-20 08:21 | CT Scan Report ---
CT chest wo con CLINICAL HISTORY: Pneumonia, rib fractures, pneumothorax. Pleural effusion. COMPARISON STUDY: Chest x-ray dated 03/20/2018 CT DOSE: 347.69 mGy.cm TECHNIQUE: CT of the thorax was performed from the thoracic inlet to the lung bases. Images are revi ewed in the axial, sagittal, and coronal planes. IV contrast was not administered for this examinatio n. A dose lowering technique was utilized adhering to the principles of ALARA. FINDINGS: Thyroid: Imaged portions of the thyroid gland are normal in appearance. Thoracic aorta: The thoracic aorta is normal in course and caliber, noting standard 3 vessel arch panda dorys. Heart: The heart is normal in size and configuration, without pericardial effusion. Lungs and pleural spaces: There is a small to moderate right pleural effusion. There is a small right anterior and basilar pneumothorax. The bladder or pleural separation 17 mm. There is right lower lobe atelectasis/consolidation with air bronchograms. There are fractures of the right first through 11th ribs. There are minor atelectatic changes within the lingula. There is right-sided subcutaneous emphysema. Mediastinum: There is no mediastinal lymphadenopathy. Lola: There is no evidence of pathologic hilar adenopathy given the limitations of a noncontrast stud y Axilla: There is no evidence of pathologic axillary lymphadenopathy Upper abdomen: Partially visualized upper abdominal viscera is within normal limits. Skeletal structures: There are fractures of the right first through 11th ribs. IMPRESSION: 1. Fractures of the right first through 11th ribs 2. Small to moderate right pleural effusion 3. Small right anterior and basilar pneumothorax with a maximal pleural separation of 17 mm 4. Right-sided subcutaneous emphysema 5. Right lower lobe atelectasis/consolidation with air bronchograms 6. Minor lingular atelectasis Electronically signed by: Samy Sauceda M.D. 03/20/2018 8:20 AM
[2018-03-20] MEDS: CHECK FENTANYL PATCH PLACEMENT SCH ×3 (08:35→23:44)
[2018-03-20] MEDS: POLYETHYLENE (MIRALAX) 17 GM PACK PO SCH ×3 (08:36→20:45)
[2018-03-20] MEDS: OXYCODONE HCL IR 5 MG TAB (IMMEDIATE RELEASE) PO PRN ×2 (08:48→15:51)
[2018-03-20] MEDS: DOCUSATE SODIUM/SENNA 50/8.6MG TAB PO SCH (08:50)
[2018-03-20] MEDS: LISINOPRIL 10 MG TAB PO SCH (08:51)
[2018-03-20] MEDS: METOPROLOL SUCC 25MG EXT REL TAB PO SCH (09:10)
[2018-03-20] MEDS: ASPIRIN 81 MG ECTAB PO SCH (09:11)
--- NOTE | 2018-03-20 09:41 | Progress Note ---
DATE: 03/20/2018 Ms. Jc was seen today. I discussed this case with Dr. Elvia Christiansen last night and I was not very happy with the x-ray quite frankly, so we ordered a CT scan this morning. CT scan shows more fluid and she does have collapse of her right lower lobe. I had a long discussion with Ms. Jc today. She is on room air. We discussed options to treat this problem. One option would be simply to follow her in the hopes that it would resorb. Another option would be to do a thoracentesis at bedside. We could also place a chest tube, but I advised against that because of the pain. Finally, I have explained that a thoracoscopy could help us remove the fluid, but also remove any blood or clot that is present. In addition, I think most importantly, we can do an intercostal block with Exparel which would give her 72-96 hours of pain relief. I think this would be much preferable than an epidural. I had a long discussion, we discussed the pros and cons with each. She understands and we will proceed tomorrow on 03/21/2018.
--- NOTE | 2018-03-20 14:00 | Anesthesiology Consultation ---
Date of Service March 20, 2018 Assessment & Plan (1) Encounter for pre-operative examination: Chart Review Chart Review: Acceptable Risk for Surgery Consults Requested none ASA ASA3 Proposed Anesthesia Anesthesia Type: General Risk / Benefits Reviewed With: PT / POA / Parent / Guardian, Accepts Plan and Informed Consent Obtained Additional Notes 82 yo female scheduled for right VATs and intercoastal nerve block with Dr. Coyne. The patient experienced a mechanical fall on 01/23 that resulted in fractures of the 11-12th right ribs for which she was medically managed. The patient had a second mechanical fall resulting in displaced fractures of the 2nd -8th ribs. She was admitted for 2 days for pain control and then discharged home. She re-presented 03/16/18 (2 days after discharge) due to severe pain and worsening SOB. Since then, she has been followed by serial CXR and most recently a chest CT showing right sided consolidation for which she is now scheduled for right sided VATs. NPO Date Last Intake of Fluids: 03/20/18 Time Last Intake of Fluids: 19:00 Date Last Intake of Solids: 03/20/18 Time Last Intake of Solids: 18:00 History Surgery Operation Date: 03/21/18 08:40 Proposed Procedures p Right Video Assisted Thoracoscopy Evacuation Hemothorax - Doni Coyne MD, FACS Height/Weight Height: 5 ft 1 in Weight: 84.8 kg Allergies Allergy/AdvReac Type Severity Reaction Status Date / Time Penicillins Allergy Unknown RASH/NAUSEA Verified 03/16/18 11:58 Sulfa (Sulfonamide Allergy Unknown COMA , Verified 03/16/18 11:58 Antibiotics) REACTION WHEN A CHILD Medications Home Medications Medication Instructions Recorded Confirmed Last Taken ascorbic acid (vitamin C) 500 mg PO DAILY 01/23/18 03/16/18 03/15/18 aspirin 81 mg PO DAILY 01/23/18 03/16/18 03/15/18 biotin 1,000 mcg PO DAILY 01/23/18 03/16/18 03/15/18 calcium carbonate-vitamin D3 1 tab PO BID 01/23/18 03/16/18 03/15/18 [Calcium 500 + D (D3)] cranberry 500 mg PO DAILY 01/23/18 03/16/18 03/15/18 lisinopril 10 mg PO DAILY 01/23/18 03/16/18 03/15/18 metoprolol succinate 25 mg PO DAILY 01/23/18 03/16/18 03/15/18 vitamin E 400 unit PO DAILY 01/23/18 03/16/18 03/15/18 cefdinir 300 mg PO BID #7 cap 03/14/18 03/16/18 03/15/18 lidocaine 1 patch TRANSDERMAL HS 14 Days #14 03/14/18 03/16/18 03/15/18 ea oxycodone 5 mg PO Q4H PRN 10 Days #40 tab 03/14/18 03/16/18 03/15/18 Active Medications Generic Name Dose Route Start Last Admin Trade Name Freq PRN Reason Stop Dose Admin Acetaminophen 650 mg 03/16/18 18:00 03/21/18 04:58 Tylenol PO 04/15/18 17:59 650 mg Q6H ANA Administration Aspirin 81 mg 03/17/18 09:00 03/21/18 07:58 Ecotrin Ectab PO 04/16/18 08:59 Not Given DAILY ANA Fentanyl 12 mcg 03/18/18 14:00 03/18/18 14:03 Duragesic TD 04/01/18 13:59 12 mcg Q3D@1400 ANA Administration Heparin Sodium (Porcine) 5,000 units 03/16/18 22:00 03/21/18 04:58 Heparin Sodium (Porcine) SQ 04/15/18 21:59 5,000 units Q8 ANA Administration Cefepime HCl 2,000 mg/ Syringe 22.6 mls @ 5.5 mls/min 03/17/18 04:00 04:58 IV 03/24/18 03:59 5.5 mls/min Q12H ANA Administration Protocol Ketorolac Tromethamine 15 mg 03/16/18 17:38 03/20/18 19:35 Toradol IV 03/21/18 17:37 15 mg Q6H PRN Administration Pain Lidocaine 1 patch 03/16/18 21:00 03/20/18 20:45 Lidoderm 5% TD 04/15/18 20:59 1 patch HS ANA Administration Lisinopril 10 mg 03/17/18 09:00 03/21/18 07:54 Zestril PO 04/16/18 08:59 10 mg DAILY ANA Administration Metoprolol Succinate 25 mg 03/17/18 09:00 03/21/18 07:53 Toprol Xl PO 04/16/18 08:59 25 mg DAILY ANA Administration Miscellaneous 1 ea 03/17/18 09:00 03/21/18 07:58 Remove Lidoderm Patch N/A 04/16/18 08:59 1 ea DAILY@0900 ANA Administration Miscellaneous 1 ea 03/21/18 13:59 03/21/18 08:17 Fentanyl Patch Remove & Waste N/A 04/20/18 13:58 1 ea Q3D@1359 ANA Administration Miscellaneous 1 ea 03/18/18 16:00 03/21/18 07:57 Fentanyl Patch Check Placement N/A 04/17/18 15:59 1 ea QS ANA Administration Morphine Sulfate 2 mg 03/16/18 17:38 03/19/18 15:44 Morphine Sulfate IV 03/30/18 17:37 2 mg Q4H PRN Administration Pain Ondansetron HCl 4 mg 03/18/18 07:18 03/18/18 07:35 Zofran PO 04/17/18 07:17 4 mg Q6H PRN Administration Nausea Oxycodone HCl 7.5 mg 03/19/18 18:27 03/20/18 15:51 Roxicodone Immediate Rel PO 03/30/18 17:37 7.5 mg Q4H PRN Administration pain Polyethylene Glycol 17 gm 03/16/18 21:00 03/21/18 07:57 Miralax Powder Packet PO 04/15/18 20:59 Not Given TID ANA Senna/Docusate Sodium 1 tab 03/17/18 09:00 03/21/18 07:58 Senokot S PO 04/16/18 08:59 Not Given QAM ANA Past Medical History Medical History Pneumonia Pneumothorax on right Fall UTI (urinary tract infection) Rib fractures Left knee DJD (Acute) HTN (hypertension) (Chronic) Past Family History Family History Other Family history non-contributory Past Surgical History Surgical History History of total bilateral knee replacement (TKR) Past Anesthesia History Other Occasional HOTN after anesthesia Social History Smoking Status: Never smoker Do You Dip or Chew Tobacco: No Hx Alcohol Use: No Hx Substance Use: No Exercise / Class Metabolic Activity III < 4 Walking/Shop/Light housework Physical Exam Vital Signs Last Vital Signs Temp 97.9 F 03/21/18 07:00 Pulse 73 03/21/18 07:00 Resp 18 03/21/18 07:00 BP 157/91 H 03/21/18 07:00 Pulse Ox 93 03/21/18 08:06 ENMT Mouth: + dental restorations Thyromental Distance: > or= 3.5 Finger Breadths Mallampati Class: II Neck normal visual inspection Respiratory normal respiratory effort Auscultation: + diminished lung sounds Cardiovascular Rate/Rhythm: regular rate and regular rhythm Testing Electrocardiogram Date: 03/16/18 Findings: + NSR @ (83) Normal sinus rhythm Minimal voltage criteria for LVH, may be normal variant Nonspecific T wave abnormality Borderline ECG When compared with ECG of 11-MAY-2017 15:14, Premature ventricular complexes are no longer Present Nonspecific T wave abnormality now evident in Inferior leads Chest X-Ray Date: 03/20/18 IMPRESSION: 1. No evidence pneumothorax. 2. Probable developing components of congestive failure. 3. Slight increase in volume of a right pleural effusion. Other Testing Chest CT 03/20/18 IMPRESSION: 1. Fractures of the right first through 11th ribs 2. Small to moderate right pleural effusion 3. Small right anterior and basilar pneumothorax with a maximal pleural separation of 17 mm 4. Right-sided subcutaneous emphysema 5. Right lower lobe atelectasis/consolidation with air bronchograms 6. Minor lingular atelectasis Laboratory Results 03/17/18 07:27 03/21/18 05:49 Blood Type A Positive 03/20/18 14:48 Antibody Screen NEGATIVE 03/20/18 14:48 PT 10.0 Seconds (9.0-12.0) 03/16/18 11:40 INR 1.0 (0.9-1.1) 03/16/18 11:40 Urine Color Yellow 03/16/18 15:50 Urine Appearance Clear (Clear) 03/16/18 15:50 Urine pH 7.0 (4.5-7.5) 03/16/18 15:50 Ur Specific [place] 1.019 (1.000-1.030) 03/16/18 15:50 Urine Protein Negative (Negative) 03/16/18 15:50 Urine Glucose (UA) Negative (Negative) 03/16/18 15:50 Urine Ketones Negative (Negative) 03/16/18 15:50 Urine Nitrite Negative (Negative) 03/16/18 15:50 Ur Leukocyte Esterase Negative (Negative) 03/16/18 15:50 03/16/18 15:09 Blood Culture - Preliminary Blood No growth to date. 03/16/18 15:09 Blood Culture - Preliminary Blood No growth to date.
[2018-03-20] MEDS: KETOROLAC TROMETHAMINE 15 MG/ML VIAL IV PRN (19:35)
--- NOTE | 2018-03-20 19:35 | Hospitalist Progress Note ---
Date of Service March 20, 2018 Assessment & Plan (1) Rib fractures: Numerous, right-sided - rib #'s 1-[address] chest. Continues w/ considerable pain. Remains on fentanyl patch 12mcg q3d. Lidoderm patches, toradol, and morphine prn also available to her. Dr. Coyne's consultation appreciated. NPO after MN tonight for OR tomorrow w/ Dr. Coyne. Thoracoscopy planned to drain effusion (could be hemothorax) and for nerve block to assist w/ pain control. Most likely has severe osteoporosis and will need Rx for such post-discharge. Present on Admission?: Yes (2) Pneumothorax on right: 2nd to multiple rib fractures. To OR in am. Small, not requiring any o2. Present on Admission?: Yes (3) Pneumonia: RLL. Remains on cefepime to cover gram negatives. Supportive care. Day # 5. Plan 7-day course of antibiotics. (4) Rib pain: 2nd to rib fractures - see discussion above. (5) HTN (hypertension): labile, likely due to severe rib pain. currently on low-dose AMY and BB. if any additional control is needed will increase BB. in meantime treat her pain. (6) Constipation: continue aggressive bowel regimen in light of narcotic usage. (7) Chronic kidney disease, stage 3a: creatinine stable on most recent labs. BMP in am for stability. (8) DVT prophylaxis: heparin SC again daughter updated by phone today Subjective patient continues with significant pain over the right chest along with occasional splinting during the visit she was ruminating about the fall that led to these fractures, stating multiple times "I just don't know what happened" other than rib pain denies other complaints Updated Roz Jc at [phone] (daughter) Constitutional: + anorexia; no fever and no chills Respiratory: + pain on inspiration; no cough and no dyspnea Cardiovascular: as per Subjective / HPI and + chest pain Gastrointestinal: no abdominal pain Physical Exam 2 Vital Signs (Past 24 Hours): Last Vital Signs Temp 36.8 C 03/20/18 16:09 Pulse 83 03/20/18 16:09 Resp 16 03/20/18 16:09 BP 151/77 H 03/20/18 16:09 Pulse Ox 93 03/20/18 16:09 Constitutional: well developed, well nourished and + obese; no acute distress ENMT: external ear and nose normal, oropharynx normal Neck: trachea midline, no thyromegaly Respiratory: Auscultation: + diminished lung sounds (right base) and + crackles (right base); no rhonchi and no wheezes Cardiovascular: Rate/Rhythm: regular rate; + abnormal rhythm (extra beats?) Heart Sounds: normal S1 and normal S2; no murmur Vessels: posterior tibial pulses present and dorsalis pedis pulses present; no JVD Extremities: no edema Gastrointestinal (Abdomen): normal bowel sounds, soft, nontender, no hepatosplenomegaly Psychiatric: Orientation: alert slightly confused Results & Data Laboratory Results Laboratory Results - last 24 hr 03/20/18 14:48 Blood Type A Positive Antibody Screen NEGATIVE Diagnostic Findings chest CT: IMPRESSION: 1. Fractures of the right first through 11th ribs 2. Small to moderate right pleural effusion 3. Small right anterior and basilar pneumothorax with a maximal pleural separation of 17 mm 4. Right-sided subcutaneous emphysema 5. Right lower lobe atelectasis/consolidation with air bronchograms 6. Minor lingular atelectasis _ (1) Rib fractures Encounter type: subsequent encounter Rib fracture type: multiple ribs Fracture type: closed Laterality: right Fracture healing: with routine healing Qualified Code(s): S22.41XD - Multiple fractures of ribs, right side, subsequent encounter for fracture with routine healing (2) Pneumonia Pneumonia type: due to unspecified organism Aspiration pneumonia type: Laterality: right Lung location: lower lobe of lung Qualified Code(s): J18.1 - Lobar pneumonia, unspecified organism (3) HTN (hypertension) Hypertension type: essential hypertension Qualified Code(s): I10 - Essential (primary) hypertension (4) Constipation Constipation type: other constipation type Qualified Code(s): K59.09 - Other constipation
[2018-03-20] MEDS: LIDOCAINE 5% 1 PATCH TD SCH (20:45)
[2018-03-21] MEDS: HEPARIN SOD 5,000 UNIT/0.5 ML VIAL SQ SCH ×3 (04:58→21:48)
[2018-03-21] MEDS: ACETAMINOPHEN 325 MG TAB PO SCH ×2 (04:58→15:59)
[2018-03-21] MEDS: CEFEPIME 2,000 MG in SYRINGE 0 ML IV SCH ×2 (04:58→15:57)
[2018-03-21 06:55] LABS: BUN Creatinine Ratio 23.4 (10-20); Calcium 8.5 mg/dl (8.5-10.1); Creatinine Clr Calc Pharmacy 40.6 ml/min; Est GFR (African American) 58.5; Est GFR (Non-African American) 50.5; Potassium 4.3 mmol/L (3.5-5.1)
[2018-03-21] MEDS: METOPROLOL SUCC 25MG EXT REL TAB PO SCH ×2 (07:53→21:56)
[2018-03-21] MEDS: LISINOPRIL 10 MG TAB PO SCH (07:54)
[2018-03-21] MEDS: CHECK FENTANYL PATCH PLACEMENT SCH (07:57)
[2018-03-21] MEDS: POLYETHYLENE (MIRALAX) 17 GM PACK PO SCH ×3 (07:57→21:47)
[2018-03-21] MEDS: ASPIRIN 81 MG ECTAB PO SCH (07:58)
[2018-03-21] MEDS: DOCUSATE SODIUM/SENNA 50/8.6MG TAB PO SCH (07:58)
[2018-03-21] MEDS ORDERED: CLINDAMYCIN 900 MG in DEXTROSE 5% 100 ML IV ONE (08:21)
--- NOTE | 2018-03-21 08:21 | History & Physical Bridge Note ---
Date of Service March 21, 2018 History & Physical Bridge Note I have examined the patient, reviewed the History & Physical and in the interval since the performance of the History & Physical I have noted the following changes of clinical significance: no changes noted
[2018-03-21] MEDS ORDERED: MIDAZOLAM HCL 1 MG/ML 2ML VIAL ONE (08:29)
[2018-03-21] MEDS ORDERED: fentaNYL citrate 100 MCG/2 ML VIAL ONE ×2 (08:30→09:41)
[2018-03-21] MEDS ORDERED: PROPOFOL IV EMULSION 10 MG/ML 20 ML VIAL IV ONE (08:33)
[2018-03-21] MEDS ORDERED: LIDOCAINE HCL 2% 2 ML VIAL/AMP(20MG/ML) INFIL ONE (08:33)
[2018-03-21] MEDS ORDERED: ROCURONIUM BROMIDE 10 MG/ML 5 ML VIAL ONE ×5 (08:37)
[2018-03-21] MEDS ORDERED: LARYING-O-JET KIT (LTA) ONE (08:37)
[2018-03-21] MEDS ORDERED: ATROPINE SULFATE 0.1 MG/ML 10ML SYR IV PRN (08:41)
[2018-03-21] MEDS ORDERED: ePHEDrine sulfate 50 MG/ML AMP IV PRN (08:41)
[2018-03-21] MEDS ORDERED: ONDANSETRON INJ 2 MG/ML 2 ML VIAL IV PRN (08:41)
[2018-03-21] MEDS ORDERED: HYDROmorphone INJ 1 MG/ML SYRINGE IV PRN (08:41)
[2018-03-21] MEDS ORDERED: fentaNYL citrate 100 MCG/2 ML VIAL IV PRN (08:41)
[2018-03-21] MEDS ORDERED: SODIUM CHLORIDE 0.9% PF 50 ML VIAL ONE (08:42)
[2018-03-21] MEDS ORDERED: BUPIVACAINE 0.5 % 5 MG/1 ML MPF 30ML VIAL ONE (08:42)
[2018-03-21] MEDS ORDERED: BUPIVACAINE LIPOSOME 1.3% 266 MG/20 ML VIAL ONE (08:43)
--- NOTE | 2018-03-21 10:03 | Post Operative Brief Note ---
Immediate Post Op Note v1 Date of Surgery March 21, 2018 Pre & Post Diagnosis Operation Date: 03/21/18 08:40 Pre-Op Diagnosis: Right pleural effusion Post-Op Diagnosis: Right pleural effusion Procedure Operation Date: 03/21/18 08:40 Actual Procedures p Right Video Assisted Thoracoscopy Evacuation Hemothorax(Right) - Doni Coyne MD, FACS Surgeon Doni Coyne MD, FACS [employer] Stephen VASQUEZ Estimated Blood Loss 5 Findings Consistent with Post-Op Diagnosis Drains Chest Tube
[2018-03-21] MEDS ORDERED: METOCLOPRAMIDE HCL INJ 5 MG/ML 2 ML VIAL IV ONE (10:20)
[2018-03-21] MEDS ORDERED: NEOSTIGMINE METHYLSULFATE 5 MG/5 ML SYR ONE (10:35)
[2018-03-21] MEDS ORDERED: PHENYLEPHRINE HCL 10 MG/ML VIAL ONE (10:35)
[2018-03-21] MEDS ORDERED: GLYCOPYRROLATE 0.2 MG/ML VIAL ONE (10:35)
--- NOTE | 2018-03-21 10:45 | XRay Report ---
XR chest 1V portable HISTORY: Postop pleural effusion COMPARISON: Chest 03/20/2018. FINDINGS: Near complete resolution of the trace right pleural effusion with placement of a right-side d chest tube which terminates at the right lung apex. No definite pneumothorax. Multiple displaced ri ght-sided rib fractures are noted. The heart remains enlarged. Perihilar interstitial and vascular th ickening. This suggest mild congestive change and has slightly improved. IMPRESSION: 1. Right-sided chest tube terminates in the right lung apex. Near complete resolution of the trace ri ght pleural effusion. 2. Multiple right-sided rib fractures are again noted. No pneumothorax. 3. Cardiomegaly with mild congestive change which has improved. Electronically signed by: Eduin Suazo M.D. 03/21/2018 10:44 AM
--- NOTE | 2018-03-21 11:43 | Anesthesiology Progress Note ---
Date of Service March 21, 2018 Anesthesia Post Procedure Vital Signs Vital Signs: Temp Pulse Pulse Resp BP BP Pulse Ox 03/21/18 11:30 72 15 164/93 H 98 03/21/18 11:20 73 17 155/85 H 99 03/21/18 11:10 73 16 150/78 H 97 03/21/18 11:00 73 25 H 143/78 H 93 03/21/18 10:50 72 16 136/66 95 03/21/18 10:40 73 21 134/75 95 03/21/18 10:30 73 17 114/66 95 03/21/18 10:22 97.7 F 74 16 112/67 92 03/21/18 08:30 97.5 F L 87 20 176/97 H 03/21/18 08:06 93 03/21/18 07:00 97.9 F 73 18 157/91 H 90 03/21/18 00:00 98.1 F 85 18 135/93 93 03/20/18 16:09 98.2 F 83 16 151/77 H 93 Pain Intensity Right Ribs: Pain Intensity: 8 Notes Mental Status: alert / awake / arousable and participated in evaluation Patient Amnestic to Procedure: Yes Nausea / Vomiting: adequately controlled Pain: adequately controlled Airway Patency, RR, SpO2: stable & adequate BP & HR: stable & adequate Hydration State: stable & adequate Anesthetic Complications: no major complications apparent and Pt Satisfied with anesthetic care
[2018-03-21] MEDS: D5W AND 1/2NSS 1,000 ML IV SCH ×2 (12:51→18:26)
[2018-03-21] MEDS: METOCLOPRAMIDE HCL INJ 5 MG/ML 2 ML VIAL IV SCH ×2 (13:52→21:47)
[2018-03-21] MEDS: ACETAMINOPHEN 1,000 MG/100 ML VIAL IV SCH ×2 (13:56→23:56)
--- NOTE | 2018-03-21 17:14 | Operative Report ---
DATE OF OPERATION: 03/21/2018 PREOPERATIVE DIAGNOSES: Right hemothorax, status post rib fractures. POSTOPERATIVE DIAGNOSES: Right hemothorax, status post rib fractures. PROCEDURE: Right thoracoscopy with evacuation of hemothorax. SURGEON: Doni Coyne MD IN STORE REPRESENTATIVE: PEDRO Ariza. ANESTHESIA: General anesthesia, endotracheal intubation using single lumen tube. SPECIFICS OF PROCEDURE AND FINDINGS: Natalia Jc is an 82-year-old female who fell about 11 days ago and fractured several ribs on the right side. She was initially evaluated here and sent home as it is felt that her small pneumothorax and the lack of pleural fluid or a contusion in her lung would not occur, so she was discharged. She came back with increasing pain, was uncontrollable without parenteral narcotics. We have been following films on her, and I spoke with Dr. Elvia Christiansen yesterday, and it appears that the patient has increasing fluid and perhaps a consolidation of the right lower lobe. I had a long talk with the patient. We discussed several different options. Quite frankly, I believe that doing a thoracoscopy with a 5 mm scope, removing the fluid, and performing an intercostal block with Exparel would give her relief and drain the fluid. On 03/21/2018, the patient was brought to the operating room and underwent an uncomplicated thoracoscopy. She had mild adhesions, which I took down with a sucker. I made two 5 mm incisions. I sucked out about 400 mL of bloody fluid. We could see some of the fractures. I performed an Exparel intercostal block. She tolerated it quite well. DESCRIPTION OF PROCEDURE: Patient was brought to the operating room and laid in supine position. General anesthesia induced. Endotracheal intubation was performed. This was done with a single lumen tube. The patient was placed in left lateral decubitus position. Right chest prepped and draped in the usual sterile fashion. After appropriate timeout had been called and antibiotics given, I made a 5 mm incision posterior to the scapula but a bit inferior to it. Upon placing the 5 mm trocar and then the 30 degree 5 mm scope, it could be seen that we were in good position. There was fluid noted that was bloody. Another 5 mm port was placed anteriorly and a bit lateral to the mediastinal fat. This was done in about the sixth interspace. We then suctioned out about 400 mL of bloody fluid. I saw no other abnormalities except it appeared there were rib fractures with some mild ecchymosis on the chest wall intrathoracically. 266 mg of Exparel mixed with 30 mL of 0.25% bupivacaine and 250 mL of normal saline. Solution was used to inject both of the port sites prior to making an incision and then we used it to inject between each of the intercostal spaces starting from the 2nd and going to the 11th rib. This worked quite nicely. We lost very little in the way of blood. She did have some adhesions from her upper lobe to the lateral chest wall, which were taken down with the sucker tip. She had no air leak. A 24-British chest tube was placed in the anterior thoracoscopy port. This was held in place with heavy silk suture. A 4-0 Monocryl was used to close the posterior port. The patient tolerated it quite well and was awakened without difficulty from anesthesia. I attest to the content of the Intraoperative Record and any orders documented therein. Any exception s are noted below.
[2018-03-21] MEDS: OXYCODONE HCL IR 5 MG TAB (IMMEDIATE RELEASE) PO PRN (18:31)
--- NOTE | 2018-03-21 20:29 | Hospitalist Progress Note ---
Date of Service March 21, 2018 Assessment & Plan (1) Rib fractures: Numerous, right-sided - rib #'s 1-[address] chest[address] s/p Thoracoscopy with hemothorax evacuation, nerve block and chest tube placement by Dr. Coyne. patient is much more comfortable following this procedure. perhaps in a day or two we can attempt to stop the fentanyl patch and just use prn pain meds by mouth. defer chest tube management to thoracic surgery. (2) Pneumothorax on right: s/p chest tube placement today during her procedure daily chest x-ray (3) Pneumonia: RLL. Remains on cefepime to cover gram negatives. Supportive care. Day # 6. Plan 7-day course of antibiotics then stop. (4) Rib pain: 2nd to rib fractures - see discussion above. (5) HTN (hypertension): labile - will increase beta adelina to BID dosing (6) Constipation: continue bowel regimen (7) Chronic kidney disease, stage 3a: creatinine stable BMP am (8) DVT prophylaxis: heparin SC making progress PT, OT Subjective saw the patient post-op on the surgical floor she reported no pain she was comfortable offered no new complaints Respiratory: no cough and no dyspnea Cardiovascular: no chest pain Gastrointestinal: no abdominal pain Physical Exam 2 Vital Signs (Past 24 Hours): Last Vital Signs Temp 36.5 C 03/21/18 20:27 Pulse 95 H 03/21/18 20:27 Resp 20 03/21/18 20:27 BP 190/101 H 03/21/18 20:27 Pulse Ox 96 03/21/18 20:27 Constitutional: well developed, well nourished and + obese; no acute distress looks much better today ENMT: external ear and nose normal, oropharynx normal Respiratory: Auscultation: + diminished lung sounds (right base) and + crackles (right base); no rhonchi and no wheezes Cardiovascular: Rate/Rhythm: regular rate and regular rhythm Heart Sounds: normal S1 and normal S2; no murmur Vessels: posterior tibial pulses present and dorsalis pedis pulses present; no JVD Extremities: no edema Gastrointestinal (Abdomen): normal bowel sounds, soft, nontender, no hepatosplenomegaly Psychiatric: Orientation: alert and oriented x 3 Results & Data Laboratory Results Laboratory Results - last 24 hr 03/21/18 05:49 Sodium 139 Potassium 4.3 Chloride 107 Carbon Dioxide 27 Anion Gap 5.0 BUN 24 H Creatinine 1.02 Est Cr Clr Drug Dosing 40.6 Est GFR ( Amer) 58.5 Est GFR (Non-Af Amer) 50.5 BUN/Creatinine Ratio 23.4 H Glucose 96 Calcium 8.5 _ (1) Rib fractures Encounter type: subsequent encounter Fracture healing: with routine healing Fracture type: closed Laterality: right Rib fracture type: multiple ribs Qualified Code(s): S22.41XD - Multiple fractures of ribs, right side, subsequent encounter for fracture with routine healing (2) HTN (hypertension) Hypertension type: essential hypertension Qualified Code(s): I10 - Essential (primary) hypertension (3) Pneumonia Aspiration pneumonia type: Laterality: right Lung location: lower lobe of lung Pneumonia type: due to unspecified organism Qualified Code(s): J18.1 - Lobar pneumonia, unspecified organism (4) Constipation Constipation type: other constipation type Qualified Code(s): K59.09 - Other constipation
[2018-03-22] MEDS: D5W AND 1/2NSS 1,000 ML IV SCH ×2 (04:32→13:41)
[2018-03-22] MEDS: CEFEPIME 2,000 MG in SYRINGE 0 ML IV SCH ×2 (04:50→17:11)
[2018-03-22] MEDS: ACETAMINOPHEN 1,000 MG/100 ML VIAL IV SCH ×2 (04:51→13:20)
[2018-03-22] MEDS: METOCLOPRAMIDE HCL INJ 5 MG/ML 2 ML VIAL IV SCH (04:58)
[2018-03-22] MEDS: HEPARIN SOD 5,000 UNIT/0.5 ML VIAL SQ SCH ×3 (05:01→21:31)
[2018-03-22 06:44] LABS: Hematocrit (blood only) 35.2 % (37-47); Hemoglobin 11.2 g/dL (12.0-16.0); Mean Corpuscular Hgb Conc 31.8 g/dL (32-36); Mean Corpuscular Volume 96.4 fL (80-100); Mean Platelet Volume 8.9 fL (7.4-10.4); Platelet Count 360 K/uL (130-400); RDW Coefficient of Variation 13.7 % (11.5-14.5); RDW Standard Deviation 47.9 fL (36.4-46.3); Red Blood Count 3.65 M/uL (4.2-5.4); White Blood Count 10.03 K/uL (4.8-10.8)
[2018-03-22 07:16] LABS: BUN Creatinine Ratio 16.9 (10-20); Calcium 8.8 mg/dl (8.5-10.1); Est GFR (African American) 55.8; Est GFR (Non-African American) 48.2; Potassium 4.4 mmol/L (3.5-5.1)
--- NOTE | 2018-03-22 07:34 | XRay Report ---
XR chest 1V portable HISTORY: effusion COMPARISON: Chest 03/21/2018. FINDINGS: Right-sided chest tube terminates in the right lung apex. No definite pneumothorax. Trace b ilateral pleural effusions and the congestive change have improved. The heart remains mildly enlarged . Right hilar fullness persists. IMPRESSION: 1. Right-sided chest tube remains unchanged in position. No definite pneumothorax. 2. Improvement in the pulmonary vascular congestion and trace bilateral pleural effusions. Electronically signed by: Eduin Suazo M.D. 03/22/2018 7:32 AM
[2018-03-22] MEDS: OXYCODONE HCL IR 5 MG TAB (IMMEDIATE RELEASE) PO PRN ×2 (07:51→16:05)
[2018-03-22] MEDS: POLYETHYLENE (MIRALAX) 17 GM PACK PO SCH ×3 (07:52→20:42)
[2018-03-22] MEDS: DOCUSATE SODIUM/SENNA 50/8.6MG TAB PO SCH (07:52)
[2018-03-22] MEDS: LISINOPRIL 10 MG TAB PO SCH (07:52)
[2018-03-22] MEDS: ASPIRIN 81 MG ECTAB PO SCH (07:52)
[2018-03-22] MEDS: METOPROLOL SUCC 25MG EXT REL TAB PO SCH ×2 (07:53→21:31)
[2018-03-22] MEDS: MoRPHine SULFATE 4 MG/ML 1 ML CARP\\VIAL IV PRN ×2 (08:59→13:19)
--- NOTE | 2018-03-22 09:14 | XRay Report ---
XR chest 1V portable HISTORY: tube removal COMPARISON: Chest 03/22/2018. FINDINGS: Interval removal of the right-sided chest tube. No pneumothorax. The heart remains mildly e nlarged. Mild interstitial thickening persists. Multiple right-sided rib fractures are again noted. T race bilateral pleural effusions and bibasilar densities, unchanged. IMPRESSION: Interval removal of the right-sided chest tube. No pneumothorax. Electronically signed by: Eduin Suazo M.D. 03/22/2018 9:12 AM
--- NOTE | 2018-03-22 09:47 | Anesthesiology Progress Note ---
Date of Service March 22, 2018 Anesthesia Post Procedure Vital Signs Vital Signs: Temp Pulse Pulse Pulse Resp BP Pulse Ox 03/22/18 08:05 36.8 C 62 16 179/80 H 99 03/22/18 05:04 94 03/22/18 04:00 36.5 C 66 18 168/91 H 99 03/22/18 00:50 88 164/91 H 03/22/18 00:00 36.3 C L 84 18 183/98 H 97 03/21/18 22:16 36.3 C L 93 H 20 205/101 H 96 03/21/18 21:43 90 201/110 H 03/21/18 20:27 36.5 C 95 H 20 190/101 H 96 03/21/18 18:14 36.4 C L 90 18 143/103 H 95 03/21/18 16:01 36.4 C L 63 18 152/78 H 97 03/21/18 14:56 36.3 C L 63 16 169/84 H 97 03/21/18 14:12 150/78 H 03/21/18 14:06 164/74 H 03/21/18 14:03 36.6 C 64 16 173/81 H 96 03/21/18 12:55 36.6 C 69 16 157/69 H 97 03/21/18 12:15 36.3 C L 63 149/76 H 99 03/21/18 12:00 36.7 C 67 20 162/81 H 96 03/21/18 11:50 69 19 145/82 H 98 03/21/18 11:40 36.2 C L 71 16 153/91 H 98 03/21/18 11:30 72 15 164/93 H 98 03/21/18 11:20 73 17 155/85 H 99 03/21/18 11:10 73 16 150/78 H 97 03/21/18 11:00 73 25 H 143/78 H 93 03/21/18 10:50 72 16 136/66 95 03/21/18 10:40 73 21 134/75 95 03/21/18 10:30 73 17 114/66 95 03/21/18 10:22 36.5 C 74 16 112/67 92 Pain Intensity Right Ribs: Pain Intensity: 5 Notes Mental Status: alert / awake / arousable and participated in evaluation Patient Amnestic to Procedure: Yes Nausea / Vomiting: see Notes below Pain: adequately controlled Airway Patency, RR, SpO2: stable & adequate BP & HR: stable & adequate Hydration State: stable & adequate Anesthetic Complications: no major complications apparent and Pt Satisfied with anesthetic care
--- NOTE | 2018-03-22 09:59 | Progress Note ---
DATE: 03/22/2018 Ms. Jc was seen today 1 day status post a right thoracoscopy with evacuation of hemothorax. Patient's pain is better since before the surgery. We brought in a problem with urinary retention, however. She had to be straight catheterized 3 times. She does have some urinary incontinence at home. She is still having considerable amount of pain from her ribs, but they are better since we did our block yesterday in the operating room. We are going to get her up walking today and see how she looks this afternoon. I removed her chest tube as it drained very little, and her x-ray looked quite good afterwards. She does not have an appearance of a pulmonary contusion. This is going to be a pain control issue. I am going to see how she looks over the next day or so.
--- NOTE | 2018-03-22 18:21 | Hospitalist Progress Note ---
Date of Service March 22, 2018 Assessment & Plan (1) Rib fractures: Numerous, right-sided - rib #'s 1-[address] chest. Due to recent fall about 10+ days ago. s/p Thoracoscopy with hemothorax evacuation, nerve block and chest tube placement by Dr. Coyne. chest tube discontinued this AM. patient is much more comfortable following this procedure. try to manage pain with oral oxycodone only. cont fentanyl patch - ideally we are able to stop this in the next week or two. (2) Pneumothorax on right: s/p thoracospy and chest tube placement, with discontinuation of such this am resolved (3) Pneumonia: RLL. Remains on cefepime to cover gram negatives. Supportive care. Day # 7. STOP antibiotics tomorrow. (4) Rib pain: 2nd to rib fractures - see discussion above. (5) HTN (hypertension): labile - but now improved with adjustment of meds. (6) Constipation: continue bowel regimen (7) Chronic kidney disease, stage 3a: creatinine stable BMP am (8) DVT prophylaxis: heparin SC making nice progress [facility] test [facility] urine culture due to recent UTI repeat u/a was very clean, but will add urine cx at her request to [facility] next 48 hours? Subjective patient feels much better today minimal pain during my encounter, but review of MAR shows use of oxycodone and morphine in addition to her fentanyl patch denies pleuritic pain eating a little better had issues with urinary retention overnight requiring I/O cath urination has improved through the day today patient/family wanting [facility] at discharge Constitutional: no fever Respiratory: no cough, no dyspnea, no pain on inspiration and no wheezing Cardiovascular: no chest pain Gastrointestinal: no abdominal pain and no constipation Physical Exam 2 Vital Signs (Past 24 Hours): Last Vital Signs Temp 36.5 C 03/22/18 15:53 Pulse 82 03/22/18 15:53 Resp 18 03/22/18 15:53 BP 136/72 03/22/18 15:53 Pulse Ox 91 03/22/18 15:53 Constitutional: well developed, well nourished and + obese; no acute distress ENMT: external ear and nose normal, oropharynx normal Neck: trachea midline, no thyromegaly Respiratory: Auscultation: + crackles (b/l bases); no rhonchi and no wheezes Cardiovascular: Rate/Rhythm: regular rate and regular rhythm Heart Sounds: normal S1 and normal S2; no murmur Vessels: posterior tibial pulses present and dorsalis pedis pulses present; no JVD Extremities: + edema (trace b/l ) Gastrointestinal (Abdomen): normal bowel sounds, soft, nontender, no hepatosplenomegaly Psychiatric: Orientation: alert and oriented x 3 Results & Data Laboratory Results Laboratory Results - last 24 hr 03/22/18 03/22/18 06:34 06:34 WBC 10.03 RBC 3.65 L Hgb 11.2 L Hct 35.2 L MCV 96.4 MCH 30.7 MCHC 31.8 L RDW Std Deviation 47.9 H RDW Coeff of Kemi 13.7 Plt Count 360 MPV 8.9 Sodium 135 L Potassium 4.4 Chloride 106 Carbon Dioxide 25 Anion Gap 4.0 BUN 18 Creatinine 1.06 Est Cr Clr Drug Dosing 39.0 Est GFR ( Amer) 55.8 Est GFR (Non-Af Amer) 48.2 BUN/Creatinine Ratio 16.9 Glucose 118 H Calcium 8.8 _ (1) Rib fractures Encounter type: subsequent encounter Fracture healing: with routine healing Fracture type: closed Laterality: right Rib fracture type: multiple ribs Qualified Code(s): S22.41XD - Multiple fractures of ribs, right side, subsequent encounter for fracture with routine healing (2) HTN (hypertension) Hypertension type: essential hypertension Qualified Code(s): I10 - Essential (primary) hypertension (3) Pneumonia Aspiration pneumonia type: Laterality: right Lung location: lower lobe of lung Pneumonia type: due to unspecified organism Qualified Code(s): J18.1 - Lobar pneumonia, unspecified organism (4) Constipation Constipation type: other constipation type Qualified Code(s): K59.09 - Other constipation
[2018-03-23] MEDS: ACETAMINOPHEN 1,000 MG/100 ML VIAL IV SCH ×3 (00:47→14:26)
[2018-03-23] MEDS: CEFEPIME 2,000 MG in SYRINGE 0 ML IV SCH (03:50)
[2018-03-23] MEDS: HEPARIN SOD 5,000 UNIT/0.5 ML VIAL SQ SCH ×2 (05:33→14:26)
[2018-03-23 07:52] LABS: BUN Creatinine Ratio 18.3 (10-20); Creatinine Clr Calc Pharmacy 41.8 ml/min; Est GFR (African American) 60.6; Est GFR (Non-African American) 52.3; Potassium 4.5 mmol/L (3.5-5.1)
[2018-03-23] MEDS ORDERED: FUROSEMIDE 20 MG TAB PO ONE (09:30)
[2018-03-23] MEDS: LISINOPRIL 10 MG TAB PO SCH (10:26)
[2018-03-23] MEDS: METOPROLOL SUCC 25MG EXT REL TAB PO SCH (10:27)
[2018-03-23] MEDS: ASPIRIN 81 MG ECTAB PO SCH (12:57)
[2018-03-23] MEDS: POLYETHYLENE (MIRALAX) 17 GM PACK PO SCH ×2 (12:58→14:34)
[2018-03-23] MEDS: DOCUSATE SODIUM/SENNA 50/8.6MG TAB PO SCH (12:59)
--- NOTE | 2018-03-23 14:39 | Progress Note ---
DATE: 03/23/2018 Ms. Jc was seen today. She looks great. She has just finished taking a bath and washing her hair and she is standing up without assistance. She is much improved. Her pain is better. Her aeration is also good on exam. I was quite pleased with her. We will continue to follow her. Hopefully, we will get over this hump. WHITNEY
--- NOTE | 2018-03-31 07:03 | Discharge Summary ---
Date of Service date of admission - March 16, 2018 date of discharge - March 23, 2018 Admission HPI Per Admitting Provider The patient is an 82-year-old female with a history of HTN & falls, with a recent hospitalization and discharged 2 days ago after suffering a fall resulting in multiple right-sided rib fractures. She was also treated for UTI at that time. She presents to the ER today with worsening shortness of breath and cough productive of yellow thick sputum with worsening pain on the right side over the last 1-2 days. She denies fevers, sweats, chills at home, and has not had a bowel movement in 6 days. She denies abdominal pain or dysuria or urinary frequency or urgency. She has been feeling a little bit lightheaded possibly due to taking oxycodone. She was taking her cefdinir for the UTI since discharge as prescribed. In the ER, she was found to have a new pneumothorax and persistent right sided rib fractures. The pneumothorax was 2.4 cm in size. She also had a developing right lower lobe infiltrate and a mild leukocytosis but was afebrile. Principal Diagnosis Rib fractures, right-sided -- rib #'s 03-02 -- with intractable pain, s/p thoracoscopy Discharge Exam Constitutional well developed, well nourished and + obese; no acute distress ENMT external ear and nose normal, oropharynx normal Neck trachea midline, no thyromegaly Respiratory Auscultation: + crackles (b/l bases); no rhonchi and no wheezes Cardiovascular Rate/Rhythm: regular rate and regular rhythm Heart Sounds: normal S1 and normal S2; no murmur Vessels: posterior tibial pulses present and dorsalis pedis pulses present; no JVD Extremities: + edema (trace b/l ) Gastrointestinal (Abdomen) normal bowel sounds, soft, nontender, no hepatosplenomegaly Psychiatric Orientation: alert and oriented x 3 Discharge Data Allergies Allergy/AdvReac Type Severity Reaction Status Date / Time Penicillins Allergy Unknown RASH/NAUSEA Verified 03/16/18 11:58 Sulfa (Sulfonamide Allergy Unknown COMA , Verified 03/16/18 11:58 Antibiotics) REACTION WHEN A CHILD Consultations thoracic surgery - Doni Coyne MD PT, OT Procedures Performed 1. Operation Date: 03/21/18 Right Video Assisted Thoracoscopy Evacuation Hemothorax - Doni Coyne MD , FACS Ordered Studies CT chest wo con - IMPRESSION: 1. Fractures of the right first through 11th ribs 2. Small to moderate right pleural effusion 3. Small right anterior and basilar pneumothorax with a maximal pleural separation of 17 mm 4. Right-sided subcutaneous emphysema 5. Right lower lobe atelectasis/consolidation with air bronchograms 6. Minor lingular atelectasis Hospital Course (1) Rib fractures: Numerous, right-sided - rib #'s 1-[address] chest. Due to recent fall at her home on March 10, 2018. The patient had severe pain and disability from the numerous rib fractures. As a result of her rib fractures and inability too take large breaths she developed a RLL pneumonia (see below). Dr. Coyne followed the patient through her stay and due to her intractable pain a CT chest was ultimately obtained. This demonstrated not only the pneumothorax and rib fractures but a suspected traumatic hemothorax from the recent fall/fractures. A discussion was held with the patient & her family, and a decision was made to take her to the OR to perform thoracoscopy with hemothorax evacuation. Also during this procedure Dr. Coyne performed an intra-thoracic nerve block. Chest tube was placed on the right as well. Following the procedure the patient's right-sided chest wall pain was MARKEDLY improved. We were able to discontinue her fentanyl patch as a result of the excellent pain control obtained from this nerve block. She remained on oral oxycodone for breakthrough pain. Chest tube was discontinued by Dr. Coyne's team prior to discharge and O2 sats were stable in room air prior to discharge to [facility] rehab. She will need follow-up with Dr. Coyne after discharge in the thoracic office. (2) Pneumothorax on right: Pneumothorax was due to her rib fractures. s/p thoracoscopy and chest tube placement. (3) Hemothorax on right: s/p thoracoscopy and evacuation by Dr. Coyne. (4) Pneumonia: RLL. Received a full 7-day course of IV antibiotics while here with clinical resolution. (5) HTN (hypertension): Labile throughout her stay - likely due to pain - but improved with adjustment of meds. (6) Constipation: Will continue bowel regimen at discharge. (7) Chronic kidney disease, stage 3a: creatinine stable at 0.99 at discharge. Total Time Total Time Spent Total Time Spent (In Minutes): 40 Total Time Includes: Examination of the Patient, Discharge Planning, Medication Reconciliation and Communication With Other Providers Discharge Plan Discharge Items Patient Disposition: Transfer Inpatient Rehab Fac Reason For Visit: severe right-sided chest wall pain Discharge Diagnosis: severe right-sided chest wall pain due to rib fractures ( right-sided ribs # 1 thru 11); s/p right-sided thoracoscopy by Dr. Coyne with placement of a nerve block and evacuation of bloody fluid (hemothorax) Condition: Fair Discharge Goals: Decrease discomfort, Diagnostic testing, Improve disease control, Improve function, Learn about illness and Therapeutic intervention Activity: As commented below Activity Comment: as tolerated Lifting: Gradually increase as tolerated Bathing: Keep incision dry Bathing Comment: keep dressing clean/dry on right chest wall Non-emergency contact: Surgeon Call non-emergency contact if: you have any medication questions, your symptoms worsen, your pain is not controlled, your pain is worsening and your temperature is above 100.5 Follow-up/Referrals: Doni Coyne MD, FACS [Surgeon] - (see Dr. Coyne within 1 week of discharge ) Diet: Heart Healthy Addtl Provider Instructions: From Silverio Velázquez - Hospitalist - 1. see Dr. Doni Coyne, thoracic surgery, within 1 week 2. if in several days the patient's chest wall pain returns (after nerve block wears off) could consider resumption of fentanyl patch as she was previously taking this for pain 3. check CBC, BMP, magnesium on 03/25/18, for stability 4. patient with frequent falls at home - consider gait training 5. return to [facility] if - * fevers > 100.5 degrees * uncontrolled pain * worsening shortness of breath * development of severe diarrhea * any other concerns Prescriptions: New polyethylene glycol 3350 [Miralax] 17 gram Powder In Packet 17 g PO DAILY Qty: 1 RF: 0 sennosides-docusate sodium [Senna with Docusate Sodium] 8.6-50 mg Tablet 1 tab PO QAM Qty: 30 RF: 0 furosemide [Lasix] 20 mg tablet 20 mg PO QAM Qty: 2 RF: 0 Continue aspirin 81 mg Tablet,Delayed Release (Dr/Ec) 81 mg PO DAILY RF: 0 ascorbic acid (vitamin C) 500 mg Tablet 500 mg PO DAILY RF: 0 lisinopril 10 mg Tablet 10 mg PO DAILY RF: 0 vitamin E 400 unit Capsule 400 unit PO DAILY RF: 0 cranberry 500 mg Capsule 500 mg PO DAILY RF: 0 calcium carbonate-vitamin D3 [Calcium 500 + D (D3)] 500 mg(1,250mg) -125 unit Tablet 1 tab PO BID RF: 0 biotin 1,000 mcg Tablet,Chewable 1,000 mcg PO DAILY RF: 0 Changed metoprolol succinate 25 mg Tablet Extended Release 24 Hr 25 mg PO BID Qty: 60 RF: 2 Discontinued cefdinir 300 mg Capsule 300 mg PO BID Qty: 7 RF: 0 Stand-Alone Forms: [facility] Discharge Orders: Discharge Order (Routine); Ordered 03/23/18 Ordered By: Silverio Velázquez Skilled Items Patient informed of condition?: Yes DNR: Yes Discharge Level of Care: Acute rehab Communicable Disease: No Discharge Prognosis: Improving Admission Data Admit Date/Time: 03/16/18 15:11 Attending Provider: Silverio Velázquez Admit Provider: Elvia Christiansen Primary Care Provider: Myla Schulz Other Providers: Doni Coyne Service: Medical Other Interventions: Discharge Summary Assessment (RN) Last Done: 03/23/18 15:21 Pending Studies at Discharge: No DC Date/Time DO NOT enter until pt leaves facility: 03/23/18 15:39
== END 2018-03-23 15:39 | DRG 166 ==
LOC: ED 09:06 → 4W 15:11 → SUATTDRO 15:11 → 4W 17:17 → 3W 03-21 12:12

== ENCOUNTER 2020-10-12 12:13 | Observation (INO) ==
--- NOTE | 2020-10-12 15:54 | Emergency Department Note ---
Impression & Plan Acute deep vein thrombosis (DVT) of left lower extremity ED Provider Note NAME: VIKTOR LYLE AGE: 84 SEX: F : 1935 ARRIVES VIA: Walk-In INFORMANT: Patient, ED PROVIDER(S): Rigo oLngo MD Chief Complaint: Leg swelling HPI: Patient does present with concern for left lower extremity swelling which has been ongoing since September 30. The patient states that initially began his left ankle swelling but has gotten worse more indolent in nature but was worse especially yesterday. Patient denies any fevers or chills. The patient denies any trauma. The patient does have a known history of left TKA that was completed years ago. Patient denies any trauma. Patient denies any numbness tingling or weakness. The patient does have some occasional pain to the calf and thigh area. Patient denies any twisting or turning. The patient does not take blood thinning medications. Patient denies any shortness of breath or chest pain. Patient denies any recent prolonged car or plane travel or surgery. Patient states that she was at a social gathering approximate 10 days ago where she had been sitting for some time. ROS: See HPI for pertinent positives and negatives. A total of 10 systems were reviewed and otherwise negative. Past medical history: See below Surgical history: See below Social history: See below Physical Exam: GENERAL: [Well appearing, well nourished,] NAD, wearing glasses, wearing a mask, non-toxic. EYE EXAM: Normal conjunctiva. PERRL, no anisocoria and EOM's grossly intact w/o pain. NECK: Supple, no nuchal rigidity, no adenopathy, non-tender. No signs of meningismus. LUNGS: Clear to auscultation. Normal chest wall mechanics. HEART: NSR, no MRG. ABDOMEN: Abdomen soft, non-tender, normo-active bowel sounds, no masses, no rebound or guarding. BACK: No CVA TTP. SKIN: No rashes and no bruising. UPPER EXTREMITIES: Upper extremities are grossly normal. LOWER EXTREMITIES: Compartments are soft bilaterally, left lower extremity with 1-2+ edema greater than right lower extremity, neurovascular intact distally. Mild pain to the calf area. No pain to the hips or pelvis. NEURO EXAM: A&O x3, cranial nerves II-XII grossly intact, normal speech, moves all 4 extremities on command w/o issue. Differential diagnoses: DVT, musculoskeletal, infection, joint effusion, trauma, lymphedema, idiopathic, CHF, as well as other pathologies. Course: Patient was seen and evaluated the bedside. Full history physical exam was performed. EKG interpreted by me Sinus with first-degree AV block, rate of 87, AL is prolonged at 282, normal axis, T wave inversion in lead III. Imaging Studies: See Below Cardiac monitoring: An order was placed for continuous cardiac monitoring. The monitor shows a rate of 85 with sinus rhythm. MDM: She was seen due to concern for left lower extremity swelling. Blood work was obtained along with a left lower extremity Doppler. The patient does have concern for extensive DVT. Heparin was ordered. Given the patient's extensive DVT believe the patient would benefit from inpatient treatment at this time. I did speak with Dr. Smith and the patient was admitted the [facility] medicine service. Critical Care: I have personally spent 60 minutes of critical care time in direct management of this patient. This includes bedside care, interpretation of diagnostic studies, and testing, discussion with consultants, patient, and family members, and other require inpatient management activities. This 60 minutes is in excess of all separately billable procedures. Past Med/Surg History Medical History (Updated 10/12/20 @ 21:43 by Rigo Longo MD) CKD (chronic kidney disease) stage 4, GFR 15-29 ml/min Fall HTN (hypertension) Left knee DJD Pneumonia Pneumothorax on right Surgical History H/O wisdom tooth extraction History of total bilateral knee replacement (TKR) History of vaginal surgery 2009 bladder prolapse surgery with mesh placement Family History Other Family history non-contributory Denies family history of Ovarian cancer Breast cancer Colorectal cancer Social History Smoking Status: Never smoker Second Hand Exposure: No; Hx Alcohol Use: No Hx Substance Use: No Preferred Language: Maori Communication Ability: Effective Visual Impairment: No Limitations School Attendance Secretary Required: No Beliefs That Will Affect Care: None marital status: / Current Living Situation: Family Feels Safe at Home: Yes Assistive Devices: Walker Allergies Allergies Allergy/AdvReac Type Severity Reaction Status Date / Time cefuroxime Allergy Unknown Unknown Verified 10/12/20 17:25 Sulfa (Sulfonamide Allergy Unknown COMA , Verified 10/12/20 17:25 Antibiotics) REACTION WHEN A CHILD ciprofloxacin [From Cipro] AdvReac Mild NAUSEA, Verified 10/12/20 17:25 HEEL AND KNEE PAIN Home Meds Home Medications Medication Instructions Recorded Confirmed ascorbic acid (vitamin C) 500 mg 500 mg PO DAILY 01/23/18 10/12/20 tablet biotin 1,000 mcg chewable tablet 1,000 mcg PO DAILY 01/23/18 10/12/20 cranberry 500 mg capsule 500 mg PO DAILY 01/23/18 10/12/20 calcium carbonate 500 mg (1,250 1 tab PO DAILY 10/21/19 10/12/20 mg)-vitamin D3 125 unit tablet cyanocobalamin (vitamin B-12) 1,000 mcg PO DAILY 10/21/19 10/12/20 1,000 mcg tablet (Vitamin B-12) ondansetron HCl 4 mg tablet 4 mg PO QID PRN 10/21/19 10/12/20 (Zofran) carvedilol 3.125 mg tablet 3.125 mg PO BID 05/21/20 10/12/20 hydralazine 10 mg tablet 10 mg PO BID 05/21/20 10/12/20 losartan 50 mg tablet 50 mg PO DAILY 05/21/20 10/12/20 mp-[id number]-FA-Ca carb-vit K 1 tab PO DAILY 05/21/20 10/12/20 [Women's Multivitamin] gabapentin 100 mg capsule 100 mg PO TID 10/05/20 10/12/20 Previous Rx's Medication Instructions Recorded cephalexin 500 mg capsule (Keflex) 500 mg PO DAILY #30 cap 07/08/19 nitrofurantoin 100 mg PO DAILY #30 cap 07/08/19 monohydrate/macrocrystals 100 mg capsule (Macrobid) meclizine 25 mg tablet 25 mg PO TID PRN #21 tab 10/21/19 Results & Data (ED) Vital Signs Vital Signs - 24 hr 10/12/20 12:28 10/12/20 17:10 Temperature 36.5 C Temperature Source Temporal Artery Scan Pulse Rate 94 H Pulse Rate [Radial] 75 Respiratory Rate 16 16 Respiratory Effort / Characteristics Non-Labored Respiratory Depth Normal Blood Pressure 109/74 Blood Pressure [Left Arm] 142/83 H Blood Pressure Mean 85 Blood Pressure Mean [Left Arm] 102 Pulse Oximetry 95 97 Sepsis Recent Fever Within 48 Hours No Sepsis New/Unexplained Change in Mental Status No Sepsis Action Taken by Nursing No Action Required Home Medications Current Medication List: was personally reviewed by me Laboratory Data Result diagrams: 10/12/20 16:20 10/12/20 16:20 Lab Results 10/12/20 10/12/20 10/12/20 Range/Units 16:20 16:20 17:26 WBC 7.92 (4.8-10.8) K/uL RBC 4.26 (4.2-5.4) M/uL Hgb 13.3 (12.0-16.0) g/dL Hct 41.5 (37-47) % MCV 97.4 (80-100) fL MCH 31.2 (25-34) pg MCHC 32.0 (32-36) g/dL RDW Std Deviation 48.2 H (36.4-46.3) fL RDW Coeff of Kemi 13.5 (11.5-14.5) % Plt Count 240 (130-400) K/uL MPV 9.2 (7.4-10.4) fL Immature Gran % (Auto) 0.4 % Neut % (Auto) 48.2 % Lymph % (Auto) 33.5 % Coffey % (Auto) 11.4 % Eos % (Auto) 6.2 % Baso % (Auto) 0.3 % Neut # (Auto) 3.83 (1.4-6.5) K/uL Lymph # (Auto) 2.65 (1.2-3.4) K/uL Coffey # (Auto) 0.90 H (0.11-0.59) K/uL Eos # (Auto) 0.49 (0-0.5) K/uL Baso # (Auto) 0.02 (0-0.2) K/uL Immature Gran # (Auto) 0.03 H (0.00-0.02) K/uL Sodium 136 (136-145) mmol/L Potassium 4.2 (3.5-5.1) mmol/L Chloride 103 (98-107) mmol/L Carbon Dioxide 28 (21-32) mmol/L Anion Gap 5.0 (3-11) BUN 37 H (7-18) mg/dl Creatinine 1.46 H (0.6-1.2) mg/dl Est Cr Clr Drug Dosing 26.9 ml/min Est GFR ( Amer) 37.4 ml/min Est GFR (Non-Af Amer) 32.3 ml/min BUN/Creatinine Ratio 25.4 H (10-20) Glucose 117 H (70-99) mg/dl Calcium 9.2 (8.5-10.1) mg/dl Magnesium 2.3 (1.8-2.4) mg/dl Total Bilirubin 0.4 (0.2-1) mg/dl AST 19 (15-37) U/L ALT 25 (12-78) U/L Alkaline Phosphatase 57 (45-117) U/L Total Protein 7.9 (6.4-8.2) gm/dl Albumin 3.5 (3.4-5.0) gm/dl Globulin 4.4 H (2.5-4.0) gm/dl Albumin/Globulin Ratio 0.8 L (0.9-2) COVID-19 Eval Order Covid19 at [facility] SARS-CoV-2 (PCR) (Negative) 10/12/20 Range/Units 17:26 WBC (4.8-10.8) K/uL RBC (4.2-5.4) M/uL Hgb (12.0-16.0) g/dL Hct (37-47) % MCV (80-100) fL MCH (25-34) pg MCHC (32-36) g/dL RDW Std Deviation (36.4-46.3) fL RDW Coeff of Kemi (11.5-14.5) % Plt Count (130-400) K/uL MPV (7.4-10.4) fL Immature Gran % (Auto) % Neut % (Auto) % Lymph % (Auto) % Coffey % (Auto) % Eos % (Auto) % Baso % (Auto) % Neut # (Auto) (1.4-6.5) K/uL Lymph # (Auto) (1.2-3.4) K/uL Coffey # (Auto) (0.11-0.59) K/uL Eos # (Auto) (0-0.5) K/uL Baso # (Auto) (0-0.2) K/uL Immature Gran # (Auto) (0.00-0.02) K/uL Sodium (136-145) mmol/L Potassium (3.5-5.1) mmol/L Chloride (98-107) mmol/L Carbon Dioxide (21-32) mmol/L Anion Gap (3-11) BUN (7-18) mg/dl Creatinine (0.6-1.2) mg/dl Est Cr Clr Drug Dosing ml/min Est GFR ( Amer) ml/min Est GFR (Non-Af Amer) ml/min BUN/Creatinine Ratio (10-20) Glucose (70-99) mg/dl Calcium (8.5-10.1) mg/dl Magnesium (1.8-2.4) mg/dl Total Bilirubin (0.2-1) mg/dl AST (15-37) U/L ALT (12-78) U/L Alkaline Phosphatase (45-117) U/L Total Protein (6.4-8.2) gm/dl Albumin (3.4-5.0) gm/dl Globulin (2.5-4.0) gm/dl Albumin/Globulin Ratio (0.9-2) COVID-19 Eval Order SARS-CoV-2 (PCR) NEGATIVE (Negative) Administered Medications Heparin Sodium/Dextrose (Heparin Sodium/Dextrose) 25,000 units in 500 mls @ 0.02 mls/hr IV .Q24H [facility]; Protocol Stop: 11/11/20 17:44 Last Admin: 10/12/20 17:45 Dose: 750 units/hr, 15 mls/hr Documented by: [id number] Cosigned by: [id number] Discontinued Medications Heparin Sodium/Dextrose (Heparin Iv Adult Wt-Based Standard *No* Bolus Protocol) 1 ea IV ONE ONE; Protocol Stop: 10/12/20 17:17 Last Admin: 10/12/20 20:54 Dose: Not Given Documented by: [id number] Imaging Data Radiologist's Impression: Venous Doppler Study 10/12/20 16:07 ULTRASOUND LEFT LOWER EXTREMITY VENOUS CLINICAL HISTORY: Left leg swelling. COMPARISON STUDY: No priors. TECHNIQUE: Real-time, grayscale, and color Doppler sonography of the deep veins of the left lower extremity was performed from the inguinal crease to the calf. Compression and augmentation were utilized. FINDINGS: There is nearly occlusive to occlusive deep venous thrombosis identified throughout the left common femoral vein, the superficial femoral vein, and in the popliteal vein. Occlusive thrombus is seen within the profunda femoris vein at the junction the common femoral vein. The greater saphenous vein is clear. Broken flow to the calf vessels also likely represents deep venous thrombosis. IMPRESSION: Extensive nearly occlusive to occlusive deep venous thrombosis throughout the left lower extremity as above. ACT 112: Negative or not required by law. Electronically signed by: Cuco Honeycutt M.D. 10/12/2020 5:05 PM Discharge Plan Visit Data Chief Complaint: Swelling/Edema to Extremity Stated Complaint: SWOLLEN LEFT LEG, REF ED Provider: Rigo Longo Discharge Problem: Acute deep vein thrombosis (DVT) of left lower extremity Patient Disposition: Admitted As Inpatient Discharge Instructions Interventions: ED Discharge Assessment Last Done: 10/12/20 20:33
[2020-10-12 16:29] LABS: Basophils # (auto) 0.02 K/uL (0-0.2); Basophils % (auto) 0.3 %; Eosinophils # (auto) 0.49 K/uL (0-0.5); Eosinophils % (auto) 6.2 %; Hematocrit (blood only) 41.5 % (37-47); Hemoglobin 13.3 g/dL (12.0-16.0); Immature Granulocytes # (auto) 0.03 K/uL (0.00-0.02); Immature Granulocytes % (auto) 0.4 %; Lymphocytes # (auto) 2.65 K/uL (1.2-3.4); Lymphocytes % (auto) 33.5 %; Mean Corpuscular Hemoglobin 31.2 pg (25-34); Mean Corpuscular Volume 97.4 fL (80-100); Mean Platelet Volume 9.2 fL (7.4-10.4); Monocytes % (auto) 11.4 %; Neutrophils # (auto) 3.83 K/uL (1.4-6.5); Neutrophils % (auto) 48.2 %; Platelet Count 240 K/uL (130-400); RDW Coefficient of Variation 13.5 % (11.5-14.5); RDW Standard Deviation 48.2 fL (36.4-46.3); Red Blood Count 4.26 M/uL (4.2-5.4); White Blood Count 7.92 K/uL (4.8-10.8)
[2020-10-12 16:48] LABS: Albumin Level 3.5 gm/dl (3.4-5.0); BUN Creatinine Ratio 25.4 (10-20); Calcium 9.2 mg/dl (8.5-10.1); Creatinine Clr Calc Pharmacy 26.9 ml/min; Est GFR (African American) 37.4 ml/min; Est GFR (Non-African American) 32.3 ml/min; Magnesium 2.3 mg/dl (1.8-2.4); Potassium 4.2 mmol/L (3.5-5.1)
[2020-10-12 16:50] LABS: Albumin Globulin Ratio 0.8 (0.9-2); Bilirubin,Total 0.4 mg/dl (0.2-1); Globulin 4.4 gm/dl (2.5-4.0); Total Protein 7.9 gm/dl (6.4-8.2)
--- NOTE | 2020-10-12 17:06 | Ultrasound Report ---
ULTRASOUND LEFT LOWER EXTREMITY VENOUS CLINICAL HISTORY: Left leg swelling. COMPARISON STUDY: No priors. TECHNIQUE: Real-time, grayscale, and color Doppler sonography of the deep veins of the left lower ext remity was performed from the inguinal crease to the calf. Compression and augmentation were utilized . FINDINGS: There is nearly occlusive to occlusive deep venous thrombosis identified throughout the lef t common femoral vein, the superficial femoral vein, and in the popliteal vein. Occlusive thrombus is seen within the profunda femoris vein at the junction the common femoral vein. The greater saphenous vein is clear. Broken flow to the calf vessels also likely represents deep venous thrombosis. IMPRESSION: Extensive nearly occlusive to occlusive deep venous thrombosis throughout the left lower extremity as above. ACT 112: Negative or not required by law. Electronically signed by: uCco Honeycutt M.D. 10/12/2020 5:05 PM
[2020-10-12] MEDS ORDERED: Heparin IV Adult Wt-Based Standard *NO* Bolus Protocol IV ONE (17:16)
[2020-10-12] MEDS ORDERED: HEPARIN SODIUM/DEXTROSE 25,000 UNITS/500 ML BAG IV SCH (17:45)
--- NOTE | 2020-10-12 19:28 | History & Physical Report ---
Date of Service October 12, 2020 Assessment & Plan (1) Left leg DVT: Plan: Doppler on 10/12 showed "extensive nearly occlusive to occlusive deep venous thrombosis throughout the left lower extremity." - Started on heparin gtt by the ED - Discussed with vascular surgery -> Given her leg is neurovascularly intake, there is no role for thrombectomy. Defer consult at this time. - CM consult for apixaban pricing => Likely discharge tomorrow. Discussed whether she could go home today, but patient and son feel more comfortable with overnight admission. (2) HTN (hypertension): Plan: BP stable in the ED at 155/90. - Continue home carvedilol, hydralazine, losartan (3) CKD (chronic kidney disease) stage 4, GFR 15-29 ml/min: Plan: Baseline Cr. seems to be ~1.4 - 1.5. - Presently at baseline. - Monitor and adjust meds as needed (4) Frequent UTI: Plan: "Tick-tocks" back and forth between Macrobid and cephalexin for UTI ppx. - Continue Macrobid History of Present Illness Primary Care Provider: Kellie Wayne DO 84yo F w/ hx of HTN and recurrent UTI who presents with extensive LLE. She noted some ankle swelling on 09/30/2020. It started started to be more extensive. She saw her filer repairer who prescribed Lasix, but this did not help the swelling. She also tried compression stockings on the left leg which did not help either. She has no inciting event that she is aware of. No long travel, no surgery, no prolonged down time. She decided to come to the hospital when her leg swelling went all the way up to her upper thigh. In the ED, she was noted to have an extensive DVT of the LLE and started on a heparin gtt. Allergies Allergy/AdvReac Type Severity Reaction Status Date / Time cefuroxime Allergy Unknown Unknown Verified 10/12/20 17:25 Sulfa (Sulfonamide Allergy Unknown COMA , Verified 10/12/20 17:25 Antibiotics) REACTION WHEN A CHILD ciprofloxacin [From Cipro] AdvReac Mild NAUSEA, Verified 10/12/20 17:25 HEEL AND KNEE PAIN Home Medications Medication Instructions Recorded Confirmed Type ascorbic acid (vitamin C) 500 mg 500 mg PO DAILY 01/23/18 10/12/20 History tablet biotin 1,000 mcg chewable tablet 1,000 mcg PO DAILY 01/23/18 10/12/20 History cranberry 500 mg capsule 500 mg PO DAILY 01/23/18 10/12/20 History cephalexin 500 mg capsule (Keflex) 500 mg PO DAILY #30 cap 07/08/19 10/12/20 Rx nitrofurantoin 100 mg PO DAILY #30 cap 07/08/19 10/12/20 Rx monohydrate/macrocrystals 100 mg capsule (Macrobid) calcium carbonate 500 mg (1,250 1 tab PO DAILY 10/21/19 10/12/20 History mg)-vitamin D3 125 unit tablet cyanocobalamin (vitamin B-12) 1,000 mcg PO DAILY 10/21/19 10/12/20 History 1,000 mcg tablet (Vitamin B-12) meclizine 25 mg tablet 25 mg PO TID PRN #21 tab 10/21/19 10/12/20 Rx ondansetron HCl 4 mg tablet 4 mg PO QID PRN 10/21/19 10/12/20 History (Zofran) carvedilol 3.125 mg tablet 3.125 mg PO BID 05/21/20 10/12/20 History hydralazine 10 mg tablet 10 mg PO BID 05/21/20 10/12/20 History losartan 50 mg tablet 50 mg PO DAILY 05/21/20 10/12/20 History [id number]-Ca carb-vit K 1 tab PO DAILY 05/21/20 10/12/20 History [Women's Multivitamin] gabapentin 100 mg capsule 100 mg PO TID 10/05/20 10/12/20 History Past Med/Surg History Medical History (Updated 10/12/20 @ 19:43 by Lake Smith MD) CKD (chronic kidney disease) stage 4, GFR 15-29 ml/min Fall HTN (hypertension) Left knee DJD Pneumonia Pneumothorax on right Surgical History H/O wisdom tooth extraction History of total bilateral knee replacement (TKR) History of vaginal surgery 2009 bladder prolapse surgery with mesh placement Family History Other Family history non-contributory Denies family history of Ovarian cancer Breast cancer Colorectal cancer Social History Smoking Status: Never smoker Second Hand Exposure: No; Hx Alcohol Use: No Hx Substance Use: No Preferred Language: Turkmen Communication Ability: Effective Visual Impairment: No Limitations Surfboard Designer Required: No Beliefs That Will Affect Care: None marital status: / Current Living Situation: Family Feels Safe at Home: Yes Assistive Devices: Walker Review of Systems Review of Systems: All systems reviewed & are unremarkable except as noted in HPI & below Physical Exam Constitutional: WD/WN, vitals as above Eyes: EOM intact bilaterally; no conjunctival abnormality ENMT: external ear and nose normal, oropharynx normal Neck: trachea midline, no thyromegaly normal visual inspection Respiratory: normal respiratory effort, lungs clear to auscultation no respiratory distress Cardiovascular: Rate/Rhythm: regular rate and regular rhythm Extremities: + edema (Left leg up to thigh) and + varicosities Gastrointestinal (Abdomen): Inspection/Auscultation: abdomen normal to inspection; abdomen not distended Musculoskeletal: no cyanosis or clubbing, extremities motor strength 5/5 Skin: no rashes, warm and dry Neurologic: moves all extremities and awake Psychiatric: Orientation: alert, oriented to person and cooperative Results & Data Results & Data ([facility]) Vital Signs (Past 12 Hours) Vital Signs Temp Pulse Pulse Resp BP BP Pulse Ox 10/12/20 18:29 79 16 142/83 H 96 10/12/20 17:10 75 16 142/83 H 97 10/12/20 12:28 36.5 C 94 H 16 109/74 95 Code Status & VTE Plan VTE Prophylaxis Plan VTE Prophylaxis will be ordered: Yes PG Care Time/CCT Total # of Minutes Spent Total Time Spent with Patient: Total time spent is greater than 50% in coordination of care (as documented) at patient's floor/unit and/or counseling patient: Coding Level of Care Code INT OBSERVATION CARE 68M LVL 3 Diagnoses Left leg DVT I82.402 HTN (hypertension) I10 Frequent UTI N39.0 CKD (chronic kidney disease) stage 4, GFR 15-29 ml/min N18.4
[2020-10-12] MEDS ORDERED: ACETAMINOPHEN 325 MG TAB PO PRN (20:52)
[2020-10-12] MEDS ORDERED: MECLIZINE HCL 25 MG TAB PO PRN (20:55)
[2020-10-12] MEDS ORDERED: ONDANSETRON 4 MG OD TAB PO PRN (21:08)
[2020-10-12] MEDS: hydrALAZINE 10 MG TAB PO SCH (21:43)
[2020-10-12] MEDS: GABAPENTIN 100 MG CAP PO SCH (21:43)
[2020-10-12] MEDS: carvediloL 3.125 MG TAB PO SCH (21:43)
[2020-10-12 23:33] LABS: Partial Thromboplastin Ratio 1.3; Partial Thromboplastin Time 34.6 Seconds (21.0-31.0)
[2020-10-13] MEDS ORDERED: HEPARIN SOD (PORCINE) 1000 UNIT/ML IV ONE (00:15)
[2020-10-13 05:34] LABS: Basophils # (auto) 0.03 K/uL (0-0.2); Basophils % (auto) 0.4 %; Eosinophils % (auto) 6.7 %; Hematocrit (blood only) 37.5 % (37-47); Hemoglobin 12.1 g/dL (12.0-16.0); Immature Granulocytes # (auto) 0.02 K/uL (0.00-0.02); Immature Granulocytes % (auto) 0.3 %; Lymphocytes # (auto) 2.85 K/uL (1.2-3.4); Lymphocytes % (auto) 38.1 %; Mean Corpuscular Hemoglobin 30.7 pg (25-34); Mean Corpuscular Hgb Conc 32.3 g/dL (32-36); Mean Corpuscular Volume 95.2 fL (80-100); Mean Platelet Volume 9.1 fL (7.4-10.4); Monocytes # (auto) 0.99 K/uL (0.11-0.59); Monocytes % (auto) 13.2 %; Neutrophils % (auto) 41.3 %; Platelet Count 228 K/uL (130-400); RDW Coefficient of Variation 13.4 % (11.5-14.5); RDW Standard Deviation 46.8 fL (36.4-46.3); Red Blood Count 3.94 M/uL (4.2-5.4); White Blood Count 7.49 K/uL (4.8-10.8)
[2020-10-13 05:57] LABS: BUN Creatinine Ratio 26.9 (10-20); Calcium 8.8 mg/dl (8.5-10.1); Est GFR (African American) 48.4 ml/min; Est GFR (Non-African American) 41.7 ml/min; Magnesium 2.3 mg/dl (1.8-2.4); Potassium 4.1 mmol/L (3.5-5.1)
[2020-10-13 06:20] LABS: Partial Thromboplastin Time 79.3 Seconds (21.0-31.0)
[2020-10-13] MEDS: hydrALAZINE 10 MG TAB PO SCH (08:53)
[2020-10-13] MEDS: GABAPENTIN 100 MG CAP PO SCH (08:54)
[2020-10-13] MEDS: carvediloL 3.125 MG TAB PO SCH (08:54)
[2020-10-13] MEDS ORDERED: LOSARTAN POTASSIUM 50 MG TAB PO SCH (09:00)
[2020-10-13] MEDS ORDERED: NITROFURANTOIN MONOHYDRATE 100 MG CAP PO SCH (09:00)
--- NOTE | 2020-10-13 10:28 | Discharge Summary ---
Date of Service October 13, 2020 Admission HPI Per Admitting Provider 84yo F w/ hx of HTN and recurrent UTI who presents with extensive LLE. She noted some ankle swelling on 09/30/2020. It started started to be more extensive. She saw her link knitting machine operator who prescribed Lasix, but this did not help the swelling. She also tried compression stockings on the left leg which did not help either. She has no inciting event that she is aware of. No long travel, no surgery, no prolonged down time. She decided to come to the hospital when her leg swelling went all the way up to her upper thigh. In the ED, she was noted to have an extensive DVT of the LLE and started on a heparin gtt. Admission Exam Per Admitting Provider Constitutional: WD/WN, vitals as above Eyes: EOM intact bilaterally; no conjunctival abnormality ENMT: external ear and nose normal, oropharynx normal Neck: trachea midline, no thyromegaly normal visual inspection Respiratory: normal respiratory effort, lungs clear to auscultation no respiratory distress Cardiovascular: Rate/Rhythm: regular rate and regular rhythm Extremities: + edema (Left leg up to thigh) and + varicosities Gastrointestinal (Abdomen): Inspection/Auscultation: abdomen normal to inspection; abdomen not distended Musculoskeletal: no cyanosis or clubbing, extremities motor strength 5/5 Skin: no rashes, warm and dry Neurologic: moves all extremities and awake Psychiatric: Orientation: alert, oriented to person and cooperative Principal Diagnosis Acute Left Leg DVT Discharge Exam Constitutional: WD/WN, vitals as above Eyes: EOM intact bilaterally; no conjunctival abnormality ENMT: external ear and nose normal, oropharynx normal Neck: trachea midline, no thyromegaly normal visual inspection Respiratory: normal respiratory effort, lungs clear to auscultation no respiratory distress Cardiovascular: Rate/Rhythm: regular rate and regular rhythm Extremities: + edema (Left leg up to thigh) calf tender to palpation, and + varicosities Gastrointestinal (Abdomen): Inspection/Auscultation: abdomen normal to inspection; abdomen not distended Musculoskeletal: no cyanosis or clubbing, extremities motor strength 5/5 Skin: no rashes, warm and dry Neurologic: moves all extremities and awake Psychiatric: Orientation: alert, oriented to person and cooperative Discharge Data Allergies Allergy/AdvReac Type Severity Reaction Status Date / Time cefuroxime Allergy Unknown Unknown Verified 10/12/20 17:25 Sulfa (Sulfonamide Allergy Unknown COMA , Verified 10/12/20 17:25 Antibiotics) REACTION WHEN A CHILD ciprofloxacin [From Cipro] AdvReac Mild NAUSEA, Verified 10/12/20 17:25 HEEL AND KNEE PAIN Consultations 10/12/20 17:35 ED Decision to Admit Stat Ordered Studies Venous Doppler Study 10/12/20 16:07 ULTRASOUND LEFT LOWER EXTREMITY VENOUS CLINICAL HISTORY: Left leg swelling. COMPARISON STUDY: No priors. TECHNIQUE: Real-time, grayscale, and color Doppler sonography of the deep veins of the left lower extremity was performed from the inguinal crease to the calf. Compression and augmentation were utilized. FINDINGS: There is nearly occlusive to occlusive deep venous thrombosis identified throughout the left common femoral vein, the superficial femoral vein, and in the popliteal vein. Occlusive thrombus is seen within the profunda femoris vein at the junction the common femoral vein. The greater saphenous vein is clear. Broken flow to the calf vessels also likely represents deep venous thrombosis. IMPRESSION: Extensive nearly occlusive to occlusive deep venous thrombosis throughout the left lower extremity as above. ACT 112: Negative or not required by law. Electronically signed by: Cuco Honeycutt M.D. 10/12/2020 5:05 PM Hospital Course (1) Left leg DVT: Doppler on 10/12 showed "extensive nearly occlusive to occlusive deep venous thrombosis throughout the left lower extremity." Case was discussed with vascular sugery and given NVI, no role for thrombectomy at this time Heparin gtt started in ER, transitioned to Eliquis 10mg BID x 7 days, 5mg BID thereafter for minimum 3 months but suspect longer given unprovoked. Up to date on mammograms and had c-scope as scheduled with recs for no further studies. No weight loss/night sweats/B symptoms Given coupon by CM for 1st month free. Did not draw hypercoag labs on admission -- consider testing once completed as outpatient with PCP (2) HTN (hypertension): Chronic. Stable Continued home carvedilol, hydralazine, losartan (3) CKD (chronic kidney disease) stage 4, GFR 15-29 ml/min: Cr stable (4) Frequent UTI: "Tick-tocks" back and forth between Macrobid and cephalexin for UTI ppx. - Continued Macrobid while inpatient Total Time Total Time Spent Total Time Spent (In Minutes): 35 Discharge Plan Discharge Items Patient Disposition: Home - Self-Care Reason For Visit: EXTENSIVE LLE DVT Discharge Diagnosis: Left Leg DVT Goals: You have been hospitalized for an acute medical problem. During your stay at [facility], we have made an effort to correct the problem that brought you to the hospital while keeping you as comfortable as possible. Medications were used to bring your condition under control and your discharge instructions will include directions for any medications you should take after leaving the hospital. Please make sure you see your Primary Care Provider as part of your follow up plan. Activity: Resume your previous activity Non-emergency contact: Primary Care Provider Call non-emergency contact if: you have any medication questions, your symptoms worsen, your pain is not controlled and you have a fever Follow-up/Referrals: Kellie Wayne DO [Primary Care Provider] - 10/16/20 12:50 pm Diet: Heart Healthy [place]vi Attending Provider Instructions: You have been hospitalized for an acute blood clot in your left leg. This has been treated with IV Heparin and you have been transitioned to Eliquis for treatment. Given this is unprovoked, the treatment will be AT LEAST for 3 months, but may be longer as discussed pending follow up with your PCP. Unfortunately, hypercoagulability labs were not able to be drawn while on treatment, but this can be considered once you complete treatment to see if you should continue on this medication for longer. Initially, Eliquis will be 10mg by mouth TWICE daily for 7 days (until morning of 10/20) and then you will continue on 5 mg by mouth twice daily. NO NSAIDS -- no ibuprofen, Aleve, Motrin. You should monitor for any bleeding as below and contact your PCP for minimal bleeding but for any significant bleeding please return to the emergency department. If you develop any fever, chills, chest pain, shortness of breath, bleeding, or for any other symptoms that are concerning for you, please return to the ER. Please follow up with your PCP in the next week to monitor your progress. It has been a pleasure being a part of the medical team providing for you while you have been in the hospital. Take care! Addtl Sox Analyst Provider Instructions: Medication Instructions: * Warfarin is a medicine prescribed to prevent blood clots * Warfarin will thin your blood and help prevent new clots * Take your medications exactly as directed * Never skip a dose. Never take a double dose. If you miss a dose, take it as soon as you remember * It is important for your doctor to monitor your prothrombin time (PT). This is a lab test * Keep your appointment for lab tests Risk of Adverse Drug Reactions and Interactions: * Warfarin increases your risk of bleeding * The food you eat and other medications you take can affect how Warfarin works in your body * Ask your doctor about daily aspirin therapy * It is very important to talk with your doctor about all of the other medicines, antibiotics, vitamins or herbal products that you are taking * All of your medication must be approved by your doctor, including new medicines, as well as medicines you have taken before you started taking Warfarin Diet: * In order for Warfarin to work properly, it is important to keep your intake of Vitamin K as consistent as possible * You should avoid any sudden change in Vitamin K intake * Report any significant changes in your diet or weight to your doctor Call your Doctor if you experience any of the following: * Swelling or Pain in your leg * Sudden, continuous pain deep in a muscle * Pain that worsens when you are active or when you stand still for a long time * Chest Pain * Sudden Shortness of Breath * Rapid or pounding heart beat * Fainting * Dizziness * Cough with blood or bloody sputum * Sweating more than normal * Bruises * heavy or uncontrolled bleeding * Blood in your urine, stool or vomit * Black or tarry stools Caring for Your Self at Home: * Avoid sitting, standing or lying down for long periods without moving your legs and feet * When traveling by car, stop to get out and move around at least once every 3 hours * On long airplane, train or bus rides, get up and move around when possible * If you can't get up, wiggle your toes and tighten your calves to keep your blood moving Follow Up: * It is important for you to keep your follow up appointments with your medical provider. Follow-up Anticoagulation Therapy: Name and Phone number of Health professional/clinic/office monitoring the anticoagulation therapy: Next Date of PT/INR Laboratory Blood Draw: Pending Studies at Discharge: No Stand-Alone Forms: My [facility] [employer] Medications and DC Order Prescriptions: New apixaban 5 mg tablet 10 mg PO BID 7 Days Qty: 28 RF: 0 apixaban 5 mg tablet 5 mg PO BID Qty: 30 RF: 1 Continued cephalexin [Keflex] 500 mg capsule 500 mg PO DAILY Qty: 30 RF: 2 nitrofurantoin monohyd/m-cryst [Macrobid] 100 mg capsule 100 mg PO DAILY Qty: 30 RF: 2 gabapentin 100 mg capsule 100 mg PO TID RF: 0 hydralazine 10 mg tablet 10 mg PO BID RF: 0 losartan 50 mg tablet 50 mg PO DAILY RF: 0 carvedilol 3.125 mg tablet 3.125 mg PO BID RF: 0 jh-pn-coac-FA-Ca carb-vit K 1 tab PO DAILY RF: 0 ascorbic acid (vitamin C) 500 mg Tablet 500 mg PO DAILY RF: 0 cranberry 500 mg Capsule 500 mg PO DAILY RF: 0 biotin 1,000 mcg Tablet,Chewable 1,000 mcg PO DAILY RF: 0 calcium carbonate-vitamin D3 500 mg(1,250mg) -125 unit Tablet 1 tab PO DAILY RF: 0 ondansetron HCl [Zofran] 4 mg tablet 4 mg PO QID PRN (Reason: Nausea And Vomiting) RF: 0 cyanocobalamin (vitamin B-12) [Vitamin B-12] 1,000 mcg Tablet 1,000 mcg PO DAILY RF: 0 meclizine 25 mg tablet 25 mg PO TID PRN (Reason: dizziness) Qty: 21 RF: 0 Discharge Orders: Discharge Order (Routine); Ordered 10/13/20 Ordered By: Razia Isaacs/Other Patient Handouts: Understanding Deep Vein Thrombosis, DVT Dc, ED Deep Vein Thrombosis (DVT) Admission Data Admit Date/Time: 10/12/20 18:18 Attending Provider: Paul Jauregui Admit Provider: [place] Primary Care Provider: Kellie Wayne Other Providers: [place] Other Interventions: Discharge Summary Assessment (RN) Last Done: 10/13/20 11:26 Coding Level of Care Code 15963 OBS Care - Discharge Diagnoses Left leg DVT I82.402 HTN (hypertension) I10 CKD (chronic kidney disease) stage 4, GFR 15-29 ml/min N18.4 Frequent UTI N39.0
[2020-10-13] MEDS ORDERED: APIXABAN 5 MG TABLET PO SCH (11:00)
--- NOTE | 2020-10-14 15:55 | Electrocardiogram Report ---
Test Reason : Blood Pressure : / mmHG Vent. Rate : 087 BPM Atrial Rate : 087 BPM P-R Int : 282 ms QRS Dur : 068 ms QT Int : 366 ms P-R-T Axes : 073 -04 -02 degrees QTc Int : 440 ms Sinus rhythm with 1st degree A-V block with occasional Premature ventricular complexes Minimal voltage criteria for LVH, may be normal variant Junctional ST depression, probably abnormal Abnormal ECG When compared with ECG of 21-OCT-2019 18:29, Premature ventricular complexes are now Present OR interval has increased QRS duration has decreased T wave inversion now evident in Inferior leads Confirmed by Azam Velasquez ([id number]) on 10/14/2020 3:55:01 PM Referred By: REFERRED SELF Confirmed By:Azam Velasquez
== END 2020-10-13 12:15 | disposition home or self-care (01) ==
LOC: ED 12:13 → 3W 12:13 → SUATTDRO 18:18 → 3W 20:33

== ENCOUNTER 2023-05-12 10:51 | Inpatient (IN) ==
--- NOTE | 2023-05-12 11:44 | Emergency Department Note ---
Impression & Plan Generalized weakness, Hypercalcemia, Elevated serum creatinine, Non-ST elevation [place] (NSTEMI), Acute exacerbation of CHF (congestive heart failure), Acute hypoxemic respiratory failure ED Provider Note HISTORY OF PRESENT ILLNESS: Patient is an 87-year-old female presenting for weakness and dizziness. Patient reportedly was at [facility] today and had gotten up to get in the shower and was being assisted by a nurse but she kept leaning to the right and dropping things. Patient is unsure of which hand she was dropping things from. She denies any chest pain or shortness of breath. She states that she was slightly lightheaded while in the shower. She reports she was in the shower and having the symptoms at around 7:30 AM. When asked if she woke up normal, the patient reports that she was having leg weakness and had to be assisted out of bed. Unknown last known well. ROS: as above PHYSICAL EXAM: Constitutional: Patient appears in no acute distress. HENT: Head: Normocephalic and atraumatic. Eyes: EOMI, PERRL Mouth/Throat: Mucous membranes moist. Neck: Trachea midline. Neck supple. Cardiovascular: RRR, No murmurs, rubs or gallops. Intact distal pulses. Pulmonary/Chest: No respiratory distress. Breath sounds clear and equal bilaterally. No wheezes or rales. Abdominal: Abdomen soft, no tenderness, rebound or guarding. Musculoskeletal: No edema, tenderness or deformity noted. Skin: Warm and dry. No rash, erythema, pallor or cyanosis Psychiatric: Appropriate mood and affect for situation. Neurological: Alert and keenly responsive. CFacies symmetric. Able to raise eyebrows, close eyes, smile, puff mouth, stick out tongue, move tongue left and right and raise palate symmetrically. Able to shrug shoulders. PERRLA. SILT to forehead below eye and at jawline. Can hear soft noise bilaterally. Strength 5/5 in bilateral upper and lower extremities. SILT throughout bilateral upper and lower extremities. Patient has some slight drift in her left lower extremity. MDM: - Vitals signs showed hypertension, tachycardia and hypoxia. - History obtained via patient and patient's daughter. History as above. - Chronic conditions affecting care: CKD; HTN - Differential diagnoses include, but are not limited to: CVA; intracranial hemorrhage; ACS; pneumonia; UTI; CHF exacerbation - Order placed for continuous cardiac monitoring. At this time, monitor showed rate of 95 bpm with normal sinus rhythm, per my interpretation. - External medical records reviewed. EMS run sheet was reviewed. Patient was slightly tachycardic with a heart rate of 102 and route to the hospital. She was started on 2 L nasal cannula in route. - EKG interpreted by myself showed normal sinus rhythm. Rate 97 bpm. QT 328. No acute ischemic changes - Laboratory workup interpreted by myself showed normal WBC; elevated lactate (2.1); elevated creatinine (Cr 1.62 - increased from 1.2); hypercalcemia (Ca 11.8); elevated troponin (21); normal TSH; elevated BNP (115) - Repeat troponin downtrending to 20.0 - UA negative for infection - CXR showed pulmonary vascular congestion, per my interpretation - COVID negative - CT head wo contrast negative for acute pathology. - Initially ordered CTA head/neck for further strokelike symptoms workup, however given patient's elevated creatinine and low GFR today, will go for MRI. Unknown patient's last known well at this time, so she is outside of the window for TNK and she was not stroke alerted. She is also on Eliquis and Plavix. - Patient noted to be hypoxic in ER and started on a new 2L NC. - Discussion was had with case management assistant about patient's case and need for admission - Hospitalist consulted for admission - Patient admitted to [facility] hospitalist service for further evaluation and management. ASSESSMENT AND PLAN: Diagnosis: generalized weakness; elevated creatinine; hypercalcemia; NSTEMI; CHF exacerbation; acute hypoxemic respiratory failure Plan: admit Past Med/Surg History Medical History CKD (chronic kidney disease) stage 4, GFR 15-29 ml/min Pneumonia Pneumothorax on right Fall HTN (hypertension) Left knee DJD Surgical History History of vaginal surgery 2009 bladder prolapse surgery with mesh placement H/O wisdom tooth extraction History of total bilateral knee replacement (TKR) Family History Other Family history non-contributory Denies family history of Ovarian cancer Breast cancer Colorectal cancer Social History Smoking Status: Never smoker Second Hand Exposure: No; Do You Dip or Chew Tobacco: No; Hx Alcohol Use: No Hx Substance Use: No Preferred Language: Amharic Communication Ability: Effective Visual Impairment: No Limitations Records And Tape Recordings Engineer Required: No Beliefs That Will Affect Care: None marital status: / Current Living Situation: Family Current Living Situation Comment: LIVES AT HOME WITH SON LIVIA AND GRANDSON Feels Safe at Home: Yes Assistive Devices: Cane Allergies Allergies Allergy/AdvReac Type Severity Reaction Status Date / Time Sulfa (Sulfonamide Allergy Unknown COMA , Verified 05/12/23 14:39 Antibiotics) REACTION WHEN A CHILD ciprofloxacin [From Cipro] AdvReac Mild NAUSEA, Verified 05/12/23 14:39 HEEL AND KNEE PAIN cefuroxime AdvReac Unknown Vomiting Verified 05/12/23 14:39 Home Meds Home Medications Medication Instructions Recorded Confirmed ascorbic acid (vitamin C) 500 mg 500 mg PO DAILY 01/23/18 05/12/23 tablet biotin 1,000 mcg chewable tablet 1,000 mcg PO DAILY 01/23/18 05/12/23 cranberry 500 mg capsule 500 mg PO DAILY 01/23/18 05/12/23 cyanocobalamin (vitamin B-12) 1,000 mcg PO DAILY 10/21/19 05/12/23 1,000 mcg tablet (Vitamin B-12) carvedilol 3.125 mg tablet 3.125 mg PO BID 05/21/20 05/12/23 hydralazine 10 mg tablet 10 mg PO BID PRN Weight Gain 05/21/20 05/12/23 losartan 50 mg tablet 50 mg PO QDL 05/21/20 05/12/23 multivitamin 1 tab PO QAM 09/05/22 05/12/23 acetaminophen 650 mg 650 mg PO Q8H PRN Pain 05/12/23 05/12/23 tablet,extended release amitriptyline 10 mg tablet 10 mg PO HS 05/12/23 05/12/23 calcium 500 mg tablet 1,000 mg PO QAM 05/12/23 05/12/23 cholecalciferol (vitamin D3) 50 50 mcg PO DAILY 05/12/23 05/12/23 mcg (2,000 unit) tablet (Vitamin D3) clopidogrel 75 mg tablet 75 mg PO QAM 05/12/23 05/12/23 denosumab 60 mg/mL subcutaneous 60 mg subcut UD 05/12/23 05/12/23 syringe (Prolia) famotidine 20 mg tablet (Pepcid) 20 mg PO TIDWMEAL 05/12/23 05/12/23 gabapentin 300 mg capsule 0 mg PO UD 05/12/23 05/12/23 Previous Rx's Medication Instructions Recorded cephalexin 500 mg capsule (Keflex) 500 mg PO DAILY #30 caps 07/08/19 nitrofurantoin 100 mg PO DAILY #30 caps 07/08/19 monohydrate/macrocrystals 100 mg capsule (Macrobid) apixaban 5 mg tablet (Eliquis) 5 mg PO BID #60 tabs 09/05/22 tramadol 50 mg tablet 50 mg PO Q6H PRN pain #20 tabs 04/10/23 Results & Data (ED) Vital Signs Vital Signs - 24 hr 05/12/23 10:59 05/12/23 11:05 05/12/23 11:53 Temperature 36.6 C Temperature Source Oral Pulse Rate 87 99 H 95 H Pulse Rate from SpO2 Sensor 94 H Pulse Rhythm Regular Pulse Strength Normal Respiratory Rate 16 21 Respiratory Effort / Characteristics Non-Labored Respiratory Depth Normal Respiratory Pattern Regular Blood Pressure 159/97 H 161/94 H Blood Pressure Mean 117 116 Blood Pressure Position Lying Pulse Oximetry 95 91 Oxygen Delivery Method Room Air Room Air Oxygen Flow Rate Sepsis Recent Fever Within 48 Hours No Sepsis New/Unexplained Change in Mental Status N/A Sepsis Action Taken by Nursing No Action Required Oxygen Flow Rate - Titration Pulse Oximetry Post Tiitration 05/12/23 12:00 05/12/23 12:00 05/12/23 12:30 Temperature Temperature Source Pulse Rate 96 H 96 H Pulse Rate from SpO2 Sensor 97 H 96 H Pulse Rhythm Pulse Strength Respiratory Rate 21 27 H Respiratory Effort / Characteristics Respiratory Depth Respiratory Pattern Blood Pressure 154/100 H 155/100 H Blood Pressure Mean 118 118 Blood Pressure Position Pulse Oximetry 89 L 95 92 Oxygen Delivery Method Nasal Cannula Nasal Cannula Nasal Cannula Oxygen Flow Rate 0 2 2 Sepsis Recent Fever Within 48 Hours Sepsis New/Unexplained Change in Mental Status Sepsis Action Taken by Nursing Oxygen Flow Rate - Titration 2 Pulse Oximetry Post Tiitration 95 05/12/23 12:30 05/12/23 13:00 05/12/23 15:05 Temperature Temperature Source Pulse Rate 95 H 98 H Pulse Rate from SpO2 Sensor 95 H Pulse Rhythm Pulse Strength Respiratory Rate 26 H Respiratory Effort / Characteristics Respiratory Depth Respiratory Pattern Blood Pressure 155/100 H 144/86 H Blood Pressure Mean 112 105 Blood Pressure Position Pulse Oximetry 90 Oxygen Delivery Method Nasal Cannula Oxygen Flow Rate 2 Sepsis Recent Fever Within 48 Hours Sepsis New/Unexplained Change in Mental Status Sepsis Action Taken by Nursing Oxygen Flow Rate - Titration Pulse Oximetry Post Tiitration Laboratory Data 05/12/23 11:05 05/12/23 11:05 Lab Results 05/12/23 05/12/23 05/12/23 Range/Units 11:05 11:54 12:17 WBC 8.52 (4.8-10.8) K/ul RBC 4.89 (4.20-5.40) M/uL Hgb 14.7 (12.0-16.0) g/dl Hct 45.7 (37.0-47.0) % MCV 93.5 (80.0-100.0) fL MCH 30.1 (25.0-34.0) pg MCHC 32.2 (32.0-36.0) g/dL RDW Std Deviation 44.6 (36.4-46.3) fL RDW Coeff of Kemi 13.0 (11.5-14.5) % Plt Count 324 (130-400) K/uL MPV 9.9 (9.4-12.4) fL Immature Gran % (Auto) 0.2 % Neut % (Auto) 62.1 % Lymph % (Auto) 21.2 % [place] % (Auto) 10.9 % Eos % (Auto) 5.0 % Baso % (Auto) 0.6 % Neut # (Auto) 5.28 (1.40-6.50) K/uL Lymph # (Auto) 1.81 (1.20-3.40) K/uL Clar[place] # (Auto) 0.93 H (0.11-0.59) K/uL Eos # (Auto) 0.43 (0.00-0.50) K/uL Baso # (Auto) 0.05 (0.00-0.20) K/uL Immature Gran # (Auto) 0.02 (0.01-0.20) K/uL PT 11.4 (9.0-12.0) Seconds INR 1.0 (0.9-1.1) Sodium 137 (136-145) mmol/L Potassium 4.1 (3.5-5.1) mmol/L Chloride 95 L (98-107) mmol/L Carbon Dioxide 33 H (21-32) mmol/L Anion Gap 9 (3-11) BUN 31 H (6-23) mg/dl Creatinine 1.62 H (0.6-1.2) mg/dl Est Cr Clr Drug Dosing 24.6 ml/min Est GFR ( Amer) 32.3 ml/min Est GFR (Non-Af Amer) 27.9 ml/min BUN/Creatinine Ratio 19.1 (10-20) Glucose 99 (70-99(Fasting)) mg/dl Lactate 2.1 H* (0.4-2.0) mmol/L Calcium 11.8 H (8.6-10.3) mg/dl Magnesium 1.8 (1.7-2.4) mg/dl Total Bilirubin 0.6 (0.2-1.0) mg/dl AST 16 (13-39) U/L ALT 12 (7-52) U/L Alkaline Phosphatase 47 (34-104) U/L Troponin I High Sens 21.0 H (0-14) pg/ml B-Natriuretic Peptide (0-100) pg/ml Total Protein 7.7 (6.0-8.3) gm/dl Albumin 4.1 (3.4-5.0) gm/dl Globulin 3.6 (2.5-4.0) gm/dl Albumin/Globulin Ratio 1.1 (0.9-2) TSH 1.959 (0.300-4.500) uIu/ml Urine Color Dark Yellow Urine Appearance Clear (Clear) Urine pH 6.5 (4.5-7.5) Ur Specific [place] 1.008 (1.000-1.030) Urine Protein Negative (Negative) Urine Glucose (UA) Negative (Negative) Urine Ketones Negative (Negative) Urine Blood Negative (Negative) Urine Nitrite Positive A (Negative) Urine Bilirubin Negative (Negative) Urine Urobilinogen Negative (Negative) Ur Leukocyte Esterase Negative (Negative) Urine WBC (Auto) 1-5 (0-5) /hpf Urine RBC (Auto) 0-4 (0-4) /hpf U Hyaline Cast (Auto) 1-5 (0-5) /lpf U Epithel Cells (Auto) 20-30 H (0-5) /lpf Urine Bacteria (Auto) Negative (Negative) SARS-CoV-2 (PCR) (Negative) 05/12/23 05/12/23 05/12/23 Range/Units 12:52 13:20 14:22 WBC (4.8-10.8) K/ul RBC (4.20-5.40) M/uL Hgb (12.0-16.0) g/dl Hct (37.0-47.0) % MCV (80.0-100.0) fL MCH (25.0-34.0) pg MCHC (32.0-36.0) g/dL RDW Std Deviation (36.4-46.3) fL RDW Coeff of Kemi (11.5-14.5) % Plt Count (130-400) K/uL MPV (9.4-12.4) fL Immature Gran % (Auto) % Neut % (Auto) % Lymph % (Auto) % [place] % (Auto) % Eos % (Auto) % Baso % (Auto) % Neut # (Auto) (1.40-6.50) K/uL Lymph # (Auto) (1.20-3.40) K/uL [place] # (Auto) (0.11-0.59) K/uL Eos # (Auto) (0.00-0.50) K/uL Baso # (Auto) (0.00-0.20) K/uL Immature Gran # (Auto) (0.01-0.20) K/uL PT (9.0-12.0) Seconds INR (0.9-1.1) Sodium (136-145) mmol/L Potassium (3.5-5.1) mmol/L Chloride (98-107) mmol/L Carbon Dioxide (21-32) mmol/L Anion Gap (3-11) BUN (6-23) mg/dl Creatinine (0.6-1.2) mg/dl Est Cr Clr Drug Dosing ml/min Est GFR ( Amer) ml/min Est GFR (Non-Af Amer) ml/min BUN/Creatinine Ratio (10-20) Glucose (70-99(Fasting)) mg/dl Lactate 2.0 (0.4-2.0) mmol/L Calcium (8.6-10.3) mg/dl Magnesium (1.7-2.4) mg/dl Total Bilirubin (0.2-1.0) mg/dl AST (13-39) U/L ALT (7-52) U/L Alkaline Phosphatase (34-104) U/L Troponin I High Sens 20.0 H (0-14) pg/ml B-Natriuretic Peptide 115 H (0-100) pg/ml Total Protein (6.0-8.3) gm/dl Albumin (3.4-5.0) gm/dl Globulin (2.5-4.0) gm/dl Albumin/Globulin Ratio (0.9-2) TSH (0.300-4.500) uIu/ml Urine Color Urine Appearance (Clear) Urine pH (4.5-7.5) Ur Specific [place] (1.000-1.030) Urine Protein (Negative) Urine Glucose (UA) (Negative) Urine Ketones (Negative) Urine Blood (Negative) Urine Nitrite (Negative) Urine Bilirubin (Negative) Urine Urobilinogen (Negative) Ur Leukocyte Esterase (Negative) Urine WBC (Auto) (0-5) /hpf Urine RBC (Auto) (0-4) /hpf U Hyaline Cast (Auto) (0-5) /lpf U Epithel Cells (Auto) (0-5) /lpf Urine Bacteria (Auto) (Negative) SARS-CoV-2 (PCR) NEGATIVE (Negative) Imaging Data Radiologist's Impression: Chest X-Ray 05/12/23 11:30 XR chest 1V portable HISTORY: weakness COMPARISON: Chest 11/12/2020. FINDINGS: The cardiac silhouette remains mildly enlarged. Slightly rotated study. Interval progression of the interstitial/vascular thickening consistent with mild congestive change. No pneumothorax. No pleural effusions. Old, healed right-sided rib fractures again noted. IMPRESSION: Cardiomegaly and mild central pulmonary vascular congestion without overt edema. ACT 112: Negative or not required by law. Electronically signed by: Eduin Suazo M.D. 05/12/2023 12:[address] 05/12/23 11:30 CT SCAN OF THE BRAIN WITHOUT IV CONTRAST CLINICAL HISTORY: Generalized weakness. COMPARISON STUDY: CT of the brain dated 10/21/2019. TECHNIQUE: Unenhanced axial CT scan of the brain is performed from the vertex to the skull base. A dose lowering technique was utilized adhering to the principles of ALARA. CT DOSE: 625.8 mGy.cm FINDINGS: Brain parenchyma: There is age-related involutional change noting advanced confluent subcortical and periventricular microangiopathic disease. There is no hemorrhage, mass effect, or evidence of acute territorial ischemia by CT criteria. Duarte-white matter differentiation is preserved. No extra-axial fluid collection is seen. Ventricles, sulci, cisterns: Prominent secondary to involutional change. Intracranial vasculature: There is atherosclerotic calcification of the cavernous carotid and vertebral arteries. Calvarium: Unremarkable. Sinuses and mastoids: There is mild mucosal thickening within the maxillary antra. The remaining visualized paranasal sinuses are clear. The mastoid air cells are well pneumatized. Orbits: The bony orbits are grossly intact. There are bilateral ocular lens implants. IMPRESSION: There is no hemorrhage, mass effect, or evidence of acute territorial ischemia by CT criteria. ACT 112: Negative or not required by law. Electronically signed by: Cuco Honeycutt M.D. 05/12/2023 12:35 PM Discharge Plan Visit Data Chief Complaint: Weakness ED Provider: Maricruz Cuello Discharge Problem: Generalized weakness, Hypercalcemia, Elevated serum creatinine, Non-ST elevation [place] (NSTEMI), Acute exacerbation of CHF (congestive heart failure), Acute hypoxemic respiratory failure Forms Stand Alone Forms: My [facility] Prescriptions Prescriptions: No Action cephalexin [Keflex] 500 mg capsule 500 mg PO DAILY Qty: 30 2RF Rx Instructions: Must administer with a meal/food. Take this medication as directed for two weeks then alternate with Macrobid for two weeks then continue alternating antibiotics every two weeks nitrofurantoin monohyd/m-cryst [Macrobid] 100 mg capsule 100 mg PO DAILY Qty: 30 2RF Rx Instructions: Must administer with a meal/food. Take this medication as directed for two weeks then alternate with Cephalexin for two weeks then continue alternating antibiotics every two weeks hydralazine 10 mg tablet 10 mg PO BID PRN (Reason: Weight Gain) losartan 50 mg tablet 50 mg PO QDL carvedilol 3.125 mg tablet 3.125 mg PO BID Rx Instructions: must administer with a meal/food ascorbic acid (vitamin C) 500 mg Tablet 500 mg PO DAILY cranberry 500 mg Capsule 500 mg PO DAILY biotin 1,000 mcg Tablet,Chewable 1,000 mcg PO DAILY cyanocobalamin (vitamin B-12) [Vitamin B-12] 1,000 mcg Tablet 1,000 mcg PO DAILY multivitamin Tablet 1 tab PO QAM Eliquis 5 mg tablet 5 mg PO BID Qty: 60 0RF tramadol 50 mg tablet 50 mg PO Q6H PRN (Reason: pain) Qty: 20 0RF calcium 500 mg Tablet 1,000 mg PO QAM clopidogrel 75 mg tablet 75 mg PO QAM acetaminophen [Tylenol Arthritis] 650 mg Tablet Extended Release 650 mg PO Q8H PRN (Reason: Pain) famotidine [Pepcid] 20 mg Tablet 20 mg PO TIDWMEAL amitriptyline 10 mg tablet 10 mg PO HS Rx Instructions: Pt was taking 5mg by mouth daily, but per daughter, pt is now taking 10mg by mouth nightly cholecalciferol (vitamin D3) [Vitamin D3] 50 mcg (2,000 unit) Tablet 50 mcg PO DAILY Prolia 60 mg/mL Syringe 60 mg SUBCUT UD Rx Instructions: EVERY 6 MONTHS gabapentin 300 mg Capsule 0 mg PO UD Rx Instructions: Per daughter, pt takes this medication. But unable to verify strength/directions with family as they do not remember. And pharmacy does not have this medication on file. Has never had it on file. Referrals Referrals: Kassidy Cruz DO [Primary Care Provider] -
[2023-05-12 11:57] LABS: Basophils # (auto) 0.05 K/uL (0.00-0.20); Basophils % (auto) 0.6 %; Eosinophils # (auto) 0.43 K/uL (0.00-0.50); Hematocrit (blood only) 45.7 % (37.0-47.0); Hemoglobin 14.7 g/dl (12.0-16.0); Immature Granulocytes # (auto) 0.02 K/uL (0.01-0.20); Immature Granulocytes % (auto) 0.2 %; Lymphocytes # (auto) 1.81 K/uL (1.20-3.40); Lymphocytes % (auto) 21.2 %; Mean Corpuscular Hemoglobin 30.1 pg (25.0-34.0); Mean Corpuscular Hgb Conc 32.2 g/dL (32.0-36.0); Mean Corpuscular Volume 93.5 fL (80.0-100.0); Mean Platelet Volume 9.9 fL (9.4-12.4); Monocytes # (auto) 0.93 K/uL (0.11-0.59); Monocytes % (auto) 10.9 %; Neutrophils # (auto) 5.28 K/uL (1.40-6.50); Neutrophils % (auto) 62.1 %; Platelet Count 324 K/uL (130-400); RDW Standard Deviation 44.6 fL (36.4-46.3); Red Blood Count 4.89 M/uL (4.20-5.40); White Blood Count 8.52 K/ul (4.8-10.8)
--- NOTE | 2023-05-12 12:09 | XRay Report ---
XR chest 1V portable HISTORY: weakness COMPARISON: Chest 11/12/2020. FINDINGS: The cardiac silhouette remains mildly enlarged. Slightly rotated study. Interval progressio n of the interstitial/vascular thickening consistent with mild congestive change. No pneumothorax. No pleural effusions. Old, healed right-sided rib fractures again noted. IMPRESSION: Cardiomegaly and mild central pulmonary vascular congestion without overt edema. ACT 112: Negative or not required by law. Electronically signed by: Eduni Suazo M.D. 05/12/2023 12:08 PM
[2023-05-12 12:12] LABS: Albumin Globulin Ratio 1.1 (0.9-2); Albumin Level 4.1 gm/dl (3.4-5.0); BUN Creatinine Ratio 19.1 (10-20); Bilirubin,Total 0.6 mg/dl (0.2-1.0); Calcium 11.8 mg/dl (8.6-10.3); Creatinine Clr Calc Pharmacy 24.6 ml/min; Est GFR (African American) 32.3 ml/min; Est GFR (Non-African American) 27.9 ml/min; Globulin 3.6 gm/dl (2.5-4.0); Magnesium 1.8 mg/dl (1.7-2.4); Potassium 4.1 mmol/L (3.5-5.1); Total Protein 7.7 gm/dl (6.0-8.3)
[2023-05-12 12:22] LABS: Prothrombin Time 11.4 Seconds (9.0-12.0)
[2023-05-12 12:27] LABS: Thyroid Stimulating Hormone 1.959 uIu/ml (0.300-4.500)
[2023-05-12 12:36] LABS: Appearance Urine Clear (Clear); Bacteria Urine Automated Negative (Negative); Bilirubin Urine Negative (Negative); Blood Urine Negative (Negative); Color Urine Dark Yellow; Epithelial Cell Urine Auto 20-30 /lpf (0-5); Glucose Urine UA Negative (Negative); Ketones Urine Negative (Negative); Leukocyte Esterase Urine Negative (Negative); Nitrite Urine Positive (Negative); Protein Urine Negative (Negative); RBC Urine Automated 0-4 /hpf (0-4); Specific Gravity Urine 1.008 (1.000-1.030); Urobilinogen Urine Negative (Negative); pH Urine 6.5 (4.5-7.5)
--- NOTE | 2023-05-12 12:36 | CT Scan Report ---
CT SCAN OF THE BRAIN WITHOUT IV CONTRAST CLINICAL HISTORY: Generalized weakness. COMPARISON STUDY: CT of the brain dated 10/21/2019. TECHNIQUE: Unenhanced axial CT scan of the brain is performed from the vertex to the skull base. A do se lowering technique was utilized adhering to the principles of ALARA. CT DOSE: 625.8 mGy.cm FINDINGS: Brain parenchyma: There is age-related involutional change noting advanced confluent subcortical and periventricular microangiopathic disease. There is no hemorrhage, mass effect, or evidence of acute t erritorial ischemia by CT criteria. Duarte-white matter differentiation is preserved. No extra-axial fl uid collection is seen. Ventricles, sulci, cisterns: Prominent secondary to involutional change. Intracranial vasculature: There is atherosclerotic calcification of the cavernous carotid and vertebr al arteries. Calvarium: Unremarkable. Sinuses and mastoids: There is mild mucosal thickening within the maxillary antra. The remaining visu alized paranasal sinuses are clear. The mastoid air cells are well pneumatized. Orbits: The bony orbits are grossly intact. There are bilateral ocular lens implants. IMPRESSION: There is no hemorrhage, mass effect, or evidence of acute territorial ischemia by CT hilary velasquez. ACT 112: Negative or not required by law. Electronically signed by: Cuco Honeycutt M.D. 05/12/2023 12:35 PM
--- NOTE | 2023-05-12 14:07 | History & Physical Report ---
Date of Service May 12, 2023 Assessment & Plan (1) Stroke-like symptoms: Plan: -Admit to the PCU on tele and pulse oximetry -Currently hemodynamically stable, stable on 2L NC, and without SOB at rest -Presented to the ED with new onset of reported right upper extremity weakness/difficulty holding or using objects in the RUE and with leaning to the right -Unsure of her exact time of last known well, however, at the time of admission she is out of the window of TNK based on when symptoms were first reported this am at [facility] -The patient denies symptoms such as ear fullness, tinnitus, or the room spinning to suggest BPPV or minere's -At this time we cannot rule out possible CVA, her CT of the head/brain was negative but we will need to continue her workup -Will obtain CTA of the head/neck now as she does not have a true LILLIE at this time -Will also obtain MRI of the brain wo con ordered by the ED -Will order repeat TTE -Fall/aspiration precautions -Q4H Neurochecks -Permissive HTN until MRI results are back -PT/OT consults -Will continue her Eliquis and plavix at this time -HH diet with 2gm sodium restriction (2) Dizziness: Plan: -Patient has been experiencing dizziness this am -Denies sensation that the room is spinning, fullness of the ears, or tinnitus -Unsure of the exact etiology at this time, but her differential includes dehydration from recent lasix doses at [facility], possible CVA, and mild hypoxia -She is noted to be dry on exam with mildly elevated Cr compared to baseline and elevated calcium -Continue stroke workup -Hold further diuretics for now as patient is not in respiratory distress and is without signs of pulmonary edema or pleural effusions on CXR -Will follow the TTE ordered on admission -Continue fall precautions, q4h neuro checks, and PT/OT consults (3) Hypoxia: Plan: -Patient has required 2L NC, mainly while sleeping since arrival to the ED -The patient often takes shallow breaths and has mild pulmonary vascular congestion on CXR -No sign of consolidation on CXR, she is without leukocytosis, and procal ordered on admission is negative -Low suspicion for bacterial etiology at this time -Low suspicion for PE at this time as she is without signs of DVT in the BL LE's, has been hemodynamically stable, is without pleuritic chest pain, and has been on BID Eliquis and daily plavix since 05/03 >Continue to monitor on tele -Covid screen in the ED was negative -We will continue pulmonary hygiene with incentive spirometry, flutter therapy, aspiration precautions -Hold diuretics for now as she is mildly dehydrated on exam with increased Cr compared to baseline but without a true LILLIE -Will obtain sputum culture with gram stain -Prn O2 to keep SpO2 at or above 94% (4) Dehydration: Plan: -Likely due to lasix use at [facility] over the past 24 hours -Cr is 1.6 today, baseline is near 1.2, not a true LILLIE at this time -Hold diuretics for now as she appears intravascularly depleted -Will hold IV fluids and allow her to eat/drink -Monitor daily renal function and electrolytes (5) Hypercalcemia: Plan: -Calcium noted to be 11.8 in the ED -Ionized calcium elevated at 1.34 -Is on a calcium supplement per her med rec -Likely due to dehydration, decreased renal function, and ongoing calcium supplement us but cannot rule out other etiologies at this time -Will obtain PTH and Phos level on admission -Continue to monitor on tele -Monitor daily renal function and electrolytes (6) Status post angiography of extremity: Plan: -Patient is S/P LLE angiogram with stent placement to the superficial femoral artery at [facility] on 05/03/23. -Has been on BID Eliquis and Daily Plavix since 05/03 -No concerning exam findings of the LLE, Hgb is stable, patient states chronic LLE pain has significantly improved since her procedure -Continue Elqiuis and Plavix (7) Hx of deep venous thrombosis: Plan: -Previous LLE DVT -Continue BID Eliquis (8) Hx of recurrent urinary tract infection: Plan: -Patient is on chronic Macrobid and Cephalexin which are rotated weekly -Per the documentation from [facility], the patient is currently on the Macrobid week -Ua obtained yesterday at [facility] was reported as unremarkable, UA today is also unremarkable -Continue Macrobid until 05/14, then transition to a week of Cephalexin -Monitor for urinary symptoms (9) (HFpEF) heart failure with preserved ejection fraction: Plan: -Previous hx of HFpEF with prn lasix for LE swelling -Family reports she rarely had to use prn lasix in the past -Daughter said the patient did receive "a good amount" of IV fluids during her recent hospitalization for LLE stenting -She is currently in no respiratory distress and requiring 2L NC while sleeping -We will hold additional diuretics on admission as she appears intravascularly depleted -Rest of care per Hypoxia plan Plan The patient was discussed with Dr. Field at the time of the admission History of Present Illness Chief Complaint: Weakness, dizziness Primary Care Provider: Kassidy Cruz DO Natalia Jc is an 87 year old female with a PMH significant for previous LLE DVT (On Eliquis), stage 4 CKD, chronic interstitial cystitis, Raynaud's phenomenon, and HTN who presented to the [facility] ED via EMS from [facility] due to new right sided weakness and dizziness. On arrival to the ED she was noted to be tachycardic with HR of 99, tachypneic at 27, and hypoxic at 89% on RA. Labs were significant for a cr of 1.62 (baseline is near 1.2), BUN of 31, bicarb of 33, lactate of 2.1, calcium of 11.8, initial high sen trop of 21 --> 20 on 2 hour repeat, UA negative for infection, Covid 19 screen negative, and TSH WNL. Chest xray was read as "Cardiomegaly and mild central pulmonary vascular congestion without overt edema.". CT of the head/brain wo con was read as negative for acute findings. At the time of the exam the patient was sleeping comfortably in bed in no acute distress with her Daughter/POA Dr. Bob (Physician in Rehab Medicine in [place]) bedside, history was obtained from both. The patient is currently at [facility] for rehab S/P LLE angiogram with stent placement to the superficial femoral artery at [facility] on 05/03/23. 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 There were no complications during the procedure. Her Eliquis was held for 3 days prior to the procedure and was restarted on 05/03. The patient was also started on daily Plavix after her stent placement. Per the documentation from [facility], the patient's weight had been trending up and she had been experiencing some RILEY. She was given 40 mg PO lasix on the night of 05/10 and another dose this am. This am the Attending Physician was alerted by staff that the patient was having difficulty holding things in her right hand and leaning to the right. She was also experiencing dizziness. They noted that the patient was leaning to the right but her neurology exam was otherwise unremarkable. She was sent to the ED for further evaluation. The patient and her daughter confirmed the above hx. When asked, the patient states that she feels as though she was having difficulty using her right hand and has felt more confused than baseline. When asked, she states that she has been more SOB with activity and has been having yellow sputum production for the past 3 days. She denies recent chest pain, pleuritic chest pain, hemoptysis, abd pain, nausea, vomiting, diarrhea, dysuria, hematuria, melena, LE swelling, and recent trauma. The patient states that she had " a lot" of urine output after receiving doses of PO lasix last night and this am. She normally only use prn PO lasix, sparingly at home for LE swelling. She is a full code and her daughter is her medical POA if she cannot make decisions for herself. Please refer to Dr. Field's attestation for any changes to the treatment plan Allergies Allergy/AdvReac Type Severity Reaction Status Date / Time Sulfa (Sulfonamide Allergy Unknown COMA , Verified 05/12/23 14:39 Antibiotics) REACTION WHEN A CHILD ciprofloxacin [From Cipro] AdvReac Mild NAUSEA, Verified 05/12/23 14:39 HEEL AND KNEE PAIN cefuroxime AdvReac Unknown Vomiting Verified 05/12/23 14:39 Home Medications Medication Instructions Recorded Confirmed Type ascorbic acid (vitamin C) 500 mg 500 mg PO DAILY 01/23/18 05/12/23 History tablet biotin 1,000 mcg chewable tablet 1,000 mcg PO DAILY 01/23/18 05/12/23 History cranberry 500 mg capsule 500 mg PO DAILY 01/23/18 05/12/23 History cephalexin 500 mg capsule (Keflex) 500 mg PO DAILY #30 caps 07/08/19 05/12/23 Rx nitrofurantoin 100 mg PO DAILY #30 caps 07/08/19 05/12/23 Rx monohydrate/macrocrystals 100 mg capsule (Macrobid) cyanocobalamin (vitamin B-12) 1,000 mcg PO DAILY 10/21/19 05/12/23 History 1,000 mcg tablet (Vitamin B-12) carvedilol 3.125 mg tablet 3.125 mg PO BID 05/21/20 05/12/23 History hydralazine 10 mg tablet 10 mg PO BID PRN Weight Gain 05/21/20 05/12/23 History losartan 50 mg tablet 50 mg PO QDL 05/21/20 05/12/23 History apixaban 5 mg tablet (Eliquis) 5 mg PO BID #60 tabs 09/05/22 05/12/23 Rx multivitamin 1 tab PO QAM 09/05/22 05/12/23 History tramadol 50 mg tablet 50 mg PO Q6H PRN pain #20 tabs 04/10/23 05/12/23 Rx acetaminophen 650 mg 650 mg PO Q8H PRN Pain 05/12/23 05/12/23 History tablet,extended release amitriptyline 10 mg tablet 10 mg PO HS 05/12/23 05/12/23 History calcium 500 mg tablet 1,000 mg PO QAM 05/12/23 05/12/23 History cholecalciferol (vitamin D3) 50 50 mcg PO DAILY 05/12/23 05/12/23 History mcg (2,000 unit) tablet (Vitamin D3) clopidogrel 75 mg tablet 75 mg PO QAM 05/12/23 05/12/23 History denosumab 60 mg/mL subcutaneous 60 mg subcut UD 05/12/23 05/12/23 History syringe (Prolia) famotidine 20 mg tablet (Pepcid) 20 mg PO TIDWMEAL 05/12/23 05/12/23 History gabapentin 300 mg capsule 0 mg PO UD 05/12/23 05/12/23 History Past Med/Surg History Medical History CKD (chronic kidney disease) stage 4, GFR 15-29 ml/min Pneumonia Pneumothorax on right Fall HTN (hypertension) Left knee DJD Surgical History History of vaginal surgery 2009 bladder prolapse surgery with mesh placement H/O wisdom tooth extraction History of total bilateral knee replacement (TKR) Family History Other Family history non-contributory Denies family history of Ovarian cancer Breast cancer Colorectal cancer Social History Smoking Status: Never smoker Second Hand Exposure: No; Do You Dip or Chew Tobacco: No; Hx Alcohol Use: No Hx Substance Use: No Preferred Language: Belgian Communication Ability: Effective Visual Impairment: No Limitations Elevator Examiner Required: No Beliefs That Will Affect Care: None marital status: / Current Living Situation: Alone Current Living Situation Comment: LIVES AT HOME WITH SON LIVIA AND GRANDCELESTE Other Information That Helps Us Care for You: No Feels Safe at Home: Yes Safety Concerns: Feels Safe At This Time Assistive Devices: Cane, Glasses, Hearing Aid - Bilateral and Walker Physical Exam Physical Exam: Physical Exam: General: In no acute distress, stated age, non-toxic appearing HEENT: Normocephalic, atraumatic, no scleral icterus, pupils around round, symmetrical, and reactive to light, dry mucus membranes, trachea midline, no thyromegaly Chest/Pulm: No respiratory distress, symmetrical chest expansion, scattered crackles in the BL lower and mid lung tinajero, otherwise CTA Cardiac: RRR, no murmurs noted Abdomen: Negative for ascites and bruising, normoactive bowel sounds, soft, non-tender to palpation throughout Musculoskeletal: No acute trauma, able to move upper and lower extremities voluntarily Extremities: Radial, dorsalis pedis, and posterior tibial pulses are intact and symmetrical, no significant edema noted in the BL LE's Skin: Warm, dry, no rashes , lesions, or scars noted Neuro: Alert and oriented to person, place, month, no focal defects, CN II- XII tested and intact, negative [id number] testing in the RUE, patient with difficulty cooperating with testing during [id number] testing in the LUE, patient with LUE pronator drift on testing, negative in the RUE, symmetrical sensation and strength in the BL LE's Psych: No acute distress, calm and cooperative during the exam Results & Data Results & Data Vital Signs (Past 12 Hours) Vital Signs Temp Pulse Resp BP Pulse Ox O2 Del Method O2 Flow Rate 05/12/23 13:00 95 H 26 H 144/86 H 90 Nasal Cannula 2 05/12/23 12:30 155/100 H 05/12/23 12:30 96 H 27 H 155/100 H 92 Nasal Cannula 2 05/12/23 12:00 96 H 21 154/100 H 95 Nasal Cannula 2 05/12/23 12:00 89 L Nasal Cannula 0 05/12/23 11:53 95 H 21 161/94 H 91 Room Air 05/12/23 11:05 99 H 05/12/23 10:59 36.6 C 87 16 159/97 H 95 Room Air Laboratory Results Abnormal lab results 05/12/23 05/12/23 05/12/23 Range/Units 11:05 11:54 12:17 Gosper # (Auto) 0.93 H (0.11-0.59) K/uL Chloride 95 L (98-107) mmol/L Carbon Dioxide 33 H (21-32) mmol/L BUN 31 H (6-23) mg/dl Creatinine 1.62 H (0.6-1.2) mg/dl Lactate 2.1 H* (0.4-2.0) mmol/L Calcium 11.8 H (8.6-10.3) mg/dl Troponin I High Sens 21.0 H (0-14) pg/ml B-Natriuretic Peptide (0-100) pg/ml Urine Nitrite Positive A (Negative) U Epithel Cells (Auto) 20-30 H (0-5) /lpf 05/12/23 05/12/23 Range/Units 13:20 14:22 Gosper # (Auto) (0.11-0.59) K/uL Chloride (98-107) mmol/L Carbon Dioxide (21-32) mmol/L BUN (6-23) mg/dl Creatinine (0.6-1.2) mg/dl Lactate (0.4-2.0) mmol/L Calcium (8.6-10.3) mg/dl Troponin I High Sens 20.0 H (0-14) pg/ml B-Natriuretic Peptide 115 H (0-100) pg/ml Urine Nitrite (Negative) U Epithel Cells (Auto) (0-5) /lpf Diagnostic Findings Chest X-Ray 05/12/23 11:30 XR chest 1V portable HISTORY: weakness COMPARISON: Chest 11/12/2020. FINDINGS: The cardiac silhouette remains mildly enlarged. Slightly rotated study. Interval progression of the interstitial/vascular thickening consistent with mild congestive change. No pneumothorax. No pleural effusions. Old, healed right-sided rib fractures again noted. IMPRESSION: Cardiomegaly and mild central pulmonary vascular congestion without overt edema. ACT 112: Negative or not required by law. Electronically signed by: Eduin Suazo M.D. 05/12/2023 12:[address] 05/12/23 11:30 CT SCAN OF THE BRAIN WITHOUT IV CONTRAST CLINICAL HISTORY: Generalized weakness. COMPARISON STUDY: CT of the brain dated 10/21/2019. TECHNIQUE: Unenhanced axial CT scan of the brain is performed from the vertex to the skull base. A dose lowering technique was utilized adhering to the principles of ALARA. CT DOSE: 625.8 mGy.cm FINDINGS: Brain parenchyma: There is age-related involutional change noting advanced confluent subcortical and periventricular microangiopathic disease. There is no hemorrhage, mass effect, or evidence of acute territorial ischemia by CT criteria. Duarte-white matter differentiation is preserved. No extra-axial fluid collection is seen. Ventricles, sulci, cisterns: Prominent secondary to involutional change. Intracranial vasculature: There is atherosclerotic calcification of the cavernous carotid and vertebral arteries. Calvarium: Unremarkable. Sinuses and mastoids: There is mild mucosal thickening within the maxillary antra. The remaining visualized paranasal sinuses are clear. The mastoid air cells are well pneumatized. Orbits: The bony orbits are grossly intact. There are bilateral ocular lens implants. IMPRESSION: There is no hemorrhage, mass effect, or evidence of acute territ orial ischemia by CT criteria. ACT 112: Negative or not required by law. Electronically signed by: Cuco Honeycutt M.D. 05/12/2023 12:35 PM ECG Additional Comments: Sinus rhythm with 1st degree A-V block Otherwise normal ECG When compared with ECG of 12-OCT-2020 16:22, Premature ventricular complexes are no longer Present Code Status & VTE Plan Code Status Full code VTE Prophylaxis Plan VTE Prophylaxis will be ordered: Yes Supervising Physician Co-Signing Physician Notes I personally saw and examined the patient. I verified all rey points and agree with Yogesh Galeana PA-C with the following exceptions and/or additions: 87 year old female presents to the ER from [facility] following dizziness episode with possible stoke like symptoms with dropping things in her left hand and decreased co-ordination O/E A&Ox3, HS RRR, no murmurs, Chest CTAB, Abdo SNT, no CVA tenderness, no pronator drift, CN 2-> 12 intact, no sensation deficit A/P Dizziness - orthostatic by history although hypoxia may also have been contributing, brain MRI ruled out stroke and on further questioning not clearly one sided symptoms. Orthostatics q shift starting tomorrow. This would favor giving IV fluids although in setting of unexplained hypoxia and weight increase at [facility]. Weight increase may be just from increased calorie intake however per her daughter. Hypoxia without respiratory failure - I do not have a good explanation for this. CXR on admission was quite rotated but without overt pulmonary edema. Lasix dosing caused dizziness and probably orthostasis and dry mucus membranes suggest she is. She already had lasix this morning therefore would favor watching her overnight with a 2 view CXR tomorrow and repeat labs in the morning. Unlikely PE given she is on Eliquis. Consider CT chest tomorrow if no adequate explanation. Procalcitonin and WBC negative for infection on admission therefore no indication for antibiotics. Hypercalcemia - Stop calcium supplementation. PTH WNL. Monitor with AM labs. PG Care Time/CCT Total # of Minutes Spent Total Time Spent with Patient: Total time spent is greater than 50% in coordination of care (as documented) at patient's floor/unit and/or counseling patient: Coding [place] [address] INT INP/OBS CARE 3/75MIN Patient Type Established Medical Decision Making High Complexity Diagnoses Stroke-like symptoms R29.90 Dizziness R42 Hypoxia R09.02 Dehydration E86.0 Hypercalcemia E83.52 Status post angiography of extremity Z98.890 Hx of deep venous thrombosis Z86.718 Hx of recurrent urinary tract infection Z87.440 (HFpEF) heart failure with preserved ejection fraction I50.30
[2023-05-12] MEDS ORDERED: PHARMACIST DISCHARGE MED REC CONSULT PRN (14:50)
--- NOTE | 2023-05-12 15:41 | Electrocardiogram Report ---
Test Reason : Blood Pressure : / mmHG Vent. Rate : 097 BPM Atrial Rate : 097 BPM P-R Int : 238 ms QRS Dur : 098 ms QT Int : 328 ms P-R-T Axes : 073 -02 020 degrees QTc Int : 416 ms Sinus rhythm with 1st degree A-V block Nonspecific ST abnormality Otherwise normal ECG When compared with ECG of 12-OCT-2020 16:22, Premature ventricular complexes are no longer Present Confirmed by Kyler Carter ([id number]) on 05/12/2023 3:41:16 PM Referred By: Confirmed By:Jay Jay Carter
[2023-05-12] MEDS: OPTIRAY 350 500ml IV ONE (16:05)
--- NOTE | 2023-05-12 16:33 | CT Scan Report ---
CT ANGIOGRAM OF THE BRAIN; CT ANGIOGRAM OF THE NECK CLINICAL HISTORY: Strokelike symptoms COMPARISON STUDY: Unenhanced CT of the brain performed the same day 05/12/2023. TECHNIQUE: Following the IV administration of 113 of Optiray 350, CT angiogram of the head and neck w as performed from the aortic arch to the vertex. Images are reviewed in the axial, sagittal, and brent nal planes. 3-D MIPS images are created and assessed. IV contrast was administered without complicati on. All measurements were calculated based on NASCET criteria. A dose lowering technique was utilize d adhering to the principles of ALARA. CT DOSE: 541.66 mGy.cm FINDINGS: Brain parenchyma: There is age-related involutional change noting advanced confluent subcortical and periventricular microangiopathic disease. There is no evidence of hemorrhage, mass effect, or acute t erritorial ischemia noting angiographic phase technique. There is no evidence of enhancing mass lesio n on the angiogram phase images. The ventricles, sulci, and cisterns are prominent secondary to vinny nal change. Duarte-white matter differentiation is preserved. No extra-axial fluid collection is seen. Thoracic aorta: There is atherosclerotic calcification of the thoracic aorta. Visualized portions of the thoracic aorta are normal in caliber. The aortic arch demonstrates standard 3-vessel anatomy. Right carotid arterial system: The right common carotid artery is widely patent, as are the right int ernal and external carotid arteries. Calcified plaque is noted in the carotid bulb. Left carotid arterial system: The left common carotid artery is widely patent, as are the left spring internship al and external carotid arteries. Calcified plaque is noted in the carotid bulb. Vertebral arteries: There is mild stenosis of the origin of the right vertebral artery. The vertebral arteries are otherwise widely patent bilaterally and codominant. Subclavian arteries: Widely patent bilaterally. Intracranial vasculature: There is atherosclerotic calcification of the cavernous carotid and vertebr al arteries. The internal carotid arteries are patent at the skull base, as are the anterior and midd le cerebral arteries bilaterally. There is high-grade stenosis of the supraclinoid left internal sandhu tid artery seen on axial image #117. The vertebrobasilar system and posterior cerebral arteries are w idely patent. The vertebral arteries are codominant. There is no aneurysm or focal vessel cut off see n throughout the intracranial circulation. Jugular veins: Patent bilaterally. Dural sinuses: Patent. Lung apices: Partially visualized upper lobe lung parenchyma appears clear. Soft tissues: The visualized pharyngeal soft tissues are normal in appearance noting angiographic pha se technique. The oropharyngeal airway appears widely patent. The salivary and thyroid glands are nor mal in appearance. No cervical lymphadenopathy is seen. Skeletal structures: The skeletal structures are osteopenic. The calvarium appears intact. The cervic al spine is maintained noting multilevel spondylosis. There is chronic deformity of the right-sided r ibs. Orbits: The bony orbits are intact. Orbital contents are normal as visualized noting bilateral ocular lens implants. Sinuses and mastoids: There is mild mucosal thickening within the maxillary antra. Trace mucosal thic kening is seen within the frontal, ethmoid, and sphenoid sinuses. The mastoid air cells are well pneu matized. IMPRESSION: 1. There is no evidence of hemorrhage, mass effect, or acute territorial ischemia noting angiographic phase technique. 2. 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 3. Otherwise unremarkable CT angiogram of the brain. 4. Unremarkable CT angiogram of the neck. ACT 112: Negative or not required by law. Electronically signed by: Cuco Honeycutt M.D. 05/12/2023 4:30 PM
--- NOTE | 2023-05-12 16:51 | Magnetic Resonance Report ---
MRI OF THE BRAIN WITHOUT IV CONTRAST CLINICAL HISTORY: Generalized weakness. COMPARISON STUDY: CT of the brain dated 05/12/2023. TECHNIQUE: MRI of the brain was performed utilizing various T1 and T2-weighted sequences in the axial , sagittal, and coronal planes. IV contrast was not administered for this examination. 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 There is no hemorrhage or mass effect. There is no restricted diffusi on to suggest acute ischemia. There are tiny chronic lacunar infarcts within the cerebellar hemispher es. Duarte-white matter differentiation is preserved. No extra-axial fluid collection is seen. The cere bellar tonsils are normal in configuration. Ventricles, sulci, and cisterns: Prominent secondary to involutional change. Pituitary and sella: Unremarkable. Intracranial vasculature: Normal flow voids are maintained at the skull base. Orbits: The bony orbits are grossly intact. Orbital contents are normal in appearance noting bilatera l ocular lens implant. Sinuses and mastoids: There is mild mucosal thickening within the maxillary antra. Trace mucosal thic kening is seen in the ethmoid sinuses. The remaining paranasal sinuses and mastoid air cells are yanet r. Calvarium: Unremarkable. Cervical cord: Partially visualized cervical spinal cord is normal in morphology and signal intensity . IMPRESSION: No acute intracranial abnormality. ACT 112: Negative or not required by law. Electronically signed by: Cuco Honeycutt M.D. 05/12/2023 4:50 PM
[2023-05-12] MEDS ORDERED: GABAPENTIN 300 MG CAP PO SCH (17:06)
[2023-05-12] MEDS ORDERED: ACETAMINOPHEN 325 MG TAB PO PRN (17:10)
[2023-05-12] MEDS: FAMOTIDINE 20 MG TAB PO SCH (18:04)
[2023-05-12] MEDS: DOCUSATE SODIUM 100 MG CAP PO SCH (21:36)
[2023-05-12] MEDS: APIXABAN 5 MG TABLET PO SCH (21:36)
[2023-05-12] MEDS: AMITRIPTYLINE HCL 10 MG TAB PO SCH (21:36)
[2023-05-12] MEDS: GABAPENTIN 100 MG CAP PO SCH (21:36)
[2023-05-13 07:34] LABS: Basophils # (auto) 0.04 K/uL (0.00-0.20); Basophils % (auto) 0.6 %; Eosinophils # (auto) 0.49 K/uL (0.00-0.50); Eosinophils % (auto) 6.9 %; Hemoglobin 13.3 g/dl (12.0-16.0); Immature Granulocytes # (auto) 0.02 K/uL (0.01-0.20); Immature Granulocytes % (auto) 0.3 %; Lymphocytes # (auto) 2.16 K/uL (1.20-3.40); Lymphocytes % (auto) 30.3 %; Mean Corpuscular Hemoglobin 30.5 pg (25.0-34.0); Mean Corpuscular Hgb Conc 32.4 g/dL (32.0-36.0); Monocytes # (auto) 1.07 K/uL (0.11-0.59); Neutrophils # (auto) 3.34 K/uL (1.40-6.50); Neutrophils % (auto) 46.9 %; Platelet Count 299 K/uL (130-400); RDW Coefficient of Variation 13.3 % (11.5-14.5); RDW Standard Deviation 45.8 fL (36.4-46.3); Red Blood Count 4.36 M/uL (4.20-5.40); White Blood Count 7.12 K/ul (4.8-10.8)
[2023-05-13 07:52] LABS: Albumin Globulin Ratio 1.2 (0.9-2); Albumin Level 3.7 gm/dl (3.4-5.0); BUN Creatinine Ratio 19.3 (10-20); Bilirubin,Total 0.5 mg/dl (0.2-1.0); Calcium 10.5 mg/dl (8.6-10.3); Chol HDL Ratio 4.2 (0-5); Creatinine Clr Calc Pharmacy 18.3 ml/min; Est GFR (African American) 25.5 ml/min; Globulin 3.2 gm/dl (2.5-4.0); Magnesium 1.9 mg/dl (1.7-2.4); Potassium 4.4 mmol/L (3.5-5.1); Total Protein 6.9 gm/dl (6.0-8.3)
[2023-05-13] MEDS: CLOPIDOGREL BISULFATE 75 MG TAB PO SCH (08:11)
[2023-05-13] MEDS: cephALEXin 500 MG CAP PO SCH (08:11)
[2023-05-13 08:22] LABS: Estimated Average Glucose 137 mg/dl; Hemoglobin A1C 6.4 % (4.5-5.6)
[2023-05-13] MEDS ORDERED: NITROFURANTOIN MONOHYDRATE 100 MG CAP PO SCH (09:00)
--- NOTE | 2023-05-13 09:31 | XRay Report ---
XR chest 2V PA/lateral CLINICAL HISTORY: Hypoxia. COMPARISON STUDY: Chest radiograph May 12, 2023. FINDINGS: There are multiple old right rib fractures. S-shaped scoliosis of the thoracolumbar spine i s incidentally noted. Cardiomegaly is unchanged. Pulmonary vascular congestion slightly improved, pos sibly technical. No consolidation is identified to suggest pneumonia. Linear left basilar densities r epresent atelectasis. No pneumothorax or pleural effusion. IMPRESSION: Stable cardiomegaly. Slight improvement in pulmonary vascular congestion. ACT 112: Negative or not required by law. Electronically signed by: Aashish Herman M.D. 05/13/2023 9:30 AM
--- NOTE | 2023-05-13 09:55 | XCELERA ---
[id number] \\[id number]
[2023-05-13] MEDS: SODIUM CHLORIDE 0.9% 1,000 ML IV SCH (11:04)
--- NOTE | 2023-05-13 11:07 | Hospitalist Progress Note ---
Date of Service May 13, 2023 Assessment & Plan (1) Stroke-like symptoms: Plan: Resolved. Fortunately the brain MRI scan is negative for acute CVA. 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 Continue current medical management (2) Dizziness: Plan: Resolved. (3) Hypoxia: Plan: Resolved. She is now on room air. No evidence of CHF or pneumonia (4) Dehydration: Plan: Continue IV fluids. Monitor intake and output. Likely due to recent lasix use at [facility] . Serial labs (5) Hypercalcemia: Plan: Mild. Asymptomatic. No intervention necessary at this time (6) Status post angiography of extremity: Plan: S/P LLE angiogram with stent placement to the superficial femoral artery at [facility] on 05/03/23. Has been on BID Eliquis and Daily Plavix since 05/03 (7) Hx of deep venous thrombosis: Plan: Stable. Continue Eliquis therapy (8) Hx of recurrent urinary tract infection: Plan: Currently on chronic Macrobid and Cephalexin which are rotated weekly. Stable. (9) (HFpEF) heart failure with preserved ejection fraction: Plan: Stable. No overt CHF at this time. Monitor intake and output. Plan Hopeful discharge tomorrowMay 13 Admission and Anticipated Discharge Date Admission Date: May 12, 2023 Subjective Alert and oriented. She is feeling better. Fortunately, the brain MRI scan is negative for CVA. IV fluids have been started since her creatinine is up trending. Hopefully she can go home tomorrow, May 13 Review of Systems 2 Review of Systems: Constitutional-no fever or chills ENT-no blurred vision, no double vision, no epistaxis, no sore throat Respiratory-no cough, no wheezing, no shortness of breath Cardiac-no palpitations, no chest pain, no syncope GI-no nausea, vomiting, diarrhea, melena, hematochezia -no urinary retention, no urinary incontinence, no dysuria, no hematuria Musculoskeletal-no joint pain, no muscle tenderness Skin-no bruising, no rashes, no pruritus Neuro-no isolated weakness, no paresthesia Psych-no depression, no anxiety Physical Exam 2 Physical Exam: General-alert and oriented x3, no fever, no chills HEENT-head atraumatic and normocephalic, pupils equal and reactive to light, extraocular muscles intact Neck-no lymphadenopathy or thyromegaly, trachea midline Chest-clear to auscultation. No rales, wheezing or rhonchi Cardiac-regular rate and rhythm, normal S1 and S2 Abdomen-normal bowel sounds, nontender, no hepatosplenomegaly Extremities-no cyanosis, clubbing, or edema Neuro-cranial nerves II through XII intact, motor and sensory function within normal limits, strength symmetrical, no focal deficits Psych-normal affect, normal mood Results & Data Results & Data Vital Signs (Past 12 Hours) Vital Signs Temp Pulse Pulse Resp BP Pulse Ox O2 Del Method 05/13/23 08:00 36.7 C 98 H 19 116/69 92 Nasal Cannula 05/13/23 07:23 Nasal Cannula 05/13/23 07:00 98 H 05/13/23 03:23 36.7 C 101 H 19 94/63 L 93 Nasal Cannula O2 Flow Rate 05/13/23 08:00 4.0 05/13/23 07:23 3 05/13/23 07:00 05/13/23 03:23 4.0 Laboratory Results 05/13/23 06:46 05/13/23 06:46 PG Care Time/CCT Total # of Minutes Spent Total Time Spent with Patient: Total time spent is greater than 50% in coordination of care (as documented) at patient's floor/unit and/or counseling patient: Coding Level of Care Code 58105 SUB INP/OBS CARE 3/50MIN Diagnoses Stroke-like symptoms R29.90 Dizziness R42 Hypoxia R09.02 Dehydration E86.0 Hypercalcemia E83.52 Status post angiography of extremity Z98.890 Hx of deep venous thrombosis Z86.718 Hx of recurrent urinary tract infection Z87.440 (HFpEF) heart failure with preserved ejection fraction I50.30
[2023-05-14 06:54] LABS: BUN Creatinine Ratio 23.5 (10-20); Creatinine Clr Calc Pharmacy 21.7 ml/min; Est GFR (African American) 31.3 ml/min; Potassium 4.2 mmol/L (3.5-5.1)
--- NOTE | 2023-05-14 10:49 | XRay Report ---
XR chest 1V portable CLINICAL HISTORY: hypoxia TECHNIQUE: Single frontal radiograph of the chest was obtained. Comparison: Comparison is made to chest radiograph 05/13/2023 FINDINGS: Old healed rib fractures are seen. The cardiomediastinal silhouette is stable. The lungs are clear. N o evidence of pleural effusion or pneumothorax. IMPRESSION: No acute abnormalities and in particular no radiographic evidence of pneumonia. Previously noted pulm onary vascular congestion is no longer well seen. ACT 112: Negative or not required by law. Electronically signed by: Kuldip Johnson M.D. 05/14/2023 10:48 AM
--- NOTE | 2023-05-14 11:03 | Hospitalist Progress Note ---
Date of Service May 14, 2023 Assessment & Plan (1) Stroke-like symptoms: Plan: Resolved. Fortunately the brain MRI scan is negative for acute CVA. 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 Continue current medical management (2) Dizziness: Plan: Resolved. (3) Hypoxia: Plan: She is requiring low-flow oxygen per nasal cannula. Repeat portable chest x-ray today, May 13, is negative for CHF or pneumonia. This may be indicative of underlying lung disease or atelectasis. (4) Dehydration: Plan: Corrected with IV fluids which have been discontinued today, May 13. Monitor intake and output. Serial labs (5) Hypercalcemia: Plan: Mild. Asymptomatic. No intervention necessary at this time (6) Status post angiography of extremity: Plan: S/P LLE angiogram with stent placement to the superficial femoral artery at [facility] on 05/03/23. Has been on BID Eliquis and Daily Plavix since 05/03. Eliquis has been discontinued (7) Hx of deep venous thrombosis: Plan: Stable. I believe Eliquis poses more of a risk than the benefit due to her advanced age and frequent falls. Eliquis has been discontinued (8) Hx of recurrent urinary tract infection: Plan: Currently on chronic Macrobid and Cephalexin which are rotated weekly. Stable. (9) (HFpEF) heart failure with preserved ejection fraction: Plan: Stable. No overt CHF at this time. Monitor intake and output. [facility] and Anticipated Discharge Date Admission Date: May 12, 2023 Subjective Alert and oriented. No distress. Creatinine has improved to 1.6 with IV fluids which have now been discontinued. She continues to require supplemental oxygen. Repeat portable chest x-ray today, May 13, is negative for pneumonia or CHF. Due to her frequent falls and advanced age, I believe the Eliquis poses more of a risk than a benefit. Eliquis has been discontinued. [facility] Review of Systems 2 Review of Systems: Constitutional-no fever or chills ENT-no blurred vision, no double vision, no epistaxis, no sore throat Respiratory-no cough, no wheezing, no shortness of breath Cardiac-no palpitations, no chest pain, no syncope GI-no nausea, vomiting, diarrhea, melena, hematochezia -no urinary retention, no urinary incontinence, no dysuria, no hematuria Musculoskeletal-no joint pain, no muscle tenderness Skin-no bruising, no rashes, no pruritus Neuro-no isolated weakness, no paresthesia Psych-no depression, no anxiety Physical Exam 2 Physical Exam: General-alert and oriented x3, no fever, no chills HEENT-head atraumatic and normocephalic, pupils equal and reactive to light, extraocular muscles intact Neck-no lymphadenopathy or thyromegaly, trachea midline Chest-clear to auscultation. No rales, wheezing or rhonchi Cardiac-regular rate and rhythm, normal S1 and S2 Abdomen-normal bowel sounds, nontender, no hepatosplenomegaly Extremities-no cyanosis, clubbing, or edema Neuro-cranial nerves II through XII intact, motor and sensory function within normal limits, strength symmetrical, no focal deficits Psych-normal affect, normal mood Results & Data Results & Data Vital Signs (Past 12 Hours) Vital Signs Temp Pulse Resp BP Pulse Ox O2 Del Method O2 Flow Rate 05/14/23 08:33 36.7 C 98 H 17 134/69 96 Nasal Cannula 2 05/14/23 07:06 Nasal Cannula 2 05/14/23 03:34 36.8 C 87 18 106/81 99 Room Air 05/13/23 23:37 36.7 C 75 18 112/62 92 Nasal Cannula 2.0 Laboratory Results 05/13/23 06:46 05/14/23 06:04 PG Care Time/CCT Total # of Minutes Spent Total Time Spent with Patient: Total time spent is greater than 50% in coordination of care (as documented) at patient's floor/unit and/or counseling patient: Coding Level of Care Code 34363 SUB INP/OBS CARE 3/50MIN Diagnoses Stroke-like symptoms R29.90 Dizziness R42 Hypoxia R09.02 Dehydration E86.0 Hypercalcemia E83.52 Status post angiography of extremity Z98.890 Hx of deep venous thrombosis Z86.718 Hx of recurrent urinary tract infection Z87.440 (HFpEF) heart failure with preserved ejection fraction I50.30
[2023-05-15 06:15] LABS: BUN Creatinine Ratio 22.1 (10-20); Calcium 8.5 mg/dl (8.6-10.3); Creatinine Clr Calc Pharmacy 26.4 ml/min; Est GFR (African American) 38.5 ml/min; Est GFR (Non-African American) 33.2 ml/min; Potassium 4.2 mmol/L (3.5-5.1)
--- NOTE | 2023-05-15 12:05 | Discharge Summary ---
Discharge Summary Date of Service May 15, 2023 Notes For Next Care Provider Patient admitted after right sided weakness and dropping things in the shower at [facility]. Head CT and Brain MRI negative for stroke. Suspect TIA. Head/neck CTA with high grade stenosis of supraclinoid LICA - patient and family did not want to start cholesterol medication due to familial reaction and age. Would like to discuss with their motor patrol operator first - Discussion about eliquis, decided to stop given age and recurent falls - Rise in a creatinine recommend checking BMP before she resumes her week of Macrobid. Medication Changes From Visit Stopped Eliquis Admission HPI Per Admitting Provider Natalia Jc is an 87 year old female with a PMH significant for previous LLE DVT (On Eliquis), stage 4 CKD, chronic interstitial cystitis, Raynaud's phenomenon, and HTN who presented to the [facility] ED via EMS from [facility] due to new right sided weakness and dizziness. On arrival to the ED she was noted to be tachycardic with HR of 99, tachypneic at 27, and hypoxic at 89% on RA. Labs were significant for a cr of 1.62 (baseline is near 1.2), BUN of 31, bicarb of 33, lactate of 2.1, calcium of 11.8, initial high sen trop of 21 --> 20 on 2 hour repeat, UA negative for infection, Covid 19 screen negative, and TSH WNL. Chest xray was read as "Cardiomegaly and mild central pulmonary vascular congestion without overt edema.". CT of the head/brain wo con was read as negative for acute findings. At the time of the exam the patient was sleeping comfortably in bed in no acute distress with her Daughter/POA Dr. Bob (Physician in Rehab Medicine in [place]) bedside, history was obtained from both. The patient is currently at [facility] for rehab S/P LLE angiogram with stent placement to the superficial femoral artery at [facility] on 05/03/23. 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 There were no complications during the procedure. Her Eliquis was held for 3 days prior to the procedure and was restarted on 05/03. The patient was also started on daily Plavix after her stent placement. Per the documentation from [facility], the patient's weight had been trending up and she had been exper iencing some IRLEY. She was given 40 mg PO lasix on the night of 05/10 and another dose this am. This am the Attending Physician was alerted by staff that the patient was having difficulty holding things in her right hand and leaning to the right. She was also experiencing dizziness. They noted that the patient was leaning to the right but her neurology exam was otherwise unremarkable. She was sent to the ED for further evaluation. The patient and her daughter confirmed the above hx. When asked, the patient states that she feels as though she was having difficulty using her right hand and has felt more confused than baseline. When asked, she states that she has been more SOB with activity and has been having yellow sputum production for the past 3 days. She denies recent chest pain, pleuritic chest pain, hemoptysis, abd pain, nausea, vomiting, diarrhea, dysuria, hematuria, melena, LE swelling, and recent trauma. The patient states that she had " a lot" of urine output after receiving doses of PO lasix last night and this am. She normally only use prn PO lasix, sparingly at home for LE swelling. She is a full code and her daughter is her medical POA if she cannot make decisions for herself. Please refer to Dr. Field's attestation for any changes to the treatment plan Principal Dx & Hospital Course #1 = Principal Diagnosis (1) TIA (transient ischemic attack): 05/11 with abrupt onset of right sided lean and dropping things with associated lightheadedness - symptoms have since resolved - Brain MRI with no acute intracranial abnormality - head CTA with high grade stenosis of supraclinoid LICA - no acute intervention, could consider outpatient follow up with inter ventional neuro-vascular at [facility] - hgb A1C: 6.4, recommend diet control - total cholesterol 207 - patient and family concerned about starting statin as patient brother had reaction to this. family would like to discuss starting at upcoming cardiology appointment - Coreg held on admission for permissive HTN, okay to resume (2) Hx of deep venous thrombosis: - DVT ~4 years ago with short course of Eliquis after and then repeat DVT Summer 2022 and has been on Eliquis since. - Family reports > 9 falls since Zach[place], and last two patient has hit her head. - Discussion of risk/benefits - will check LE Doppler to r/o clot, no clot, so will d/c eliquis. (3) Hypoxia: - has been requiring 2L O2 during her stay CXR 05/12: stable cardiomegaly CXR 05/13: no evidence of PNA or CHF Weaned to room air this morning (4) Dehydration: Corrected with IV fluids which have been discontinued May 13. Caution further lasix use (5) Hypercalcemia: Mild on admission. Resolved during stay - recommend repeat BMP outpatient to determine need for Calcium supplementation (6) Status post angiography of extremity: S/P LLE angiogram with stent placement to the superficial femoral artery at [facility] on 05/03/23 and reason for stay at [facility]. Has been on BID Eliquis and Daily Plavix since 05/03. Eliquis has been discontinued as above Venous DOppler here neg for DVT but shows fistula in left femoral region-copied to disc to take to her Vascular Surgeon at [facility] in follow up (7) Hx of recurrent urinary tract infection: Currently on chronic Macrobid and Cephalexin which are rotated weekly. Switched to Cephalexin 05/12 Recommend BMP prior to restarting Macrobid to evaluate renal function. (8) (HFpEF) heart failure with preserved ejection fraction: No acute exacerbation. Echo: interatrial shunt, moderate concentric LVH Plan Family updated at bedside. Dispo: discharge to [facility] today Discharge Exam General: NAD, VS as above Resp: normal respiratory effort, diminished in bases, weaned down to Room air during my exam CV: RRR, no murmur, Abd:non tender, no hepatosplenomegaly Extremities: Moves all extremities, mild tenderness bilaterally LE, family reports chronic. no redness or warmth. mild LE edema Updated Medication List Medication Instructions Recorded Confirmed Type ascorbic acid (vitamin C) 500 mg 500 mg PO DAILY 01/23/18 05/12/23 History tablet biotin 1,000 mcg chewable tablet 1,000 mcg PO DAILY 01/23/18 05/12/23 History cranberry 500 mg capsule 500 mg PO DAILY 01/23/18 05/12/23 History cephalexin 500 mg capsule (Keflex) 500 mg PO DAILY #30 caps 07/08/19 05/12/23 Rx nitrofurantoin 100 mg PO DAILY #30 caps 07/08/19 05/12/23 Rx monohydrate/macrocrystals 100 mg capsule (Macrobid) cyanocobalamin (vitamin B-12) 1,000 mcg PO DAILY 10/21/19 05/12/23 History 1,000 mcg tablet (Vitamin B-12) carvedilol 3.125 mg tablet 3.125 mg PO BID 05/21/20 05/12/23 History losartan 50 mg tablet 50 mg PO QDL 05/21/20 05/12/23 History multivitamin 1 tab PO QAM 09/05/22 05/12/23 History tramadol 50 mg tablet 50 mg PO Q6H PRN pain #20 tabs 04/10/23 05/12/23 Rx acetaminophen 650 mg 650 mg PO Q8H PRN Pain 05/12/23 05/12/23 History tablet,extended release amitriptyline 10 mg tablet 10 mg PO HS 05/12/23 05/12/23 History calcium 500 mg tablet 1,000 mg PO QAM 05/12/23 05/12/23 History cholecalciferol (vitamin D3) 50 50 mcg PO DAILY 05/12/23 05/12/23 History mcg (2,000 unit) tablet (Vitamin D3) clopidogrel 75 mg tablet 75 mg PO QAM 05/12/23 05/12/23 History denosumab 60 mg/mL subcutaneous 60 mg subcut UD 05/12/23 05/12/23 History syringe (Prolia) famotidine 20 mg tablet (Pepcid) 20 mg PO TIDWMEAL 05/12/23 05/12/23 History docusate sodium 100 mg capsule 100 mg PO BID 30 days #60 caps 05/15/23 Rx gabapentin 100 mg capsule 100 mg PO TID 30 days #90 caps 05/15/23 Rx Hospital Stay Data Consultations 05/12/23 13:51 ED Decision to Admit Stat Diagnostic Imagining Performed Chest X-Ray 05/12/23 11:30 XR chest 1V portable HISTORY: weakness COMPARISON: Chest 11/12/2020. FINDINGS: The cardiac silhouette remains mildly enlarged. Slightly rotated study. Interval progression of the interstitial/vascular thickening consistent with mild congestive change. No pneumothorax. No pleural effusions. Old, healed right-sided rib fractures again noted. IMPRESSION: Cardiomegaly and mild central pulmonary vascular congestion without overt edema. ACT 112: Negative or not required by law. Electronically signed by: Eduin Suazo M.D. 05/12/2023 12:[address] 05/12/23 11:30 CT SCAN OF THE BRAIN WITHOUT IV CONTRAST CLINICAL HISTORY: Generalized weakness. COMPARISON STUDY: CT of the brain dated 10/21/2019. TECHNIQUE: Unenhanced axial CT scan of the brain is performed from the vertex to the skull base. A dose lowering technique was utilized adhering to the principles of ALARA. CT DOSE: 625.8 mGy.cm FINDINGS: Brain parenchyma: There is age-related involutional change noting advanced confluent subcortical and periventricular microangiopathic disease. There is no hemorrhage, mass effect, or evidence of acute territorial ischemia by CT criteria. Duarte-white matter differentiation is preserved. No extra-axial fluid collection is seen. Ventricles, sulci, cisterns: Prominent secondary to involutional change. Intracranial vasculature: There is atherosclerotic calcification of the cavernous carotid and vertebral arteries. Calvarium: Unremarkable. Sinuses and mastoids: There is mild mucosal thickening within the maxillary antra. The remaining visualized paranasal sinuses are clear. The mastoid air cells are well pneumatized. Orbits: The bony orbits are grossly intact. There are bilateral ocular lens implants. IMPRESSION: There is no hemorrhage, mass effect, or evidence of acute territorial ischemia by CT criteria. ACT 112: Negative or not required by law. Electronically signed by: Cuco Honeycutt M.D. 05/12/2023 12:35 PM Brain MRI 05/12/23 13:51 MRI OF THE BRAIN WITHOUT IV CONTRAST CLINICAL HISTORY: Generalized weakness. COMPARISON STUDY: CT of the brain dated 05/12/2023. TECHNIQUE: MRI of the brain was performed utilizing various T1 and T2-weighted sequences in the axial, sagittal, and coronal planes. IV contrast was not administered for this examination. FINDINGS: Brain parenchyma: There is age-related involutional change noting advanced subcortical and periventricular microangiopathic disease. There is no hemorrhage or mass effect. There is no restricted diffusion to suggest acute ischemia. There are tiny chronic lacunar infarcts within the cerebellar hemispheres. Duarte- white matter differentiation is preserved. No extra-axial fluid collection is seen. The cerebellar tonsils are normal in configuration. Ventricles, sulci, and cisterns: Prominent secondary to involutional change. Pituitary and sella: Unremarkable. Intracranial vasculature: Normal flow voids are maintained at the skull base. Orbits: The bony orbits are grossly intact. Orbital contents are normal in appearance noting bilateral ocular lens implant. Sinuses and mastoids: There is mild mucosal thickening within the maxillary antra. Trace mucosal thickening is seen in the ethmoid sinuses. The remaining paranasal sinuses and mastoid air cells are clear. Calvarium: Unremarkable. Cervical cord: Partially visualized cervical spinal cord is normal in morphology and signal intensity. IMPRESSION: No acute intracranial abnormality. ACT 112: Negative or not required by law. Electronically signed by: Cuco Honeycutt M.D. 05/12/2023 4:50 PM Head CTA 05/12/23 15:21 CT ANGIOGRAM OF THE BRAIN; CT ANGIOGRAM OF THE NECK CLINICAL HISTORY: Strokelike symptoms COMPARISON STUDY: Unenhanced CT of the brain performed the same day 05/12/2023. TECHNIQUE: Following the IV administration of 113 of Optiray 350, CT angiogram of the head and neck was performed from the aortic arch to the vertex. Images are reviewed in the axial, sagittal, and coronal planes. 3-D MIPS images are created and assessed. IV contrast was administered without complication. All measurements were calculated based on NASCET criteria. A dose lowering technique was utilized adhering to the principles of ALARA. CT DOSE: 541.66 mGy.cm FINDINGS: Brain parenchyma: There is age-related involutional change noting advanced confluent subcortical and periventricular microangiopathic disease. There is no evidence of hemorrhage, mass effect, or acute territorial ischemia noting angiographic phase technique. There is no evidence of enhancing mass lesion on the angiogram phase images. The ventricles, sulci, and cisterns are prominent secondary to marginal change. Duarte-white matter differentiation is preserved. No extra-axial fluid collection is seen. Thoracic aorta: There is atherosclerotic calcification of the thoracic aorta. Visualized portions of the thoracic aorta are normal in caliber. The aortic arch demonstrates standard 3-vessel anatomy. Right carotid arterial system: The right common carotid artery is widely patent, as are the right internal and external carotid arteries. Calcified plaque is noted in the carotid bulb. Left carotid arterial system: The left common carotid artery is widely patent, as are the left internal and external carotid arteries. Calcified plaque is noted in the carotid bulb. Vertebral arteries: There is mild stenosis of the origin of the right vertebral artery. The vertebral arteries are otherwise widely patent bilaterally and codominant. Subclavian arteries: Widely patent bilaterally. Intracranial vasculature: There is atherosclerotic calcification of the cavernous carotid and vertebral arteries. The internal carotid arteries are patent at the skull base, as are the anterior and middle cerebral arteries bilaterally. There is high-grade stenosis of the supraclinoid left internal carotid artery seen on axial image #117. The vertebrobasilar system and posterior cerebral arteries are widely patent. The vertebral arteries are codominant. There is no aneurysm or focal vessel cut off seen throughout the intracranial circulation. Jugular veins: Patent bilaterally. Dural sinuses: Patent. Lung apices: Partially visualized upper lobe lung parenchyma appears clear. Soft tissues: The visualized pharyngeal soft tissues are normal in appearance noting angiographic phase technique. The oropharyngeal airway appears widely patent. The salivary and thyroid glands are normal in appearance. No cervical lymphadenopathy is seen. Skeletal structures: The skeletal structures are osteopenic. The calvarium appears intact. The cervical spine is maintained noting multilevel spondylosis. There is chronic deformity of the right-sided ribs. Orbits: The bony orbits are intact. Orbital contents are normal as visualized noting bilateral ocular lens implants. Sinuses and mastoids: There is mild mucosal thickening within the maxillary antra. Trace mucosal thickening is seen within the frontal, ethmoid, and sphenoid sinuses. The mastoid air cells are well pneumatized. IMPRESSION: 1. There is no evidence of hemorrhage, mass effect, or acute territorial ischemia noting angiographic phase technique. 2. 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 3. Otherwise unremarkable CT angiogram of the brain. 4. Unremarkable CT angiogram of the neck. ACT 112: Negative or not required by law. Electronically signed by: Cuco Honeycutt M.D. 05/12/2023 4:30 PM Neck CTA 05/12/23 15:21 CT ANGIOGRAM OF THE BRAIN; CT ANGIOGRAM OF THE NECK CLINICAL HISTORY: Strokelike symptoms COMPARISON STUDY: Unenhanced CT of the brain performed the same day 05/12/2023. TECHNIQUE: Following the IV administration of 113 of Optiray 350, CT angiogram of the head and neck was performed from the aortic arch to the vertex. Images are reviewed in the axial, sagittal, and coronal planes. 3-D MIPS images are created and assessed. IV contrast was administered without complication. All measurements were calculated based on NASCET criteria. A dose lowering t echnique was utilized adhering to the principles of ALARA. CT DOSE: 541.66 mGy.cm FINDINGS: Brain parenchyma: There is age-related involutional change noting advanced confluent subcortical and periventricular microangiopathic disease. There is no evidence of hemorrhage, mass effect, or acute territorial ischemia noting angiographic phase technique. There is no evidence of enhancing mass lesion on the angiogram phase images. The ventricles, sulci, and cisterns are prominent secondary to marginal change. Duarte-white matter differentiation is preserved. No extra-axial fluid collection is seen. Thoracic aorta: There is atherosclerotic calcification of the thoracic aorta. Visualized portions of the thoracic aorta are normal in caliber. The aortic arch demonstrates standard 3-vessel anatomy. Right carotid arterial system: The right common carotid artery is widely patent, as are the right internal and external carotid arteries. Calcified plaque is noted in the carotid bulb. Left carotid arterial system: The left common carotid artery is widely patent, as are the left internal and external carotid arteries. Calcified plaque is noted in the carotid bulb. Vertebral arteries: There is mild stenosis of the origin of the right vertebral artery. The vertebral arteries are otherwise widely patent bilaterally and codominant. Subclavian arteries: Widely patent bilaterally. Intracranial vasculature: There is atherosclerotic calcification of the cavernous carotid and vertebral arteries. The internal carotid arteries are patent at the skull base, as are the anterior and middle cerebral arteries bilaterally. There is high-grade stenosis of the supraclinoid left internal carotid artery seen on axial image #117. The vertebrobasilar system and posterior cerebral arteries are widely patent. The vertebral arteries are codominant. There is no aneurysm or focal vessel cut off seen throughout the intracranial circulation. Jugular veins: Patent bilaterally. Dural sinuses: Patent. Lung apices: Partially visualized upper lobe lung parenchyma appears clear. Soft tissues: The visualized pharyngeal soft tissues are normal in appearance noting angiographic phase technique. The oropharyngeal airway appears widely patent. The salivary and thyroid glands are normal in appearance. No cervical lymphadenopathy is seen. Skeletal structures: The skeletal structures are osteopenic. The calvarium appears intact. The cervical spine is maintained noting multilevel spondylosis. There is chronic deformity of the right-sided ribs. Orbits: The bony orbits are intact. Orbital contents are normal as visualized noting bilateral ocular lens implants. Sinuses and mastoids: There is mild mucosal thickening within the maxillary antra. Trace mucosal thickening is seen within the frontal, ethmoid, and sphenoid sinuses. The mastoid air cells are well pneumatized. IMPRESSION: 1. There is no evidence of hemorrhage, mass effect, or acute territorial ischemia noting angiographic phase technique. 2. 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 3. Otherwise unremarkable CT angiogram of the brain. 4. Unremarkable CT angiogram of the neck. ACT 112: Negative or not required by law. Electronically signed by: Cuco Honeycutt M.D. 05/12/2023 4:30 PM Chest X-Ray 05/13/23 07:00 XR chest 2V PA/lateral CLINICAL HISTORY: Hypoxia. COMPARISON STUDY: Chest radiograph May 12, 2023. FINDINGS: There are multiple old right rib fractures. S-shaped scoliosis of the thoracolumbar spine is incidentally noted. Cardiomegaly is unchanged. Pulmonary vascular congestion slightly improved, possibly technical. No consolidation is identified to suggest pneumonia. Linear left basilar densities represent atelectasis. No pneumothorax or pleural effusion. IMPRESSION: Stable cardiomegaly. Slight improvement in pulmonary vascular congestion. ACT 112: Negative or not required by law. Electronically signed by: Aashish Herman M.D. 05/13/2023 9:30 AM Chest X-Ray 05/14/23 10:27 XR chest 1V portable CLINICAL HISTORY: hypoxia TECHNIQUE: Single frontal radiograph of the chest was obtained. Comparison: Comparison is made to chest radiograph 05/13/2023 FINDINGS: Old healed rib fractures are seen. The cardiomediastinal silhouette is stable. The lungs are clear. No evidence of pleural effusion or pneumothorax. IMPRESSION: No acute abnormalities and in particular no radiographic evidence of pneumonia. Previously noted pulmonary vascular congestion is no longer well seen. ACT 112: Negative or not required by law. Electronically signed by: Kuldip Johnson M.D. 05/14/2023 10:48 AM Venous Doppler Study 05/15/23 10:05 US venous doppler LE BI CLINICAL HISTORY: hx of DVT, recent stent placement TECHNIQUE: Bilateral lower extremity real-time compression venous ultrasound with Color Doppler imaging. Utilizing real-time ultrasonic imaging multiple real time high-resolution ultrasonic images with compression and noncompression maneuvers of the deep venous system in addition to color doppler imaging were performed from the common femoral vein through the proximal calf veins. COMPARISON: Comparison is made to lower extremity ultrasound 04/10/2023 FINDINGS/IMPRESSION: No acute DVT is seen. 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 Turbulent flow is seen with arterial velocity up to 628 cm/s. A small fistulous track is noted. No superficial venous thrombosis is identified. ACT 112: Negative or not required by law. Electronically signed by: Kuldip Johnson M.D. 05/15/2023 1:56 PM Discharge Instructions Given to Patient (Per Discharging Provider) Ms. Jc, You were hospitalized after having one sided weakness and dropping things. Your head imaging (Head CT and Brain MRI) did not show an acute stroke. However, the CTA neck showed high grade stenosis of the left supraclinoid left internal carotid artery. - as we discussed, no current intervention but could consider outpatient Interventional Neuroradiology at [facility] As we discussed it is likely that you had a mini stroke, or a TIA. There are somethings that we would normally try to optimize in this case including: - Blood sugar, HGB A1c 6.4 - recommend carb consistent diet, limiting sugars - Cholesterol control - however you declined starting a statin during your stay, and will plan to discuss with cardiology - Anticoagulation - you and your family would like to stop Eliquis given age and recent falls. we did the ultrasound of your leg that showed no clot as a potential cause for your symptoms. Will discontinue Eliquis at discussed. When you arrived you had worsening of your kidney function. For that reason some of your medications has to be held. You can resume your losartan, tomorrow 05/15 Would recommend repeat bloodwork (BMP) before transitioning back to the Nitrofurantoin for UTI prevention. Your calcium levels were high on admission and they have normalized as we provided you with IV fluids. Recommend not restarting the Calcium or Vitamin D supplementation until you talk to your PCP. At the time of discharge, your symptoms have improved. You will be returning to [facility] for further rehab. ------ Take your medications as instructed; do not skip a dose of your medicines. Make sure all of your doctors know every medicine you are taking (including [id number] medicines, vitamins, and supplements). Call your primary care provider before taking any new medicines (including over- the-counter medicines, vitamins, and supplements), because some of these may interact with your current medications, or may make your symptoms worse. Tell your primary care provider if you cannot afford your medications. Activity: You can do normal everyday activities as your body allows. Take rest breaks if you feel tired. Do not overexert. Stop activity if you have pain, shortness of breath or feel dizzy. CONTACT YOUR PRIMARY CARE PROVIDER if you experience any of the following: Shortness of breath or difficulty breathing Fevers or chills Feeling tired with normal activity or experiencing dizziness or fainting Difficulty following your treatment plan, or difficulty taking medications CALL 911 OR GO TO THE EMERGENCY DEPARTMENT if you experience any of the following: Severe abdominal pain or nausea/vomiting Severe chest pain, or chest pain that radiates (moves) to your jaw or arm Sudden, severe shortness of breath or difficulty breathing Thank you for allowing us to participate in your care. Total Time Total Time Spent Total Time Spent (In Minutes): Time spend day of discharge 45 minutes including direct patient care, medication reconciliation, documentation, review of labs and images, and coordination of care. Supervising Physician Co-Signing Physician Notes PA Supervision Note: I personally saw and examined the patient. I verified all rey points and agree with PEDRO Jin with the following exceptions and/or additions: S-Pt feeling back to normal. O- Vitals reviewed Gen: [AAOx3, NAD] HEENT: [anicteric sclerae CV: [RRR no mgr nl S1S2] Pulm: [CTAB no wcr] A/P-87 yo female here with TIA, left ICA stenosis, +bubble on ECHO, negative DOpplers of lower exts. Likely related to left ICA stenosis COntinue Plavix, and is now stopping Eliquis due to family concern for bleeding with recurrent falls. No known Afib Pt wishes to likely take a minimalist approach but will consider seeing interventional Neurorad for the supraclinoid LICA stenosis declines statin at this time Coding Level of Care Code 18990 INP/OBS DISCH >30 MIN Diagnoses TIA (transient ischemic attack) G45.9 Hx of deep venous thrombosis Z86.718 Hypoxia R09.02 Dehydration E86.0 Hypercalcemia E83.52 Status post angiography of extremity Z98.890 Hx of recurrent urinary tract infection Z87.440 (HFpEF) heart failure with preserved ejection fraction I50.30
--- NOTE | 2023-05-15 13:58 | Ultrasound Report ---
US venous doppler LE BI CLINICAL HISTORY: hx of DVT, recent stent placement TECHNIQUE: Bilateral lower extremity real-time compression venous ultrasound with Color Doppler imagi ng. Utilizing real-time ultrasonic imaging multiple real time high-resolution ultrasonic images with compression and noncompression maneuvers of the deep venous system in addition to color doppler imagi ng were performed from the common femoral vein through the proximal calf veins. COMPARISON: Comparison is made to lower extremity ultrasound 04/10/2023 FINDINGS/IMPRESSION: No acute DVT is seen. 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 Turbulent flow is seen with arterial velocity u p to 628 cm/s. A small fistulous track is noted. No superficial venous thrombosis is identified. ACT 112: Negative or not required by law. Electronically signed by: Kuldip Johnson M.D. 05/15/2023 1:56 PM
[2023-05-15] MEDS ORDERED: STROKE PATIENT DISCHARGE STA (14:17)
--- NOTE | 2023-05-15 14:35 | Pharmacy Report ---
- Date of Service May 15, 2023 - Pharmacy CVA/TIA Medication Review Medications to Prevent Stroke handout has been added to the patients discharge packet. Antiplatelet(s) * Clopidogrel 75 mg daily Cholesterol * High intensity statin deferred due to age >75 and familial reaction, to be discussed with security flex officer DVT Prophylaxis * Initially continued with home eliquis- discontinued d/t history of falls Therapeutic Anticoagulation * No history of Afib/Aflutter noted Type 2 Diabetes * Patient does not have T2DM
[2023-05-15] MEDS ORDERED: carvediloL 3.125 MG TAB PO SCH (21:00)
== END 2023-05-15 16:29 | DRG 69 ==
LOC: ED 10:51 → SUATTDRO 14:50 → 2E 14:50
DX: Z98.61 Coronary angioplasty status; Z88.1 Allergy status to other antibiotic agents; Z87.440 Personal history of urinary (tract) infections; Z79.01 Long term (current) use of anticoagulants; G45.9 Transient cerebral ischemic attack, unspecified; E86.0 Dehydration; R09.02 Hypoxemia; R29.6 Repeated falls; Z79.02 Long term (current) use of antithrombotics/antiplatelets; R42 Dizziness and giddiness; Z88.2 Allergy status to sulfonamides; I50.30 Unspecified diastolic (congestive) heart failure; E83.52 Hypercalcemia; Z79.899 Other long term (current) drug therapy; Z86.718 Personal history of other venous thrombosis and embolism

== ENCOUNTER 2023-09-28 17:24 | Inpatient (IN) ==
[2023-09-28 18:32] LABS: Basophils # (auto) 0.05 K/uL (0.00-0.20); Basophils % (auto) 0.7 %; Eosinophils # (auto) 0.58 K/uL (0.00-0.50); Eosinophils % (auto) 7.8 %; Hematocrit (blood only) 44.1 % (37.0-47.0); Immature Granulocytes # (auto) 0.01 K/uL (0.01-0.20); Immature Granulocytes % (auto) 0.1 %; Lymphocytes # (auto) 2.72 K/uL (1.20-3.40); Lymphocytes % (auto) 36.7 %; Mean Corpuscular Hemoglobin 30.1 pg (25.0-34.0); Mean Corpuscular Hgb Conc 31.7 g/dL (32.0-36.0); Mean Corpuscular Volume 94.8 fL (80.0-100.0); Mean Platelet Volume 9.8 fL (9.4-12.4); Monocytes # (auto) 0.85 K/uL (0.11-0.59); Monocytes % (auto) 11.5 %; Neutrophils % (auto) 43.2 %; Platelet Count 258 K/uL (130-400); RDW Standard Deviation 45.1 fL (36.4-46.3); Red Blood Count 4.65 M/uL (4.20-5.40); White Blood Count 7.41 K/ul (4.8-10.8)
--- NOTE | 2023-09-28 18:36 | Emergency Department Note ---
Impression & Plan Generalized weakness, Acute UTI (urinary tract infection) ED Provider Note NAME: VIKTOR LYLE AGE: 87 SEX: Female INFORMANT: Patient ED PROVIDER(S): Montrell Gillette MD CHIEF COMPLAINT: Weakness PLAN: Disposition: Admitted Outpatient prescription management: none Referral: None MEDICAL DECISION MAKING: Patient presented for generalized weakness. Workup is initiated. Cath urinalysis ordered as well as blood work. CT imaging of the head, [employer] chest x-ray ordered as well. ECG revealed a sinus rhythm with a first-degree block 86 bpm. No acute ischemia. Patient was hypertensive but on repeat checking her in pressure was slightly improved. Urinalysis did raise concerns about infection. I did review her prior culture results. Patient has had multiple different infections but most notably a Pseudomonas. Reviewed this with the hospital pharmacist. Due to her allergies antibiotic choice was somewhat complicated. Recommended IV cefepime and this was ordered. Due to the need for IV cefepime to cover potential for Pseudomonas as well as adequately covering other prior infections patient will require admission. Consultation was made with Dr. Bhavin Rodríguez of the [facility] service. Patient was evaluated in the ER for further management. Care/management discussed with: media production manager Level of care consideration(s): After review of the information above and other included data, I feel the patient requires escalation of care to admission Triage Nursing notes: reviewed and agree them except the patient noted no vertigo or significant dizziness. Vital Signs: reviewed and remarkable for no significant abnormalities Additional History obtained from: Patient's family. Note some intermittent confusion but currently patient at baseline. Chronic Medical/Social Conditions affecting care: Hypertension Prior/ Outside/ External records reviewed: none Differential Diagnosis: Infection, dehydration, metabolic abnormality, hypo/hyperglycemia, electrolyte disturbance, anemia, hypoxia, cardiac sources, intracerebral event, toxicologic, neurologic, as well as other pathologies. Diagnostics, independently interpreted by me: ECG: Toad ECG reveals sinus rhythm with retrograde block at [address] elevation or depression. No PACs or PVCs. Cardiac Monitoring: Cardiac monitoring ordered by me: The patient was placed on continuous cardiac monitoring and observed. It revealed a sinus rhythm at 65 beats per minute without ectopy or evidence of dysrhythmia. Medical decision rules: none Imaging studies: Head CT: A noncontrast CT scan of the head was performed and was negative for tumor, fracture, intracranial hemorrhage, or other acute pathology. Chest x-ray. Findings: A chest x-ray was performed and revealed no pneumothorax, effusion, infiltrate, pulmonary edema, free air under the diaphragm, or wide mediastinum. Impression: No acute disease. HPI: 87 year old Female arrives for evaluation of weakness. This started this afternoon per the patient. She states that she tried to get out of her recliner to go to the bathroom around 1600 hrs. and had difficulty. When she got to the bathroom she tried to get up and was unable to do so. Patient was evaluated by staff. They noted her blood pressure was high at 189/101. She seemed to be somewhat confused. Patient denied any focal weakness. Patient denies any current pain. Pt denies LOC, headache, fevers, chills, diaphoresis, visual changes, neck pain, chest pain, breathing difficulties, nausea, vomiting, abdominal pain, back pain, melena, hematochezia, urinary symptoms, numbness, lymphadenopathy, rash, or other complaints. PAST MEDICAL HISTORY: See Below, hypertension, CKD PAST SURGICAL HISTORY: See Below, SOCIAL HISTORY: See Below, retired HOME MEDICATIONS: See Below ALLERGIES: See Below VITALS: See Below PHYSICAL EXAMINATION: GENERAL: Awake, alert, [id number], in no distress HENT: Normocephalic, atraumatic. Oropharynx Unremarkable. EYES: Normal conjunctiva. Sclera non-icteric. PERRLA. EOMI. NECK: Inspection normal. Non-tender. Supple. No nuchal rigidity. FROM. No masses. RESPIRATORY: Clear to auscultation. No wheezes. No rales. Normal respiratory effort. CARDIAC: Normal rate. Normal rhythm. No murmurs. No rubs. Extremities warm and well perfused. Pulses equal. No JVD. GI: Soft, non-distended. No tenderness to palpation. No rebound or guarding. No masses. RECTAL: Deferred. MUSCULOSKELETAL: Atraumatic. Chest examination reveals no tenderness. The back is symmetrical on inspection without obvious abnormality. There is no CVA tenderness to palpation. No joint edema. LOWER EXTREMITIES: Calves are equal size bilaterally and non-tender. 1+ edema. No discoloration. NEURO: Normal sensorium. No no focal sensory or motor deficits noted. No drift. Speech normal. SKIN: No rash or jaundice noted. PROCEDURES: none CRITICAL CARE: none OBSERVATION NOTE: none Past Med/Surg History Problem List (Updated 09/29/23 @ 03:19 by Montrell Gillette MD) Acute UTI (urinary tract infection) (Acute) Generalized weakness (Acute) Acute deep vein thrombosis (DVT) of left lower extremity (Acute) CKD (chronic kidney disease) stage 4, GFR 15-29 ml/min Left leg DVT Dietary counseling and surveillance Obesity (BMI 30.0-34.9) Left Achilles tendinitis Lower back pain History of prolapse of bladder (Chronic) Frequent UTI (Chronic) Multiple drug allergies Abdominal bloating (Acute) Acid reflux disease (Acute) Chronic interstitial cystitis (Chronic) Dyslipidemia (Acute) Gait apraxia (Acute) Gross hematuria (Acute) History of SCC (squamous cell carcinoma) of skin (Acute) History of basal cell carcinoma (Acute) Hypercalcemia (Acute) Incomplete bladder emptying (Acute) Incontinence (Chronic) Lesion of bladder (Acute) Osteoarthritis of knee (Acute) Osteopenia (Acute) Postmenopausal atrophic vaginitis (Chronic) Raynauds phenomenon (Acute) Seborrheic dermatitis (Acute) Vitamin D deficiency (Acute) Constipation Encounter for pre-operative examination Atelectasis (Acute) History of total bilateral knee replacement (TKR) Fall Multiple rib fractures (Acute) Contusion of chest (Acute) Left knee DJD (Acute) HTN (hypertension) (Chronic) Syncope and collapse Medical History TIA (transient ischemic attack) (HFpEF) heart failure with preserved ejection fraction Hx of recurrent urinary tract infection Status post angiography of extremity Hx of deep venous thrombosis Acute hypoxemic respiratory failure Acute exacerbation of CHF (congestive heart failure) Non-ST elevation IA (NSTEMI) Surgical History History of vaginal surgery H/O wisdom tooth extraction Family History Other Family history non-contributory Denies family history of Ovarian cancer Breast cancer Colorectal cancer Social History Smoking Status: Never smoker Second Hand Exposure: No; Do You Dip or Chew Tobacco: No; Hx Alcohol Use: No Hx Substance Use: No Preferred Language: Italian Communication Ability: Effective Visual Impairment: No Limitations Fine Artist Required: No Beliefs That Will Affect Care: None marital status: / Current Living Situation: Personal Care Facility Current Living Situation Comment: LIVES AT HOME WITH SON LIVIA AND GRANDCELESTE Other Information That Helps Us Care for You: No Feels Safe at Home: Yes Assistive Devices: Glasses, Hearing Aid - Bilateral, Oxygen - at Night, Oxygen - Continuous and Walker Allergies Allergies Allergy/AdvReac Type Severity Reaction Status Date / Time Penicillins Allergy Unknown Unknown Verified 09/28/23 21:57 Sulfa (Sulfonamide Allergy Unknown COMA , Verified 09/28/23 19:47 Antibiotics) REACTION WHEN A CHILD ciprofloxacin [From Cipro] AdvReac Mild NAUSEA, Verified 09/28/23 19:47 HEEL AND KNEE PAIN cefuroxime AdvReac Unknown Vomiting Verified 09/28/23 19:47 Home Meds Home Medications Medication Instructions Recorded Confirmed ascorbic acid (vitamin C) 500 mg 500 mg PO DAILY 01/23/18 09/28/23 tablet cyanocobalamin (vitamin B-12) 1,000 mcg PO DAILY 10/21/19 09/28/23 1,000 mcg tablet (Vitamin B-12) carvedilol 3.125 mg tablet 3.125 mg PO BID 05/21/20 09/28/23 losartan 50 mg tablet 50 mg PO QDL 05/21/20 09/28/23 amitriptyline 10 mg tablet 5 mg PO HS 05/12/23 09/28/23 cholecalciferol (vitamin D3) 50 50 mcg PO DAILY 05/12/23 09/28/23 mcg (2,000 unit) tablet (Vitamin D3) Probiotic Product 1 tab PO QAM 09/28/23 09/28/23 acetaminophen 325 mg tablet 650 mg PO Q4 PRN Mild Pain (Scale 09/28/23 09/28/23 Score 1-4) aspirin 81 mg tablet,delayed 81 mg PO DAILY 09/28/23 09/28/23 release calcium carbonate 1,000 mg PO DAILY 09/28/23 09/28/23 cephalexin 500 mg capsule 500 mg PO DAILY 09/28/23 09/28/23 cranberry fruit 400 mg tablet 400 mg PO DAILY 09/28/23 09/28/23 famotidine 10 mg tablet 10 mg PO BID 09/28/23 09/28/23 gabapentin 100 mg capsule 100 mg PO QAM 09/28/23 09/28/23 multivitamin with minerals 1 tab PO DAILY 09/28/23 09/28/23 (Multiple Vitamin-Minerals tablet) nitrofurantoin 100 mg PO DAILY 09/28/23 09/28/23 monohydrate/macrocrystals 100 mg capsule tramadol 50 mg tablet 50 mg PO Q8 PRN Moderate Pain 09/28/23 09/28/23 (Scale Score 5-6) Previous Rx's Medication Instructions Recorded solifenacin 5 mg tablet (Vesicare) 5 mg PO QAM #30 tabs 08/30/23 Results & Data (ED) Vital Signs Vital Signs - 24 hr 09/28/23 17:33 09/28/23 17:36 09/28/23 17:42 Temperature 37.0 C Temperature Source Oral Pulse Rate 86 65 85 Pulse Rate from SpO2 Sensor 85 Pulse Rhythm Regular Pulse Strength Normal Respiratory Rate 18 Respiratory Effort / Characteristics Non-Labored Respiratory Depth Normal Respiratory Pattern Regular Blood Pressure 172/97 H Blood Pressure Mean 122 Blood Pressure Position Lying Pulse Oximetry 95 93 Oxygen Delivery Method Room Air Oxygen Flow Rate Sepsis Recent Fever Within 48 Hours No Sepsis New/Unexplained Change in Mental Status N/A Sepsis Action Taken by Nursing No Action Required 09/28/23 18:16 09/28/23 18:20 09/28/23 18:20 Temperature Temperature Source Pulse Rate Pulse Rate from SpO2 Sensor Pulse Rhythm Regular Pulse Strength Respiratory Rate Respiratory Effort / Characteristics Respiratory Depth Respiratory Pattern Blood Pressure 171/86 H Blood Pressure Mean 101 Blood Pressure Position Pulse Oximetry 95 Oxygen Delivery Method Room Air Room Air Oxygen Flow Rate 95 Sepsis Recent Fever Within 48 Hours Sepsis New/Unexplained Change in Mental Status Sepsis Action Taken by Nursing 09/28/23 18:21 09/28/23 18:30 09/28/23 18:30 Temperature Temperature Source Pulse Rate 86 86 Pulse Rate from SpO2 Sensor 86 86 Pulse Rhythm Pulse Strength Respiratory Rate Respiratory Effort / Characteristics Respiratory Depth Respiratory Pattern Blood Pressure 153/85 H Blood Pressure Mean 116 Blood Pressure Position Pulse Oximetry 91 92 Oxygen Delivery Method Oxygen Flow Rate Sepsis Recent Fever Within 48 Hours Sepsis New/Unexplained Change in Mental Status Sepsis Action Taken by Nursing 09/28/23 18:30 09/28/23 18:30 09/28/23 19:30 Temperature Temperature Source Pulse Rate 82 Pulse Rate from SpO2 Sensor 82 Pulse Rhythm Pulse Strength Respiratory Rate 21 Respiratory Effort / Characteristics Respiratory Depth Respiratory Pattern Blood Pressure 153/85 H 153/85 H 156/97 H Blood Pressure Mean 116 116 116 Blood Pressure Position Pulse Oximetry 92 Oxygen Delivery Method Room Air Oxygen Flow Rate Sepsis Recent Fever Within 48 Hours Sepsis New/Unexplained Change in Mental Status Sepsis Action Taken by Nursing 09/28/23 20:00 09/28/23 21:06 09/28/23 21:41 Temperature Temperature Source Pulse Rate 80 86 84 Pulse Rate from SpO2 Sensor 80 86 Pulse Rhythm Pulse Strength Respiratory Rate 23 30 H Respiratory Effort / Characteristics Respiratory Depth Respiratory Pattern Blood Pressure 173/97 H 176/94 H Blood Pressure Mean 122 121 Blood Pressure Position Pulse Oximetry 94 92 Oxygen Delivery Method Room Air Room Air Oxygen Flow Rate Sepsis Recent Fever Within 48 Hours Sepsis New/Unexplained Change in Mental Status Sepsis Action Taken by Nursing 09/28/23 21:57 09/28/23 22:30 09/28/23 23:00 Temperature Temperature Source Pulse Rate 82 84 Pulse Rate from SpO2 Sensor 82 85 Pulse Rhythm Pulse Strength Respiratory Rate 21 18 Respiratory Effort / Characteristics Respiratory Depth Respiratory Pattern Blood Pressure 161/97 H 165/87 H 182/111 H Blood Pressure Mean 118 113 139 Blood Pressure Position Pulse Oximetry 90 93 Oxygen Delivery Method Room Air Nasal Cannula Oxygen Flow Rate 1 Sepsis Recent Fever Within 48 Hours Sepsis New/Unexplained Change in Mental Status Sepsis Action Taken by Nursing 09/28/23 23:03 Temperature Temperature Source Pulse Rate 82 Pulse Rate from SpO2 Sensor 82 Pulse Rhythm Pulse Strength Respiratory Rate 34 H Respiratory Effort / Characteristics Respiratory Depth Respiratory Pattern Blood Pressure Blood Pressure Mean Blood Pressure Position Pulse Oximetry 94 Oxygen Delivery Method Nasal Cannula Oxygen Flow Rate 1 Sepsis Recent Fever Within 48 Hours Sepsis New/Unexplained Change in Mental Status Sepsis Action Taken by Nursing Laboratory Data 09/28/23 18:01 09/28/23 18:01 Lab Results 09/28/23 09/28/23 09/28/23 Range/Units 18:01 18:30 18:40 WBC 7.41 (4.8-10.8) K/ul RBC 4.65 (4.20-5.40) M/uL Hgb 14.0 (12.0-16.0) g/dl Hct 44.1 (37.0-47.0) % MCV 94.8 (80.0-100.0) fL MCH 30.1 (25.0-34.0) pg MCHC 31.7 L (32.0-36.0) g/dL RDW Std Deviation 45.1 (36.4-46.3) fL RDW Coeff of Kemi 13.0 (11.5-14.5) % Plt Count 258 (130-400) K/uL MPV 9.8 (9.4-12.4) fL Immature Gran % (Auto) 0.1 % Neut % (Auto) 43.2 % Lymph % (Auto) 36.7 % Hitchcock % (Auto) 11.5 % Eos % (Auto) 7.8 % Baso % (Auto) 0.7 % Neut # (Auto) 3.20 (1.40-6.50) K/uL Lymph # (Auto) 2.72 (1.20-3.40) K/uL Hitchcock # (Auto) 0.85 H (0.11-0.59) K/uL Eos # (Auto) 0.58 H (0.00-0.50) K/uL Baso # (Auto) 0.05 (0.00-0.20) K/uL Immature Gran # (Auto) 0.01 (0.01-0.20) K/uL Sodium 138 (136-145) mmol/L Potassium 4.4 (3.5-5.1) mmol/L Chloride 101 (98-107) mmol/L Carbon Dioxide 30 (21-32) mmol/L Anion Gap 7 (3-11) BUN 38 H (6-23) mg/dl Creatinine 1.50 H (0.6-1.2) mg/dl Est Cr Clr Drug Dosing 25.2 ml/min Est GFR ( Amer) 35.4 ml/min Est GFR (Non-Af Amer) 30.6 ml/min BUN/Creatinine Ratio 25.3 H (10-20) Glucose 102 H (70-99(Fasting)) mg/dl Calcium 10.6 H (8.6-10.3) mg/dl Magnesium 1.8 (1.7-2.4) mg/dl Total Bilirubin 0.3 (0.2-1.0) mg/dl AST 21 (13-39) U/L ALT 17 (7-52) U/L Alkaline Phosphatase 45 (34-104) U/L Troponin I High Sens 15.4 H (0-14) pg/ml Total Protein 7.3 (6.0-8.3) gm/dl Albumin 4.0 (3.4-5.0) gm/dl Globulin 3.3 (2.5-4.0) gm/dl Albumin/Globulin Ratio 1.2 (0.9-2) TSH 2.785 (0.300-4.500) uIu/ml Urine Color Yellow Urine Appearance Clear (Clear) Urine pH 5.5 (4.5-7.5) Ur Specific [place] 1.015 (1.000-1.030) Urine Protein Negative (Negative) Urine Glucose (UA) Negative (Negative) Urine Ketones Negative (Negative) Urine Blood Negative (Negative) Urine Nitrite Negative (Negative) Urine Bilirubin Negative (Negative) Urine Urobilinogen Negative (Negative) Ur Leukocyte Esterase 2+ H (Negative) Urine WBC (Auto) 21-50 H (0-5) /hpf Urine RBC (Auto) 0-2 (0-2) /hpf U Hyaline Cast (Auto) 0-2 (0-2) /lpf U Epithel Cells (Auto) 0-2 (0-2) /hpf Urine Bacteria (Auto) None Seen (None Seen) Adenovirus (PCR) Not Detected (NotDetected) B. pertussis DNA (PCR) Not Detected (NotDetected) B.parapertussis DNA PCR Not Detected (NotDetected) C. pneumoniae DNA (PCR) Not Detected (NotDetected) Coronavirus OC43 (PCR) Not Detected (NotDetected) Coronavirus HKU1 (PCR) Not Detected (NotDetected) Coronavirus 229E (PCR) Not Detected (NotDetected) SARS-CoV-2 (PCR) Not Detected (NotDetected) Coronavirus NL63 (PCR) Not Detected (NotDetected) Human Metapneumovir PCR Not Detected (NotDetected) Influenza Type A (PCR) Not Detected (NotDetected) Influenza Type B (PCR) Not Detected (NotDetected) M. pneumoniae (PCR) Not Detected (NotDetected) Parainfluenza 1 (PCR) Not Detected (NotDetected) Parainfluenza 2 (PCR) Not Detected (NotDetected) Parainfluenza 3 (PCR) Not Detected (NotDetected) Parainfluenza 4 (PCR) Not Detected (NotDetected) RSV (PCR) Not Detected (NotDetected) Entero/Rhino (PCR) Not Detected (NotDetected) Administered Medications Sodium Chloride (Nss) 1,000 mls @ 80 mls/hr IV .[id number] ANA Stop: 09/29/23 11:59 Last Admin: 09/28/23 23:42 Dose: 80 mls/hr Documented By: TOOTIE Discontinued Medications Carvedilol (Carvedilol 3.125 Mg Tab) 3.125 mg PO NOW STA Stop: 09/28/23 23:28 Last Admin: 09/28/23 23:41 Dose: 3.125 mg Documented By: TOOTIE Ciprofloxacin (Cipro / D5w) 400 mg in 200 mls @ 100 mls/hr IV NOW STA; Protocol Stop: 09/28/23 22:31 Last Admin: 09/28/23 21:02 Dose: Not Given Documented By: ALEXANDRA Cefepime HCl 2,000 mg/ Syringe 20 mls @ 5 mls/min IV NOW ONE; Protocol Stop: 09/29/23 00:48 Last Admin: 09/29/23 01:41 Dose: 5 mls/min Documented By: FERNIE Imaging Data Radiologist's Impression: Chest X-Ray 09/28/23 17:51 XR chest 1V portable CLINICAL HISTORY: dizziness COMPARISON STUDY: Chest radiograph May 14, 2023. Chest CT March 20, 2018. FINDINGS: There is no pneumothorax or pleural effusion. Numerous old right-sided rib fractures are again noted. There is stable cardiomegaly without evidence for pulmonary edema. There is no consolidation to suggest pneumonia. IMPRESSION: No acute cardiopulmonary findings. Cardiomegaly. ACT 112: Negative or not required by law. Electronically signed by: Aashish Herman M.D. 09/28/2023 6:[address] 09/28/23 18:25 Exam(s): CT HEAD Without Contrast EXAM: CT Head Without Intravenous Contrast CLINICAL HISTORY: Reason for exam: generalized weakness. TECHNIQUE: Axial computed tomography images of the head/brain without intravenous contrast. CTDI is 61.99 mGy and DLP is 1100.35 mGy-cm. Automated exposure control was utilized for the study. A dose lowering technique was utilized adhering to the principles of ALARA. COMPARISON: MRI brain on 05/12/2023. CT head on 05/12/2023. FINDINGS: Brain: No acute infarct or hemorrhage identified. No extra-axial fluid collection. No mass effect or midline shift. Scattered areas of hypoattenuation in the supratentorial white matter likely represent chronic small vessel ischemic changes. Ventricles and sulci: Prominence of the ventricles and sulci is likely secondary to cerebral volume loss. Bones: Normal. No bony lesion or acute fracture. Subcutaneous tissues: Normal. Sinuses: Mild mucosal thickening in the left sphenoid sinus and maxillary sinuses. Mastoid air cells: Normal. Orbits: Bilateral lens implants. Other: Atherosclerotic calcifications in the intracranial vasculature. IMPRESSION: 1. No acute intracranial abnormality. Further evaluation could be performed with MRI if clinically indicated. 2. Chronic small vessel ischemic changes and cerebral volume loss. Electronically signed by: Alvin Beltran M.D. 09/28/23 19:26 PM Discharge Plan Visit Data Chief Complaint: Weakness Stated Complaint: DIZZY, WEAKNESS ED Provider: Montrell Gillette Discharge Problem: Generalized weakness, Acute UTI (urinary tract infection) Patient Disposition: Admitted As Inpatient Discharge Instructions Interventions: ED Discharge Assessment Last Done: 09/29/23 00:14
[2023-09-28 18:51] LABS: Albumin Globulin Ratio 1.2 (0.9-2); BUN Creatinine Ratio 25.3 (10-20); Bilirubin,Total 0.3 mg/dl (0.2-1.0); Calcium 10.6 mg/dl (8.6-10.3); Creatinine Clr Calc Pharmacy 25.2 ml/min; Est GFR (African American) 35.4 ml/min; Est GFR (Non-African American) 30.6 ml/min; Globulin 3.3 gm/dl (2.5-4.0); Magnesium 1.8 mg/dl (1.7-2.4); Potassium 4.4 mmol/L (3.5-5.1); Total Protein 7.3 gm/dl (6.0-8.3)
[2023-09-28 18:56] LABS: Troponin I High Sensitivity 15.4 pg/ml (0-14)
--- NOTE | 2023-09-28 18:58 | XRay Report ---
XR chest 1V portable CLINICAL HISTORY: dizziness COMPARISON STUDY: Chest radiograph May 14, 2023. Chest CT March 20, 2018. FINDINGS: There is no pneumothorax or pleural effusion. Numerous old right-sided rib fractures are ag ain noted. There is stable cardiomegaly without evidence for pulmonary edema. There is no consolidati on to suggest pneumonia. IMPRESSION: No acute cardiopulmonary findings. Cardiomegaly. ACT 112: Negative or not required by law. Electronically signed by: Aashish Herman M.D. 09/28/2023 6:57 PM
[2023-09-28 19:05] LABS: Thyroid Stimulating Hormone 2.785 uIu/ml (0.300-4.500)
--- NOTE | 2023-09-28 19:27 | CT Scan Report ---
Exam(s): CT HEAD Without Contrast EXAM: CT Head Without Intravenous Contrast CLINICAL HISTORY: Reason for exam: generalized weakness. TECHNIQUE: Axial computed tomography images of the head/brain without intravenous contrast. CTDI is 61.99 mGy and DLP is 1100.35 mGy-cm. Automated exposure control was utilized for the study. A dose lowering technique was utilized adhering to the principles of ALARA. COMPARISON: MRI brain on 05/12/2023. CT head on 05/12/2023. FINDINGS: Brain: No acute infarct or hemorrhage identified. No extra-axial fluid collection. No mass effect or midline shift. Scattered areas of hypoattenuation in the supratentorial white matter likely represent chronic small vessel ischemic changes. Ventricles and sulci: Prominence of the ventricles and sulci is likely secondary to cerebral volume loss. Bones: Normal. No bony lesion or acute fracture. Subcutaneous tissues: Normal. Sinuses: Mild mucosal thickening in the left sphenoid sinus and maxillary sinuses. Mastoid air cells: Normal. Orbits: Bilateral lens implants. Other: Atherosclerotic calcifications in the intracranial vasculature. IMPRESSION: 1. No acute intracranial abnormality. Further evaluation could be performed with MRI if clinically indicated. 2. Chronic small vessel ischemic changes and cerebral volume loss. Electronically signed by: Alvin Beltran M.D. 09/28/23 19:26 PM
[2023-09-28 19:35] LABS: Appearance Urine Clear (Clear); Bacteria Urine Automated None Seen (None Seen); Bilirubin Urine Negative (Negative); Blood Urine Negative (Negative); Cast Urine Automated 0-2 /lpf (0-2); Color Urine Yellow; Epithelial Cell Urine Auto 0-2 /hpf (0-2); Glucose Urine UA Negative (Negative); Ketones Urine Negative (Negative); Leukocyte Esterase Urine 2+ (Negative); Nitrite Urine Negative (Negative); Protein Urine Negative (Negative); RBC Urine Automated 0-2 /hpf (0-2); Specific Gravity Urine 1.015 (1.000-1.030); Urobilinogen Urine Negative (Negative); WBC Urine Automated 21-50 /hpf (0-5); pH Urine 5.5 (4.5-7.5)
[2023-09-28 19:47] LABS: Adenovirus PCR Not Detected (NotDetected); Bordetella parapertussis PCR Not Detected (NotDetected); Bordetella pertussis PCR Not Detected (NotDetected); Chlamydia pneumoniae PCR Not Detected (NotDetected); Coronavirus 229E PCR Not Detected (NotDetected); Coronavirus CoV-2 (COVID19)PCR Not Detected (NotDetected); Coronavirus HKU1 PCR Not Detected (NotDetected); Coronavirus NL63 PCR Not Detected (NotDetected); Coronavirus OC43PCR Not Detected (NotDetected); Human Metapneumovirus PCR Not Detected (NotDetected); Influenza A PCR Not Detected (NotDetected); Influenza B PCR Not Detected (NotDetected); Mycoplasma pneumoniae PCR Not Detected (NotDetected); Parainfluenza Virus 1 PCR Not Detected (NotDetected); Parainfluenza Virus 2 PCR Not Detected (NotDetected); Parainfluenza Virus 3 PCR Not Detected (NotDetected); Parainfluenza Virus 4 PCR Not Detected (NotDetected); Respiratory Syncytial VirusPCR Not Detected (NotDetected); Rhinovirus/Enterovirus PCR Not Detected (NotDetected)
[2023-09-28] MEDS: CIPROFLOXACIN / D5W 400 MG/200 ML BAG IV STA (21:02)
--- NOTE | 2023-09-28 23:09 | History & Physical Report ---
Date of Service September 28, 2023 Assessment & Plan (1) Acute UTI (urinary tract infection): (2) Generalized weakness: (3) HTN (hypertension): (4) Acid reflux disease: (5) CKD (chronic kidney disease) stage 4, GFR 15-29 ml/min: (6) Dyslipidemia: Plan Acute urinary tract infection- Follow urine culture and sensitivity Previous urinary tract infection organisms: Proteus mirabilis, Klebsiella, Pseudomonas aeruginosa, E. coli, Enterobacter Placed on cefepime 2 g IV every 12 hours NSS at 80 mL/h x 1 L CKD- Creatinine 1.50, with base range 1.4-1.6 Treat urinary tract infection and mild dehydration as noted Repeat laboratories in a.m. Elevated troponin/hypertension- Troponin 15.4, likely supply/demand mismatch Continue aspirin, carvedilol and losartan Repeat in a.m. Generalized weakness- Will need PT/OT consult prior to discharge, but she is too weak to order that now History of Present Illness Chief Complaint: The patient presents to the emergency department only, with complaint of generalized weakness, lethargy, sleep over the past few days Primary Care Provider: Kassidy Cruz DO The patient is an 87-year-old female history including left lower extremity DVT, CKD stage IV, bladder prolapse, GERD, chronic interstitial cystitis, anemia, Raynaud's, urinary tract infection, syncope and collapse. She presents to the emergency department after being noted to be developing generalized weakness, increasing lethargy and need for sleep over the past few days. Allergies Allergy/AdvReac Type Severity Reaction Status Date / Time Penicillins Allergy Unknown Unknown Verified 09/28/23 21:57 Sulfa (Sulfonamide Allergy Unknown COMA , Verified 09/28/23 19:47 Antibiotics) REACTION WHEN A CHILD ciprofloxacin [From Cipro] AdvReac Mild NAUSEA, Verified 09/28/23 19:47 HEEL AND KNEE PAIN cefuroxime AdvReac Unknown Vomiting Verified 09/28/23 19:47 Home Medications Medication Instructions Recorded Confirmed Type ascorbic acid (vitamin C) 500 mg 500 mg PO DAILY 01/23/18 09/28/23 History tablet cyanocobalamin (vitamin B-12) 1,000 mcg PO DAILY 10/21/19 09/28/23 History 1,000 mcg tablet (Vitamin B-12) carvedilol 3.125 mg tablet 3.125 mg PO BID 05/21/20 09/28/23 History losartan 50 mg tablet 50 mg PO QDL 05/21/20 09/28/23 History amitriptyline 10 mg tablet 5 mg PO HS 05/12/23 09/28/23 History cholecalciferol (vitamin D3) 50 50 mcg PO DAILY 05/12/23 09/28/23 History mcg (2,000 unit) tablet (Vitamin D3) solifenacin 5 mg tablet (Vesicare) 5 mg PO QAM #30 tabs 08/30/23 09/28/23 Rx Probiotic Product 1 tab PO QAM 09/28/23 09/28/23 History acetaminophen 325 mg tablet 650 mg PO Q4 PRN Mild Pain (Scale 09/28/23 09/28/23 History Score 1-4) aspirin 81 mg tablet,delayed 81 mg PO DAILY 09/28/23 09/28/23 History release calcium carbonate 1,000 mg PO DAILY 09/28/23 09/28/23 History cephalexin 500 mg capsule 500 mg PO DAILY 09/28/23 09/28/23 History cranberry fruit 400 mg tablet 400 mg PO DAILY 09/28/23 09/28/23 History famotidine 10 mg tablet 10 mg PO BID 09/28/23 09/28/23 History gabapentin 100 mg capsule 100 mg PO QAM 09/28/23 09/28/23 History multivitamin with minerals 1 tab PO DAILY 09/28/23 09/28/23 History (Multiple Vitamin-Minerals tablet) nitrofurantoin 100 mg PO DAILY 09/28/23 09/28/23 History monohydrate/macrocrystals 100 mg capsule tramadol 50 mg tablet 50 mg PO Q8 PRN Moderate Pain 09/28/23 09/28/23 History (Scale Score 5-6) Past Med/Surg History Problem List (Updated 09/29/23 @ 03:19 by Montrell Gillette MD) Acute UTI (urinary tract infection) (Acute) Generalized weakness (Acute) Acute deep vein thrombosis (DVT) of left lower extremity (Acute) CKD (chronic kidney disease) stage 4, GFR 15-29 ml/min Left leg DVT Dietary counseling and surveillance Obesity (BMI 30.0-34.9) Left Achilles tendinitis Lower back pain History of prolapse of bladder (Chronic) Frequent UTI (Chronic) Multiple drug allergies Abdominal bloating (Acute) Acid reflux disease (Acute) Chronic interstitial cystitis (Chronic) Dyslipidemia (Acute) Gait apraxia (Acute) Gross hematuria (Acute) History of SCC (squamous cell carcinoma) of skin (Acute) History of basal cell carcinoma (Acute) Hypercalcemia (Acute) Incomplete bladder emptying (Acute) Incontinence (Chronic) Lesion of bladder (Acute) Osteoarthritis of knee (Acute) Osteopenia (Acute) Postmenopausal atrophic vaginitis (Chronic) Raynauds phenomenon (Acute) Seborrheic dermatitis (Acute) Vitamin D deficiency (Acute) Constipation Encounter for pre-operative examination Atelectasis (Acute) History of total bilateral knee replacement (TKR) Fall Multiple rib fractures (Acute) Contusion of chest (Acute) Left knee DJD (Acute) HTN (hypertension) (Chronic) Syncope and collapse Medical History TIA (transient ischemic attack) (HFpEF) heart failure with preserved ejection fraction Hx of recurrent urinary tract infection Status post angiography of extremity Hx of deep venous thrombosis Acute hypoxemic respiratory failure Acute exacerbation of CHF (congestive heart failure) Non-ST elevation AL (NSTEMI) Surgical History History of vaginal surgery H/O wisdom tooth extraction Family History Other Family history non-contributory Denies family history of Ovarian cancer Breast cancer Colorectal cancer Social History Smoking Status: Never smoker Second Hand Exposure: No; Do You Dip or Chew Tobacco: No; Hx Alcohol Use: No Hx Substance Use: No Preferred Language: Ethiopian Communication Ability: Effective Visual Impairment: No Limitations Modern Greek Studies Professor Required: No Beliefs That Will Affect Care: None marital status: / Current Living Situation: Personal Care Facility Current Living Situation Comment: LIVES AT HOME WITH SON LIVIA AND GRANDSON Other Information That Helps Us Care for You: No Feels Safe at Home: Yes Assistive Devices: Glasses, Hearing Aid - Bilateral, Oxygen - at Night, Oxygen - Continuous and Walker Review of Systems Review of Systems: The patient denies chest pain, palpitations, shortness of breath, dyspnea on exertion, cough, lower extremity swelling, sore throat, fevers, chills, sweats, nausea, vomiting, diarrhea , constipation, abdominal pain, pelvic pain, blood in urine or stool, dysuria, urinary frequency or urgency, lightheadedness, dizziness, headache, loss of consciousness, rash, abnormal bruising or bleeding, focal weakness, numbness or tingling in arms or legs, generalized arthralgias or myalgias, back or neck pain, or night sweats. The review of systems is otherwise negative other than for that already noted above, and at least 10 systems have been reviewed. Physical Exam Physical Exam: The patient is awake, alert and oriented 3, well developed and well nourished, normocephalic and atraumatic, lying in bed and in no acute distress. HEENT--PERRL, EOMI, mucous membranes and oropharynx dry. Neck--supple. No JVD. No bruits. Thyroid normal, trachea midline, no adenopathy. Heart--normal S1 and S2. No murmurs, rubs or gallops. Lungs--clear bilaterally, no respiratory distress, no accessory muscle use. Abdomen--normal bowel sounds and soft. Nontender. Nondistended, no hernias or masses, no organomegaly. Extremities--no cyanosis or clubbing. No edema. Dermatologic--normal skin turgor, normal color, no abnormal lymph nodes, no rash. Neurologic--cranial nerves II through XII grossly intact. Rheumatologic--normal range of motion. Psychiatric--normal affect. Results & Data Results & Data Vital Signs (Past 12 Hours) Vital Signs Temp Pulse Resp BP Pulse Ox O2 Del Method O2 Flow Rate 09/28/23 23:03 82 34 H 94 Nasal Cannula 1 09/28/23 23:00 182/111 H 09/28/23 22:30 84 18 165/87 H 93 Nasal Cannula 1 09/28/23 21:57 82 21 161/97 H 90 Room Air 09/28/23 21:41 84 09/28/23 21:06 86 30 H 176/94 H 92 Room Air 09/28/23 20:00 80 23 173/97 H 94 Room Air 09/28/23 19:30 82 21 156/97 H 92 Room Air 09/28/23 18:30 153/85 H 09/28/23 18:30 153/85 H 09/28/23 18:30 153/85 H 09/28/23 18:30 86 92 09/28/23 18:21 86 91 09/28/23 18:20 95 Room Air 09/28/23 18:20 Room Air 95 09/28/23 18:16 171/86 H 09/28/23 17:42 85 93 09/28/23 17:36 65 09/28/23 17:33 37.0 C 86 18 172/97 H 95 Room Air Laboratory Results Laboratory Results WBC 7.41 K/ul (4.8-10.8) 09/28/23 18:01 RBC 4.65 M/uL (4.20-5.40) 09/28/23 18:01 Hgb 14.0 g/dl (12.0-16.0) 09/28/23 18:01 Hct 44.1 % (37.0-47.0) 09/28/23 18:01 MCV 94.8 fL (80.0-100.0) 09/28/23 18:01 MCH 30.1 pg (25.0-34.0) 09/28/23 18:01 MCHC 31.7 g/dL (32.0-36.0) L 09/28/23 18:01 RDW Std Deviation 45.1 fL (36.4-46.3) 09/28/23 18:01 RDW Coeff of Kemi 13.0 % (11.5-14.5) 09/28/23 18:01 Plt Count 258 K/uL (130-400) 09/28/23 18:01 MPV 9.8 fL (9.4-12.4) 09/28/23 18:01 Immature Gran % (Auto) 0.1 % 09/28/23 18:01 Neut % (Auto) 43.2 % 09/28/23 18:01 Lymph % (Auto) 36.7 % 09/28/23 18:01 [place] % (Auto) 11.5 % 09/28/23 18:01 Eos % (Auto) 7.8 % 09/28/23 18:01 Baso % (Auto) 0.7 % 09/28/23 18:01 Neut # (Auto) 3.20 K/uL (1.40-6.50) 09/28/23 18:01 Lymph # (Auto) 2.72 K/uL (1.20-3.40) 09/28/23 18:01 [place] # (Auto) 0.85 K/uL (0.11-0.59) H 09/28/23 18:01 Eos # (Auto) 0.58 K/uL (0.00-0.50) H 09/28/23 18:01 Baso # (Auto) 0.05 K/uL (0.00-0.20) 09/28/23 18:01 Immature Gran # (Auto) 0.01 K/uL (0.01-0.20) 09/28/23 18:01 Sodium 138 mmol/L (136-145) 09/28/23 18:01 Potassium 4.4 mmol/L (3.5-5.1) 09/28/23 18:01 Chloride 101 mmol/L (98-107) 09/28/23 18:01 Carbon Dioxide 30 mmol/L (21-32) 09/28/23 18:01 Anion Gap 7 (3-11) 09/28/23 18:01 BUN 38 mg/dl (6-23) H 09/28/23 18:01 Creatinine 1.50 mg/dl (0.6-1.2) H 09/28/23 18:01 Est Cr Clr Drug Dosing 25.2 ml/min 09/28/23 18:01 Est GFR ( Amer) 35.4 ml/min 09/28/23 18:01 Est GFR (Non-Af Amer) 30.6 ml/min 09/28/23 18:01 BUN/Creatinine Ratio 25.3 (10-20) H 09/28/23 18:01 Glucose 102 mg/dl (70-99(Fasting)) H 09/28/23 18:01 Calcium 10.6 mg/dl (8.6-10.3) H 09/28/23 18:01 Magnesium 1.8 mg/dl (1.7-2.4) 09/28/23 18:01 Total Bilirubin 0.3 mg/dl (0.2-1.0) 09/28/23 18:01 AST 21 U/L (13-39) 09/28/23 18:01 ALT 17 U/L (7-52) 09/28/23 18:01 Alkaline Phosphatase 45 U/L (34-104) 09/28/23 18:01 Troponin I High Sens 15.4 pg/ml (0-14) H 09/28/23 18:01 Total Protein 7.3 gm/dl (6.0-8.3) 09/28/23 18:01 Albumin 4.0 gm/dl (3.4-5.0) 09/28/23 18:01 Globulin 3.3 gm/dl (2.5-4.0) 09/28/23 18:01 Albumin/Globulin Ratio 1.2 (0.9-2) 09/28/23 18:01 TSH 2.785 uIu/ml (0.300-4.500) 09/28/23 18:01 Urine Color Yellow 09/28/23 18:40 Urine Appearance Clear (Clear) 09/28/23 18:40 Urine pH 5.5 (4.5-7.5) 09/28/23 18:40 Ur Specific [place] 1.015 (1.000-1.030) 09/28/23 18:40 Urine Protein Negative (Negative) 09/28/23 18:40 Urine Glucose (UA) Negative (Negative) 09/28/23 18:40 Urine Ketones Negative (Negative) 09/28/23 18:40 Urine Blood Negative (Negative) 09/28/23 18:40 Urine Nitrite Negative (Negative) 09/28/23 18:40 Urine Bilirubin Negative (Negative) 09/28/23 18:40 Urine Urobilinogen Negative (Negative) 09/28/23 18:40 Ur Leukocyte Esterase 2+ (Negative) H 09/28/23 18:40 Urine WBC (Auto) 21-50 /hpf (0-5) H 09/28/23 18:40 Urine RBC (Auto) 0-2 /hpf (0-2) 09/28/23 18:40 U Hyaline Cast (Auto) 0-2 /lpf (0-2) 09/28/23 18:40 U Epithel Cells (Auto) 0-2 /hpf (0-2) 09/28/23 18:40 Urine Bacteria (Auto) None Seen (None Seen) 09/28/23 18:40 Adenovirus (PCR) Not Detected (NotDetected) 09/28/23 18:30 B. pertussis DNA (PCR) Not Detected (NotDetected) 09/28/23 18:30 B.parapertussis DNA PCR Not Detected (NotDetected) 09/28/23 18:30 C. pneumoniae DNA (PCR) Not Detected (NotDetected) 09/28/23 18:30 Coronavirus OC43 (PCR) Not Detected (NotDetected) 09/28/23 18:30 Coronavirus HKU1 (PCR) Not Detected (NotDetected) 09/28/23 18:30 Coronavirus 229E (PCR) Not Detected (NotDetected) 09/28/23 18:30 SARS-CoV-2 (PCR) Not Detected (NotDetected) 09/28/23 18:30 Coronavirus NL63 (PCR) Not Detected (NotDetected) 09/28/23 18:30 Human Metapneumovir PCR Not Detected (NotDetected) 09/28/23 18:30 Influenza Type A (PCR) Not Detected (NotDetected) 09/28/23 18:30 Influenza Type B (PCR) Not Detected (NotDetected) 09/28/23 18:30 M. pneumoniae (PCR) Not Detected (NotDetected) 09/28/23 18:30 Parainfluenza 1 (PCR) Not Detected (NotDetected) 09/28/23 18:30 Parainfluenza 2 (PCR) Not Detected (NotDetected) 09/28/23 18:30 Parainfluenza 3 (PCR) Not Detected (NotDetected) 09/28/23 18:30 Parainfluenza 4 (PCR) Not Detected (NotDetected) 09/28/23 18:30 RSV (PCR) Not Detected (NotDetected) 09/28/23 18:30 Entero/Rhino (PCR) Not Detected (NotDetected) 09/28/23 18:30 Impressions Chest X-Ray 09/28/23 17:51 XR chest 1V portable CLINICAL HISTORY: dizziness COMPARISON STUDY: Chest radiograph May 14, 2023. Chest CT March 20, 2018. FINDINGS: There is no pneumothorax or pleural effusion. Numerous old right-sided rib fractures are again noted. There is stable cardiomegaly without evidence for pulmonary edema. There is no consolidation to suggest pneumonia. IMPRESSION: No acute cardiopulmonary findings. Cardiomegaly. ACT 112: Negative or not required by law. Electronically signed by: Aashish Herman M.D. 09/28/2023 6:[address] 09/28/23 18:25 Exam(s): CT HEAD Without Contrast EXAM: CT Head Without Intravenous Contrast CLINICAL HISTORY: Reason for exam: generalized weakness. TECHNIQUE: Axial computed tomography images of the head/brain without intravenous contrast. CTDI is 61.99 mGy and DLP is 1100.35 mGy-cm. Automated exposure control was utilized for the study. A dose lowering technique was utilized adhering to the principles of ALARA. COMPARISON: MRI brain on 05/12/2023. CT head on 05/12/2023. FINDINGS: Brain: No acute infarct or hemorrhage identified. No extra-axial fluid collection. No mass effect or midline shift. Scattered areas of hypoattenuation in the supratentorial white matter likely represent chronic small vessel ischemic changes. Ventricles and sulci: Prominence of the ventricles and sulci is likely secondary to cerebral volume loss. Bones: Normal. No bony lesion or acute fracture. Subcutaneous tissues: Normal. Sinuses: Mild mucosal thickening in the left sphenoid sinus and maxillary sinuses. Mastoid air cells: Normal. Orbits: Bilateral lens implants. Other: Atherosclerotic calcifications in the intracranial vasculature. IMPRESSION: 1. No acute intracranial abnormality. Further evaluation could be performed with MRI if clinically indicated. 2. Chronic small vessel ischemic changes and cerebral volume loss. Electronically signed by: Alvin Beltran M.D. 09/28/23 19:26 PM Code Status & VTE Plan Code Status DNR/DNI VTE Prophylaxis Plan VTE Prophylaxis will be ordered: Yes PG Care Time/CCT Total # of Minutes Spent Total Time Spent with Patient: Total time spent is greater than 50% in coordination of care (as documented) at patient's floor/unit and/or counseling patient: Coding Level of Care Code 01722 INT INP/OBS CARE 3/75MIN Diagnoses Acute UTI (urinary tract infection) N39.0 Generalized weakness R53.1 Essential hypertension I10 Acid reflux disease K21.9 CKD (chronic kidney disease) stage 4, GFR 15-29 ml/min N18.4 Dyslipidemia E78.5
[2023-09-28] MEDS: carvediloL 3.125 MG TAB PO STA (23:41)
[2023-09-28] MEDS: SODIUM CHLORIDE 0.9% 1,000 ML IV SCH (23:42)
[2023-09-29] MEDS ORDERED: traMADol HCL 50 MG TABLET PO PRN (00:26)
--- OUTSIDE RECORDS SUMMARY | 2023-09-29 01:13 | External Medical Summary | Continuity of Care Document ---
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 Role Phone CaseykareenKassidy Primary Care Physician [phone] [id number] Date(s): 09/07/23 - 09/07/23 [facility] [address] [facility] [address] [facility] [address] [place] [address] [phone] Encounter Diagnosis HTN (hypertension)(Discharge Diagnosis) - 09/07/23 Hyperlipidemia(Discharge Diagnosis) - 09/07/23 History of lacunar cerebrovascular accident.(Discharge Diagnosis) - 09/07/23 CKD (chronic kidney disease)(Discharge Diagnosis) - 09/07/23 Syncope(Discharge Diagnosis) - 09/07/23 Discharge Disposition: Home or Self Care Attending Physician: DO Spence Jason D Allergies, Adverse Reactions, Alerts Substance Criticality Severity Reaction Reaction Severity Status ciprofloxacin Arthralgia Myalgia Active sulfa drugs Unknown reaction A ctive Assessment and Plan Extracted from: Title:Cardiology Office Visit Note Author:DO Spence Jason D Date:09/07/23 1.Syncope 2.HTN (hypertension) 3.Hyperlipidemia 4.History of lacunar cerebrovascular accident. 5.CKD (chronic kidney disease) As discussed above we reviewed her loop recorder tracings and there were no bradycardia arrhythmias or tachyarrhythmias nor significant pauses while awake. She has not had any further syncopal episode. Will continue to monitor with monthly downloads. We discussed the use of her clip. If she were to have a syncopal episode such that we could time and date stamp the episode on her monitor and assess for an arrhythmia. If this is not possible the device is still set to auto trigger on its own. Her blood pressure is well-controlled. I would avoid lowering it therefore reducing the chance of her having orthostatic symptoms at the almost age of 88. She denies any TIA or strokelike symptoms. Will see her back in 6 months and she will continue to follow in device clinic. Immunizations Given and Recorded Vaccine Date Status Refusal Reason influenza virus vaccine, inactivated 11/12/20 Give n influenza virus vaccine, inactivated 1 11/20/19 Re corded SARS-CoV-2 (COVID-19) mRNA-1273 vaccine 2 04/09/20 Recorded SARS-CoV-2 (COVID-19) mRNA-1273 vaccine 3 03/13/20 Recorded zoster vaccine, inactivated 07/30/19 Recorded zoster vaccine, inactivated 4 04/10/19 Recorded pneumococcal 23-valent vaccine 09/27/16 Given pneumococcal 13-valent vaccine 12/09/14 Recorded zoster vaccine live 05/25/07 Recorded tetanus toxoids-diphtheria, Td (Adult) 01/02/98 Re corded 1Result Comment: [facility] 2Result Comment: 2020: Historical information-source unspecified 3Result Comment: 2020: Historical information-source unspecified 4Result Comment: [facility] Medications Acidophilus Probiotic Blend oral capsule Start: 06/30/23 2:33:00 PM EDT, 1 cap, PO, Daily, Disp# 30 cap, Refills: 5, Pharmacy: [facility] Start Date: 06/30/23 Stop Date: 12/27/23 Status: Ordered Adult Multivitamin Gummies oral tablet, chewable Start: 06/30/23 2:34:00 PM EDT, See Instructions, Disp# 30 tab, Refills: 5, 1 tablet po daily, Pharmacy: [facility] Start Date: 06/30/23 Status: Ordered amitriptyline 10 mg oral tablet Start: 07/27/23 2:03:00 PM EDT, 0.5 tab, PO, qhs, Disp# 15 tab, Refills: 11, Pharmacy: [facility] Start Date: 07/27/23 Status: Ordered aspirin 81 mg oral tablet, chewable Start: 06/30/23 2:30:00 PM EDT, 1 tab, PO, Daily, Disp# 30 tab, Refills: 5, Pharmacy: [facility] Start Date: 06/30/23 Stop Date: 12/27/23 Status: Ordered Mak-Gest 500 mg oral tablet, chewable Start: 09/05/23 2:04:00 PM EDT, 2 tab, PO, Daily, Disp# 30 tab, Refills: 11, X30 DAY., Pharmacy: [facility] Start Date: 09/05/23 Status: Ordered calcium carbonate 1250 mg (500 mg elemental calcium) oral tablet Start: 09/07/23 2:47:00 PM EDT, 1 tab, PO, Daily Start Date: 09/07/23 Status: Ordered carvedilol 3.125 mg oral tablet Start: 03/28/23 3:45:00 PM EST, 1 tab, PO, bid, Disp# 180 tab, Refills: 3, Pharmacy: [facility] [id number] Start Date: 03/28/23 Status: Ordered cephalexin 500 mg oral capsule 1 cap, PO, Daily, Alternating with Macrobid Start Date: 12/11/18 Status: Ordered cranberry oral tablet Start: 07/27/23 2:04:00 PM EDT, See Instructions, Disp# 30 tab, Refills: 11, 500mg cap po daily, Pharmacy: [facility] Start Date: 07/27/23 Status: Ordered famotidine 10 mg oral tablet Start: 06/30/23 2:33:00 PM EDT, 1 tab, PO, bid, Disp# 60 tab, Refills: 5, Pharmacy: [facility] Start Date: 06/30/23 Stop Date: 12/27/23 Status: Ordered gabapentin 100 mg oral capsule Start: 06/30/23 2:33:00 PM EDT, 1 cap, PO, bid, Disp# 60 cap, Refills: 5, Pharmacy: [facility] Start Date: 06/30/23 Stop Date: 12/27/23 Status: Ordered losartan 50 mg oral tablet Start: 06/30/23 10:13:00 AM EDT, 1 tab, PO, Daily, Disp# 90 tab, Refills: 3, Pharmacy: [facility] Start Date: 06/30/23 Status: Ordered Macrobid 100 mg oral capsule Start: 05/16/19 2:25:00 PM EDT, 1 cap, PO, Daily, rotates every 2 weeks with keflex Start Date: 05/16/19 Status: Ordered Probiotic Formula Start: 12/21/22 12:41:00 PM EDT Start Date: 12/21/22 Status: Ordered Solifenacin Succinate 5mg Start: 09/07/23 2:49:00 PM EDT, Solifenacin Succinate 5mg Start Date: 09/07/23 Status: Ordered traMADol 50 mg oral tablet Start: 04/20/23 3:35:00 PM EST, 1 tab, PO, q6h, Disp# 56 tab, Use every 6-8 hours as needed for moderate to severe pain until vascular surgery, PRN: as needed for pain, Pharmacy: [facility]/pharmacy #[id number] Start Date: 04/20/23 Stop Date: 05/04/23 Status: Ordered Tylenol Caplet 325 mg oral tablet Start: 04/05/18 10:56:00 AM EST, 2 tab, PO, q4h, PRN: as needed for pain Start Date: 04/05/18 Status: Ordered Vitamin B12 1000 mcg oral tablet Start: 07/27/23 2:04:00 PM EDT, 1 tab, PO, Daily, Disp# 30 tab, Refills: 11, Pharmacy: [facility] Start Date: 07/27/23 Stop Date: 07/21/24 Status: Ordered Vitamin C 500 mg oral capsule Start: 06/30/23 2:30:00 PM EDT, 1 cap, PO, Daily, Disp# 30 cap, Refills: 5, Pharmacy: [facility] Start Date: 06/30/23 Stop Date: 12/27/23 Status: Ordered Vitamin D3 50 mcg (2000 intl units) oral tablet Start: 06/30/23 2:32:00 PM EDT, 1 tab, PO, Daily, Disp# 30 tab, Refills: 5, Pharmacy: [facility] Start Date: 06/30/23 Stop Date: 12/27/23 Status: Ordered Mental Status 09/07/23 Barriers to Learning one year None evide nt Mandatory Health Literacy Documentation Yes Health Literacy Communication Barriers N ever Primary Language Romansh Problem List Condition Confirmation Course Effective Dates Status H ealth Status Informant Actinic keratosis Confirmed Active Arteriosclerotic cardiovascular disease (ASCVD) 1 Confirmed Active Arteriovenous fistula Confirmed Active Arthritis Confirmed Active High risk for hip fracture Confirmed Active Changing skin lesion Confirmed Active Back pain, chronic Confirmed Active Chronic interstitial cystitis Confirmed Active Chronic kidney disease Confirmed Active DVT (deep venous thrombosis) Confirmed Active Falls Confirmed Active Family history of melanoma 2 Confirmed Active Gross hematuria Confirmed Active GERD (gastroesophageal reflux disease) Confirmed Active H/O fracture of rib Confirmed Active History of lacunar cerebrovascular accident. Confirmed Active History of basal cell carcinoma of skin Confirmed Active History of syncope Confirmed Active Hyperlipidemia Confirmed Active HTN (hypertension) Confirmed Active Inflamed seborrheic keratosis Confirmed Active Lentigo Confirmed Active Myalgia Confirmed Active Notalgia paresthetica Confirmed Active Osteopenia Confirmed Active Seborrheic keratoses Confirmed Active Snoring Confirmed Active Syncope Confirmed Active Urinary incontinence Confirmed Active Ambulatory dysfunction Confirmed Active 1on CT of abd. 2daughter Diagnosis Diagnosis Type Effective Dates Health Status Clinical Service Informant Hyperlipidemia Discharge Diagnosis 09/07/23 CKD (chronic kidney disease) Discharge Diagnosis 09/07/23 History of lacunar cerebrovascular accident. Discharge Diagnosis 09/07/23 Syncope Discharge Diagnosis 09/07/23 HTN (hypertension) Discharge Diagnosis 09/07/23 Procedures Procedure Date Related Diagnosis Body Site Status Mammogram - screening 1 06/17/21 C ompleted Venous doppler ultrasonograp hy bilateral LE 2 05/07/21 Completed Audiological evaluation 3 12/30/20 Completed LUNG PERFUSION IMAGING 4 11/17/20 Completed Chest X-ray 5 11/12/20 Completed Ultrasound left lower extremity 6 10/12/20 Completed Mammogram 7 06/16/20 Completed DEXA - dual energy X-ray absorptiometry 8 09/26/19 Completed Shave biopsy and cauterisation of skin 07/29/19 Completed Mohs micrographic surgery 12/11/18 Completed Shave biopsy and cauterizati on of skin 9 11/19/18 Completed Bilateral Digital Screening Mammogram Tomosynthesis with CAD 10 04/27/18 Comple nghia Shave biopsy of skin 04/12/18 Comp leted Thoracoscopy 11 03/21/18 Completed Cystoscopy and bladder biopsy 12 08/03/17 Completed Chest X-ray 13 07/28/[address] of abdomen and pelvis 14 06/14/17 Completed MRI of brain with/with out contrast 15 05/25/[address] of cervical spine 16 05/11/[address] of head 17 05/11/17 Completed Plain X-ray ribs with PA chest 18 05/11/17 Completed DEXA (dual energy X-ray phot on absorptiometry) scan of lateral spine 19 03/27/17 Completed Chest X-ray 20 11/26/16 Completed MRI of neck 21 11/26/16 Completed Mammogram 22 10/28/16 Completed MRI of brain with contrast 02/27/16 Completed Knee replacement 2014 Compl eted Surgery 2008 Completed Knee replacement 10/03/06 Compl eted 1ACR BI-RADS CATEGORY 1: NEGATIVE There is no mammographic evidence of malignancy. A 1 year screening mammogram is recommended.(06/18/2022) 2Impression: 1. Findings suggestive of chronic deep venous thrombus within the left superfical femoral and popliteal veins, significantly decreased in extent since ultrasound of October 12, 2020. No evidence for acute deep venous thrombus. 2. No deep venous thrombus within the right lower extremitiy. 3Pure Tone Testing (Symmetric): Right Ear - Mild-Severe Sensorineural Sloping Hearing Loss; Left Ear- Mild-Severe Sensorineural Sloping Hearing Loss. Word Recognition: Right ear - 80% at 75dBHL; Leftear - 80% at 75dBHL. 4Homogeneous perfusion was seen bilaterally. No evidence of pulmonary embolism. 5impression: Cardiomegaly with no active disease 6extensive nearly occlusive to occlusive deep venous thrombosis throughout the left lower extremity as above 7No mammographic evidence of malignancy. 1 year screening mammogram is recommended. 810-year probability of Fracture: Major osteoporotic: 21.1% Hip: 6.1% 9left forearm, left cheek 10Impression: ACR BI RADS CATEGORY 1: Negative There is no mammographic evidence of malignancy. A 1 year screening mammogram is recommended (04/28/2019) The patient will receive written notification of the results. 11evacuation of right hemothorax. 12Urinary bladder biopsy: cystitis with multiple lymphoid follicles, negative for dysplasia and malignancy. 13No active disease in chest. 14Impression 1. No acute process of the urinary tracts 2. Abdomen and pelvis is othervise unremarkable 15Impression: 1q. No acute intracranial findings 2. No evidence of intracranial mass. No evidence of acute or subacute infraction 3. Atrophy stable foci of increased T2 and FLAIR signal within the white matter consistent with small vessel disese 16impression: No fractures within the cervical spine 17Impression: 1. No acute intracranial abnormality identified 2. Atrophy with ex vacuo ventriculomegaly and chronic microvascular ischemic changes have progressed from comparison study 02/05/2008 3. 4mm focal area of low-attenuation within the left lentiform nucleus is also new from prior study, however suggests remote lacunar infarction 18Impression: 1. No acute process of the chest 2. Acute minimally displaced fracture of the anterolateral left seventh rib 19Assessment: The BMD at Ap spine L1-L2 is 0.959 g/cm2 with a T-score of -1.8. This is considered osteopenic according to WHO criteria. Bone density is between 10 and 25% below young normal fracture risk is moderate The BMD at Femur neck left is 0.796 g/cm2 with a T-score of -1.7 this is considered osteopenic. Fracture risk moderate The BMD femur Neck Right is 0.739 g/cm2 with a T-score of - 2.1 this is considered osteopenic fracture risk moderate The BMD Femur total mean is 0.836 g/cm2 with a T-score of -1.4 this is considered osteopenic fracture risk moderate 20Impression: No acute cardiopulmonary process. 21Impression: 1. 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 Mild atheroscleroic irregularity of theintracranial portion of the left vertebral artery. No significant stenosis of the cervical vessels. 22no malignancy. repeat 1 year 23Impression: 1. Chronic small vessel ishemic change. No acute intracranial abnormality. No abnormal enhancement. 24Left knee replacement 25Bladder suspension 26right knee replacement Vital Signs Most recent to oldest [Reference Range]: 1 Patient Weight 87.6 kg (09/07/23 2:40 PM) Heart Rate 93 bpm (09/07/23 2:40 PM) Respiratory Rate 18 br/min (09/07/23 2:40 PM) Blood Pressure 144/78mmHg (09/07/23 2:40 PM) Cuff Pulse Pressure 66 mmHg (09/07/23 2:40 PM) Social History Social History Type Response Tobacco 1 Smoking Status Never smoked cigaret donato Sex Female 1none Cardiology Outpatient Note * DO Spence Jason D: PERFORM Event Display: Cardiology Outpt Note Authored Date: [id number] Primary Care Provider DO Cruz Stephanie Marie Chief Complaint here for routine follow up. denies. History of Present Illness She is having what sounds like a slight fall but did not lose consciousness. She has had no further syncopal episodes since her loop recorder was placed. In reviewing her loop recorder with her July and August interrogations she has had no atrial arrhythmias nor pauses. She had 1 short episode of bradycardia lasting 6 seconds while sleeping. She denies any orthostatic symptoms. She has no chest pain or chest pressure. She can walk to the dining stout at her personal care facility without significant shortness of breath or lightheadedness or chest tightness. Review of Systems 1. Bilateral total knee replacement. 2. Osteopenia. 3. Urinary incontinence. 4. GERD. 5. Osteoarthritis. 6. Syncope 11/2016 of unknown etiology. 7. (a) Stress echo, modified Milan protocol, exercising for a little more than 6 minutes with a hypertensive response to exercise, global hypokinesis at rest with an EF in the range of 45% with a myopathic response to exercise. No evidence of exercise-induced regional wall motion abnormalities. (b) Normal biventricular size and function with an EF in the range of 55-60%, 01/2020. 8. Fall, February, with multiple rib fractures and a hemothorax. 9. Hypertension. 10. Normal event recorder after her summer syncopal episode; S/P Implantable loop 07/2023 11. S/P repair of AV fistula from the left SFA to the left femoral vein at [facility] Physical Exam Vitals & Measurements HR:93(Monitored) RR:18 BP:144/78 SpO2:95% WT:87.6kg WT:87.600kg(Dosing) Patient is awake alert and oriented x3and in no acute distress HEENT:2+ carotid upstrokes, no evidence of carotid bruits LUNGS:Clear to auscultation bilaterally no rales rhonchi or wheezing HEART:Regular rate and rhythmno appreciable murmurs rubs or gallops EXTREMITIES:trace edema with compression stockings PSYCHIATRIC:Patient's affect appeared appropriate Assessment/Plan 1.Syncope 2.HTN (hypertension) 3.Hyperlipidemia 4.History of lacunar cerebrovascular accident. 5.CKD (chronic kidney disease) As discussed above we reviewed her loop recorder tracings and there were no bradycardia arrhythmiasor tachyarrhythmias nor significant pauses while awake. She has not had any further syncopal episode. Will continue to monitor with monthly downloads. We discussed the use of her clip. If shewere to have a syncopal episode such that we could time and date stamp the episode on her monitor and assess for an arrhythmia. If this is not possible the device is still set to auto trigger on its own. Her blood pressure is well-controlled. I would avoid lowering it therefore reducing the chance ofher having orthostatic symptoms at the almost age of 88. She denies any TIA or strokelike symptoms. Will see her back in 6 months and she will continue to follow in device clinic. 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 History of syncope HTN (hypertension) Hyperlipidemia Inflamed seborrheic keratosis Lentigo Myalgia Notalgia paresthetica Osteopenia Seborrheic keratoses Snoring Syncope Urinary incontinence Resolved Lacunar infarction Viral bronchitis Viral URI Procedure/Surgical History Mammogram - screening| Service Date: 06/17/2021Venous doppler ultrasonography bilateral LE| Service Date: 05/07/2021udiological evaluation| Service Date: 1LUNG PERFUSION IMAGING| Service Date: 11/17/2020hest X-ray| Service Date: 11/12/2020Ultrasound left lower extremity| Service Date: 10/12/2020Mammogram| Service Date: 1DEXA - dual energy X-ray absorptiometry| Service Date: 09/26/2019Shave biopsy and cauterisation of skin| Service Date: 07/29/2019Mohs micrographic surgery| Service Date: 12/11/2018Shave biopsy and cauterization of skin| Service Date: 11/19/2018Bilateral Digital Screening Mammogram Tomosynthesis with CAD| Service Date: 04/27/2018Shave biopsy of skin| Service Date: 04/12/2018Thoracoscopy| Service Date: 03/21/2018Cystoscopy and bladder biopsy| Service Date: 08/03/2017Chest X-ray| Service Date: 07/28/2017CT of abdomen and pelvis| Service Date: 06/14/2017MRI of brain with/with out contrast| Service Date: 05/25/2017Plain X-ray ribs with PA chest| Service Date: 05/11/2017CT of head| Service Date: 05/11/2017CT of cervical spine| Service Date: 05/11/2017DEXA (dual energy X-ray photon absorptiometry) scan of lateral spine| Service Date: 03/27/2017MRI of neck| Service Date: 11/26/2016Chest X-ray| Service Date: 11/26/2016Mammogram| Service Date: 10/28/2016MRI of brain with contrast| Service Date: 02/27/2016Knee replacement| Service Date: 2014Surgery| Service Date: 2008Knee replacement| Service Date: 10/03/2006 Medications acetaminophen(Tylenol Caplet 325 mg oral tablet), 650 mg= 2 tab, PO, q4h, PRN amitriptyline(amitriptyline 10 mg oral tablet), 0.5 tab, PO, qhs, 11 refills ascorbic acid(Vitamin C 500 mg oral capsule), 500 mg= 1 cap, PO, Daily, 5 refills aspirin(aspirin 81 mg oral tablet, chewable), 81 mg= 1 tab, PO, Daily, 5 refills bifidobacterium-lactobacillus(Probiotic Formula) calcium carbonate(Mak-Gest 500 mg oral tablet, chewable), 2 tab, PO, Daily calcium carbonate(calcium carbonate 1250 mg (500 mg elemental calcium) oral tablet), 1250 mg= 1 tab, PO, Daily carvedilol(carvedilol 3.125 mg oral tablet), 1 tab, PO, bid cephalexin(cephalexin 500 mg oral capsule), 500 mg= 1 cap, PO, Daily cholecalciferol(Vitamin D3 50 mcg (2000 intl units) oral tablet), 50 mcg= 1 tab, PO, Daily, 5 refills cranberry(cranberry oral tablet), See Instructions, 11 refills cyanocobalamin(Vitamin B12 1000 mcg oral tablet), 1000 mcg= 1 tab, PO, Daily, 11 refills famotidine(famotidine 10 mg oral tablet), 10 mg= 1 tab, PO, bid, 5 refills gabapentin(gabapentin 100 mg oral capsule), 100 mg= 1 cap, PO, bid, 5 refills lactobacillus acidophilus(Acidophilus Probiotic Blend oral capsule), 1 cap, PO, Daily, 5 refills losartan(losartan 50 mg oral tablet), 50 mg= 1 tab, PO, Daily, 3 refills multivitamin with minerals(Adult Multivitamin Gummies oral tablet, chewable), See Instructions, 5 refills nitrofurantoin(Macrobid 100 mg oral capsule), 100 mg= 1 cap, PO, Daily traMADol(traMADol 50 mg oral tablet), 50 mg= 1 tab, PO, q6h, PRN unknown medication(Solifenacin Succinate 5mg) Allergies ciprofloxacinArthralgia, Myalgia sulfa drugsUnknown reaction Social History Smoking Status Never smoked cigarettes Alcohol - Comments: once a month - glass of wine. 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 Tobacco - Comments: none Family History Cardiomyopathy: Sister. Carotid artery stenosis: Mother. Heart failure: Father. Stroke: Mother. 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
--- OUTSIDE RECORDS SUMMARY | 2023-09-29 01:14 | External Medical Summary | Continuity of Care Document ---
Author Name Unknown Organization [facility] [address] [place] [id number] Care Team Providers Care Counter Cutter Name Role Phone Kassidy Cruz Primary Care Physician [phone] [facility] [id number] Date(s): 08/29/23 - 08/29/23 [facility] [address] [facility] [place] [facility] [place] [address] [place] [address] [phone] Discharge Disposition: Home or Self Care Attending Physician: NICHOLE Wilson Sarah A Referring Physician: NICHOLE Wilson Sarah A Allergies, Adverse Reactions, Alerts Substance Criticality Severity Reaction Reaction Severity Status ciprofloxacin Arthralgia Myalgia Active sulfa drugs Unknown reaction A ctive Immunizations Given and Recorded Vaccine Date Status [...] Daily, Disp# 30 cap, Refills: 5, Pharmacy: [facility] Start Date: 06/30/23 Stop Date: 12/27/23 Status: Ordered Adult Multivitamin Gummies oral tablet, chewable Start: 06/30/23 2:34:00 PM EDT, See Instructions, Disp# 30 tab, Refills: 5, 1 tablet po daily, Pharmacy: [facility] Start Date: 06/30/23 Status: Ordered amitriptyline 10 mg oral tablet Start: 07/27/23 2:03:00 PM EDT, 0.5 tab, PO, qhs, Disp# 15 tab, Refills: 11, Pharmacy: [facility] Start Date: 07/27/23 Status: Ordered aspirin 81 mg oral tablet, chewable Start: 06/30/23 2:30:00 PM EDT, 1 tab, PO, Daily, Disp# 30 tab, Refills: 5, Pharmacy: [facility] Start Date: 06/30/23 Stop Date: 12/27/23 Status: Ordered carvedilol 3.125 mg oral tablet Start: 03/28/23 3:45:00 PM EST, 1 tab, PO, bid, Disp# 180 tab, Refills: 3, Pharmacy: [facility] [id number] Start Date: 03/28/23 Status: Ordered cephalexin 500 mg oral capsule 1 cap, PO, Daily, Alternating with Macrobid Start Date: 12/11/18 Status: Ordered Colace Start: 05/25/23 3:12:00 PM EDT Start Date: 05/25/23 Status: Ordered cranberry oral tablet Start: 07/27/23 2:04:00 PM EDT, See Instructions, Disp# 30 tab, Refills: 11, 500mg cap po daily, Pharmacy: [facility] Start Date: 07/27/23 Status: Ordered famotidine 10 mg oral tablet Start: 06/30/23 2:33:00 PM EDT, 1 tab, PO, bid, Disp# 60 tab, Refills: 5, Pharmacy: [facility] Start Date: 06/30/23 Stop Date: 12/27/23 Status: Ordered gabapentin 100 mg oral capsule Start: 06/30/23 2:33:00 PM EDT, 1 cap, PO, bid, Disp# 60 cap, Refills: 5, Pharmacy: [facility] Start Date: 06/30/23 Stop Date: 12/27/23 Status: Ordered losartan 50 mg oral tablet Start: 06/30/23 10:13:00 AM EDT, 1 tab, PO, Daily, Disp# 90 tab, Refills: 3, Pharmacy: [facility] Start Date: 06/30/23 Status: Ordered Macrobid 100 mg oral capsule Start: 05/16/19 2:25:00 PM EDT, 1 cap, PO, Daily, rotates every 2 weeks with keflex Start Date: 05/16/19 Status: Ordered Probiotic Formula Start: 12/21/22 12:41:00 PM EDT Start Date: 12/21/22 Status: Ordered Super Calcium 600 + D3 400 oral tablet Start: 05/16/16 8:48:00 AM EDT, 1 tab, PO, Daily Start Date: 05/16/16 Status: Ordered traMADol 50 mg oral tablet Start: 04/20/23 3:35:00 PM EST, 1 tab, PO, q6h, Disp# 56 tab, Use every 6-8 hours as needed for moderate to severe pain until vascular surgery, PRN: as needed for pain, Pharmacy: [facility]/pharmacy #[id number] Start Date: 04/20/23 Stop Date: 05/04/23 Status: Ordered Tums 500 mg oral tablet, chewable Start: 06/30/23 2:31:00 PM EDT, 2 tab, PO, Daily, Disp# 30 tab, Refills: 5, Pharmacy: [facility] Start Date: 06/30/23 Stop Date: 12/27/23 Status: Ordered Tylenol Caplet 325 mg oral tablet Start: 04/05/18 10:56:00 AM EST, 2 tab, PO, q4h, PRN: as needed for pain Start Date: 04/05/18 Status: Ordered Vitamin B12 1000 mcg oral tablet Start: 07/27/23 2:04:00 PM EDT, 1 tab, PO, Daily, Disp# 30 tab, Refills: 11, Pharmacy: [facility] Start Date: 07/27/23 Stop Date: 07/21/24 Status: Ordered Vitamin C 500 mg oral capsule Start: 06/30/23 2:30:00 PM EDT, 1 cap, PO, Daily, Disp# 30 cap, Refills: 5, Pharmacy: [facility] Start Date: 06/30/23 Stop Date: 12/27/23 Status: Ordered Vitamin D3 50 mcg (2000 intl units) oral tablet Start: 06/30/23 2:32:00 PM EDT, 1 tab, PO, Daily, Disp# 30 tab, Refills: 5, Pharmacy: [facility] Start Date: 06/30/23 Stop Date: 12/27/23 Status: Ordered Problem List Condition Confirmation Course Effective Dates [...] Confirmed Active 1on CT of abd. 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 Sex Female 1none Patient Care team information Care Team Personnel Name: DO Cruz Stephanie Marie Position: Physician - Family Med Member Role: Primary Care Provider Address: Address: [address] [place] [address] [place] Name: JONA Cancino Lynn Position: Physician Vessel Slagman Exempt - Vas Surg Member Role: Lifetime Relationship Address: Address: [address] [place] [address] Care Team Related Persons Name: MAR LYLE Name: MALGORZATA LYLE Name: LIVIA LYLE Address: home [address] [place] [address] [address] [place] [address] Name: ALVIN LYLE Address: home [address], [id number]
[2023-09-29] MEDS: CEFEPIME 2,000 MG in SYRINGE 0 ML IV ONE (01:41)
[2023-09-29 07:10] LABS: Basophils # (auto) 0.03 K/uL (0.00-0.20); Basophils % (auto) 0.4 %; Eosinophils # (auto) 0.57 K/uL (0.00-0.50); Eosinophils % (auto) 7.6 %; Hematocrit (blood only) 39.2 % (37.0-47.0); Hemoglobin 12.6 g/dl (12.0-16.0); Immature Granulocytes # (auto) 0.01 K/uL (0.01-0.20); Immature Granulocytes % (auto) 0.1 %; Lymphocytes # (auto) 2.92 K/uL (1.20-3.40); Lymphocytes % (auto) 38.7 %; Mean Corpuscular Hemoglobin 29.9 pg (25.0-34.0); Mean Corpuscular Hgb Conc 32.1 g/dL (32.0-36.0); Mean Corpuscular Volume 93.1 fL (80.0-100.0); Mean Platelet Volume 9.5 fL (9.4-12.4); Monocytes # (auto) 0.88 K/uL (0.11-0.59); Monocytes % (auto) 11.7 %; Neutrophils # (auto) 3.13 K/uL (1.40-6.50); Neutrophils % (auto) 41.5 %; Platelet Count 228 K/uL (130-400); RDW Standard Deviation 43.8 fL (36.4-46.3); Red Blood Count 4.21 M/uL (4.20-5.40); White Blood Count 7.54 K/ul (4.8-10.8)
[2023-09-29 07:28] LABS: Albumin Level 3.6 gm/dl (3.4-5.0); BUN Creatinine Ratio 20.7 (10-20); Calcium 9.4 mg/dl (8.6-10.3); Creatinine Clr Calc Pharmacy 27.1 ml/min; Est GFR (African American) 38.5 ml/min; Est GFR (Non-African American) 33.2 ml/min; Magnesium 1.8 mg/dl (1.7-2.4); Phosphorus 4.2 mg/dl (2.5-4.9); Potassium 4.4 mmol/L (3.5-5.1)
[2023-09-29 07:34] LABS: Troponin I High Sensitivity 15.2 pg/ml (0-14)
--- NOTE | 2023-09-29 09:57 | Electrocardiogram Report ---
Test Reason : Blood Pressure : */* mmHG Vent. Rate : 86 BPM Atrial Rate : 86 BPM P-R Int : 284 ms QRS Dur : 104 ms QT Int : 362 ms P-R-T Axes : 90 4 20 degrees QTcB Int : 433 ms Sinus rhythm with 1st degree A-V block Otherwise normal ECG When compared with ECG of 12-May-2023 10:59, No significant change was found Confirmed by Kyler Carter ([id number]) on 09/29/2023 9:56:57 AM Referred By: [facility] Confirmed By: Kyler Carter
[2023-09-29] MEDS: ASCORBIC ACID 500 MG TAB PO SCH (10:44)
[2023-09-29] MEDS: ASPIRIN 81 MG ECTAB PO SCH (10:44)
[2023-09-29] MEDS: CYANOCOBALAMIN (B-12) 500 MCG TABLET PO SCH (10:45)
[2023-09-29] MEDS: CALCIUM CARBONATE 500 MG CHEWABLE TAB PO SCH (10:45)
[2023-09-29] MEDS: CHOLECALCIFEROL 25 MCG (1000 UNITS) TAB PO SCH (10:45)
[2023-09-29] MEDS: ADVANCED PROBIOTIC 625 MG CAPSULE PO SCH (10:46)
[2023-09-29] MEDS: CEROVITE ADV FORMULA TAB PO SCH (10:46)
[2023-09-29] MEDS: FAMOTIDINE 10 MG TABLET PO SCH (10:46)
[2023-09-29] MEDS: GABAPENTIN 100 MG CAP PO SCH (10:46)
[2023-09-29] MEDS: OXYBUTYNIN CHLORIDE XL 5 MG TABCR PO SCH (10:47)
[2023-09-29] MEDS: LOSARTAN POTASSIUM 50 MG TAB PO SCH (10:47)
[2023-09-29] MEDS: carvediloL 3.125 MG TAB PO SCH (10:48)
[2023-09-29] MEDS: HEPARIN SOD 5,000 UNIT/0.5 ML VIAL SQ SCH (10:53)
--- NOTE | 2023-09-29 11:54 | Hospitalist Progress Note ---
Date of Service September 29, 2023 Assessment & Plan (1) Acute UTI (urinary tract infection): Plan: Patient presented to ED on 09/27 due to weakness and increased fatigue. urinalysis reviewed 09/27: + for UTI urine cultures reviewed: negative Cefepime 2g IV q 12h s/p NSS at 80mL x 1 reviewed CBC 09/28: WNL reviewed BMP 09/28: improvement in kidney function with creatinine to 1.40 AM CBC, BMP (2) Generalized weakness: Plan: PT/OT consulted Head CT reviewed 09/27: no acute intracranial abnormality. further eval could be performed with MRI if clinically indicated. Chronic small vessel ischemic changes and cerebral volume loss CXR reviewed 09/27: no acute cardiopulmonary findings. Cardiomegaly reviewed PT consult return back to [facility] with previous home PT in place if facility can meet needs vs inpatient skilled rehab pending OT consult (3) HTN (hypertension): Plan: Upon presentation patient was hypertensive troponin slightly elevated at 15, likely supply/demand mismatch BP currently 140/82 continue to monitor continue home Losartan and Carvedilol (4) CKD (chronic kidney disease) stage 4, GFR 15-29 ml/min: Plan: On presentation to the ED patient creatinine slightly abnormal at 1.50 baseline creatinine 1.4-1.6 s/p 1L IVF repeat creatinine 09/28 improved to 1.40 AM BMP Plan Chronic conditions: Vitamin D deficiency: D3 daily B12 Deficiency: cyanocobalamin daily neuropathy: gabapentin Urinary incontinence: oxybutynin GERD: tums DVT prophylaxis: Heparin Code status: DNR Diet: Heart healthy Disposition: continued inpatient stay pending OT evaluation Admission and Anticipated Discharge Date Admission Date: September 28, 2023 Subjective Patient seen and examined this morning. Patient alert and oriented x 3. Patient denies any urinary symptoms this morning. She denies chest pain or SOB. Reports she has been feeling weak the last few days. Physical Exam 2 Constitutional: WD/WN, vitals as above Eyes: PERRL, conjunctivae normal, anicteric sclerae Respiratory: normal respiratory effort, lungs clear to auscultation Cardiovascular: RRR, no murmur, no edema Gastrointestinal (Abdomen): normal bowel sounds, soft, nontender, no hepatosplenomegaly Skin: no rashes, warm and dry Psychiatric: A+Ox3, euthymic affect Results & Data Results & Data Vital Signs (Past 12 Hours) Vital Signs Temp Pulse Pulse Resp BP Pulse Ox O2 Del Method 09/29/23 11:37 36.7 C 65 20 182/96 H 96 Room Air 09/29/23 08:58 36.4 C L 82 20 138/80 92 Room Air 09/29/23 08:00 Nasal Cannula 09/29/23 01:24 71 09/29/23 00:32 Nasal Cannula 09/29/23 00:01 74 20 166/90 H 94 Nasal Cannula O2 Flow Rate 09/29/23 11:37 09/29/23 08:58 09/29/23 08:00 1 09/29/23 01:24 09/29/23 00:32 1 09/29/23 00:01 1 Laboratory Results 09/29/23 06:47 09/29/23 06:47 PG Care Time/CCT Total # of Minutes Spent Total Time Spent with Patient: Total time spent is greater than 50% in coordination of care (as documented) at patient's floor/unit and/or counseling patient: Coding Level of Care Code 21749 SUB INP/OBS CARE 3/50MIN Diagnoses Acute UTI (urinary tract infection) N39.0 Generalized weakness R53.1 Primary hypertension I10 Hypertension type: primary hypertension CKD (chronic kidney disease) stage 4, GFR 15-29 ml/min N18.4 (3) HTN (hypertension) Hypertension type: primary hypertension Qualified Code(s): I10 - Essential (primary) hypertension
[2023-09-29] MEDS: CEFEPIME 1,000 MG in SYRINGE 0 ML IV SCH (13:39)
[2023-09-29] MEDS: AMITRIPTYLINE HCL 10 MG TAB PO SCH (20:18)
[2023-09-30 03:10] VITALS: RESP 20
[2023-09-30 07:35] LABS: Basophils # (auto) 0.04 K/uL (0.00-0.20); Basophils % (auto) 0.6 %; Eosinophils # (auto) 0.58 K/uL (0.00-0.50); Eosinophils % (auto) 9.1 %; Hematocrit (blood only) 39.9 % (37.0-47.0); Hemoglobin 12.8 g/dl (12.0-16.0); Immature Granulocytes # (auto) 0.01 K/uL (0.01-0.20); Immature Granulocytes % (auto) 0.2 %; Lymphocytes # (auto) 2.41 K/uL (1.20-3.40); Mean Corpuscular Hgb Conc 32.1 g/dL (32.0-36.0); Mean Corpuscular Volume 93.4 fL (80.0-100.0); Mean Platelet Volume 10.1 fL (9.4-12.4); Monocytes # (auto) 0.72 K/uL (0.11-0.59); Monocytes % (auto) 11.3 %; Neutrophils # (auto) 2.59 K/uL (1.40-6.50); Neutrophils % (auto) 40.8 %; Platelet Count 237 K/uL (130-400); RDW Coefficient of Variation 13.1 % (11.5-14.5); RDW Standard Deviation 44.6 fL (36.4-46.3); Red Blood Count 4.27 M/uL (4.20-5.40); White Blood Count 6.35 K/ul (4.8-10.8)
[2023-09-30 08:10] VITALS: PULSE 76; TEMP 98.2; O2SAT 94
[2023-09-30 08:11] VITALS: BP 145/81
[2023-09-30 08:30] LABS: Albumin Level 3.7 gm/dl (3.4-5.0); Calcium 9.7 mg/dl (8.6-10.3); Creatinine Clr Calc Pharmacy 26.2 ml/min; Est GFR (African American) 37.9 ml/min; Est GFR (Non-African American) 32.7 ml/min; Magnesium 1.8 mg/dl (1.7-2.4); Phosphorus 3.6 mg/dl (2.5-4.9); Potassium 4.3 mmol/L (3.5-5.1)
--- NOTE | 2023-09-30 09:40 | Discharge Summary ---
Discharge Summary Date of Service September 30, 2023 Principal Dx & Hospital Course #1 = Principal Diagnosis (1) Acute UTI (urinary tract infection): Patient presented to ED on 09/27 due to weakness and increased fatigue. Urinalysis on 09/27 was + for UTI. Urine cultures were negative. She was treated with Cefepime q12h during her hospital stay. Also given 1L IV fluids. On day of discharge her CBC and BMP were stable. She was sent back to [facility] on Cefuroxime for 3 days. (2) Generalized weakness: Patient had head CT that revealed no acute intracranial abnormality. CXR was negative for acute cardiopulmonary findings. PT recommended discharge back to personal retirement if the facility can meet her needs. (3) HTN (hypertension): Upon presentation patient was hypertensive. She had mildly elevated troponin that peaked at 15. likely due to supply/demand mismatch. BP in 140s/80s at time of discharge. She was to continue home Losartan and Carevdilol. (4) CKD (chronic kidney disease) stage 4, GFR 15-29 ml/min: On presentation to the ED patient creatinine slightly abnormal at 1.50. She was given 1 L IVF and creatinine was 1.42 day of discharge. Baseline creatinine 1.4- 1.6 Plan Chronic conditions: Vitamin D deficiency: D3 daily B12 Deficiency: cyanocobalamin daily neuropathy: gabapentin Urinary incontinence: oxybutynin GERD: tums Admission HPI Per Admitting Provider The patient is an 87-year-old female history including left lower extremity DVT, CKD stage IV, bladder prolapse, GERD, chronic interstitial cystitis, anemia, Raynaud's, urinary tract infection, syncope and collapse. She presents to the emergency department after being noted to be developing generalized weakness, increasing lethargy and need for sleep over the past few days. Discharge Exam Constitutional WD/WN, vitals as above Eyes PERRL, conjunctivae normal, anicteric sclerae Respiratory normal respiratory effort, lungs clear to auscultation Cardiovascular RRR, no murmur, no edema Gastrointestinal (Abdomen) normal bowel sounds, soft, nontender, no hepatosplenomegaly Skin no rashes, warm and dry Psychiatric A+Ox3, euthymic affect Updated Medication List Medication Instructions Recorded Confirmed Type ascorbic acid (vitamin C) 500 mg 500 mg PO DAILY 01/23/18 09/28/23 History tablet cyanocobalamin (vitamin B-12) 1,000 mcg PO DAILY 10/21/19 09/28/23 History 1,000 mcg tablet (Vitamin B-12) carvedilol 3.125 mg tablet 3.125 mg PO BID 05/21/20 09/28/23 History losartan 50 mg tablet 50 mg PO QDL 05/21/20 09/28/23 History amitriptyline 10 mg tablet 5 mg PO HS 05/12/23 09/28/23 History cholecalciferol (vitamin D3) 50 50 mcg PO DAILY 05/12/23 09/28/23 History mcg (2,000 unit) tablet (Vitamin D3) solifenacin 5 mg tablet (Vesicare) 5 mg PO QAM #30 tabs 08/30/23 09/28/23 Rx Probiotic Product 1 tab PO QAM 09/28/23 09/28/23 History acetaminophen 325 mg tablet 650 mg PO Q4 PRN Mild Pain (Scale 09/28/23 09/28/23 History Score 1-4) aspirin 81 mg tablet,delayed 81 mg PO DAILY 09/28/23 09/28/23 History release calcium carbonate 1,000 mg PO DAILY 09/28/23 09/28/23 History cranberry fruit 400 mg tablet 400 mg PO DAILY 09/28/23 09/28/23 History famotidine 10 mg tablet 10 mg PO BID 09/28/23 09/28/23 History gabapentin 100 mg capsule 100 mg PO QAM 09/28/23 09/28/23 History multivitamin with minerals 1 tab PO DAILY 09/28/23 09/28/23 History (Multiple Vitamin-Minerals tablet) nitrofurantoin 100 mg PO DAILY 09/28/23 09/28/23 History monohydrate/macrocrystals 100 mg capsule tramadol 50 mg tablet 50 mg PO Q8 PRN Moderate Pain 09/28/23 09/28/23 History (Scale Score 5-6) cefuroxime axetil 250 mg tablet 250 mg PO DAILY #3 tabs 09/30/23 Rx Hospital Stay Data Consultations 09/28/23 21:51 ED Decision to Admit Stat 09/28/23 21:57 ED Decision to Admit Stat Diagnostic Imagining Performed Chest X-Ray 09/28/23 17:51 XR chest 1V portable CLINICAL HISTORY: dizziness COMPARISON STUDY: Chest radiograph May 14, 2023. Chest CT March 20, 2018. FINDINGS: There is no pneumothorax or pleural effusion. Numerous old right-sided rib fractures are again noted. There is stable cardiomegaly without evidence for pulmonary edema. There is no consolidation to suggest pneumonia. IMPRESSION: No acute cardiopulmonary findings. Cardiomegaly. ACT 112: Negative or not required by law. Electronically signed by: Aashish Herman M.D. 09/28/2023 6:[address] 09/28/23 18:25 Exam(s): CT HEAD Without Contrast EXAM: CT Head Without Intravenous Contrast CLINICAL HISTORY: Reason for exam: generalized weakness. TECHNIQUE: Axial computed tomography images of the head/brain without intravenous contrast. CTDI is 61.99 mGy and DLP is 1100.35 mGy-cm. Automated exposure control was utilized for the study. A dose lowering technique was utilized adhering to the principles of ALARA. COMPARISON: MRI brain on 05/12/2023. CT head on 05/12/2023. FINDINGS: Brain: No acute infarct or hemorrhage identified. No extra-axial fluid collection. No mass effect or midline shift. Scattered areas of hypoattenuation in the supratentorial white matter likely represent chronic small vessel ischemic changes. Ventricles and sulci: Prominence of the ventricles and sulci is likely secondary to cerebral volume loss. Bones: Normal. No bony lesion or acute fracture. Subcutaneous tissues: Normal. Sinuses: Mild mucosal thickening in the left sphenoid sinus and maxillary sinuses. Mastoid air cells: Normal. Orbits: Bilateral lens implants. Other: Atherosclerotic calcifications in the intracranial vasculature. IMPRESSION: 1. No acute intracranial abnormality. Further evaluation could be performed with MRI if clinically indicated. 2. Chronic small vessel ischemic changes and cerebral volume loss. Electronically signed by: Alvin Beltran M.D. 09/28/23 19:26 PM Pending Results Patient Have Any Pending Studies at Discharge: No Discharge Instructions Given to Patient (Per Discharging Provider) Ms. Jc, You were recently hospitalized for confusion and weakness. You were found to be positive for a UTI which was treated with antibiotics. Please see recommendations below regarding your discharge. 1. Please take Cefuroxime once daily for the next 3 days -Your first dose will be 09/30 -Please take with food to avoid GI upset. 2. Please resume previous outpatient medications as prescribed. 3. You will continue to recieve physical and occupational therapy at your personal retirement to help regain your strength. If you develop any worsening weakness, chest pain, shortness of breath, or urinary issues please contact your PCP or return to the ER for further evaluation. Sincerely, Gaviota Campbell PA-C Total Time Total Time Spent Total Time Spent (In Minutes): 40 Total Time Includes: Examination of the Patient, Discharge Planning and Medication Reconciliation Coding Level of Care Code 21643 INP/OBS DISCH >30 MIN Diagnoses Acute UTI (urinary tract infection) N39.0 Generalized weakness R53.1 Primary hypertension I10 Hypertension type: primary hypertension CKD (chronic kidney disease) stage 4, GFR 15-29 ml/min N18.4
[2023-09-30] MEDS: cefUROXime axetil 250 MG TABLET PO ONE (10:11)
== END 2023-09-30 11:20 | disposition home or self-care (01) | DRG 690 ==
LOC: ED 17:24 → 2N 23:08 → SUATTDRO 23:08 → 2N 09-29 00:14

== ENCOUNTER 2023-10-08 14:19 | Inpatient (IN) ==
--- NOTE | 2023-10-08 14:56 | Emergency Department Note ---
Impression & Plan Pneumonia, Hypoxia, Diarrhea ED Provider Note NAME: VIKTOR LYLE AGE: 87 SEX: F : 1935 ARRIVES VIA: Ambulance INFORMANT: Patient, ED PROVIDER(S): Carlos Ocasio DO CHIEF COMPLAINT: Shortness of breath HPI: The patient is an 87-year-old female who presented to the emergency department from her senior living for evaluation of shortness of breath. I was asked to see the patient emergently because the patient was very short of breath and hypoxic. The patient states that she has had a cough over the course of the last several days. The coughing became worse today. She came to the emergency department for further evaluation. The patient denies having any chest pain. She denies having any lower extremity swelling greater than usual. The patient has not been seen by her primary care physician recently but was admitted to our facility approximately 10 days ago. ROS: See above HPI for pertinent positives & negatives. A total of 10 systems reviewed and were otherwise negative. PAST MEDICAL HISTORY: See Below PAST SURGICAL HISTORY: See Below FAMILY HISTORY: See Below SOCIAL HISTORY: See Below HOME MEDICATIONS: See Below ALLERGIES: See Below VITALS: See Below PHYSICAL EXAMINATION: GENERAL: The patient is awake and alert. She is mildly anxious appearing. EYES: The conjunctivae are clear. The pupils are round and reactive. EARS, NOSE, MOUTH AND THROAT: The nose is without any evidence of any deformity. NECK: The neck is nontender and supple. RESPIRATORY: Diminished breath sounds are noted in the right lung field. There was mild conversational dyspnea. CARDIOVASCULAR: Regular rate and rhythm noted there no murmurs rubs or gallops normal S1 normal S2. GASTROINTESTINAL: The abdomen is soft. Abdomen is nontender. MUSCULOSKELETAL/EXTREMITIES: There is no evidence of gross deformity full range of motion is noted in the hips and shoulders. SKIN: There is no obvious evidence of any rash. Trace pedal edema was noted bilaterally. Skin was warm and dry. NEUROLOGIC: Patient is awake alert and oriented x3 MEDICAL DECISION MAKING: The patient is an 87-year-old female who presented to the emergency department for an evaluation of shortness of breath. The patient is from a personal skilled nursing. She is been having diarrhea as well as shortness of breath. This is been ongoing over the course of the last several days. She started getting worse with her breathing today and was found to be hypoxic. The patient was placed on supplemental oxygen. She had a fever. She was treated with IV antibiotics as well as IV fluids and DuoNeb treatment. She was significantly improved but still had an oxygen requirement. I discussed the patient's condition with her as well as her family members. I discussed her condition with the on-call [facility]ist. They have agreed to evaluate the patient in the emergency department for further management and disposition. Triage Nursing notes reviewed. Prior medical records reviewed Vital Signs: reviewed and remarkable for hypertension, hypoxia and fever. Differential diagnosis: Viral syndrome, otitis, pharyngitis, pneumonia, influenza, meningitis, urinary tract infection, sepsis, bacteremia, as well as other pathologies. ER treatment provided: See below Diagnostics interpreted by me: ECG: EKG was obtained in the emergency department. My interpretation is normal sinus rhythm at 83 bpm. First-degree AV block is noted. There is no ectopy. There is no acute ST segment abnormalities noted. This was compared to a tracing from September,. No changes were noted. Cardiac Monitoring: An order was placed for continuous cardiac monitoring. The monitor shows a rate of 77 bpm with sinus rhythm. Laboratory studies: As stated above and show below. Imaging studies: See below. Radiographic imaging was reviewed by myself Consultation(s): I discussed this case with Dr. Santamaria who is on-call for the [facility] group. ED COURSE: Procedures: none Critical Care: I have personally spent greater than 35 minutes of critical care time in the direct management of this patient. This includes bedside care, interpretation of diagnostic studies, and testing, discussion with consultants, patient, and family members, and other required patient management activities. This 35 minutes is in excess of all separately billable procedures. Past Med/Surg History Problem List (Updated 10/08/23 @ 18:10 by Eduin Haile PA-C) Sepsis Aspiration pneumonia Acute hypoxic respiratory failure Diarrhea (Acute) Hypoxia (Acute) Pneumonia (Acute) Acute UTI (urinary tract infection) (Acute) Generalized weakness (Acute) Acute deep vein thrombosis (DVT) of left lower extremity (Acute) CKD (chronic kidney disease) stage 4, GFR 15-29 ml/min Left leg DVT Dietary counseling and surveillance Obesity (BMI 30.0-34.9) Left Achilles tendinitis Lower back pain History of prolapse of bladder (Chronic) Frequent UTI (Chronic) Multiple drug allergies Abdominal bloating (Acute) Acid reflux disease (Acute) Chronic interstitial cystitis (Chronic) Dyslipidemia (Acute) Gait apraxia (Acute) Gross hematuria (Acute) History of SCC (squamous cell carcinoma) of skin (Acute) History of basal cell carcinoma (Acute) Hypercalcemia (Acute) Incomplete bladder emptying (Acute) Incontinence (Chronic) Lesion of bladder (Acute) Osteoarthritis of knee (Acute) Osteopenia (Acute) Postmenopausal atrophic vaginitis (Chronic) Raynauds phenomenon (Acute) Seborrheic dermatitis (Acute) Vitamin D deficiency (Acute) Constipation Encounter for pre-operative examination Atelectasis (Acute) History of total bilateral knee replacement (TKR) Fall Multiple rib fractures (Acute) Contusion of chest (Acute) Left knee DJD (Acute) HTN (hypertension) (Chronic) Syncope and collapse Medical History TIA (transient ischemic attack) (HFpEF) heart failure with preserved ejection fraction Hx of recurrent urinary tract infection Status post angiography of extremity Hx of deep venous thrombosis Acute hypoxemic respiratory failure Acute exacerbation of CHF (congestive heart failure) Non-ST elevation CT (NSTEMI) Surgical History History of vaginal surgery 2009 bladder prolapse surgery with mesh placement H/O wisdom tooth extraction Family History Other Family history non-contributory Denies family history of Ovarian cancer Breast cancer Colorectal cancer Social History Smoking Status: Never smoker Second Hand Exposure: No; Do You Dip or Chew Tobacco: No; Hx Alcohol Use: No Hx Substance Use: No Preferred Language: Serbian Communication Ability: Effective Visual Impairment: No Limitations Resident Care Director Required: No Beliefs That Will Affect Care: None marital status: / Current Living Situation: Personal Care Facility Current Living Situation Comment: LIVES AT HOME WITH SON LIVIA AND GRANDSON Feels Safe at Home: Yes Assistive Devices: Cane, Hearing Aid - Bilateral and Walker Allergies Allergies Allergy/AdvReac Type Severity Reaction Status Date / Time Penicillins Allergy Unknown Unknown Verified 10/08/23 15:57 Sulfa (Sulfonamide Allergy Unknown COMA , Verified 10/08/23 15:57 Antibiotics) REACTION WHEN A CHILD ciprofloxacin [From Cipro] AdvReac Mild NAUSEA, Verified 10/08/23 15:57 HEEL AND KNEE PAIN cefuroxime AdvReac Unknown Vomiting Verified 10/08/23 15:57 Home Meds Home Medications Medication Instructions Recorded Confirmed ascorbic acid (vitamin C) 500 mg 500 mg PO DAILY 01/23/18 10/08/23 tablet cyanocobalamin (vitamin B-12) 1,000 mcg PO DAILY 10/21/19 10/08/23 1,000 mcg tablet (Vitamin B-12) carvedilol 3.125 mg tablet 3.125 mg PO BID 05/21/20 10/08/23 losartan 50 mg tablet 50 mg PO QDL 05/21/20 10/08/23 amitriptyline 10 mg tablet 5 mg PO HS 05/12/23 10/08/23 cholecalciferol (vitamin D3) 50 50 mcg PO DAILY 05/12/23 10/08/23 mcg (2,000 unit) tablet (Vitamin D3) Probiotic Product 1 tab PO QAM 09/28/23 10/08/23 acetaminophen 325 mg tablet 650 mg PO Q4 PRN Mild Pain (Scale 09/28/23 10/08/23 Score 1-4) aspirin 81 mg tablet,delayed 81 mg PO DAILY 09/28/23 10/08/23 release calcium carbonate 1,000 mg PO DAILY 09/28/23 10/08/23 famotidine 10 mg tablet 10 mg PO BID 09/28/23 10/08/23 gabapentin 100 mg capsule 100 mg PO QAM 09/28/23 10/08/23 multivitamin with minerals 1 tab PO DAILY 09/28/23 10/08/23 (Multiple Vitamin-Minerals tablet) nitrofurantoin 100 mg PO DAILY 09/28/23 10/08/23 monohydrate/macrocrystals 100 mg capsule tramadol 50 mg tablet 50 mg PO Q8 PRN Moderate Pain 09/28/23 10/08/23 (pain scale 4-10) cephalexin 500 mg capsule 500 mg PO UD 10/08/23 10/08/23 cranberry 500 mg capsule 500 mg PO DAILY 10/08/23 10/08/23 Previous Rx's Medication Instructions Recorded solifenacin 5 mg tablet (Vesicare) 5 mg PO QAM #30 tabs 08/30/23 Results & Data (ED) Vital Signs Vital Signs - 24 hr 10/08/23 14:39 10/08/23 14:39 10/08/23 14:39 Temperature 38.3 C H Temperature Source Oral Pulse Rate 87 Pulse Rate [Apical] 87 Pulse Rhythm Regular Pulse Rhythm [Apical] Regular Pulse Strength Normal Pulse Strength [Apical] Normal Respiratory Rate 28 H 28 H Respiratory Effort / Characteristics Labored Labored Respiratory Depth Shallow Shallow Respiratory Pattern Tachypnea Tachypnea Blood Pressure 156/70 H Blood Pressure [Right Arm] 156/70 H Blood Pressure Mean 98 Blood Pressure Mean [Right Arm] 98 Blood Pressure Position [Right Arm] Lying Pulse Oximetry 87 L 88 L Oxygen Delivery Method Room Air Room Air Room Air Oxygen Flow Rate Sepsis Recent Fever Within 48 Hours Yes Sepsis New/Unexplained Change in Mental Status No Sepsis Action Taken by Nursing Physician Notified 10/08/23 14:39 10/08/23 14:46 10/08/23 14:59 Temperature Temperature Source Pulse Rate 87 82 Pulse Rate [Apical] Pulse Rhythm Regular Pulse Rhythm [Apical] Pulse Strength Pulse Strength [Apical] Respiratory Rate 28 H Respiratory Effort / Characteristics Labored Respiratory Depth Shallow Respiratory Pattern Tachypnea Blood Pressure Blood Pressure [Right Arm] Blood Pressure Mean Blood Pressure Mean [Right Arm] Blood Pressure Position [Right Arm] Pulse Oximetry 93 Oxygen Delivery Method Room Air Room Air Oxygen Flow Rate 2 Sepsis Recent Fever Within 48 Hours Sepsis New/Unexplained Change in Mental Status Sepsis Action Taken by Nursing 10/08/23 16:14 Temperature Temperature Source Pulse Rate Pulse Rate [Apical] 77 Pulse Rhythm Pulse Rhythm [Apical] Pulse Strength Pulse Strength [Apical] Normal Respiratory Rate 20 Respiratory Effort / Characteristics Non-Labored Spontaneous Respiratory Depth Normal Respiratory Pattern Regular Blood Pressure Blood Pressure [Right Arm] Blood Pressure Mean Blood Pressure Mean [Right Arm] Blood Pressure Position [Right Arm] Pulse Oximetry 94 Oxygen Delivery Method Nasal Cannula Oxygen Flow Rate 2 Sepsis Recent Fever Within 48 Hours Sepsis New/Unexplained Change in Mental Status Sepsis Action Taken by Skilled Nursing Medications Current Medication List: was personally reviewed by me Laboratory Data Attestation: I reviewed the patient's lab results. 10/08/23 14:35 10/08/23 14:35 Lab Results 10/08/23 10/08/23 10/08/23 Range/Units 14:35 15:41 Unknown WBC 12.31 H (4.8-10.8) K/ul RBC 4.24 (4.20-5.40) M/uL Hgb 12.9 (12.0-16.0) g/dl Hct 40.4 (37.0-47.0) % MCV 95.3 (80.0-100.0) fL MCH 30.4 (25.0-34.0) pg MCHC 31.9 L (32.0-36.0) g/dL RDW Std Deviation 45.7 (36.4-46.3) fL RDW Coeff of Kemi 13.1 (11.5-14.5) % Plt Count 289 (130-400) K/uL MPV 10.3 (9.4-12.4) fL Immature Gran % (Auto) 0.3 % Neut % (Auto) 62.7 % Lymph % (Auto) 22.9 % Robeson % (Auto) 10.2 % Eos % (Auto) 3.5 % Baso % (Auto) 0.4 % Neut # (Auto) 7.71 H (1.40-6.50) K/uL Lymph # (Auto) 2.82 (1.20-3.40) K/uL Robeson # (Auto) 1.26 H (0.11-0.59) K/uL Eos # (Auto) 0.43 (0.00-0.50) K/uL Baso # (Auto) 0.05 (0.00-0.20) K/uL Immature Gran # (Auto) 0.04 (0.01-0.20) K/uL PT 10.7 (9.0-12.0) Seconds INR 1.0 (0.9-1.1) APTT 26 (21-31) Seconds PTT Ratio 1.0 VBG pH 7.37 (7.36-7.41) VBG pCO2 50 (38-50) mmHg VBG pO2 < 20 mmHg VBG HCO3 29 mmol/L VBG O2 Saturation < 60.0 % VBG Base Excess 2.7 mEq/L Sodium 138 (136-145) mmol/L Potassium 4.4 (3.5-5.1) mmol/L Chloride 102 (98-107) mmol/L Carbon Dioxide 29 (21-32) mmol/L Anion Gap 7 (3-11) BUN 25 H (6-23) mg/dl Creatinine 1.33 H (0.6-1.2) mg/dl Est Cr Clr Drug Dosing 28.1 ml/min Est GFR ( Amer) 41.0 ml/min Est GFR (Non-Af Amer) 35.4 ml/min BUN/Creatinine Ratio 18.8 (10-20) Glucose 134 H (70-99(Fasting)) mg/dl Lactate 1.3 (0.4-2.0) mmol/L Calcium 9.6 (8.6-10.3) mg/dl Magnesium 1.7 (1.7-2.4) mg/dl Total Bilirubin 0.4 (0.2-1.0) mg/dl Direct Bilirubin 0.0 (0-0.2) mg/dl AST 18 (13-39) U/L ALT 19 (7-52) U/L Alkaline Phosphatase 46 (34-104) U/L Troponin I High Sens 17.2 H (0-14) pg/ml Total Protein 6.6 (6.0-8.3) gm/dl Albumin 3.8 (3.4-5.0) gm/dl Procalcitonin 0.04 (0-0.5) ng/ml Adenovirus (PCR) Not Detected (NotDetected) B. pertussis DNA (PCR) Not Detected (NotDetected) B.parapertussis DNA PCR Not Detected (NotDetected) C. pneumoniae DNA (PCR) Not Detected (NotDetected) Coronavirus OC43 (PCR) Not Detected (NotDetected) Coronavirus HKU1 (PCR) Not Detected (NotDetected) Coronavirus 229E (PCR) Not Detected (NotDetected) SARS-CoV-2 (PCR) Not Detected (NotDetected) Coronavirus NL63 (PCR) Not Detected (NotDetected) Human Metapneumovir PCR Not Detected (NotDetected) Influenza Type A (PCR) Not Detected (NotDetected) Influenza Type B (PCR) Not Detected (NotDetected) M. pneumoniae (PCR) Not Detected (NotDetected) Parainfluenza 1 (PCR) Not Detected (NotDetected) Parainfluenza 2 (PCR) Not Detected (NotDetected) Parainfluenza 3 (PCR) Not Detected (NotDetected) Parainfluenza 4 (PCR) Not Detected (NotDetected) RSV (PCR) Not Detected (NotDetected) Entero/Rhino (PCR) Not Detected (NotDetected) Administered Medications Discontinued Medications Acetaminophen (Acetaminophen 325 Mg Tab) 650 mg PO NOW STA Stop: 10/08/23 14:53 Last Admin: 10/08/23 15:15 Dose: 650 mg Documented By: TAMMY Albuterol (Albut/Ipratrop 3mg/0.5mg Neb 3 Ml Vial) 3 ml NEB NOW STA; Protocol Stop: 10/08/23 14:47 Last Admin: 10/08/23 15:15 Dose: 3 ml Documented By: TAMMY Sodium Chloride (Nss) 500 mls @ 999 mls/hr IV .Q31M ONE Stop: 10/08/23 15:22 Last Infusion: 10/08/23 15:50 Dose: Infused Documented By: Admin: 10/08/23 15:14 Dose: 999 mls/hr Documented By: SRL Ceftriaxone Sodium (Rocephin) 2,000 mg in 50 mls @ 100 mls/hr IV NOW STA Stop: 10/08/23 16:34 Last Infusion: 10/08/23 17:11 Dose: Infused Documented By: Admin: 10/08/23 16:27 Dose: 100 mls/hr Documented By: TAMMY Imaging Data Attestation: I personally reviewed and interpreted this imaging study as follows: My Impression: 1 view chest x-ray was obtained in the emergency department. My interpretation is no free air, possible infiltrate on the right, final report below. Radiologist's Impression: Chest X-Ray 10/08/23 14:46 XR chest 1V portable HISTORY: Sepsis COMPARISON: Chest 09/28/2023. FINDINGS: Rotated study. No pneumothorax. The heart is mildly enlarged. There are old right-sided rib fractures again noted. There is mild central pulmonary vascular congestion without overt edema. Bibasilar densities are nonspecific but favor subsegmental atelectasis. No definite pleural effusions. There are low lung volumes. IMPRESSION: 1. Rotated study. 2. Cardiomegaly with mild congestive change. 3. Bibasilar linear densities are nonspecific but favor atelectasis. A superimposed pneumonia would be difficult to exclude. ACT 112: Negative or not required by law. Electronically signed by: Eduin Suazo M.D. 10/08/2023 3:56 PM Discharge Plan Visit Data Chief Complaint: Shortness of Breath/Dyspnea Stated Complaint: SOB, Weakness, Diarrhea ED Provider: Carlos Ocasio Discharge Problem: Pneumonia, Hypoxia, Diarrhea Patient Disposition: Being Evaluated by Hospitalist Forms Stand Alone Forms: My [facility] Prescriptions Prescriptions: No Action solifenacin [Vesicare] 5 mg tablet 5 mg PO QAM Qty: 30 3RF losartan 50 mg tablet 50 mg PO QDL carvedilol 3.125 mg tablet 3.125 mg PO BID Rx Instructions: must administer with a meal/food ascorbic acid (vitamin C) 500 mg Tablet 500 mg PO DAILY cyanocobalamin (vitamin B-12) [Vitamin B-12] 1,000 mcg Tablet 1,000 mcg PO DAILY famotidine 10 mg Tablet 10 mg PO BID gabapentin 100 mg capsule 100 mg PO QAM tramadol 50 mg tablet 50 mg PO Q8 PRN (Reason: Moderate Pain (pain scale 4-10)) Multiple Vitamin-Minerals Tablet 1 tab PO DAILY Probiotic Product 1 tab PO QAM nitrofurantoin monohyd/m-cryst 100 mg capsule 100 mg PO DAILY Rx Instructions: take 14 days on and 14 days off for preventative..start 09/13/23 aspirin 81 mg Tablet,Delayed Release (Dr/Ec) 81 mg PO DAILY calcium carbonate 500 mg calcium (1,250 mg) Tablet 1,000 mg PO DAILY Rx Instructions: 2 tablet dose acetaminophen 325 mg Tablet 650 mg PO Q4 MDD 3g PRN (Reason: Mild Pain (Scale Score 1-4)) cephalexin 500 mg capsule 500 mg PO UD Rx Instructions: give 1 tabalet by mouth 1 time a day 14 days on 14 days off hold 09/30/23 to 10/03/23 cranberry 500 mg Capsule 500 mg PO DAILY Rx Instructions: administer with meals amitriptyline 10 mg tablet 5 mg PO HS cholecalciferol (vitamin D3) [Vitamin D3] 50 mcg (2,000 unit) Tablet 50 mcg PO DAILY Hold Instructions: Resume on 05/24/23. Referrals Referrals: Kassidy Cruz DO [Primary Care Provider] - Discharge Problem: Pneumonia Qualifiers: Pneumonia type: due to unspecified organism Laterality: unspecified laterality Lung location: unspecified part of lung Qualified Code(s): J18.9 - Pneumonia, unspecified organism Diarrhea Qualifiers: Diarrhea type: unspecified type Qualified Code(s): R19.7 - Diarrhea, unspecified
[2023-10-08 15:04] LABS: Albumin Level 3.8 gm/dl (3.4-5.0); BUN Creatinine Ratio 18.8 (10-20); Basophils # (auto) 0.05 K/uL (0.00-0.20); Basophils % (auto) 0.4 %; Bilirubin,Total 0.4 mg/dl (0.2-1.0); Calcium 9.6 mg/dl (8.6-10.3); Creatinine Clr Calc Pharmacy 28.1 ml/min; Eosinophils # (auto) 0.43 K/uL (0.00-0.50); Eosinophils % (auto) 3.5 %; Est GFR (Non-African American) 35.4 ml/min; Hematocrit (blood only) 40.4 % (37.0-47.0); Hemoglobin 12.9 g/dl (12.0-16.0); Immature Granulocytes # (auto) 0.04 K/uL (0.01-0.20); Immature Granulocytes % (auto) 0.3 %; Lymphocytes # (auto) 2.82 K/uL (1.20-3.40); Lymphocytes % (auto) 22.9 %; Magnesium 1.7 mg/dl (1.7-2.4); Mean Corpuscular Hemoglobin 30.4 pg (25.0-34.0); Mean Corpuscular Hgb Conc 31.9 g/dL (32.0-36.0); Mean Corpuscular Volume 95.3 fL (80.0-100.0); Mean Platelet Volume 10.3 fL (9.4-12.4); Monocytes # (auto) 1.26 K/uL (0.11-0.59); Monocytes % (auto) 10.2 %; Neutrophils # (auto) 7.71 K/uL (1.40-6.50); Neutrophils % (auto) 62.7 %; Platelet Count 289 K/uL (130-400); Potassium 4.4 mmol/L (3.5-5.1); RDW Coefficient of Variation 13.1 % (11.5-14.5); RDW Standard Deviation 45.7 fL (36.4-46.3); Red Blood Count 4.24 M/uL (4.20-5.40); Total Protein 6.6 gm/dl (6.0-8.3); White Blood Count 12.31 K/ul (4.8-10.8)
[2023-10-08 15:10] LABS: Troponin I High Sensitivity 17.2 pg/ml (0-14)
[2023-10-08] MEDS: SODIUM CHLORIDE 0.9% 500 ML IV ONE (15:14)
[2023-10-08] MEDS: ALBUT/IPRATROP 3MG/0.5MG NEB 3 ML VIAL NEB STA (15:15)
[2023-10-08] MEDS: ACETAMINOPHEN 325 MG TAB PO STA (15:15)
[2023-10-08 15:48] LABS: Base Excess VBG 2.7 mEq/L; HCO3 VBG 29 mmol/L; Oxygen Saturation VBG < 60.0 %; PCO2 VBG 50 mmHg (38-50); PO2 VBG < 20 mmHg; pH VBG 7.37 (7.36-7.41)
[2023-10-08 15:52] LABS: Adenovirus PCR Not Detected (NotDetected); Bordetella parapertussis PCR Not Detected (NotDetected); Bordetella pertussis PCR Not Detected (NotDetected); Chlamydia pneumoniae PCR Not Detected (NotDetected); Coronavirus 229E PCR Not Detected (NotDetected); Coronavirus CoV-2 (COVID19)PCR Not Detected (NotDetected); Coronavirus HKU1 PCR Not Detected (NotDetected); Coronavirus NL63 PCR Not Detected (NotDetected); Coronavirus OC43PCR Not Detected (NotDetected); Human Metapneumovirus PCR Not Detected (NotDetected); Influenza A PCR Not Detected (NotDetected); Influenza B PCR Not Detected (NotDetected); Mycoplasma pneumoniae PCR Not Detected (NotDetected); Parainfluenza Virus 1 PCR Not Detected (NotDetected); Parainfluenza Virus 2 PCR Not Detected (NotDetected); Parainfluenza Virus 3 PCR Not Detected (NotDetected); Parainfluenza Virus 4 PCR Not Detected (NotDetected); Respiratory Syncytial VirusPCR Not Detected (NotDetected); Rhinovirus/Enterovirus PCR Not Detected (NotDetected)
[2023-10-08 15:54] LABS: Partial Thromboplastin Time 26 Seconds (21-31); Prothrombin Time 10.7 Seconds (9.0-12.0)
--- NOTE | 2023-10-08 15:58 | XRay Report ---
XR chest 1V portable HISTORY: Sepsis COMPARISON: Chest 09/28/2023. FINDINGS: Rotated study. No pneumothorax. The heart is mildly enlarged. There are old right-sided rib fractures again noted. There is mild central pulmonary vascular congestion without overt edema. Biba silar densities are nonspecific but favor subsegmental atelectasis. No definite pleural effusions. Th ere are low lung volumes. IMPRESSION: 1. Rotated study. 2. Cardiomegaly with mild congestive change. 3. Bibasilar linear densities are nonspecific but favor atelectasis. A superimposed pneumonia would b e difficult to exclude. ACT 112: Negative or not required by law. Electronically signed by: Eduin Suazo M.D. 10/08/2023 3:56 PM
[2023-10-08] MEDS: cefTRIAXone SODIUM 2,000 MG/50 ML BAG IV STA (16:27)
--- NOTE | 2023-10-08 17:07 | History & Physical Report ---
Date of Service October 08, 2023 Assessment & Plan (1) Aspiration pneumonia: Plan: Productive cough + diarrhea x 1 week Patient vomited shortly after hospital discharge on Friday 09/29; concern for aspiration CXR on arrival cannot exclude superimposed pneumonia BioFire negative Leukocytosis 12.31 with a neutrophil predominance Cefepime + Metronidazole q8h Acetaminophen as needed for pain/fever Zofran as needed for nausea/vomiting A.m. CBC, BMP (2) Sepsis: Plan: Pulmonary source; hypertensive on arrival, but febrile, tachypneic, with leukocytosis Procalcitonin and lactate WNL Blood cultures ordered, pending Sputum culture ordered, pending No history of heart failure last echo in April 2023 revealed LVEF at 5560% IVF with 1500 mL fluid bolus to meet 30cc/kg for ideal body weight Continue gentle IVF overnight with Plasma-Lyte at 100mL/hr x 1L (3) Acute hypoxic respiratory failure: Plan: 87% on RA on arrival No supplemental oxygen at baseline Titrate somewhat oxygen to maintain SpO2 >94% Continuous pulse oximetry (4) Diarrhea: Plan: Recent antibiotic use and hospitalization PCR stool/C. difficile ordered, pending If C. Diff (+) will add vancomycin 125 mg p.o. QID + isolation precautions (5) CKD (chronic kidney disease) stage 4, GFR 15-29 ml/min: Plan: Avoid nephrotoxic agents for possible Hold losartan Plan Disposition: Admit to PCU telemetry DNR/DNI Heart healthy diet, easy to chew (aspiration precautions) VTE PPx: Heparin 5000u SQ q12h History of Present Illness Chief Complaint: SOB/Dyspnea Primary Care Provider: Kassidy Cruz DO Natalia is an 87-year-old female with PMH of HTN, frequent UTIs, pneumonia, vit D deficiency, osteoarthritis, incontinence, incomplete bladder emptying, SCC, BCC, DVT, and CKD stage IV. She presented from [facility] on 10/07 for nausea, productive cough, and diarrhea x 1 week. Recent [place] admission from 09/27 - 09/29 for acute UTI. Patient's family is at bedside and provides additional history. The patient reports that she came in today for diarrhea x 1 week. The stool is liquidy and mucousy, and patient's [id number] (who is a nurse) says it does have a distinct smell to it. No blood in her stool. She is having 3-4 episodes of diarrhea per day. Patient's son also notes that she went to [facility] this morning, and was unstable walking with her cane. On arrival, patient was 87% on RA. No supplemental oxygen at baseline. When asked if patient vomited since leaving the hospital, she reports that she went to [employer] shortly after discharge and had 3 episodes of vomiting Monday afternoon and Monday morning. Patient has been taking prune juice for her diarrhea. No prior history of C. difficile infections. She does have a history of frequent UTIs, and has been rotating between antibiotics over the past few years, and was recently on antibiotics in the hospital. Regarding her penicillin allergy, she denies history of anaphylaxis, throat closure, or hives; believes she usually just gets nauseous when taking. She denies smoking, drug use, recent alcohol use. Patient is hypertensive at 156/70, tachypneic at 28 RPM, and febrile at 38.3 C at time of admission; SpO2 93% on 2L NC. ED course: DuoNeb 3 mL Acetaminophen 650 mg p.o. NSS 500 mL IV Ceftriaxone 2000 mg IV ROS: Patient endorses productive cough (yellow; ongoing), dizziness/lightheadedness, liquidy/mucousy diarrhea, and vomiting x 3 episodes 1 week ago (after eating [employer]). Patient denies fever, chills, night-sweats, rashes, tick bites, chest pain, chest palpitations, pleuritic CP, hemoptysis, SOB at rest or with exertion, burning with urination, dysuria, suprapubic tenderness, blood in the urine/stool, saddle anesthesia, lower back pain, or numbness/tingling in the arms or legs. Allergies Allergy/AdvReac Type Severity Reaction Status Date / Time Penicillins Allergy Unknown Unknown Verified 10/08/23 15:57 Sulfa (Sulfonamide Allergy Unknown COMA , Verified 10/08/23 15:57 Antibiotics) REACTION WHEN A CHILD ciprofloxacin [From Cipro] AdvReac Mild NAUSEA, Verified 10/08/23 15:57 HEEL AND KNEE PAIN cefuroxime AdvReac Unknown Vomiting Verified 10/08/23 15:57 Home Medications Medication Instructions Recorded Confirmed Type ascorbic acid (vitamin C) 500 mg 500 mg PO DAILY 01/23/18 10/08/23 History tablet cyanocobalamin (vitamin B-12) 1,000 mcg PO DAILY 10/21/19 10/08/23 History 1,000 mcg tablet (Vitamin B-12) carvedilol 3.125 mg tablet 3.125 mg PO BID 05/21/20 10/08/23 History losartan 50 mg tablet 50 mg PO QDL 05/21/20 10/08/23 History amitriptyline 10 mg tablet 5 mg PO HS 05/12/23 10/08/23 History cholecalciferol (vitamin D3) 50 50 mcg PO DAILY 05/12/23 10/08/23 History mcg (2,000 unit) tablet (Vitamin D3) solifenacin 5 mg tablet (Vesicare) 5 mg PO QAM #30 tabs 08/30/23 10/08/23 Rx Probiotic Product 1 tab PO QAM 09/28/23 10/08/23 History acetaminophen 325 mg tablet 650 mg PO Q4 PRN Mild Pain (Scale 09/28/23 10/08/23 History Score 1-4) aspirin 81 mg tablet,delayed 81 mg PO DAILY 09/28/23 10/08/23 History release calcium carbonate 1,000 mg PO DAILY 09/28/23 10/08/23 History famotidine 10 mg tablet 10 mg PO BID 09/28/23 10/08/23 History gabapentin 100 mg capsule 100 mg PO QAM 09/28/23 10/08/23 History multivitamin with minerals 1 tab PO DAILY 09/28/23 10/08/23 History (Multiple Vitamin-Minerals tablet) nitrofurantoin 100 mg PO DAILY 09/28/23 10/08/23 History monohydrate/macrocrystals 100 mg capsule tramadol 50 mg tablet 50 mg PO Q8 PRN Moderate Pain 09/28/23 10/08/23 History (pain scale 4-10) cephalexin 500 mg capsule 500 mg PO UD 10/08/23 10/08/23 History cranberry 500 mg capsule 500 mg PO DAILY 10/08/23 10/08/23 History Past Med/Surg History Problem List (Updated 10/08/23 @ 18:10 by Eduin Haile PA-C) Sepsis Aspiration pneumonia Acute hypoxic respiratory failure Diarrhea (Acute) Hypoxia (Acute) Pneumonia (Acute) Acute UTI (urinary tract infection) (Acute) Generalized weakness (Acute) Acute deep vein thrombosis (DVT) of left lower extremity (Acute) CKD (chronic kidney disease) stage 4, GFR 15-29 ml/min Left leg DVT Dietary counseling and surveillance Obesity (BMI 30.0-34.9) Left Achilles tendinitis Lower back pain History of prolapse of bladder (Chronic) Frequent UTI (Chronic) Multiple drug allergies Abdominal bloating (Acute) Acid reflux disease (Acute) Chronic interstitial cystitis (Chronic) Dyslipidemia (Acute) Gait apraxia (Acute) Gross hematuria (Acute) History of SCC (squamous cell carcinoma) of skin (Acute) History of basal cell carcinoma (Acute) Hypercalcemia (Acute) Incomplete bladder emptying (Acute) Incontinence (Chronic) Lesion of bladder (Acute) Osteoarthritis of knee (Acute) Osteopenia (Acute) Postmenopausal atrophic vaginitis (Chronic) Raynauds phenomenon (Acute) Seborrheic dermatitis (Acute) Vitamin D deficiency (Acute) Constipation Encounter for pre-operative examination Atelectasis (Acute) History of total bilateral knee replacement (TKR) Fall Multiple rib fractures (Acute) Contusion of chest (Acute) Left knee DJD (Acute) HTN (hypertension) (Chronic) Syncope and collapse Medical History TIA (transient ischemic attack) (HFpEF) heart failure with preserved ejection fraction Hx of recurrent urinary tract infection Status post angiography of extremity Hx of deep venous thrombosis Acute hypoxemic respiratory failure Acute exacerbation of CHF (congestive heart failure) Non-ST elevation LA (NSTEMI) Surgical History History of vaginal surgery 2009 bladder prolapse surgery with mesh placement H/O wisdom tooth extraction Family History Other Family history non-contributory Denies family history of Ovarian cancer Breast cancer Colorectal cancer Social History Smoking Status: Never smoker Second Hand Exposure: No; Do You Dip or Chew Tobacco: No; Hx Alcohol Use: No Hx Substance Use: No Preferred Language: Occitan Communication Ability: Effective Visual Impairment: No Limitations Remote Broadcast Technician Required: No Beliefs That Will Affect Care: None marital status: / Current Living Situation: Prison Current Living Situation Comment: [place] Feels Safe at Home: Yes Safety Concerns: Feels Safe At This Time Assistive Devices: Glasses, Hearing Aid - Bilateral and Walker Review of Systems Review of Systems: See HPI above Physical Exam Physical Exam: General: no acute distress; lethargic; pleasant affect; non-toxic appearing; well-nourished; cooperative; SpO2 94% on 2L NC HEENT: normocephalic, atraumatic; no scleral icterus; PERRLA; vision and hearing grossly intact Neck: supple; no lymphadenopathy; trachea midline Skin: Skin is warm to touch; moist; no cyanosis; no rashes, bruising, lesions, or erythema noted CV: chest wall NTP; RRR; S1/S2 normal; no murmurs/rubs/gallops; pulses intact and symmetric at radial, DP, and PT Lungs: no acute respiratory distress; symmetrical chest wall expansion; diminished breath sounds across all lung tinajero w/o adventitious sounds; no wheezing ABD: Soft, LUQ is TTP; BS present; no rebound/guarding; no distention; no signs of rashes or bruising on the abdomen or flanks MSK: no tics or fasciculations; no edema noted in the LEs b/l, nonerythematous Neuro: A&Ox3; normal mood and affect; fluent speech; no focal deficits; sensation grossly intact in the LEs b/l Results & Data Results & Data Vital Signs (Past 12 Hours) Vital Signs Temp Pulse Pulse Resp BP BP Pulse Ox 10/08/23 14:59 82 10/08/23 14:46 87 28 H 93 10/08/23 14:39 10/08/23 14:39 87 28 H 156/70 H 88 L 10/08/23 14:39 10/08/23 14:39 38.3 C H 87 28 H 156/70 H 87 L O2 Del Method O2 Flow Rate 10/08/23 14:59 10/08/23 14:46 Room Air 2 10/08/23 14:39 Room Air 10/08/23 14:39 Room Air 10/08/23 14:39 Room Air 10/08/23 14:39 Room Air Laboratory Results Abnormal lab results 10/08/23 Range/Units 14:35 WBC 12.31 H (4.8-10.8) K/ul MCHC 31.9 L (32.0-36.0) g/dL Neut # (Auto) 7.71 H (1.40-6.50) K/uL [place] # (Auto) 1.26 H (0.11-0.59) K/uL BUN 25 H (6-23) mg/dl Creatinine 1.33 H (0.6-1.2) mg/dl Glucose 134 H (70-99(Fasting)) mg/dl Troponin I High Sens 17.2 H (0-14) pg/ml Diagnostic Findings Chest X-Ray 10/08/23 14:46 XR chest 1V portable HISTORY: Sepsis COMPARISON: Chest 09/28/2023. FINDINGS: Rotated study. No pneumothorax. The heart is mildly enlarged. There are old right-sided rib fractures again noted. There is mild central pulmonary vascular congestion without overt edema. Bibasilar densities are nonspecific but favor subsegmental atelectasis. No definite pleural effusions. There are low lung volumes. IMPRESSION: 1. Rotated study. 2. Cardiomegaly with mild congestive change. 3. Bibasilar linear densities are nonspecific but favor atelectasis. A superimposed pneumonia would be difficult to exclude. ACT 112: Negative or not required by law. Electronically signed by: Eduin Suazo M.D. 10/08/2023 3:56 PM ECG Additional Comments: ECG revealed sinus rhythm with first-degree AV block at 83 bpm; QTc 418 Code Status & VTE Plan Code Status DNR/DNI VTE Prophylaxis Plan VTE Prophylaxis will be ordered: Yes Supervising Physician Co-Signing Physician Notes Patient seen and examined, chart reviewed, case discussed with Eduin Haile PA-C and I agree with the assessment and plan as above except as otherwise noted Labs and images reviewed 87yo F recently admitted and treated for UTI presents w/ cough, nausea, diarrhea. ?PNA on CXR with productive cough after vomiting. Hypoxic. Agree w/ treatment for PNA with aspiration coverage. Given diarrhea post-abx will check for c. diff. If positive will add precautions and Vanc 125mg PO QID. additional liter ordered to meet sepsis guidelines as patient is febrile, tachypneic, and tachycardic. No history of CHF. Agree w/ above. PG Care Time/CCT Total # of Minutes Spent Total Time Spent with Patient: Total time spent is greater than 50% in coordination of care (as documented) at patient's floor/unit and/or counseling patient: Coding [place] [address] INT INP/OBS CARE MIN Patient Type Established Medical Decision Making High Complexity Diagnoses Aspiration pneumonia J69.0 Sepsis A41.9 Acute hypoxic respiratory failure J96.01 Diarrhea R19.7 Diarrhea type: unspecified type CKD (chronic kidney disease) stage 4, GFR 15-29 ml/min N18.4 (4) Diarrhea Diarrhea type: unspecified type Qualified Code(s): R19.7 - Diarrhea, unspecified
[2023-10-08] MEDS: PLASMA-LYTE A 1,000 ML IV ONE (18:18)
[2023-10-08] MEDS: metroNIDAZOLE 500 MG/100 ML BAG IV STA (18:18)
[2023-10-08] MEDS ORDERED: ACETAMINOPHEN 325 MG TAB PO PRN (19:09)
[2023-10-08] MEDS ORDERED: traMADol HCL 50 MG TABLET PO PRN (19:09)
[2023-10-08] MEDS: CEFEPIME 2,000 MG in SYRINGE 0 ML IV STA (19:26)
[2023-10-08] MEDS: PLASMA-LYTE A 1,000 ML IV SCH (19:33)
[2023-10-08] MEDS: carvediloL 3.125 MG TAB PO SCH (20:15)
[2023-10-08] MEDS: HEPARIN SOD 5,000 UNIT/0.5 ML VIAL SQ SCH (20:16)
[2023-10-08] MEDS: FAMOTIDINE 10 MG TABLET PO SCH (20:16)
[2023-10-08] MEDS: AMITRIPTYLINE HCL 10 MG TAB PO SCH (20:16)
[2023-10-09] MEDS: metroNIDAZOLE 500 MG/100 ML BAG IV SCH (02:39)
[2023-10-09] MEDS: CEFEPIME 2,000 MG in SYRINGE 0 ML IV SCH ×2 (02:39→19:26)
[2023-10-09 08:23] LABS: Basophils # (auto) 0.04 K/uL (0.00-0.20); Basophils % (auto) 0.5 %; Eosinophils # (auto) 0.49 K/uL (0.00-0.50); Eosinophils % (auto) 5.6 %; Hematocrit (blood only) 39.8 % (37.0-47.0); Hemoglobin 12.5 g/dl (12.0-16.0); Immature Granulocytes # (auto) 0.03 K/uL (0.01-0.20); Immature Granulocytes % (auto) 0.3 %; Lymphocytes # (auto) 1.87 K/uL (1.20-3.40); Lymphocytes % (auto) 21.3 %; Mean Corpuscular Hemoglobin 29.8 pg (25.0-34.0); Mean Corpuscular Hgb Conc 31.4 g/dL (32.0-36.0); Mean Corpuscular Volume 94.8 fL (80.0-100.0); Mean Platelet Volume 10.1 fL (9.4-12.4); Monocytes # (auto) 0.83 K/uL (0.11-0.59); Monocytes % (auto) 9.4 %; Neutrophils # (auto) 5.53 K/uL (1.40-6.50); Neutrophils % (auto) 62.9 %; Platelet Count 263 K/uL (130-400); RDW Coefficient of Variation 13.1 % (11.5-14.5); RDW Standard Deviation 45.6 fL (36.4-46.3); White Blood Count 8.79 K/ul (4.8-10.8)
[2023-10-09 08:37] LABS: BUN Creatinine Ratio 17.5 (10-20); Calcium 8.8 mg/dl (8.6-10.3); Creatinine Clr Calc Pharmacy 31.5 ml/min; Est GFR (African American) 49.4 ml/min; Est GFR (Non-African American) 42.6 ml/min; Potassium 4.3 mmol/L (3.5-5.1)
[2023-10-09] MEDS: ASPIRIN 81 MG ECTAB PO SCH (09:27)
--- NOTE | 2023-10-09 09:27 | Electrocardiogram Report ---
Test Reason : Blood Pressure : */* mmHG Vent. Rate : 83 BPM Atrial Rate : 83 BPM P-R Int : 230 ms QRS Dur : 96 ms QT Int : 356 ms P-R-T Axes : 57 3 11 degrees QTcB Int : 418 ms Sinus rhythm with 1st degree A-V block Abnormal ECG When compared with ECG of 28-Sep-2023 18:07, No significant change was found Confirmed by Ivan May ([id number]) on 10/09/2023 9:26:59 AM Referred By: Margaret doss [facility] Confirmed By: Ivan May
[2023-10-09] MEDS: GABAPENTIN 100 MG CAP PO SCH (09:28)
[2023-10-09] MEDS: CHOLECALCIFEROL 25 MCG (1000 UNITS) TAB PO SCH (09:28)
[2023-10-09] MEDS: CYANOCOBALAMIN (B-12) 500 MCG TABLET PO SCH (09:28)
[2023-10-09] MEDS: ADVANCED PROBIOTIC 625 MG CAPSULE PO SCH (09:28)
--- NOTE | 2023-10-09 12:27 | Hospitalist Progress Note ---
Date of Service October 09, 2023 Assessment & Plan (1) Aspiration pneumonia: Plan: Productive cough + diarrhea x 1 week, Patient vomited shortly after hospital discharge on Friday 09/29; concern for aspiration CXR on arrival cannot exclude superimposed pneumonia BioFire negative Reviewed CBC 10/08: WBC WNL. Discontinued cefepime, flagyl. Patient started on vancomycin for C diff infection. Acetaminophen as needed for pain/fever Zofran as needed for nausea/vomiting A.m. CBC, BMP (2) Sepsis: Plan: hypertensive on arrival, but febrile, tachypneic, with leukocytosis Procalcitonin and lactate WNL Blood cultures ordered, pending Sputum culture ordered, pending Stool studies + c diff, GI panel negative -started vancomycin Q6h 10/08 No history of heart failure last echo in April 2023 revealed LVEF at 5560% s/p 2.5L IVF (3) Acute hypoxic respiratory failure: Plan: 87% on RA on arrival No supplemental oxygen at baseline Titrate somewhat oxygen to maintain SpO2 >94% Continuous pulse oximetry (4) Diarrhea: Plan: Recent antibiotic use and hospitalization PCR stool/C. difficile ordered C diff toxin Positive Vancomycin Q6h started 10/08 (5) CKD (chronic kidney disease) stage 4, GFR 15-29 ml/min: Plan: BUN/Creatine elevation of 25/1.33 at time of admission. Reviewed BMP 10/08: creatinine WNL at 1.14 and BUN WNL at 20, electrolytes stable Losartan held, patient remains hypertensive, consider resuming outpatient dosage. AM BMP Plan Disposition: Admit to PCU telemetry DNR/DNI Heart healthy diet, easy to chew (aspiration precautions) VTE PPx: Heparin 5000u SQ q12h Discussed with son plan of care at bedside 10/08 Admission and Anticipated Discharge Date Admission Date: October 08, 2023 Subjective Patient seen and examined this morning at bedside. Patient has been experiencing diarrhea since her last admission. She has been defecating about 3-4 times a day. Patient reports she is incontinent of stool when standing and walking as well. Denies any melena or hematochezia. She denied nausea, vomiting, chest pain, shortness of breath today. Denied abdominal pain. On Room air at time of encounter. Physical Exam 2 Constitutional: WD/WN, vitals as above Eyes: PERRL, conjunctivae normal, anicteric sclerae Respiratory: normal respiratory effort, lungs clear to auscultation Cardiovascular: RRR, no murmur, no edema Gastrointestinal (Abdomen): normal bowel sounds, soft, nontender, no hepatosplenomegaly Skin: no rashes, warm and dry Psychiatric: A+Ox3, euthymic affect Results & Data Results & Data Vital Signs (Past 12 Hours) Vital Signs Temp Pulse Resp BP Pulse Ox O2 Del Method 10/09/23 11:28 37.1 C 95 H 17 161/94 H 91 Room Air 10/09/23 08:10 36.7 C 92 H 18 157/86 H 93 Room Air 10/09/23 07:21 Room Air 10/09/23 03:05 36.5 C 80 18 146/72 H 95 Nasal Cannula Laboratory Results 10/09/23 07:42 10/09/23 07:42 PG Care Time/CCT Total # of Minutes Spent Total Time Spent with Patient: Total time spent is greater than 50% in coordination of care (as documented) at patient's floor/unit and/or counseling patient: Coding Level of Care Code 05753 SUB INP/OBS CARE 3/50MIN Diagnoses Aspiration pneumonia due to gastric secretions, unspecified laterality, unspecified part of lung J69.0 Aspiration pneumonia type: due to gastric secretions Laterality: unspecified laterality Lung location: unspecified part of lung Sepsis, due to unspecified organism, unspecified whether acute organ dysfunction present A41.9 Sepsis acute organ dysfunction status: unspecified Sepsis type: sepsis due to unspecified organism Acute hypoxic respiratory failure J96.01 Diarrhea R19.7 Diarrhea type: unspecified type CKD (chronic kidney disease) stage 4, GFR 15-29 ml/min N18.4 (1) Aspiration pneumonia Aspiration pneumonia type: due to gastric secretions Laterality: unspecified laterality Lung location: unspecified part of lung Qualified Code(s): J69.0 - Pneumonitis due to inhalation of food and vomit (2) Sepsis Sepsis acute organ dysfunction status: unspecified Sepsis type: sepsis due to unspecified organism Qualified Code(s): A41.9 - Sepsis, unspecified organism (4) Diarrhea Diarrhea type: unspecified type Qualified Code(s): R19.7 - Diarrhea, unspecified
[2023-10-09 14:35] LABS: Cdiff Toxin B Gene (2yr or >) Positive Cdiff Gene (Neg)
[2023-10-09 14:50] LABS: Adenovirus F 40/41 PCR Not Detected (NotDetected); Astrovirus PCR Not Detected (NotDetected); Campylobacter PCR Not Detected (NotDetected); Cryptosporidium PCR Not Detected (NotDetected); Cyclospora cayetanensis PCR Not Detected (NotDetected); Entamoeba histolytica PCR Not Detected (NotDetected); Enteroaggregative E.coli(EAEC) Not Detected (NotDetected); Enteropathogenic E.coli (EPEC) Not Detected (NotDetected); Enterotoxigenic E.coli (ETEC) Not Detected (NotDetected); Giardia lamblia PCR Not Detected (NotDetected); Norovirus GI/GII PCR Not Detected (NotDetected); Plesiomonas shigelloides PCR Not Detected (NotDetected); Rotavirus A PCR Not Detected (NotDetected); Salmonella PCR Not Detected (NotDetected); Sapovirus PCR Not Detected (NotDetected); Shiga-like Toxin E.coli (STEC) Not Detected (NotDetected); Shigella/Enteroinvasive E.coli Not Detected (NotDetected); Vibrio cholerae PCR Not Detected (NotDetected); Vibrio species PCR Not Detected (NotDetected); Yersinia enterocolitica PCR Not Detected (NotDetected)
[2023-10-09 14:52] LABS: Cdiff Antigen Positive
[2023-10-09 14:54] LABS: Cdiff Toxin A+B Positive Cdiff Toxin (Negative)
[2023-10-09] MEDS: LOSARTAN POTASSIUM 50 MG TAB PO SCH (18:41)
[2023-10-09] MEDS: CHERRY SYRUP 5 ML UDP PO SCH (18:44)
[2023-10-09] MEDS: VANCOMYCIN HCL 125 MG/2.5ML SOLN PO SCH (18:44)
[2023-10-10 08:27] LABS: Basophils # (auto) 0.04 K/uL (0.00-0.20); Basophils % (auto) 0.5 %; Eosinophils # (auto) 0.67 K/uL (0.00-0.50); Eosinophils % (auto) 7.6 %; Hematocrit (blood only) 36.2 % (37.0-47.0); Hemoglobin 11.7 g/dl (12.0-16.0); Immature Granulocytes # (auto) 0.04 K/uL (0.01-0.20); Immature Granulocytes % (auto) 0.5 %; Lymphocytes # (auto) 2.53 K/uL (1.20-3.40); Lymphocytes % (auto) 28.7 %; Mean Corpuscular Hemoglobin 29.8 pg (25.0-34.0); Mean Corpuscular Hgb Conc 32.3 g/dL (32.0-36.0); Mean Corpuscular Volume 92.3 fL (80.0-100.0); Mean Platelet Volume 9.5 fL (9.4-12.4); Monocytes # (auto) 0.96 K/uL (0.11-0.59); Monocytes % (auto) 10.9 %; Neutrophils # (auto) 4.58 K/uL (1.40-6.50); Neutrophils % (auto) 51.8 %; Platelet Count 270 K/uL (130-400); RDW Standard Deviation 44.4 fL (36.4-46.3); Red Blood Count 3.92 M/uL (4.20-5.40); White Blood Count 8.82 K/ul (4.8-10.8)
[2023-10-10 08:34] LABS: BUN Creatinine Ratio 15.5 (10-20); Calcium 8.7 mg/dl (8.6-10.3); Creatinine Clr Calc Pharmacy 30.8 ml/min; Est GFR (African American) 48.3 ml/min; Est GFR (Non-African American) 41.7 ml/min; Potassium 3.9 mmol/L (3.5-5.1)
--- NOTE | 2023-10-10 10:30 | Discharge Summary ---
Discharge Summary Date of Service October 10, 2023 Principal Dx & Hospital Course #1 = Principal Diagnosis (1) Aspiration pneumonia: Productive cough + diarrhea x 1 week, Patient vomited shortly after hospital discharge on Friday 09/29; concern for aspiration CXR on arrival cannot exclude superimposed pneumonia BioFire negative Reviewed CBC 10/08: WBC WNL. Discontinued cefepime, flagyl. Patient started on vancomycin for C diff infection. Acetaminophen as needed for pain/fever Zofran as needed for nausea/vomiting A.m. CBC, BMP (2) Sepsis: hypertensive on arrival, but febrile, tachypneic, with leukocytosis Procalcitonin and lactate WNL Blood cultures ordered, pending Sputum culture ordered, pending Stool studies + c diff, GI panel negative -started vancomycin Q6h 10/08 No history of heart failure last echo in April 2023 revealed LVEF at 5560% s/p 2.5L IVF (3) Acute hypoxic respiratory failure: 87% on RA on arrival No supplemental oxygen at baseline Titrate somewhat oxygen to maintain SpO2 >94% Continuous pulse oximetry (4) Diarrhea: Recent antibiotic use and hospitalization PCR stool/C. difficile ordered C diff toxin Positive Vancomycin Q6h started 10/08 (5) CKD (chronic kidney disease) stage 4, GFR 15-29 ml/min: BUN/Creatine elevation of 25/1.33 at time of admission. Reviewed BMP 10/08: creatinine WNL at 1.14 and BUN WNL at 20, electrolytes stable Losartan held, patient remains hypertensive, consider resuming outpatient dosage. AM BMP Plan Disposition: Admit to PCU telemetry DNR/DNI Heart healthy diet, easy to chew (aspiration precautions) VTE PPx: Heparin 5000u SQ q12h Discussed with son plan of care at bedside 10/08 Admission HPI Per Admitting Provider Natalia is an 87-year-old female with PMH of HTN, frequent UTIs, pneumonia, vit D deficiency, osteoarthritis, incontinence, incomplete bladder emptying, SCC, BCC, DVT, and CKD stage IV. She presented from [facility] on 10/07 for nausea, productive cough, and diarrhea x 1 week. Recent [place] admission from 09/27 - 09/29 for acute UTI. Patient's family is at bedside and provides additional history. The patient reports that she came in today for diarrhea x 1 week. The stool is liquidy and mucousy, and patient's [id number] (who is a nurse) says it does have a distinct smell to it. No blood in her stool. She is having 3-4 episodes of diarrhea per day. Patient's son also notes that she went to [employer] this morning, and was unstable walking with her cane. On arrival, patient was 87% on RA. No supplemental oxygen at baseline. When asked if patient vomited since leaving the hospital, she reports that she went to [employer] shortly after discharge and had 3 episodes of vomiting Monday afternoon and Monday morning. Patient has been taking prune juice for her diarrhea. No prior history of C. difficile infections. She does have a history of frequent UTIs, and has been rotating between antibiotics over the past few years, and was recently on antibiotics in the hospital. Regarding her penicillin allergy, she denies history of anaphylaxis, throat closure, or hives; believes she usually just gets nauseous when taking. She denies smoking, drug use, recent alcohol use. Patient is hypertensive at 156/70, tachypneic at 28 RPM, and febrile at 38.3 C at time of admission; SpO2 93% on 2L NC. ED course: DuoNeb 3 mL Acetaminophen 650 mg p.o. NSS 500 mL IV Ceftriaxone 2000 mg IV ROS: Patient endorses productive cough (yellow; ongoing), dizziness/lightheadedness, liquidy/mucousy diarrhea, and vomiting x 3 episodes 1 week ago (after eating [employer]). Patient denies fever, chills, night-sweats, rashes, tick bites, chest pain, chest palpitations, pleuritic CP, hemoptysis, SOB at rest or with exertion, burning with urination, dysuria, suprapubic tenderness, blood in the urine/stool, saddle anesthesia, lower back pain, or numbness/tingling in the arms or legs. Discharge Plan Discharge Items Patient Disposition: Personal Alf Reason For Visit: ASA PNA, DIARRHEA Discharge Diagnosis: C diff, aspiration pneumonia Activity: Resume your previous activity Non-emergency contact: Primary Care Provider Call non-emergency contact if: you have any medication questions and your symptoms worsen Follow-up/Referrals: Kassidy Cruz DO [Primary Care Provider] - Diet: Heart Healthy Diet Texture: Easy to Chew Addtl Attending Provider Instructions: Ms. Jc, You were recently hospitalized for diarrhea, nausea, and vomiting. You were found to have aspirated your gastric contents which caused aspiration pneumonia. This was treated supportively with oxygen and antibiotics. You are now back on room air and denied any shortness of breath. You were also found to have tested positive for C difficle which is a bacteria stool infection. This was caused either by your recent hospitalization or recent antibiotic use. Please see recommendations below regarding your discharge. 1. Please take Vancomycin four times daily for the next 9 days -Take with food to avoid GI upset -Your next dose will be this afternoon 10/09. 2. Continue previous outpatient medications as prescribed. 3. You will receive physical therapy and occupational therapy at your home. If you develop any nausea, vomiting, worsening diarrhea, fever, chills, chest pain, or shortness of breath please report back to the ER for further evaluation. Sincerely, Gaviota Campbell PA-C Pending Studies at Discharge: No Stand-Alone Forms: My [employer], Smoking Cessation Skilled Items Patient informed of condition?: Yes DNR: Yes Discharge Level of Care: Other Communicable Disease: Yes Discharge Prognosis: Improving Lines: None Urinary Catheter: No Medications and DC Order Prescriptions: New vancomycin 125 mg capsule 125 mg PO QID 9 Days Qty: 36 0RF Continued solifenacin [Vesicare] 5 mg tablet 5 mg PO QAM Qty: 30 3RF losartan 50 mg tablet 50 mg PO QDL carvedilol 3.125 mg tablet 3.125 mg PO BID Rx Instructions: must administer with a meal/food ascorbic acid (vitamin C) 500 mg Tablet 500 mg PO DAILY cyanocobalamin (vitamin B-12) [Vitamin B-12] 1,000 mcg Tablet 1,000 mcg PO DAILY famotidine 10 mg Tablet 10 mg PO BID gabapentin 100 mg capsule 100 mg PO QAM tramadol 50 mg tablet 50 mg PO Q8 PRN (Reason: Moderate Pain (pain scale 4-10)) Multiple Vitamin-Minerals Tablet 1 tab PO DAILY Probiotic Product 1 tab PO QAM aspirin 81 mg Tablet,Delayed Release (Dr/Ec) 81 mg PO DAILY calcium carbonate 500 mg calcium (1,250 mg) Tablet 1,000 mg PO DAILY Rx Instructions: 2 tablet dose acetaminophen 325 mg Tablet 650 mg PO Q4 MDD 3g PRN (Reason: Mild Pain (Scale Score 1-4)) cranberry 500 mg Capsule 500 mg PO DAILY Rx Instructions: administer with meals amitriptyline 10 mg tablet 5 mg PO HS cholecalciferol (vitamin D3) [Vitamin D3] 50 mcg (2,000 unit) Tablet 50 mcg PO DAILY Hold Instructions: Resume on 05/24/23. Discontinued nitrofurantoin monohyd/m-cryst 100 mg capsule 100 mg PO DAILY Rx Instructions: take 14 days on and 14 days off for preventative..start 09/13/23 cephalexin 500 mg capsule 500 mg PO UD Rx Instructions: give 1 tabalet by mouth 1 time a day 14 days on 14 days off hold 09/30/23 to 10/03/23 Discharge Orders: Discharge Order (Routine); Ordered 10/10/23 Ordered By: Gaviota Campbell Admission Data Admit Date/Time: 10/08/23 17:43 Attending Provider: Melecio Catalan Admit Provider: Griffin Ho Primary Care Provider: Kassidy Cruz Other Providers: Griffin Ho Hospital Stay Data Consultations 10/08/23 16:15 ED Decision to Admit Stat Pending Results Patient Have Any Pending Studies at Discharge: No Discharge Instructions Given to Patient (Per Discharging Provider) Ms. Jc, You were recently hospitalized for diarrhea, nausea, and vomiting. You were found to have aspirated your gastric contents which caused aspiration pneumonia. This was treated supportively with oxygen and antibiotics. You are now back on room air and denied any shortness of breath. You were also found to have tested positive for C difficle which is a bacteria stool infection. This was caused either by your recent hospitalization or recent antibiotic use. Please see recommendations below regarding your discharge. 1. Please take Vancomycin four times daily for the next 9 days -Take with food to avoid GI upset -Your next dose will be this afternoon 10/09. 2. Continue previous outpatient medications as prescribed. 3. You will receive physical therapy and occupational therapy at your home. If you develop any nausea, vomiting, worsening diarrhea, fever, chills, chest pain, or shortness of breath please report back to the ER for further evaluation. Sincerely, Gaviota Campbell PA-C Coding Diagnoses Aspiration pneumonia due to gastric secretions, unspecified laterality, unspecified part of lung J69.0 Aspiration pneumonia type: due to gastric secretions Laterality: unspecified laterality Lung location: unspecified part of lung Sepsis, due to unspecified organism, unspecified whether acute organ dysfunction present A41.9 Sepsis type: sepsis due to unspecified organism Sepsis acute organ dysfunction status: unspecified Acute hypoxic respiratory failure J96.01 Diarrhea R19.7 Diarrhea type: unspecified type CKD (chronic kidney disease) stage 4, GFR 15-29 ml/min N18.4
--- NOTE | 2023-10-10 14:32 | Hospitalist Progress Note ---
Date of Service October 10, 2023 Assessment & Plan (1) Aspiration pneumonia: Plan: Productive cough + diarrhea x 1 week, Patient vomited shortly after hospital discharge on Friday 09/29; concern for aspiration CXR on arrival cannot exclude superimposed pneumonia BioFire negative Reviewed CBC 10/09: WBC WNL. Discontinued cefepime, flagyl. Patient started on vancomycin for C diff infection. Acetaminophen as needed for pain/fever Zofran as needed for nausea/vomiting (2) Sepsis: Plan: hypertensive on arrival, but febrile, tachypneic, with leukocytosis Procalcitonin and lactate WNL Blood cultures negative at 48 hour pao Sputum culture ordered, pending Stool studies + c diff, GI panel negative -started vancomycin Q6h 10/08 - continued x 10 days No history of heart failure last echo in April 2023 revealed LVEF at 5560% s/p 2.5L IVF (3) Acute hypoxic respiratory failure: Plan: 87% on RA on arrival No supplemental oxygen at baseline Titrate somewhat oxygen to maintain SpO2 >94% Continuous pulse oximetry (4) Diarrhea: Plan: Recent antibiotic use and hospitalization PCR stool/C. difficile ordered C diff toxin Positive Vancomycin Q6h started 10/08 (5) CKD (chronic kidney disease) stage 4, GFR 15-29 ml/min: Plan: BUN/Creatine elevation of 25/1.33 at time of admission. Reviewed BMP 10/09: creatinine WNL at 1.16 and BUN WNL at 18, electrolytes stable Losartan resumed 10/08 Plan Disposition: Hopeful discharge to [facility] 10/10. DNR/DNI Heart healthy diet, easy to chew (aspiration precautions) VTE PPx: Heparin 5000u SQ q12h Discussed with son plan of care at bedside 10/09 Admission and Anticipated Discharge Date Admission Date: October 08, 2023 Subjective Patient seen and examined this morning with son at bedside. Patient reports to be doing well today. She states that since starting the vancomycin she has not had any episodes of diarrhea. She does report she feels stronger today as well. Patients son voiced concerns regarding her returning home to the independent living facility. Patient's son has requested that she be sent to rehab first prior to returning home for therapy. She denied nausea, vomiting, or abdominal pain. Physical Exam 2 Constitutional: WD/WN, vitals as above Eyes: PERRL, conjunctivae normal, anicteric sclerae Respiratory: normal respiratory effort, lungs clear to auscultation Cardiovascular: RRR, no murmur, no edema Gastrointestinal (Abdomen): normal bowel sounds, soft, nontender, no hepatosplenomegaly Skin: no rashes, warm and dry Psychiatric: A+Ox3, euthymic affect Results & Data Results & Data Vital Signs (Past 12 Hours) Vital Signs Temp Pulse Resp BP BP Pulse Ox O2 Del Method 10/10/23 11:19 36.7 C 74 16 127/80 91 Room Air 10/10/23 07:45 36.5 C 65 18 146/77 H 95 Room Air 10/10/23 07:10 Room Air 10/10/23 02:50 36.6 C 73 20 130/76 92 Room Air Laboratory Results 10/10/23 07:59 10/10/23 07:59 PG Care Time/CCT Total # of Minutes Spent Total Time Spent with Patient: Total time spent is greater than 50% in coordination of care (as documented) at patient's floor/unit and/or counseling patient: Coding Level of Care Code 74046 SUB INP/OBS CARE 2/35MIN Diagnoses Aspiration pneumonia due to gastric secretions, unspecified laterality, unspecified part of lung J69.0 Aspiration pneumonia type: due to gastric secretions Laterality: unspecified laterality Lung location: unspecified part of lung Sepsis, due to unspecified organism, unspecified whether acute organ dysfunction present A41.9 Sepsis acute organ dysfunction status: unspecified Sepsis type: sepsis due to unspecified organism Acute hypoxic respiratory failure J96.01 Diarrhea R19.7 Diarrhea type: unspecified type CKD (chronic kidney disease) stage 4, GFR 15-29 ml/min N18.4 (1) Aspiration pneumonia Aspiration pneumonia type: due to gastric secretions Laterality: unspecified laterality Lung location: unspecified part of lung Qualified Code(s): J69.0 - Pneumonitis due to inhalation of food and vomit (2) Sepsis Sepsis acute organ dysfunction status: unspecified Sepsis type: sepsis due to unspecified organism Qualified Code(s): A41.9 - Sepsis, unspecified organism (4) Diarrhea Diarrhea type: unspecified type Qualified Code(s): R19.7 - Diarrhea, unspecified
[2023-10-10] MEDS: ONDANSETRON INJ 2 MG/ML 2 ML VIAL IV PRN (19:36)
[2023-10-11 04:07] LABS: Basophils # (auto) 0.03 K/uL (0.00-0.20); Basophils % (auto) 0.4 %; Eosinophils # (auto) 0.68 K/uL (0.00-0.50); Eosinophils % (auto) 9.1 %; Hematocrit (blood only) 36.3 % (37.0-47.0); Hemoglobin 11.7 g/dl (12.0-16.0); Immature Granulocytes # (auto) 0.05 K/uL (0.01-0.20); Immature Granulocytes % (auto) 0.7 %; Lymphocytes # (auto) 2.89 K/uL (1.20-3.40); Lymphocytes % (auto) 38.5 %; Mean Corpuscular Hemoglobin 30.3 pg (25.0-34.0); Mean Corpuscular Hgb Conc 32.2 g/dL (32.0-36.0); Mean Platelet Volume 9.4 fL (9.4-12.4); Monocytes # (auto) 0.93 K/uL (0.11-0.59); Monocytes % (auto) 12.4 %; Neutrophils # (auto) 2.92 K/uL (1.40-6.50); Neutrophils % (auto) 38.9 %; Platelet Count 269 K/uL (130-400); RDW Coefficient of Variation 13.1 % (11.5-14.5); RDW Standard Deviation 44.9 fL (36.4-46.3); Red Blood Count 3.86 M/uL (4.20-5.40)
[2023-10-11 04:21] LABS: BUN Creatinine Ratio 15.9 (10-20); Calcium 9.3 mg/dl (8.6-10.3); Creatinine Clr Calc Pharmacy 31.6 ml/min; Est GFR (African American) 49.9 ml/min; Est GFR (Non-African American) 43.1 ml/min; Potassium 4.5 mmol/L (3.5-5.1)
[2023-10-11 11:06] VITALS: BP 119/72; PULSE 70; RESP 20; TEMP 98.8; O2SAT 91
--- NOTE | 2023-10-11 11:06 | Discharge Summary ---
Discharge Summary Date of Service October 11, 2023 Principal Dx & Hospital Course #1 = Principal Diagnosis (1) Aspiration pneumonia: Productive cough + diarrhea x 1 week, Patient vomited shortly after hospital discharge on Friday 09/29; concern for aspiration. CXR on arrival could not exclude superimposed pneumonia. BioFire was negative. CBC revealed WNL WBC. She was on cefepime and flagyl but this was discontinued as she tested positive for C diff and was placed on vancomycin. She had Tylenol as needed for pain/fever and Zofran prn for N/V. Patient denied SOB during her hospital stay and returned to room air shortly after her arrival. (2) Sepsis: hypertensive on arrival, but febrile, tachypneic, with leukocytosis. Procal and lactate were WNL. Blood cultures were negative at 48 hour pao. She tested positive for C diff which was likely cause of her symptoms. She was placed on vancomycin Q6h for 10 days that started 10/08. No hx of HF and last echo was in April 2023 that revealed LVEF 55-60%. s/p 2.5L IVF. (3) Acute hypoxic respiratory failure: 87% on RA on arrival. Patient was given O2 via nasal cannula for short period of time with relief of symptoms. She was discharged on room air with no SOB. (4) Diarrhea: Recent antibiotic use and hospitalization. C diff toxin +. Vancomycin started 10/08. (5) CKD (chronic kidney disease) stage 4, GFR 15-29 ml/min: BUN/Creatine elevation of 25/1.33 at time of admission. BMP on day of discharge was WNL. Losartan initially held due to elevated creatinine but resumed on 10/08. Plan Discussed discharge plan with son at bedside 10/10 Discharge Exam Constitutional WD/WN, vitals as above Eyes PERRL, conjunctivae normal, anicteric sclerae Respiratory normal respiratory effort, lungs clear to auscultation Cardiovascular RRR, no murmur, no edema Gastrointestinal (Abdomen) normal bowel sounds, soft, nontender, no hepatosplenomegaly Skin no rashes, warm and dry Psychiatric A+Ox3, euthymic affect Discharge Plan Discharge Items Patient Disposition: Transfer Inpatient Rehab Fac Reason For Visit: ASA PNA, DIARRHEA Discharge Diagnosis: C diff, aspiration pneumonia Activity: Resume your previous activity Non-emergency contact: Primary Care Provider Call non-emergency contact if: you have any medication questions and your symptoms worsen Follow-up/Referrals: Kassidy Cruz DO [Primary Care Provider] - 10/27/23 10:25 am (Hospital f/u scheduled Oct 26 at 10:45am. ) Diet: Heart Healthy Diet Texture: Easy to Chew Addtl Attending Provider Instructions: Ms. Jc, You were recently hospitalized for diarrhea, nausea, and vomiting. You were found to have aspirated your gastric contents which caused aspiration pneumonia. This was treated supportively with oxygen and antibiotics. You are now back on room air and denied any shortness of breath. You were also found to have tested positive for C difficle which is a bacteria stool infection. This was caused either by your recent hospitalization or recent antibiotic use. Please see recommendations below regarding your discharge. 1. Please take Vancomycin four times daily for the next 8 days -Take with food to avoid GI upset -Your next dose will be this afternoon 10/10. 2. Continue previous outpatient medications as prescribed. 3. You will receive physical therapy and occupational therapy at your home. If you develop any nausea, vomiting, worsening diarrhea, fever, chills, chest pain, or shortness of breath please report back to the ER for further evaluation. Sincerely, Gaviota Campbell PA-C Pending Studies at Discharge: No Stand-Alone Forms: My [employer], Smoking Cessation Skilled Items Patient informed of condition?: Yes DNR: Yes Discharge Level of Care: Other Communicable Disease: Yes Discharge Prognosis: Improving Lines: None Urinary Catheter: No Medications and DC Order Prescriptions: New vancomycin 125 mg capsule 125 mg PO Q6H Qty: 32 0RF Continued solifenacin [Vesicare] 5 mg tablet 5 mg PO QAM Qty: 30 3RF losartan 50 mg tablet 50 mg PO QDL carvedilol 3.125 mg tablet 3.125 mg PO BID Rx Instructions: must administer with a meal/food ascorbic acid (vitamin C) 500 mg Tablet 500 mg PO DAILY cyanocobalamin (vitamin B-12) [Vitamin B-12] 1,000 mcg Tablet 1,000 mcg PO DAILY famotidine 10 mg Tablet 10 mg PO BID gabapentin 100 mg capsule 100 mg PO QAM tramadol 50 mg tablet 50 mg PO Q8 PRN (Reason: Moderate Pain (pain scale 4-10)) Multiple Vitamin-Minerals Tablet 1 tab PO DAILY Probiotic Product 1 tab PO QAM aspirin 81 mg Tablet,Delayed Release (Dr/Ec) 81 mg PO DAILY calcium carbonate 500 mg calcium (1,250 mg) Tablet 1,000 mg PO DAILY Rx Instructions: 2 tablet dose acetaminophen 325 mg Tablet 650 mg PO Q4 MDD 3g PRN (Reason: Mild Pain (Scale Score 1-4)) cranberry 500 mg Capsule 500 mg PO DAILY Rx Instructions: administer with meals amitriptyline 10 mg tablet 5 mg PO HS cholecalciferol (vitamin D3) [Vitamin D3] 50 mcg (2,000 unit) Tablet 50 mcg PO DAILY Hold Instructions: Resume on 05/24/23. Discontinued nitrofurantoin monohyd/m-cryst 100 mg capsule 100 mg PO DAILY Rx Instructions: take 14 days on and 14 days off for preventative..start 09/13/23 cephalexin 500 mg capsule 500 mg PO UD Rx Instructions: give 1 tabalet by mouth 1 time a day 14 days on 14 days off hold 09/30/23 to 10/03/23 Discharge Orders: Discharge Order (Routine); Ordered 10/11/23 Ordered By: Gaviota Campbell Admission Data Admit Date/Time: 10/08/23 17:43 Attending Provider: Gina Moncada Admit Provider: Griffin Ho Primary Care Provider: Kassidy Cruz Other Providers: Griffin Ho; [facility] Other Interventions: Discharge Summary Assessment (RN) Last Done: 10/11/23 13:15 Hospital Stay Data Consultations 10/08/23 16:15 ED Decision to Admit Stat Pending Results Patient Have Any Pending Studies at Discharge: No Discharge Instructions Given to Patient (Per Discharging Provider) Ms. Jc, Franko were recently hospitalized for diarrhea, nausea, and vomiting. You were found to have aspirated your gastric contents which caused aspiration pneumonia. This was treated supportively with oxygen and antibiotics. You are now back on room air and denied any shortness of breath. You were also found to have tested positive for C difficle which is a bacteria stool infection. This was caused either by your recent hospitalization or recent antibiotic use. Please see recommendations below regarding your discharge. 1. Please take Vancomycin four times daily for the next 8 days -Take with food to avoid GI upset -Your next dose will be this afternoon 10/10. 2. Continue previous outpatient medications as prescribed. 3. You will receive physical therapy and occupational therapy at your home. If you develop any nausea, vomiting, worsening diarrhea, fever, chills, chest pain, or shortness of breath please report back to the ER for further evaluation. Sincerely, Gaviota Campbell PA-C Total Time Total Time Spent Total Time Spent (In Minutes): 42 Total Time Includes: Examination of the Patient, Discharge Planning and Medication Reconciliation Coding Level of Care Code 78461 INP/OBS DISCH >30 MIN Diagnoses Aspiration pneumonia due to gastric secretions, unspecified laterality, unspecified part of lung J69.0 Aspiration pneumonia type: due to gastric secretions Laterality: unspecified laterality Lung location: unspecified part of lung Sepsis, due to unspecified organism, unspecified whether acute organ dysfunction present A41.9 Sepsis acute organ dysfunction status: unspecified Sepsis type: sepsis due to unspecified organism Acute hypoxic respiratory failure J96.01 Diarrhea R19.7 Diarrhea type: unspecified type CKD (chronic kidney disease) stage 4, GFR 15-29 ml/min N18.4
== END 2023-10-11 14:17 | DRG 871 ==
LOC: ED 14:19 → SUATTDRO 17:43 → 4W 17:43